=== PATIENT | male | born 1950 | race Caucasian/White ===

== ENCOUNTER 2016-10-25 09:31 | Inpatient (IN) | payer MEDICARE, MEDICAID ==
[2016-10-25] VITALS (7 sets, daily range): BP systolic 87–146; BP diastolic 56–81
[~2016-10-25] VITALS: Ht 172.7 cm; Wt 81.6 kg
[~2016-10-25 09:31] MED LIST: ALBUTEROL2.5 MG/3 M INH; CARVEDILOL3.125 MG ORAL; CLONIDINE HCL0.1 MG PO; COLACE100 MG ORAL; COMBIVENT RESPIM4 GM IH; CRANBERRY400 MG PO; CRANBERRY450 M4 PO; DEPAKOTE500 MG PO; DOCUSATE SODIU100 MG ORAL; HEPARIN SO5000 UNIT2 SUBQ; LISINOPRIL5 MG ORAL; MULTIVITAMINS1 EAC8 ORAL; NITROGLYCERIN0.4 MG SL; PEPCID20 MG ORAL; TRAMADOL HCL100 M2 ORAL; TYLENOL650 MG/20. ORAL
[2016-10-25] MEDS ORDERED: NS 0 ML ONE (10:09)
[2016-10-25] MEDS ORDERED: Vancomycin 1gm inj IVPB ONE (10:09)
[2016-10-25] MEDS ORDERED: NS 275 ML ONE (10:09)
[2016-10-25] MEDS ORDERED: Tubing IV Cassette IV ONE (10:09)
[2016-10-25] MEDS ORDERED: Zosyn 2.25gm inj ONE (10:09)
[2016-10-25] MEDS ORDERED: Aztreonam Inj 1 GM in NS 55 ML IV ONE (10:15)
[2016-10-25] MEDS ORDERED: NS 55 ML IV ONE (10:19)
[2016-10-25 10:24] LABS: APPEARANCE,URINE SLIGHTLY CLOUDY; KETONES,URINE 1+ (NEGATIVE); LEUKOCYTE ESTERASE ,URINE 3+ (NEGATIVE); NITRITE,URINE NEGATIVE (NEGATIVE); PH,URINE 5 (4.5-8.0); PROTEIN,URINE 2+ (NEGATIVE); UROBILINOGEN,URINE 1 MG/DL (0.0-1.0)
--- NOTE | 2016-10-25 10:24 | Emergency Room Report ---
History of Present Illness General Chief Complaint: Dyspnea/Respdistress Source: Medical Record, EMS Present Illness HPI 66 YOM BIBEMS from SNF for low O2 sat. Per EMS, patient had "rales" - was given 2x nitro spray. O2 sat on 100% CPAP only to mid-80s. History of CVA, dementia. No history of CHF, COPD/asthma on review of EMR. Patient is aphasic per review of EMR. Rectal temp fever in ED. Allergies: Coded Allergies: AMOXICILLIN (Unverified Allergy, Unknown, 01/13/15) AMPICILLIN (Unverified Allergy, Unknown, 01/13/15) PENICILLINS (Unverified Allergy, Unknown, 01/13/15) PIPERACILLIN (Unverified Allergy, Unknown, 01/13/15) TAZOBACTAM (Unverified Allergy, Unknown, 01/13/15) Uncoded Allergies: PENICILLIN (Allergy, Unknown, 10/25/16) Patient History Past Medical History: CVA/TIA Past Surgical History: other - trach Pertinent Family History: unable to obtain Social History: Denies: alcohol use, drug use, smoking Immunizations: UTD Reviewed Nursing Documentation: PMH: Agreed, PSxH: Agreed Nursing Documentation-PMH Past Medical History: No History, Except For Hx Cardiac Problems: Yes Hx Hypertension: Yes Hx Diabetes: Yes Hx Cancer: No Hx Gastrointestinal Problems: Yes - dysphagia Hx Cerebrovascular Accident: No - BPH, ENCEPHALOPATHY Hx Encephalitis: Yes Hx Seizures: Yes Review of Systems All Other Systems: limited - unable to obtain Physical Exam Vital Signs Date Time Temp Pulse Resp B/P Pulse Ox O2 Delivery O2 Flow Rate FiO2 10/25/16 09:32 96.1 108 32 89/62 96 15.0 Sp02 EP Interpretation: reviewed, abnormal General Appearance: GCS 15, non-toxic, mild distress Head: normocephalic, atraumatic Eyes: bilateral eye EOMI, bilateral eye PERRL ENT: normal ENT inspection, hearing grossly normal, normal voice Neck: normal inspection, full range of motion, supple, no bony tend Respiratory: normal inspection, respiratory distress, decreased breath sounds, accessory muscle use, rales Cardiovascular #1: normal inspection, normal peripheral pulses, regular rate, rhythm, no JVD Gastrointestinal: normal inspection, normal bowel sounds, non tender, soft, no guarding, no hernia Genitourinary: no CVA tenderness Musculoskeletal: normal inspection, back normal, normal range of motion, Carlos' s Sign negative Neurologic: normal inspection, alert, oriented x3, responsive, crystalizer operator III-XII nml as tested, motor strength/tone normal, speech normal Psychiatric: normal inspection, judgement/insight normal, mood/affect normal Skin: normal inspection, normal color, no rash Lymphatic: normal inspection Procedures Critical Care Time Critical Care Time CC time of 35 minutes for this 66YOM with acute SON DDx includes CHF, COPD exacerbation, ACS, PNA Presents acute SOB warm, c/o acute SOB Patient immediately 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 Febrile. Hypoxic, tachycardic Initial management indicated: CBC, CMP, troponin, BNP, CXR,empiric Abx, BIPAP Highly suspected: flash pulm edema + PNA Possible interventions - BIPAP, additional Abx. CC time included frequent re-exams, interpretation of labs, imaging, adjustment of Abx Critical care time of 35 minutes does not include reportable procedures. Medical Decision Making Diagnostic Impression: Primary Impression: Respiratory distress Additional Impressions: CHF (congestive heart failure) Qualified Codes: I50.9 - Heart failure, unspecified Fever Qualified Codes: R50.9 - Fever, unspecified ER Course Labs: No leuks. Stable H&H. Lactate WNL. Troponin 0. UA with multiple WBCs CXR no PNA, pulm congestion. A: - Improved on bipap - on serial exam, no audible rales/rhonchi after 2 hours on bipap - Empiric Abx given for HCAP Endorsed to Dr Martin for [facility] at 1159am EKG Diagnostic Results Rate: tachycardiac Rhythm: NSR ST Segments: no acute changes ASA given to the pt in ED: No Rhythm Strip Diag. Results EP Interpretation: yes Rate: 110 Rhythm: NSR, no PVC's, no ectopy Chest X-Ray Diagnostic Results EP Interpretation: Yes Findings: no effusion, no pneumothorax, other - Bilateral pulm congestion Last Vital Signs Date Time Temp Pulse Resp B/P Pulse Ox O2 Delivery O2 Flow Rate FiO2 10/25/16 09:32 96.1 108 32 89/62 96 15.0 Status: improved Disposition: ADMITTED INPATIENT Condition: Critical Referrals: CAMILA LANTIGUA (PCP) ANTONIETA CARPIO M.D. Oct 25, 2016 10:24
[2016-10-25 10:27] LABS: MEAN CORPUSCULAR HEMOGLOBIN 31.7 PG (27.0-31.0); MEAN CORPUSCULAR HGB CONC 32.9 G/DL (32.0-36.0); MEAN CORPUSCULAR VOLUME 96 FL (80-99); MEAN PLATELET VOLUME 4.9 FL (6.5-10.1); PLATELET COUNT 176 K/UL (150-450); RED BLOOD COUNT 4.37 M/UL (4.70-6.10); RED CELL DISTRIBUTION WIDTH 13.8 % (11.6-14.8); WHITE BLOOD COUNT 6.4 K/UL (4.8-10.8)
[2016-10-25 10:31] LABS: INR 1.5 (0.9-1.1); PROTHROMBIN TIME 15.5 SEC (9.30-11.50)
[2016-10-25 10:33] LABS: BACTERIA,URINE FEW /HPF; MUCUS,URINE FEW /LPF (NONE/OCC); SQUAMOUS EPITHELIAL CELL,UR OCCASIONAL /LPF (NONE/OCC); WBC,URINE 30-40 /HPF (0 - 0)
[2016-10-25 10:40] LABS: ALANINE AMINOTRANSFERASE 8 U/L (3-41); ANION GAP 15 (5-15); ASPARTATE AMINO TRANSFERASE 17 U/L (5-40); CALCIUM 8.5 mg/dL (8.6-10.2); CARBON DIOXIDE 23 mEQ/L (20-30); CHLORIDE 98 mEQ/L (98-107); CREATININE 0.9 mg/dL (0.7-1.2); GLOMERULAR FILTRATION RATE > 60 mL/min (>60); HEMOLYSIS 4; POTASSIUM 4.4 mEQ/L (3.4-4.9); SODIUM 136 mEQ/L (135-145)
[2016-10-25 10:50] LABS: CKMB < 1.5 ng/mL (< 6.7)
[2016-10-25 10:52] LABS: BAND NEUTROPHILS % (MANUAL) 2 % (0-8); BASOPHILS % (MANUAL) 0 % (0-2); EOSINOPHILS % (MANUAL) 1 % (0-3); LYMPHOCYTES % (MANUAL) 8 % (20-45); NEUTROPHILS % (MANUAL) 86 % (45-75); PLATELET ESTIMATE ADEQUATE; PLATELET MORPHOLOGY NORMAL; TOTAL CELLS COUNTED 100
[2016-10-25 10:54] LABS: TROPONIN I < 0.30 ng/mL (<=0.30)
[2016-10-25] MEDS ORDERED: Acetaminophen 650 MG SUPP RECTAL ONE ×2 (11:03→12:15)
--- NOTE | 2016-10-25 11:09 | Diagnostic Imaging Report ---
Indication: SOB Technique: One view of the chest Comparison: 04/30/2006 Findings: Again demonstrated is right lateral basal pleural thickening with calcification. Previously demonstrated to lines are no longer present. The lungs and pleural spaces are clear. The heart size is normal. Aorta is ectatic. There are degenerative changes and posttraumatic changes of the right shoulder are again demonstrated Impression: Findings as noted. No acute process
[2016-10-25] MEDS ORDERED: COUMADIN7.5 MG ORAL (13:43)
[2016-10-25] MEDS ORDERED: BENADRYL A12.5 MG/5 ORAL (13:43)
[2016-10-25] MEDS ORDERED: vit D3 PO (13:43)
[2016-10-25] MEDS ORDERED: Morphine Sulfate 2mg/ml Inj IVP PRN (16:00)
[2016-10-25] MEDS ORDERED: Nitroglycerin Subl 0.4mg tab (Bottle Of 25) SL PRN (16:00)
[2016-10-25] MEDS ORDERED: Miralax 17gm pkt ORAL PRN (16:00)
--- NOTE | 2016-10-25 16:35 | Consultation ---
Consult Note Consult Note ID CONSULT: Dict# [id number] Assessment/Plan ASSESSMENT: 66 y/o male with: // Probable UTI - UCx pending // r/o HCAP, aspiration // Sepsis // Fever, no leukocytosis // Acute respiratory failure / hypoxia / BiPAP-->FM ?etiology - CXR: no acute process // h/o CVA, aphasia // NH resident // PCN, levaquin allergies - unable to qualify // Full Code PLAN: - continue empiric IV vancomycin d# 1, add aztreonam d# 1 GNR coverage - check influenza - f/u cultures - monitor CBC, temperatures - monitor BMP - monitor CXR - aspiration precautions Thanks! Will follow YUDITH DESAI Oct 25, 2016 16:35
[2016-10-25 16:36] LABS: MAGNESIUM 1.3 mg/dL (1.7-2.5); PHOSPHORUS 2.3 mg/dL (2.5-4.8)
[2016-10-25 17:04] LABS: ABG ALLEN TEST POSITIVE; ABG BASE EXCESS -1.6
[2016-10-25] MEDS ORDERED: Vancomycin 1.5 GM in D5W 325 ML IVPB ONE (18:00)
[2016-10-25] MEDS: Depakote 500mg tab ORAL SCH (18:09)
[2016-10-25 18:37] LABS: APPEARANCE,URINE SLIGHTLY CLOUDY; KETONES,URINE NEGATIVE (NEGATIVE); LEUKOCYTE ESTERASE ,URINE 2+ (NEGATIVE); NITRITE,URINE NEGATIVE (NEGATIVE); PH,URINE 5 (4.5-8.0); PROTEIN,URINE 1+ (NEGATIVE); UROBILINOGEN,URINE NORMAL MG/DL (0.0-1.0)
[2016-10-25 18:49] LABS: RBC,URINE TNTC /HPF (0 - 0)
[2016-10-25 18:50] LABS: BACTERIA,URINE OCCASIONAL /HPF; SQUAMOUS EPITHELIAL CELL,UR OCCASIONAL /LPF (NONE/OCC)
[2016-10-25] MEDS: Aztreonam Inj 1 GM in D5W 55 ML IVPB SCH (20:10)
[2016-10-25] MEDS: Heparin 5000 units/ml inj SUBQ SCH (20:43)
[2016-10-25] MEDS: NovoLOG Insulin Flexpen SUBQ SCH (20:43)
--- NOTE | 2016-10-25 20:49 | Consultation ---
DATE OF CONSULTATION: 10/25/2016 INFECTIOUS DISEASE CONSULTATION REQUESTING PHYSICIAN: Lani Martin M.D. REASON FOR CONSULTATION: Sepsis. HISTORY OF PRESENT ILLNESS: This is a 66-year-old male with a history of stroke admitted from the [facility] on 10/25/2016 with hypoxia. Chest x-ray shows no acute process. He initially required BiPAP and is now on face mask. The patient is unable to provide any information. He meets sepsis criteria. Cultures are pending. He has been started on empiric IV vancomycin. ID now consulted to assist in management. PAST MEDICAL HISTORY: 1. Stroke. 2. BPH. 3. Dysphagia. 4. Chronic encephalopathy. PAST SURGICAL HISTORY: 1. Previous trach, now healed. 2. Abdominal scar, unknown surgery. MEDICATIONS: 1. Vancomycin. 2. Lisinopril. 3. Subcutaneous heparin. 4. Depakote. ALLERGIES: 1. Penicillin, unable to qualify. 2. Levaquin, unable to qualify. FAMILY HISTORY: Noncontributory. SOCIAL HISTORY: The patient is resident of a correction. No active tobacco, alcohol, or illicit drug abuse. REVIEW OF SYSTEMS: Unable to obtain. PHYSICAL EXAMINATION: VITAL SIGNS: Maximum temperature 101.9, blood pressure 141/79, heart rate 109, respiratory rate 25, saturating 97% on face mask. GENERAL: The patient is nonverbal. CARDIOVASCULAR: Tachycardic. No murmurs. PULMONARY: Clear to auscultation bilaterally. ABDOMEN: Bowel sounds present. Soft, nondistended, and nontender. EXTREMITIES: No edema. LABORATORY DATA: White blood cell count 6.4 with left shift, hemoglobin 13.8, platelets 176,000. Sodium 136, potassium 4.4, chloride 98, bicarbonate 23, BUN 16, and creatinine 0.9. Lactic acid 1. Liver function tests within normal limits. Troponin negative x1. MICROBIOLOGY: 1. On 10/25/2016, blood culture pending. 2. On 10/25/2016, urine culture pending. IMAGING: On 10/25/2016, chest x-ray no acute process. ASSESSMENT: 1. Probable urinary tract infection, urine culture is pending. 2. Rule out healthcare-associated or aspiration pneumonia. 3. Sepsis. 4. Fever. 5. No leukocytosis. 6. Acute respiratory failure/hypoxia/BiPAP now on face mask, questionable etiology. Chest x-ray shows no acute process. 7. History of stroke. 8. intermediate resident. 9. Penicillin and Levaquin allergies unable to qualify. 10. Full Code. PLAN: 1. Continue empiric IV vancomycin day #1 and add aztreonam day #1 gram-negative safia coverage. 2. Follow up cultures. 3. Monitor CBC and temperatures. 4. Monitor BMP. 5. Monitor chest x-ray. 6. Aspiration precautions. Thank you. We will follow. Mane Keller M.D. DR: Alie JOB#: [id number] CC: Lani Martin M.D.; Fax#: [phone] Muro M.D; Fax#: [phone]
--- NOTE | 2016-10-25 23:40 | History and Physical ---
History of Present Illness General Date patient seen: Oct 25, 2016 Reason for Hospitalization: Dyspnea/Respdistress Present Illness HPI 66 year old male with hx of CVA/dementia, aphasic, residential resident, brought in by paramedics because of fever and desaturation. Patient was hypoxemic and admitted to [facility] for further care. Pt looks awake but can't give any history. He looks slightly short of breath with audible wheezing. Allergies: Coded Allergies: AMOXICILLIN (Unverified Allergy, Unknown, 01/13/15) AMPICILLIN (Unverified Allergy, Unknown, 01/13/15) PENICILLINS (Unverified Allergy, Unknown, 01/13/15) PIPERACILLIN (Unverified Allergy, Unknown, 01/13/15) TAZOBACTAM (Unverified Allergy, Unknown, 01/13/15) LEVOFLOXACIN (Verified Adverse Reaction, Intermediate, 10/25/16) Red erythematous rash outbreak near IV site Medication History Scheduled Carvedilol* (Carvedilol*), 3.125 MG ORAL EVERY 12 HOURS, (Reported) Cranberry Fruit Concentrate (Cranberry), 450 MG PO DAILY, (Reported) Divalproex Sodium (Depakote), 500 MG PO THREE TIMES A DAY, (Reported) Docusate Sodium* (Docusate Sodium*), 200 MG ORAL BID, (Reported) Famotidine (Pepcid), 20 MG ORAL BEDTIME, (Reported) Heparin Sod (Porcine) (Heparin Sodium*), 5,000 UNITS SUBQ TWICE A DAY, (Reported ) Lisinopril (Lisinopril*), 5 MG ORAL DAILY, (Reported) Multivitamin With Minerals (Multivitamins With Minerals*), 1 TAB ORAL DAILY, ( Reported) Warfarin Sod (Coumadin*), 7 MG ORAL DAILY, (Reported) [vit D3], 5,000 UNITS PO DAILY, (Reported) Scheduled PRN Acetaminophen (Acetaminophen), 650 MG ORAL Q4HR PRN for Prn Headache/Temp > 101, (Reported) Albuterol Sulfate* (Albuterol Sulfate Hhn*), 3 ML INH Q4H PRN for Shortness of Breath, (Reported) Clonidine Hcl (Clonidine Hcl), 0.1 MG PO EVERY 8 HOURS PRN for For High Blood Pressure, (Reported) Diphenhydramine Hcl* (Benadryl Allergy*), 25 MG ORAL Q8 PRN for Itching, ( Reported) Tramadol Hcl (Tramadol Hcl), 50 MG ORAL TID PRN for For Pain, (Reported) Miscellaneous Medications Ipratropium/Albuterol Sulfate (Combivent Respimat Inhal [place]), 4 GM IH, ( Reported) Nitroglycerin (Nitroglycerin), 0.4 MG SL, (Reported) Patient History Healthcare decision maker Resuscitation status Advanced Directive on File Past Medical/Surgical History Past Medical/Surgical History: (1) Feeding by G-tube (2) Chronic complete quadriplegia Review of Systems All Other Systems: negative except mentioned in HPI Physical Exam Lines, tubes and drains: peripheral HEENT: normocephalic, atraumatic Neck: non-tender, normal alignment Respiratory/Chest: rhonchi - left, rhonchi - right, expiratory wheezing Cardiovascular/Chest: normal peripheral pulses, regular rhythm Abdomen: normal bowel sounds, non tender, hyperactive bowel sounds Genitourinary/Rectal: normal rectal exam Extremities: normal range of motion, non-tender Last 24 Hour Vital Signs Date Time Temp Pulse Resp B/P Pulse Ox O2 Delivery O2 Flow Rate FiO2 10/25/16 20:00 93 10/25/16 20:00 98.1 96 20 114/71 99 Simple Mask 5.0 10/25/16 16:00 97.7 104 17 106/65 97 Simple Mask 5.0 10/25/16 16:00 111 10/25/16 14:00 99.9 109 25 141/79 97 Simple Mask 10/25/16 14:00 115 10/25/16 13:33 101.9 109 28 146/81 98 Bi-pap 15.0 100 10/25/16 13:30 102 22 100 Facial 100 10/25/16 12:00 109 28 146/81 98 Bi-pap 100 10/25/16 11:00 108 26 100 Facial 15.0 100 10/25/16 10:30 104 28 143/76 98 Bi-pap 100 10/25/16 10:00 101.9 109 28 90/62 98 Bi-pap 100 10/25/16 09:40 113 33 Bi-pap 15.0 100 10/25/16 09:40 100 10/25/16 09:40 113 33 100 Facial 15.0 100 10/25/16 09:32 96.1 108 32 89/62 96 15.0 10/25/16 09:31 114 36 87/56 98 Bi-pap 100 10/25/16 09:31 114 36 Bi-pap 100 Laboratory Tests Test 10/25/16 10:15 10/25/16 16:50 10/25/16 16:57 White Blood Count 6.4 K/UL (4.8-10.8) Red Blood Count 4.37 M/UL (4.70-6.10) L Hemoglobin 13.8 G/DL (14.2-18.0) L Hematocrit 42.1 % (42.0-52.0) Mean Corpuscular Volume 96 FL (80-99) Mean Corpuscular Hemoglobin 31.7 PG (27.0-31.0) H Mean Corpuscular Hemoglobin Concent 32.9 G/DL (32.0-36.0) Red Cell Distribution Width 13.8 % (11.6-14.8) Platelet Count 176 K/UL (150-450) Mean Platelet Volume 4.9 FL (6.5-10.1) L Neutrophils (%) (Auto) % (45.0-75.0) Lymphocytes (%) (Auto) % (20.0-45.0) Monocytes (%) (Auto) % (1.0-10.0) Eosinophils (%) (Auto) % (0.0-3.0) Basophils (%) (Auto) % (0.0-2.0) Differential Total Cells Counted 100 Neutrophils % (Manual) 86 % (45-75) H Lymphocytes % (Manual) 8 % (20-45) L Monocytes % (Manual) 3 % (1-10) Eosinophils % (Manual) 1 % (0-3) Basophils % (Manual) 0 % (0-2) Band Neutrophils 2 % (0-8) Platelet Estimate Adequate Platelet Morphology Normal Red Blood Cell Morphology Normal Prothrombin Time 15.5 SEC (9.30-11.50) H Prothromb Time International Ratio 1.5 (0.9-1.1) H Activated Partial Thromboplast Time 29 SEC (23-33) Urine Color Yellow Yellow Urine Appearance Slightly cloudy Slightly cloudy Urine pH 5 (4.5-8.0) 5 (4.5-8.0) Urine Specific [place] 1.010 (1.005-1.035) 1.010 (1.005-1.035) Urine Protein 2+ (NEGATIVE) H 1+ (NEGATIVE) H Urine Glucose (UA) Negative (NEGATIVE) Negative (NEGATIVE) Urine Ketones 1+ (NEGATIVE) H Negative (NEGATIVE) Urine Occult Blood 4+ (NEGATIVE) H 5+ (NEGATIVE) H Urine Nitrite Negative (NEGATIVE) Negative (NEGATIVE) Urine Bilirubin Negative (NEGATIVE) Negative (NEGATIVE) Urine Urobilinogen 1 MG/DL (0.0-1.0) H Normal MG/DL (0.0-1.0) Urine Leukocyte Esterase 3+ (NEGATIVE) H 2+ (NEGATIVE) H Urine RBC 5-10 /HPF (0 - 0) H Tntc /HPF (0 - 0) H Urine WBC 30-40 /HPF (0 - 0) H 10-15 /HPF (0 - 0) H Urine Squamous Epithelial Cells Occasional /LPF Occasional /LPF Urine Bacteria Few /HPF (NONE) Occasional /HPF (NONE) Urine Mucus Few /LPF (NONE/OCC) H Sodium Level 136 mEQ/L (135-145) Potassium Level 4.4 mEQ/L (3.4-4.9) Chloride Level 98 mEQ/L (98-107) Carbon Dioxide Level 23 mEQ/L (20-30) Anion Gap 15 (5-15) Blood Urea Nitrogen 16 mg/dL (7-23) Creatinine 0.9 mg/dL (0.7-1.2) Estimat Glomerular Filtration Rate > 60 mL/min (>60) Glucose Level 146 mg/dL (74-106) H Plasma/Serum Osmolality Pending Lactic Acid Level 1.00 mmol/L (0.66-2.22) Uric Acid 7.0 mg/dL (3.0-7.5) Calcium Level 8.5 mg/dL (8.6-10.2) L Phosphorus Level 2.3 mg/dL (2.5-4.8) L Magnesium Level 1.3 mg/dL (1.7-2.5) L Total Bilirubin 0.5 mg/dL (0.0-1.2) Aspartate Amino Transf (AST/SGOT) 17 U/L (5-40) Alanine Aminotransferase (ALT/SGPT) 8 U/L (3-41) Alkaline Phosphatase 72 U/L (40-129) Total Creatine Kinase 99 U/L (38-174) Creatine Kinase MB < 1.5 ng/mL (< 6.7) Creatine Kinase MB Relative Index 1.5 Troponin I < 0.30 ng/mL (<=0.30) Pro-B-Type Natriuretic Peptide 75 pg/mL (0-125) Total Protein 7.0 g/dL (6.6-8.7) Albumin 3.5 g/dL (3.5-5.2) Globulin 3.5 g/dL Albumin/Globulin Ratio 1.0 (1.0-2.7) Free Thyroxine 0.97 ng/dL (0.86-1.85) Urine Eosinophils None seen Urine Osmolality Pending Urine Random Sodium 64 mmol/L Urine Random Chloride 91 mmol/L Urine Potassium Timed 50 mmol/L Arterial Blood pH 7.350 (7.350-7.450) Arterial Blood Partial Pressure CO2 45.0 mmHg (35.0-45.0) Arterial Blood Partial Pressure O2 400.6 mmHg (75.0-100.0) H Arterial Blood HCO3 24.3 mmol/L (22.0-26.0) Arterial Blood Oxygen Saturation 99.8 % (92.0-98.0) H Arterial Blood Base Excess -1.6 Turner Test Positive Microbiology Date/Time Source Procedure Growth Status 10/25/16 18:30 Nasopharynx Influenza Types A,B Antigen (SYED) - Final Complete Height (Feet): 5 Height (Inches): 8.00 Weight (Pounds): 180 Medications Current Medications Medications (Trade) Dose Ordered Sig/Baljeet Route PRN Reason Start Time Stop Time Status Last Admin Dose Admin Acetaminophen (Tylenol) 650 mg Q4H PRN ORAL fever 10/25/16 16:00 11/24/16 15:59 Albuterol/ Ipratropium (DuoNeb 0.5-3(2.5)mg/3ml) 3 ml EVERY 4 HOURS PRN HHN Shortness of Breath 10/25/16 16:00 10/30/16 15:59 Aztreonam/Dextrose (Azactam/D5W) 55 ml @ 110 mls/hr Q8HR IVPB 10/25/16 20:00 11/01/16 19:59 10/25/16 20:10 Dextrose STAT PRN IV Hypoglycemia 10/25/16 16:00 11/24/16 15:59 Divalproex Sodium (Depakote) 500 mg THREE TIMES A DAY ORAL 10/25/16 18:00 11/24/16 17:59 10/25/16 18:09 Heparin Sodium (Porcine) (Heparin 5000 units/ml) 5,000 units EVERY 12 HOURS SUBQ 10/25/16 21:00 11/24/16 20:59 10/25/16 20:43 Insulin Aspart (NovoLOG) BEFORE MEALS AND HS SUBQ 10/25/16 21:00 11/24/16 20:59 10/25/16 20:43 Lisinopril 5 mg 5 mg DAILY ORAL 10/26/16 09:00 11/25/16 08:59 Morphine Sulfate (Morphine Sulfate) 2 mg EVERY 4 HOURS PRN IVP Moderate Pain (Pain Scale 4-6) 10/25/16 16:00 11/01/16 15:59 Nitroglycerin (Ntg) 0.4 mg Q5M PRN SL Prn Chest Pain 10/25/16 16:00 11/24/16 15:59 Ondansetron HCl (Zofran) 4 mg Q6H PRN IVP Nausea & Vomiting 10/25/16 16:00 11/24/16 15:59 Polyethylene Glycol (Miralax) 17 gm DAILYPRN PRN ORAL Constipation 10/25/16 16:00 11/24/16 15:59 Sodium Chloride (Sodium Chloride 1000ml bag) 1,000 ml @ 100 mls/hr Q10H IVLG 10/26/16 00:00 11/25/16 00:00 Temazepam (Restoril) 15 mg HSPRN PRN ORAL Insomnia 10/25/16 16:00 11/01/16 15:59 Vancomycin HCl 1 ea 1 ea DAILY PRN MISC . 10/25/16 16:45 11/24/16 16:44 Vancomycin HCl/ Dextrose (Vancomycin/D5W) 275 ml @ 183.708 mls/hr Q12HR@0600,1800 IVPB 10/26/16 06:00 10/31/16 05:59 Assessment/Plan Problem List: (1) Respiratory distress ICD Codes: R06.00 - Dyspnea, unspecified SNOMED: 277215793 (2) CHF (congestive heart failure) ICD Codes: I50.9 - Heart failure, unspecified SNOMED: 11152128 Qualifiers: Qualified Codes: I50.9 - Heart failure, unspecified (3) Severe sepsis ICD Codes: A41.9 - Sepsis, unspecified organism; R65.20 - Severe sepsis without septicshock SNOMED: 05991560 (4) Constipation ICD Codes: K59.00 - Constipation SNOMED: 06900206 (5) Gastric distention ICD Codes: K31.89 - Gastric distention SNOMED: 564447390 (6) Chronic complete quadriplegia ICD Codes: G82.50 - Chronic complete quadriplegia SNOMED: 23219800 Respiratory: monitor respiratory rate, adjust FIO2, CXR Renal: F/U I&O, keep IV fluid, check electrolytes Gastrointestinal: continue feedings/current rate, hold feedings Endocrine: monitor blood sugar Hematologic: monitor H/H Neurologic: PRN Morphine Prophylaxis: Protonix, Heparin Notes Reviewed: renal, ID Discussed with: consultants LATRICE DEL RIO Oct 25, 2016 23:40
[2016-10-26] VITALS: BP 123/71
[2016-10-26 04:00] VITALS: BP 116/62
[2016-10-26 04:36] LABS: BASOPHILS % (AUTO) 0.5 % (0.0-2.0); EOSINOPHILS % (AUTO) 0.4 % (0.0-3.0); LYMPHOCYTES % (AUTO) 7.5 % (20.0-45.0); MEAN CORPUSCULAR VOLUME 97 FL (80-99); MEAN PLATELET VOLUME 5.4 FL (6.5-10.1); NEUTROPHILS % (AUTO) 84.6 % (45.0-75.0); PLATELET COUNT 118 K/UL (150-450); RED BLOOD COUNT 3.72 M/UL (4.70-6.10); RED CELL DISTRIBUTION WIDTH 13.6 % (11.6-14.8); WHITE BLOOD COUNT 3.9 K/UL (4.8-10.8)
[2016-10-26] MEDS: Aztreonam Inj 1 GM in D5W 55 ML IVPB SCH ×3 (05:09→22:27)
[2016-10-26 05:17] LABS: ALANINE AMINOTRANSFERASE 9 U/L (3-41); ALBUMIN/GLOBULIN RATIO 0.8 (1.0-2.7); ANION GAP 11 (5-15); ASPARTATE AMINO TRANSFERASE 18 U/L (5-40); CALCIUM 8.5 mg/dL (8.6-10.2); CARBON DIOXIDE 28 mEQ/L (20-30); CHLORIDE 99 mEQ/L (98-107); GLOMERULAR FILTRATION RATE > 60 mL/min (>60); HEMOLYSIS 3; POTASSIUM 4.4 mEQ/L (3.4-4.9); SODIUM 138 mEQ/L (135-145); TOTAL PROTEIN 6.3 g/dL (6.6-8.7)
[2016-10-26] MEDS: NovoLOG Insulin Flexpen SUBQ SCH ×4 (06:20→21:11)
[2016-10-26] MEDS: Vancomycin 1gm/D5W 275ml IVPB SCH ×4 (06:21→18:00)
[2016-10-26] MEDS: DuoNeb 0.5-3(2.5)mg/3ml neb HHN PRN ×2 (06:24→18:04)
[2016-10-26 08:00] VITALS: BP 102/56
[2016-10-26] MEDS: Depakote 500mg tab ORAL SCH ×3 (08:55→18:00)
[2016-10-26] MEDS: Heparin 5000 units/ml inj SUBQ SCH ×2 (08:56→21:10)
[2016-10-26] MEDS: Lisinopril 2.5mg tab ORAL SCH (08:56)
[2016-10-26 12:00] VITALS: BP 102/54
--- NOTE | 2016-10-26 14:34 | Infectious Diseases Prog Note ---
Assessment/Plan Assessment/Plan ASSESSMENT: 66 y/o male with: // Probable UTI - UCx 50-60K GPC // r/o HCAP, aspiration // Negative influenza // Sepsis // Fever - persistent, no leukocytosis // Acute respiratory failure / hypoxia / BiPAP-->FM ?etiology - CXR: no acute process // Elevated ESR // h/o CVA, aphasia // NH resident // PCN, levaquin allergies - unable to qualify // Full Code PLAN: - continue empiric IV vancomycin, aztreonam d# 2 pending cultures - f/u cultures - monitor CBC, temperatures - monitor BMP - monitor CXR - aspiration precautions Subjective Allergies: Coded Allergies: AMOXICILLIN (Unverified Allergy, Unknown, 01/13/15) AMPICILLIN (Unverified Allergy, Unknown, 01/13/15) PENICILLINS (Unverified Allergy, Unknown, 01/13/15) PIPERACILLIN (Unverified Allergy, Unknown, 01/13/15) TAZOBACTAM (Unverified Allergy, Unknown, 01/13/15) LEVOFLOXACIN (Verified Adverse Reaction, Intermediate, 10/25/16) Red erythematous rash outbreak near IV site Subjective pt unable to provide any information fevers persist Objective Vital Signs Last 24 Hour Vital Signs Date Time Temp Pulse Resp B/P Pulse Ox O2 Delivery O2 Flow Rate FiO2 10/26/16 12:00 102 10/26/16 12:00 100.2 101 18 102/54 95 Simple Mask 5.0 10/26/16 08:56 102/56 10/26/16 08:00 108 10/26/16 08:00 100.2 105 28 102/56 98 Simple Mask 5.0 10/26/16 06:34 85 24 98 Simple Mask 6.0 10/26/16 06:24 95 26 Simple Mask 6.0 100 10/26/16 06:24 95 26 97 Simple Mask 6.0 10/26/16 06:24 Simple Mask 6.0 10/26/16 06:24 97 Simple Mask 6.0 10/26/16 04:00 99.0 97 24 116/62 100 Simple Mask 5.0 10/26/16 03:34 94 10/26/16 00:00 97.7 94 24 123/71 100 Simple Mask 5.0 10/25/16 23:57 94 10/25/16 20:00 93 10/25/16 20:00 98.1 96 20 114/71 99 Simple Mask 5.0 10/25/16 19:47 91 24 Simple Mask 6.0 100 10/25/16 19:00 Simple Mask 6.0 10/25/16 19:00 99 Simple Mask 6.0 10/25/16 16:00 97.7 104 17 106/65 97 Simple Mask 5.0 10/25/16 16:00 111 Height (Feet): 5 Height (Inches): 8.00 Weight (Pounds): 180 General Appearance: no acute distress Respiratory/Chest: no respiratory distress Cardiovascular: normal rate, regular rhythm Abdomen: normal bowel sounds, soft, non tender, non distended Microbiology Date/Time Source Procedure Growth Status 10/25/16 18:30 Nasopharynx Influenza Types A,B Antigen (SYED) - Final Complete 10/25/16 10:15 Urine,Clean Catch Urine Culture - Preliminary Gram Positive Cocci Resulted Laboratory Tests Test 10/25/16 16:50 10/25/16 16:57 10/26/16 03:45 Urine Color Yellow Urine Appearance Slightly cloudy Urine pH 5 (4.5-8.0) Urine Specific [place] 1.010 (1.005-1.035) Urine Protein 1+ (NEGATIVE) H Urine Glucose (UA) Negative (NEGATIVE) Urine Ketones Negative (NEGATIVE) Urine Occult Blood 5+ (NEGATIVE) H Urine Nitrite Negative (NEGATIVE) Urine Bilirubin Negative (NEGATIVE) Urine Urobilinogen Normal MG/DL (0.0-1.0) Urine Leukocyte Esterase 2+ (NEGATIVE) H Urine RBC Tntc /HPF (0 - 0) H Urine WBC 10-15 /HPF (0 - 0) H Urine Squamous Epithelial Cells Occasional /LPF Urine Bacteria Occasional /HPF (NONE) Urine Eosinophils None seen Urine Osmolality Pending Urine Random Sodium 64 mmol/L Urine Random Chloride 91 mmol/L Urine Potassium Timed 50 mmol/L Arterial Blood pH 7.350 (7.350-7.450) Arterial Blood Partial Pressure CO2 45.0 mmHg (35.0-45.0) Arterial Blood Partial Pressure O2 400.6 mmHg (75.0-100.0) H Arterial Blood HCO3 24.3 mmol/L (22.0-26.0) Arterial Blood Oxygen Saturation 99.8 % (92.0-98.0) H Arterial Blood Base Excess -1.6 Turner Test Positive White Blood Count 3.9 K/UL (4.8-10.8) L Red Blood Count 3.72 M/UL (4.70-6.10) L Hemoglobin 12.3 G/DL (14.2-18.0) L Hematocrit 36.1 % (42.0-52.0) L Mean Corpuscular Volume 97 FL (80-99) Mean Corpuscular Hemoglobin 33.0 PG (27.0-31.0) H Mean Corpuscular Hemoglobin Concent 34.0 G/DL (32.0-36.0) Red Cell Distribution Width 13.6 % (11.6-14.8) Platelet Count 118 K/UL (150-450) L Mean Platelet Volume 5.4 FL (6.5-10.1) L Neutrophils (%) (Auto) 84.6 % (45.0-75.0) H Lymphocytes (%) (Auto) 7.5 % (20.0-45.0) L Monocytes (%) (Auto) 7.0 % (1.0-10.0) Eosinophils (%) (Auto) 0.4 % (0.0-3.0) Basophils (%) (Auto) 0.5 % (0.0-2.0) Erythrocyte Sedimentation Rate 36 MM/HR (0-20) H Sodium Level 138 mEQ/L (135-145) Potassium Level 4.4 mEQ/L (3.4-4.9) Chloride Level 99 mEQ/L (98-107) Carbon Dioxide Level 28 mEQ/L (20-30) Anion Gap 11 (5-15) Blood Urea Nitrogen 18 mg/dL (7-23) Creatinine 1.0 mg/dL (0.7-1.2) Estimat Glomerular Filtration Rate > 60 mL/min (>60) Glucose Level 102 mg/dL (74-106) Calcium Level 8.5 mg/dL (8.6-10.2) L Total Bilirubin 0.4 mg/dL (0.0-1.2) Aspartate Amino Transf (AST/SGOT) 18 U/L (5-40) Alanine Aminotransferase (ALT/SGPT) 9 U/L (3-41) Alkaline Phosphatase 69 U/L (40-129) Total Protein 6.3 g/dL (6.6-8.7) L Albumin 2.8 g/dL (3.5-5.2) L Globulin 3.5 g/dL Albumin/Globulin Ratio 0.8 (1.0-2.7) L Thyroid Stimulating Hormone (TSH) 1.450 uIU/mL (0.300-4.500) Current Medications Medications (Trade) Dose Ordered Sig/Baljeet Route PRN Reason Start Time Stop Time Status Last Admin Dose Admin Acetaminophen (Tylenol) 650 mg Q4H PRN ORAL fever 10/25/16 16:00 11/24/16 15:59 Albuterol/ Ipratropium (DuoNeb 0.5-3(2.5)mg/3ml) 3 ml EVERY 4 HOURS PRN HHN Shortness of Breath 10/25/16 16:00 10/30/16 15:59 10/26/16 06:24 Aztreonam/Dextrose (Azactam/D5W) 55 ml @ 110 mls/hr Q8HR IVPB 10/25/16 20:00 11/01/16 19:59 10/26/16 13:26 Dextrose STAT PRN IV Hypoglycemia 10/25/16 16:00 11/24/16 15:59 Divalproex Sodium (Depakote) 500 mg THREE TIMES A DAY ORAL 10/25/16 18:00 11/24/16 17:59 10/26/16 13:01 Heparin Sodium (Porcine) (Heparin 5000 units/ml) 5,000 units EVERY 12 HOURS SUBQ 10/25/16 21:00 11/24/16 20:59 10/25/16 20:43 Insulin Aspart (NovoLOG) BEFORE MEALS AND HS SUBQ 10/25/16 21:00 11/24/16 20:59 10/26/16 06:20 Lisinopril 5 mg 5 mg DAILY ORAL 10/26/16 09:00 11/25/16 08:59 Morphine Sulfate (Morphine Sulfate) 2 mg EVERY 4 HOURS PRN IVP Moderate Pain (Pain Scale 4-6) 10/25/16 16:00 11/01/16 15:59 Nitroglycerin (Ntg) 0.4 mg Q5M PRN SL Prn Chest Pain 10/25/16 16:00 11/24/16 15:59 Ondansetron HCl (Zofran) 4 mg Q6H PRN IVP Nausea & Vomiting 10/25/16 16:00 11/24/16 15:59 Polyethylene Glycol (Miralax) 17 gm DAILYPRN PRN ORAL Constipation 10/25/16 16:00 11/24/16 15:59 Sodium Chloride (Sodium Chloride 1000ml bag) 1,000 ml @ 100 mls/hr Q10H IVLG 10/26/16 00:00 11/25/16 00:00 10/26/16 10:12 Temazepam (Restoril) 15 mg HSPRN PRN ORAL Insomnia 10/25/16 16:00 11/01/16 15:59 Vancomycin HCl 1 ea 1 ea DAILY PRN MISC . 10/25/16 16:45 11/24/16 16:44 Vancomycin HCl/ Dextrose (Vancomycin/D5W) 275 ml @ 183.708 mls/hr Q12HR@0600,1800 IVPB 10/26/16 06:00 10/31/16 05:59 10/26/16 06:21 YUDITH DESAI Oct 26, 2016 14:34
--- NOTE | 2016-10-26 15:35 | Pulmonology Progress Note ---
Assessment/Plan Problems: (1) Respiratory distress (2) CHF (congestive heart failure) (3) Severe sepsis (4) Constipation (5) Gastric distention (6) Chronic complete quadriplegia Respiratory: monitor respiratory rate, adjust FIO2, CXR Renal: F/U I&O, keep IV fluid Infectious Disease: check cultures, continue antibiotics Gastrointestinal: continue feedings/current rate Endocrine: check TSH, check HgA1C Neurologic: PRN Ativan Affect: PRN ativan Prophylaxis: Heparin Notes Reviewed: ID Discussed with: nurses, consultants, telephonic case manager Subjective ROS Limited/Unobtainable: Yes Allergies: Coded Allergies: AMOXICILLIN (Unverified Allergy, Unknown, 01/13/15) AMPICILLIN (Unverified Allergy, Unknown, 01/13/15) PENICILLINS (Unverified Allergy, Unknown, 01/13/15) PIPERACILLIN (Unverified Allergy, Unknown, 01/13/15) TAZOBACTAM (Unverified Allergy, Unknown, 01/13/15) LEVOFLOXACIN (Verified Adverse Reaction, Intermediate, 10/25/16) Red erythematous rash outbreak near IV site Objective Last 24 Hour Vital Signs Date Time Temp Pulse Resp B/P Pulse Ox O2 Delivery O2 Flow Rate FiO2 10/26/16 12:00 102 10/26/16 12:00 100.2 101 18 102/54 95 Simple Mask 5.0 10/26/16 08:56 102/56 10/26/16 08:00 108 10/26/16 08:00 100.2 105 28 102/56 98 Simple Mask 5.0 10/26/16 06:34 85 24 98 Simple Mask 6.0 10/26/16 06:24 95 26 Simple Mask 6.0 100 10/26/16 06:24 95 26 97 Simple Mask 6.0 10/26/16 06:24 Simple Mask 6.0 10/26/16 06:24 97 Simple Mask 6.0 10/26/16 04:00 99.0 97 24 116/62 100 Simple Mask 5.0 10/26/16 03:34 94 10/26/16 00:00 97.7 94 24 123/71 100 Simple Mask 5.0 10/25/16 23:57 94 10/25/16 20:00 93 10/25/16 20:00 98.1 96 20 114/71 99 Simple Mask 5.0 10/25/16 19:47 91 24 Simple Mask 6.0 100 10/25/16 19:00 Simple Mask 6.0 10/25/16 19:00 99 Simple Mask 6.0 10/25/16 16:00 97.7 104 17 106/65 97 Simple Mask 5.0 10/25/16 16:00 111 Intake and Output 10/25/16 10/26/16 19:00 07:00 Intake Total 630 ml 906.208 ml Output Total 600 ml 800 ml Balance 30 ml 106.208 ml Intake Oral 0 ml 100 ml IV Total 630 ml 806.208 ml Output Urine Total 600 ml 800 ml # Bowel Movements 1 Objective Lines, tubes and drains: peripheral HEENT: normocephalic, atraumatic Neck: non-tender, normal alignment Respiratory/Chest: rhonchi - left, rhonchi - right, expiratory wheezing Cardiovascular/Chest: normal peripheral pulses, regular rhythm Abdomen: normal bowel sounds, non tender, hyperactive bowel sounds Genitourinary/Rectal: normal rectal exam Extremities: normal range of motion, non-tender Microbiology Date/Time Source Procedure Growth Status 10/25/16 18:30 Nasopharynx Influenza Types A,B Antigen (SYED) - Final Complete 10/25/16 10:15 Urine,Clean Catch Urine Culture - Preliminary Gram Positive Cocci Resulted Laboratory Tests 10/25/16 16:50: Urine Color Yellow, Urine Appearance Slightly cloudy, Urine pH 5, Urine Specific [place] 1.010, Urine Protein 1+H, Urine Glucose (UA) Negative, Urine Ketones Negative, Urine Occult Blood 5+H, Urine Nitrite Negative, Urine Bilirubin Negative, Urine Urobilinogen Normal, Urine Leukocyte Esterase 2+H, Urine RBC TntcH, Urine WBC 10-15H, Urine Squamous Epithelial Cells Occasional, Urine Bacteria Occasional, Urine Eosinophils None seen, Urine Osmolality [ Pending], Urine Random Sodium 64, Urine Random Chloride 91, Urine Potassium Timed 50 10/25/16 16:57: Arterial Blood pH 7.350, Arterial Blood Partial Pressure CO2 45.0, Arterial Blood Partial Pressure O2 400.6H, Arterial Blood HCO3 24.3, Arterial Blood Oxygen Saturation 99.8H, Arterial Blood Base Excess -1.6, Turner Test Positive 10/26/16 03:45: White Blood Count 3.9L, Red Blood Count 3.72L, Hemoglobin 12.3L, Hematocrit 36.1L, Mean Corpuscular Volume 97, Mean Corpuscular Hemoglobin 33.0H, Mean Corpuscular Hemoglobin Concent 34.0, Red Cell Distribution Width 13.6, Platelet Count 118L, Mean Platelet Volume 5.4L, Neutrophils (%) (Auto) 84.6H, Lymphocytes (%) (Auto) 7.5L, Monocytes (%) (Auto) 7.0, Eosinophils (%) (Auto) 0.4, Basophils (%) (Auto) 0.5, Erythrocyte Sedimentation Rate 36H, Sodium Level 138, Potassium Level 4.4, Chloride Level 99, Carbon Dioxide Level 28, Anion Gap 11, Blood Urea Nitrogen 18, Creatinine 1.0, Estimat Glomerular Filtration Rate > 60, Glucose Level 102, Calcium Level 8.5L, Total Bilirubin 0.4, Aspartate Amino Transf (AST/SGOT) 18, Alanine Aminotransferase (ALT/SGPT) 9, Alkaline Phosphatase 69, Total Protein 6.3L, Albumin 2.8L, Globulin 3.5, Albumin/ Globulin Ratio 0.8L, Thyroid Stimulating Hormone (TSH) 1.450 Current Medications Medications (Trade) Dose Ordered Sig/Baljeet Route PRN Reason Start Time Stop Time Status Last Admin Dose Admin Acetaminophen (Tylenol) 650 mg Q4H PRN ORAL fever 10/25/16 16:00 11/24/16 15:59 Albuterol/ Ipratropium (DuoNeb 0.5-3(2.5)mg/3ml) 3 ml EVERY 4 HOURS PRN HHN Shortness of Breath 10/25/16 16:00 10/30/16 15:59 10/26/16 06:24 Aztreonam/Dextrose (Azactam/D5W) 55 ml @ 110 mls/hr Q8HR IVPB 10/25/16 20:00 11/01/16 19:59 10/26/16 13:26 Dextrose STAT PRN IV Hypoglycemia 10/25/16 16:00 11/24/16 15:59 Divalproex Sodium (Depakote) 500 mg THREE TIMES A DAY ORAL 10/25/16 18:00 11/24/16 17:59 10/26/16 13:01 Heparin Sodium (Porcine) (Heparin 5000 units/ml) 5,000 units EVERY 12 HOURS SUBQ 10/25/16 21:00 11/24/16 20:59 2/15/17 20:43 Insulin Aspart (NovoLOG) BEFORE MEALS AND HS SUBQ 10/25/16 21:00 11/24/16 20:59 10/26/16 06:20 Lisinopril 5 mg 5 mg DAILY ORAL 10/26/16 09:00 11/25/16 08:59 Morphine Sulfate (Morphine Sulfate) 2 mg EVERY 4 HOURS PRN IVP Moderate Pain (Pain Scale 4-6) 10/25/16 16:00 11/01/16 15:59 Nitroglycerin (Ntg) 0.4 mg Q5M PRN SL Prn Chest Pain 10/25/16 16:00 11/24/16 15:59 Ondansetron HCl (Zofran) 4 mg Q6H PRN IVP Nausea & Vomiting 10/25/16 16:00 11/24/16 15:59 Polyethylene Glycol (Miralax) 17 gm DAILYPRN PRN ORAL Constipation 10/25/16 16:00 11/24/16 15:59 Sodium Chloride (Sodium Chloride 1000ml bag) 1,000 ml @ 100 mls/hr Q10H IVLG 10/26/16 00:00 11/25/16 00:00 10/26/16 10:12 Temazepam (Restoril) 15 mg HSPRN PRN ORAL Insomnia 10/25/16 16:00 11/01/16 15:59 Vancomycin HCl 1 ea 1 ea DAILY PRN MISC . 10/25/16 16:45 11/24/16 16:44 Vancomycin HCl/ Dextrose (Vancomycin/D5W) 275 ml @ 183.708 mls/hr Q12HR@0600,1800 IVPB 10/26/16 06:00 10/31/16 05:59 10/26/16 06:21 LATRICE DEL RIO Oct 26, 2016 15:35
[2016-10-26 16:00] VITALS: BP 135/78
[2016-10-26 20:00] VITALS: BP 148/81
[2016-10-27] VITALS: BP 153/87
[2016-10-27 04:20] VITALS: BP 100/63
[2016-10-27] MEDS: Aztreonam Inj 1 GM in D5W 55 ML IVPB SCH ×3 (05:00→21:46)
[2016-10-27] MEDS: DuoNeb 0.5-3(2.5)mg/3ml neb HHN PRN ×2 (05:51→13:48)
[2016-10-27] MEDS: NovoLOG Insulin Flexpen SUBQ SCH ×4 (05:53→21:00)
[2016-10-27 06:22] LABS: ALANINE AMINOTRANSFERASE 13 U/L (3-41); ALBUMIN/GLOBULIN RATIO 0.8 (1.0-2.7); ANION GAP 14 (5-15); ASPARTATE AMINO TRANSFERASE 33 U/L (5-40); CALCIUM 7.8 mg/dL (8.6-10.2); CARBON DIOXIDE 23 mEQ/L (20-30); CHLORIDE 100 mEQ/L (98-107); CREATININE 0.9 mg/dL (0.7-1.2); GLOMERULAR FILTRATION RATE > 60 mL/min (>60); HEMOLYSIS 39; POTASSIUM 4.3 mEQ/L (3.4-4.9); SODIUM 137 mEQ/L (135-145); TOTAL PROTEIN 5.8 g/dL (6.6-8.7)
[2016-10-27] MEDS: Vancomycin 1gm/D5W 275ml IVPB SCH ×2 (06:53)
[2016-10-27 08:09] VITALS: BP 125/76
[2016-10-27] MEDS: Depakote 500mg tab ORAL SCH ×3 (08:14→17:39)
[2016-10-27] MEDS: Lisinopril 2.5mg tab ORAL SCH (08:14)
[2016-10-27] MEDS: Heparin 5000 units/ml inj SUBQ SCH ×2 (08:14→21:50)
--- NOTE | 2016-10-27 08:35 | Diagnostic Imaging Report ---
Indication: Abnormal renal function tests Technique: Grayscale and duplex images of the kidneys, retroperitoneum, and bladder were obtained. Comparison:01/14/2015 Findings: Per technologist, exam is technically difficult Right kidney measures 12.6 cm in length. Left kidney measures 11.6 cm in length. Right kidney demonstrates normal echogenicity. Left kidney demonstrates slightly increased echogenicity. No hydronephrosis. No focal abnormality. Normal inferior vena cava. Bladder is empty, contains a Ceron catheter. Impression: Increased left renal echogenicity, consistent with chronic medical renal disease note that the apparent measurement is likely artifactually long, as prior CT scan of 01/13/2015 demonstrates left kidney to be markedly atrophic Normal right kidney, negative for hydronephrosis Empty bladder with a Ceron catheter.
[2016-10-27 10:03] LABS: MEAN CORPUSCULAR HEMOGLOBIN 30.5 PG (27.0-31.0); MEAN CORPUSCULAR HGB CONC 32.2 G/DL (32.0-36.0); MEAN CORPUSCULAR VOLUME 95 FL (80-99); MEAN PLATELET VOLUME 4.9 FL (6.5-10.1); PLATELET COUNT 110 K/UL (150-450); RED CELL DISTRIBUTION WIDTH 13.8 % (11.6-14.8); WHITE BLOOD COUNT 2.3 K/UL (4.8-10.8)
[2016-10-27 10:45] LABS: BAND NEUTROPHILS % (MANUAL) 5 % (0-8); BASOPHILS % (MANUAL) 0 % (0-2); EOSINOPHILS % (MANUAL) 0 % (0-3); HYPOCHROMASIA 1+; LYMPHOCYTES % (MANUAL) 23 % (20-45); NEUTROPHILS % (MANUAL) 55 % (45-75); PLATELET ESTIMATE DECREASED; PLATELET MORPHOLOGY NORMAL; TOTAL CELLS COUNTED 100
--- NOTE | 2016-10-27 11:24 | Diagnostic Imaging Report ---
Indication: DYSPNEA Technique: One view of the chest Comparison: 10/25/2016 Findings: Somewhat less optimal inspiration currently. This results in crowding of the bronchovascular markings at the lung bases. There is mild interstitial prominence which appears slightly more striking on the prior study. There is central bronchial wall thickening There is calcific pleural scarring at the right lateral lung base. Degenerative changes of both shoulders are again noted Impression: Equivocal new or bilateral basilar interstitial disease, possibly artifact of suboptimal inspiration. Interstitial infiltrates or edema not excludable, however Chronic changes as described
[2016-10-27 12:00] VITALS: BP 111/62
--- NOTE | 2016-10-27 12:06 | Pulmonology Progress Note ---
Assessment/Plan Problems: (1) Respiratory distress (2) CHF (congestive heart failure) (3) Severe sepsis (4) Constipation (5) Gastric distention (6) Chronic complete quadriplegia Assessment/Plan cxr slightly worse fever coming down no cultures yet still episodes of shortness of breath Subjective ROS Limited/Unobtainable: No Interval Events: somnolent Allergies: Coded Allergies: AMOXICILLIN (Unverified Allergy, Unknown, 01/13/15) AMPICILLIN (Unverified Allergy, Unknown, 01/13/15) PENICILLINS (Unverified Allergy, Unknown, 01/13/15) PIPERACILLIN (Unverified Allergy, Unknown, 01/13/15) TAZOBACTAM (Unverified Allergy, Unknown, 01/13/15) LEVOFLOXACIN (Verified Adverse Reaction, Intermediate, 10/25/16) Red erythematous rash outbreak near IV site Objective Last 24 Hour Vital Signs Date Time Temp Pulse Resp B/P Pulse Ox O2 Delivery O2 Flow Rate FiO2 10/27/16 08:45 102 22 Simple Mask 6.0 10/27/16 08:45 98 Simple Mask 6.0 10/27/16 08:45 Simple Mask 6.0 10/27/16 08:14 125/76 10/27/16 08:09 98.7 100 20 125/76 99 Simple Mask 5.0 10/27/16 08:00 104 10/27/16 06:01 110 22 100 Simple Mask 6.0 10/27/16 05:53 110 20 94 Simple Mask 6.0 10/27/16 04:20 98.7 77 22 100/63 99 Simple Mask 5.0 10/27/16 03:38 83 10/27/16 00:00 99.4 115 24 153/87 99 Simple Mask 5.0 10/26/16 23:41 98 10/26/16 22:27 100.1 10/26/16 20:00 100.8 123 20 148/81 97 Simple Mask 5.0 10/26/16 19:53 123 10/26/16 19:49 98 Simple Mask 6.0 10/26/16 19:49 121 20 Simple Mask 6.0 10/26/16 19:49 Simple Mask 6.0 10/26/16 18:16 115 22 100 Simple Mask 6.0 10/26/16 18:05 117 22 100 Simple Mask 6.0 10/26/16 16:00 118 10/26/16 16:00 98.4 111 20 135/78 96 Simple Mask 5.0 Intake and Output 10/26/16 10/27/16 19:00 07:00 Intake Total 2570.292 ml 1451 ml Output Total 450 ml 1700 ml Balance 2120.292 ml -249 ml Intake Oral 1240 ml 400 ml IV Total 1330.292 ml 1051 ml Output Urine Total 450 ml 1700 ml Objective Lines, tubes and drains: peripheral HEENT: normocephalic, atraumatic Neck: non-tender, normal alignment Respiratory/Chest: rhonchi - left, rhonchi - right, expiratory wheezing Cardiovascular/Chest: normal peripheral pulses, regular rhythm Abdomen: normal bowel sounds, non tender, hyperactive bowel sounds Genitourinary/Rectal: normal rectal exam Extremities: normal range of motion, non-tender Microbiology Date/Time Source Procedure Growth Status 10/25/16 10:15 Blood Blood Culture - Preliminary NO GROWTH AFTER 24 HOURS Resulted 10/25/16 10:00 Blood Blood Culture - Preliminary NO GROWTH AFTER 24 HOURS Resulted 10/25/16 18:30 Nasopharynx Influenza Types A,B Antigen (SYED) - Final Complete 10/25/16 12:10 Nasal Nares MRSA Culture - Final NO METHICILLIN RESISTANT STAPH AUREUS... Complete 10/25/16 16:50 Urine,Clean Catch Urine Culture - Preliminary NO GROWTH AFTER 24 HOURS Resulted 10/25/16 10:15 Urine,Clean Catch Urine Culture - Final Staphylococcus Aureus Complete 10/25/16 12:10 Rectum VRE Culture - Final NO VANCOMYCIN RESISTANT ENTEROCOCCUS ... Complete Laboratory Tests 10/27/16 04:50: Sodium Level 137, Potassium Level 4.3, Chloride Level 100, Carbon Dioxide Level 23, Anion Gap 14, Blood Urea Nitrogen 16, Creatinine 0.9, Estimat Glomerular Filtration Rate > 60, Glucose Level 102, Calcium Level 7.8L, Total Bilirubin 0.3 , Aspartate Amino Transf (AST/SGOT) 33, Alanine Aminotransferase (ALT/SGPT) 13, Alkaline Phosphatase 59, Pro-B-Type Natriuretic Peptide 204H, Total Protein 5.8L , Albumin 2.6L, Globulin 3.2, Albumin/Globulin Ratio 0.8L, Vancomycin Level Trough 17.8H 10/27/16 09:45: White Blood Count 2.3L, Red Blood Count 3.70L, Hemoglobin 11.3L, Hematocrit 35.0L, Mean Corpuscular Volume 95, Mean Corpuscular Hemoglobin 30.5, Mean Corpuscular Hemoglobin Concent 32.2, Red Cell Distribution Width 13.8, Platelet Count 110L, Mean Platelet Volume 4.9L, Neutrophils (%) (Auto) , Lymphocytes (%) (Auto) , Monocytes (%) (Auto) , Eosinophils (%) (Auto) , Basophils (%) (Auto) , Differential Total Cells Counted 100, Neutrophils % (Manual) 55, Lymphocytes % ( Manual) 23, Monocytes % (Manual) 17H, Eosinophils % (Manual) 0, Basophils % ( Manual) 0, Band Neutrophils 5, Platelet Estimate DecreasedL, Platelet Morphology Normal, Hypochromasia 1+ Current Medications Medications (Trade) Dose Ordered Sig/Baljeet Route PRN Reason Start Time Stop Time Status Last Admin Dose Admin Acetaminophen (Tylenol) 650 mg Q4H PRN ORAL fever 10/25/16 16:00 11/24/16 15:59 10/26/16 21:11 Albuterol/ Ipratropium (DuoNeb 0.5-3(2.5)mg/3ml) 3 ml EVERY 4 HOURS PRN HHN Shortness of Breath 10/25/16 16:00 10/30/16 15:59 10/27/16 05:51 Aztreonam/Dextrose (Azactam/D5W) 55 ml @ 110 mls/hr Q8HR IVPB 10/25/16 20:00 11/01/16 19:59 10/27/16 05:00 Dextrose STAT PRN IV Hypoglycemia 10/25/16 16:00 11/24/16 15:59 Divalproex Sodium (Depakote) 500 mg THREE TIMES A DAY ORAL 10/25/16 18:00 11/24/16 17:59 10/27/16 08:14 Heparin Sodium (Porcine) (Heparin 5000 units/ml) 5,000 units EVERY 12 HOURS SUBQ 10/25/16 21:00 11/24/16 20:59 10/26/16 21:10 Insulin Aspart (NovoLOG) BEFORE MEALS AND HS SUBQ 10/25/16 21:00 11/24/16 20:59 10/27/16 11:30 Lisinopril 5 mg 5 mg DAILY ORAL 10/26/16 09:00 11/25/16 08:59 10/27/16 08:14 Morphine Sulfate (Morphine Sulfate) 2 mg EVERY 4 HOURS PRN IVP Moderate Pain (Pain Scale 4-6) 10/25/16 16:00 11/01/16 15:59 Nitroglycerin (Ntg) 0.4 mg Q5M PRN SL Prn Chest Pain 10/25/16 16:00 11/24/16 15:59 Ondansetron HCl (Zofran) 4 mg Q6H PRN IVP Nausea & Vomiting 10/25/16 16:00 11/24/16 15:59 Polyethylene Glycol (Miralax) 17 gm DAILYPRN PRN ORAL Constipation 10/25/16 16:00 11/24/16 15:59 Sodium Chloride (Sodium Chloride 1000ml bag) 1,000 ml @ 100 mls/hr Q10H IVLG 10/26/16 00:00 11/25/16 00:00 10/27/16 06:00 Temazepam (Restoril) 15 mg HSPRN PRN ORAL Insomnia 10/25/16 16:00 11/01/16 15:59 Vancomycin HCl 1 ea 1 ea DAILY PRN MISC . 10/25/16 16:45 11/24/16 16:44 Vancomycin HCl/ Dextrose (Vancomycin/D5W) 275 ml @ 183.708 mls/hr Q12HR@0600,1800 IVPB 10/26/16 06:00 10/31/16 05:59 10/27/16 06:53 LATRICE DEL RIO Oct 27, 2016 12:06
--- NOTE | 2016-10-27 13:07 | Infectious Diseases Prog Note ---
Assessment/Plan Assessment/Plan ASSESSMENT: 66 y/o male with: // Probable UTI - UCx 50-60K MSSA - US: Increased left renal echogenicity, consistent with chronic medical renal disease. Normal right kidney, negative for hydronephrosis. Empty bladder with a Ceron catheter. // Acute respiratory failure / hypoxia r/o HCAP/aspiration / BiPAP-->FM - CXR 10/27: Equivocal new or bilateral basilar interstitial disease, possiblyartifact of suboptimal inspiration. Interstitial infiltrates or edema not excludable. Chronic changes - negative influenza // Sepsis // Leukopenia // Fever - improved // Elevated ESR // h/o CVA, aphasia // NH resident // PCN, levaquin allergies - unable to qualify // Full Code PLAN: - continue IV vancomycin, aztreonam d# 3 / - f/u cultures - monitor CBC, temperatures - monitor BMP - monitor CXR - aspiration precautions Subjective Allergies: Coded Allergies: AMOXICILLIN (Unverified Allergy, Unknown, 01/13/15) AMPICILLIN (Unverified Allergy, Unknown, 01/13/15) PENICILLINS (Unverified Allergy, Unknown, 01/13/15) PIPERACILLIN (Unverified Allergy, Unknown, 01/13/15) TAZOBACTAM (Unverified Allergy, Unknown, 01/13/15) LEVOFLOXACIN (Verified Adverse Reaction, Intermediate, 10/25/16) Red erythematous rash outbreak near IV site Subjective pt unable to provide any information fevers improved Objective Vital Signs Last 24 Hour Vital Signs Date Time Temp Pulse Resp B/P Pulse Ox O2 Delivery O2 Flow Rate FiO2 10/27/16 12:00 97.7 77 20 111/62 100 Simple Mask 5.0 10/27/16 08:45 102 22 Simple Mask 6.0 10/27/16 08:45 98 Simple Mask 6.0 10/27/16 08:45 Simple Mask 6.0 10/27/16 08:14 125/76 10/27/16 08:09 98.7 100 20 125/76 99 Simple Mask 5.0 10/27/16 08:00 104 10/27/16 06:01 110 22 100 Simple Mask 6.0 10/27/16 05:53 110 20 94 Simple Mask 6.0 10/27/16 04:20 98.7 77 22 100/63 99 Simple Mask 5.0 10/27/16 03:38 83 10/27/16 00:00 99.4 115 24 153/87 99 Simple Mask 5.0 10/26/16 23:41 98 10/26/16 22:27 100.1 10/26/16 20:00 100.8 123 20 148/81 97 Simple Mask 5.0 10/26/16 19:53 123 10/26/16 19:49 98 Simple Mask 6.0 10/26/16 19:49 121 20 Simple Mask 6.0 10/26/16 19:49 Simple Mask 6.0 10/26/16 18:16 115 22 100 Simple Mask 6.0 10/26/16 18:05 117 22 100 Simple Mask 6.0 10/26/16 16:00 118 10/26/16 16:00 98.4 111 20 135/78 96 Simple Mask 5.0 Height (Feet): 5 Height (Inches): 8.00 Weight (Pounds): 180 General Appearance: no acute distress Respiratory/Chest: no respiratory distress Cardiovascular: normal rate, regular rhythm Abdomen: normal bowel sounds, soft, non tender, non distended Microbiology Date/Time Source Procedure Growth Status 10/25/16 10:15 Blood Blood Culture - Preliminary NO GROWTH AFTER 24 HOURS Resulted 10/25/16 10:00 Blood Blood Culture - Preliminary NO GROWTH AFTER 24 HOURS Resulted 10/25/16 18:30 Nasopharynx Influenza Types A,B Antigen (SYED) - Final Complete 10/25/16 12:10 Nasal Nares MRSA Culture - Final NO METHICILLIN RESISTANT STAPH AUREUS... Complete 10/25/16 16:50 Urine,Clean Catch Urine Culture - Preliminary NO GROWTH AFTER 24 HOURS Resulted 10/25/16 10:15 Urine,Clean Catch Urine Culture - Final Staphylococcus Aureus Complete 10/25/16 12:10 Rectum VRE Culture - Final NO VANCOMYCIN RESISTANT ENTEROCOCCUS ... Complete Laboratory Tests Test 10/27/16 04:50 10/27/16 09:45 Sodium Level 137 mEQ/L (135-145) Potassium Level 4.3 mEQ/L (3.4-4.9) Chloride Level 100 mEQ/L (98-107) Carbon Dioxide Level 23 mEQ/L (20-30) Anion Gap 14 (5-15) Blood Urea Nitrogen 16 mg/dL (7-23) Creatinine 0.9 mg/dL (0.7-1.2) Estimat Glomerular Filtration Rate > 60 mL/min (>60) Glucose Level 102 mg/dL (74-106) Calcium Level 7.8 mg/dL (8.6-10.2) L Total Bilirubin 0.3 mg/dL (0.0-1.2) Aspartate Amino Transf (AST/SGOT) 33 U/L (5-40) Alanine Aminotransferase (ALT/SGPT) 13 U/L (3-41) Alkaline Phosphatase 59 U/L (40-129) Pro-B-Type Natriuretic Peptide 204 pg/mL (0-125) H Total Protein 5.8 g/dL (6.6-8.7) L Albumin 2.6 g/dL (3.5-5.2) L Globulin 3.2 g/dL Albumin/Globulin Ratio 0.8 (1.0-2.7) L Vancomycin Level Trough 17.8 ug/mL (5.0-12.0) H White Blood Count 2.3 K/UL (4.8-10.8) L Red Blood Count 3.70 M/UL (4.70-6.10) L Hemoglobin 11.3 G/DL (14.2-18.0) L Hematocrit 35.0 % (42.0-52.0) L Mean Corpuscular Volume 95 FL (80-99) Mean Corpuscular Hemoglobin 30.5 PG (27.0-31.0) Mean Corpuscular Hemoglobin Concent 32.2 G/DL (32.0-36.0) Red Cell Distribution Width 13.8 % (11.6-14.8) Platelet Count 110 K/UL (150-450) L Mean Platelet Volume 4.9 FL (6.5-10.1) L Neutrophils (%) (Auto) % (45.0-75.0) Lymphocytes (%) (Auto) % (20.0-45.0) Monocytes (%) (Auto) % (1.0-10.0) Eosinophils (%) (Auto) % (0.0-3.0) Basophils (%) (Auto) % (0.0-2.0) Differential Total Cells Counted 100 Neutrophils % (Manual) 55 % (45-75) Lymphocytes % (Manual) 23 % (20-45) Monocytes % (Manual) 17 % (1-10) H Eosinophils % (Manual) 0 % (0-3) Basophils % (Manual) 0 % (0-2) Band Neutrophils 5 % (0-8) Platelet Estimate Decreased L Platelet Morphology Normal Hypochromasia 1+ Current Medications Medications (Trade) Dose Ordered Sig/Baljeet Route PRN Reason Start Time Stop Time Status Last Admin Dose Admin Acetaminophen (Tylenol) 650 mg Q4H PRN ORAL fever 10/25/16 16:00 11/24/16 15:59 10/26/16 21:11 Albuterol/ Ipratropium (DuoNeb 0.5-3(2.5)mg/3ml) 3 ml EVERY 4 HOURS PRN HHN Shortness of Breath 10/25/16 16:00 10/30/16 15:59 10/27/16 05:51 Aztreonam/Dextrose (Azactam/D5W) 55 ml @ 110 mls/hr Q8HR IVPB 10/25/16 20:00 11/01/16 19:59 10/27/16 05:00 Dextrose STAT PRN IV Hypoglycemia 10/25/16 16:00 11/24/16 15:59 Divalproex Sodium (Depakote) 500 mg THREE TIMES A DAY ORAL 10/25/16 18:00 11/24/16 17:59 10/27/16 08:14 Heparin Sodium (Porcine) (Heparin 5000 units/ml) 5,000 units EVERY 12 HOURS SUBQ 10/25/16 21:00 11/24/16 20:59 10/26/16 21:10 Insulin Aspart (NovoLOG) BEFORE MEALS AND HS SUBQ 10/25/16 21:00 11/24/16 20:59 10/27/16 11:30 Lisinopril 5 mg 5 mg DAILY ORAL 10/26/16 09:00 11/25/16 08:59 10/27/16 08:14 Morphine Sulfate (Morphine Sulfate) 2 mg EVERY 4 HOURS PRN IVP Moderate Pain (Pain Scale 4-6) 10/25/16 16:00 11/01/16 15:59 Nitroglycerin (Ntg) 0.4 mg Q5M PRN SL Prn Chest Pain 10/25/16 16:00 11/24/16 15:59 Ondansetron HCl (Zofran) 4 mg Q6H PRN IVP Nausea & Vomiting 10/25/16 16:00 11/24/16 15:59 Polyethylene Glycol (Miralax) 17 gm DAILYPRN PRN ORAL Constipation 10/25/16 16:00 11/24/16 15:59 Sodium Chloride (Sodium Chloride 1000ml bag) 1,000 ml @ 100 mls/hr Q10H IVLG 10/26/16 00:00 11/25/16 00:00 10/27/16 06:00 Temazepam (Restoril) 15 mg HSPRN PRN ORAL Insomnia 10/25/16 16:00 11/01/16 15:59 Vancomycin HCl 1 ea 1 ea DAILY PRN MISC . 10/25/16 16:45 11/24/16 16:44 Vancomycin HCl/ Dextrose (Vancomycin/D5W) 275 ml @ 183.708 mls/hr Q12HR@0600,1800 IVPB 10/26/16 06:00 10/31/16 05:59 10/27/16 06:53 YUDITH DESAI Oct 27, 2016 13:07
--- NOTE | 2016-10-27 15:24 | Cardiology Report ---
APPROVED REPORT EKG Measurement Heart [id number] VT [id number] Sinus tachycardia Nonspecific ST abnormality Abnormal ECG
[2016-10-27 16:54] VITALS: BP 95/61
[2016-10-27] MEDS ORDERED: NS 275ml ONE (16:56)
[2016-10-27] MEDS ORDERED: Tubing IV Secondary IV ONE (16:56)
[2016-10-27] MEDS: Vancomycin 750mg/D5W 275ml IVPB SCH ×2 (17:39)
[2016-10-27 20:00] VITALS: BP 110/69
--- NOTE | 2016-10-27 20:59 | Progress Note ---
DATE: 10/27/2016 SUBJECTIVE: The patient is now afebrile, hemodynamically stable. The patient has persistent tachycardia at rest. PHYSICAL EXAMINATION: VITAL SIGNS: Blood pressure 112/62, his pulse is 105, respirations were 20, and temperature 97.7 degrees. HEENT: Eyes were normal. ENT, mucous membranes were moist and intact. NECK: Supple with no JVD without lymph nodes. LUNGS: Clear. HEART: Normal sounds with regular beats. No S3, S4, or pericardial rub. ABDOMEN: Soft and nontender with normal bowel sounds. Gastrostomy site is clean. EXTREMITIES: Warm without cyanosis, clubbing, or edema. LABORATORY AND DIAGNOSTIC DATA: Hemoglobin is 11.3, hematocrit 35.2 with MCV of 95, WBC of 2.3, and platelet is 110,000. His BUN and creatinine is 16 and 0.9 respectively. His sodium is 137, potassium 4.3, chloride 100, and CO2 is 23. His glucose is 102 and calcium is 7.8. His BNP is 204. His albumin is 2.6 and total protein is 5.8. Chest x-ray show bilateral basilar interstitial disease. IMPRESSION: High blood pressure remained short of breath with debridement. The patient any intervention. The case has been discussed with the scroll assembler. The patient will undergo CT scan of the chest. There is no other etiology contributed to his shortness of breath. Repeat laboratory tests will be done in the morning. Shay Connolly M.D. DR: SABINO JOB#: [id number] CC:
[2016-10-28] VITALS: BP 117/68
[2016-10-28 04:00] VITALS: BP 118/77
[2016-10-28] MEDS: Vancomycin 750mg/D5W 275ml IVPB SCH ×4 (05:20→17:55)
[2016-10-28 05:25] LABS: MEAN CORPUSCULAR HEMOGLOBIN 31.8 PG (27.0-31.0); MEAN CORPUSCULAR HGB CONC 33.4 G/DL (32.0-36.0); MEAN CORPUSCULAR VOLUME 95 FL (80-99); MEAN PLATELET VOLUME 5.9 FL (6.5-10.1); PLATELET COUNT 127 K/UL (150-450); RED BLOOD COUNT 3.67 M/UL (4.70-6.10); RED CELL DISTRIBUTION WIDTH 14.2 % (11.6-14.8); WHITE BLOOD COUNT 2.5 K/UL (4.8-10.8)
[2016-10-28 05:54] LABS: ANION GAP 10 (5-15); CALCIUM 8.1 mg/dL (8.6-10.2); CARBON DIOXIDE 28 mEQ/L (20-30); CHLORIDE 102 mEQ/L (98-107); CREATININE 0.7 mg/dL (0.7-1.2); GLOMERULAR FILTRATION RATE > 60 mL/min (>60); HEMOLYSIS 5; POTASSIUM 4.1 mEQ/L (3.4-4.9); SODIUM 140 mEQ/L (135-145)
[2016-10-28] MEDS: NovoLOG Insulin Flexpen SUBQ SCH ×4 (06:28→21:00)
[2016-10-28] MEDS: DuoNeb 0.5-3(2.5)mg/3ml neb HHN PRN (07:10)
[2016-10-28] MEDS: Aztreonam Inj 1 GM in D5W 55 ML IVPB SCH ×3 (07:30→21:40)
[2016-10-28 08:00] VITALS: BP 111/68
[2016-10-28] MEDS: Depakote 500mg tab ORAL SCH ×3 (08:49→17:55)
[2016-10-28] MEDS: Lisinopril 2.5mg tab ORAL SCH (08:49)
[2016-10-28] MEDS: Heparin 5000 units/ml inj SUBQ SCH ×2 (08:52→20:32)
--- NOTE | 2016-10-28 10:30 | Pulmonology Progress Note ---
Assessment/Plan Problems: (1) Respiratory distress (2) CHF (congestive heart failure) (3) Severe sepsis (4) Constipation (5) Gastric distention (6) Chronic complete quadriplegia Assessment/Plan cxr slightly worse fever coming down no cultures yet still episodes of shortness of breath Subjective Allergies: Coded Allergies: AMOXICILLIN (Unverified Allergy, Unknown, 01/13/15) AMPICILLIN (Unverified Allergy, Unknown, 01/13/15) PENICILLINS (Unverified Allergy, Unknown, 01/13/15) PIPERACILLIN (Unverified Allergy, Unknown, 01/13/15) TAZOBACTAM (Unverified Allergy, Unknown, 01/13/15) LEVOFLOXACIN (Verified Adverse Reaction, Intermediate, 10/25/16) Red erythematous rash outbreak near IV site Objective Last 24 Hour Vital Signs Date Time Temp Pulse Resp B/P Pulse Ox O2 Delivery O2 Flow Rate FiO2 10/28/16 08:49 111/68 10/28/16 08:00 107 10/28/16 08:00 97.9 101 18 111/68 95 Nasal Cannula 5.0 10/28/16 07:18 98 20 100 Nasal Cannula 3.0 10/28/16 07:05 102 22 95 Nasal Cannula 3.0 10/28/16 07:02 Nasal Cannula 3.0 10/28/16 07:02 102 20 Nasal Cannula 3.0 10/28/16 07:01 95 Nasal Cannula 3.0 10/28/16 04:00 98.6 103 24 118/77 99 Nasal Cannula 5.0 10/28/16 04:00 95 10/28/16 00:00 96 10/28/16 00:00 98.8 100 24 117/68 97 Simple Mask 10/27/16 20:00 97.9 87 24 110/69 99 Nasal Cannula 5.0 10/27/16 20:00 97 10/27/16 19:07 Simple Mask 6.0 10/27/16 19:07 100 Simple Mask 6.0 10/27/16 19:06 95 18 Simple Mask 6.0 10/27/16 16:54 98.2 95 28 95/61 100 Simple Mask 5.0 10/27/16 16:31 107 10/27/16 13:55 106 20 97 Simple Mask 6.0 10/27/16 13:45 105 20 94 Simple Mask 6.0 10/27/16 12:00 80 10/27/16 12:00 97.7 77 20 111/62 100 Simple Mask 5.0 Intake and Output 10/27/16 10/28/16 19:00 07:00 Intake Total 1520 ml 1333.708 ml Output Total 750 ml 1300 ml Balance 770 ml 33.708 ml Intake Oral 290 ml IV Total 1230 ml 1333.708 ml Output Urine Total 750 ml 1300 ml Objective Lines, tubes and drains: peripheral HEENT: normocephalic, atraumatic Neck: non-tender, normal alignment Respiratory/Chest: rhonchi - left, rhonchi - right, expiratory wheezing Cardiovascular/Chest: normal peripheral pulses, regular rhythm Abdomen: normal bowel sounds, non tender, hyperactive bowel sounds Genitourinary/Rectal: normal rectal exam Extremities: normal range of motion, non-tender Microbiology Date/Time Source Procedure Growth Status 10/25/16 18:30 Nasopharynx Influenza Types A,B Antigen (SYED) - Final Complete 10/25/16 12:10 Nasal Nares MRSA Culture - Final NO METHICILLIN RESISTANT STAPH AUREUS... Complete 10/25/16 16:50 Urine,Clean Catch Urine Culture - Preliminary NO GROWTH AFTER 24 HOURS Resulted 10/25/16 12:10 Rectum VRE Culture - Final NO VANCOMYCIN RESISTANT ENTEROCOCCUS ... Complete Laboratory Tests 10/28/16 04:10: White Blood Count 2.5L, Red Blood Count 3.67L, Hemoglobin 11.6L, Hematocrit 34.9L, Mean Corpuscular Volume 95, Mean Corpuscular Hemoglobin 31.8H, Mean Corpuscular Hemoglobin Concent 33.4, Red Cell Distribution Width 14.2, Platelet Count 127L, Mean Platelet Volume 5.9L, Neutrophils (%) (Auto) , Lymphocytes (%) (Auto) , Monocytes (%) (Auto) , Eosinophils (%) (Auto) , Basophils (%) (Auto) , Sodium Level 140, Potassium Level 4.1, Chloride Level 102, Carbon Dioxide Level 28, Anion Gap 10, Blood Urea Nitrogen 11, Creatinine 0.7, Estimat Glomerular Filtration Rate > 60, Glucose Level 87, Calcium Level 8.1L Current Medications Medications (Trade) Dose Ordered Sig/Baljeet Route PRN Reason Start Time Stop Time Status Last Admin Dose Admin Acetaminophen (Tylenol) 650 mg Q4H PRN ORAL fever 10/25/16 16:00 11/24/16 15:59 10/26/16 21:11 Albuterol/ Ipratropium (DuoNeb 0.5-3(2.5)mg/3ml) 3 ml EVERY 4 HOURS PRN HHN Shortness of Breath 10/25/16 16:00 10/30/16 15:59 10/28/16 07:10 Aztreonam/Dextrose (Azactam/D5W) 55 ml @ 110 mls/hr Q8HR IVPB 10/25/16 20:00 11/01/16 19:59 10/28/16 07:30 Dextrose (Dextrose 50%) STAT PRN IV Hypoglycemia 10/25/16 16:00 11/24/16 15:59 Divalproex Sodium (Depakote) 500 mg THREE TIMES A DAY ORAL 10/25/16 18:00 11/24/16 17:59 10/28/16 08:49 Heparin Sodium (Porcine) 5000 units 5,000 units EVERY 12 HOURS SUBQ 10/27/16 15:17 11/24/16 20:59 10/28/16 08:52 Insulin Aspart (NovoLOG) BEFORE MEALS AND HS SUBQ 10/25/16 21:00 11/24/16 20:59 10/27/16 17:03 Lisinopril 5 mg 5 mg DAILY ORAL 10/26/16 09:00 11/25/16 08:59 10/28/16 08:49 Morphine Sulfate (Morphine Sulfate) 2 mg EVERY 4 HOURS PRN IVP Moderate Pain (Pain Scale 4-6) 10/25/16 16:00 11/01/16 15:59 Nitroglycerin (Ntg) 0.4 mg Q5M PRN SL Prn Chest Pain 10/25/16 16:00 11/24/16 15:59 Ondansetron HCl (Zofran) 4 mg Q6H PRN IVP Nausea & Vomiting 10/25/16 16:00 11/24/16 15:59 Polyethylene Glycol (Miralax) 17 gm DAILYPRN PRN ORAL Constipation 10/25/16 16:00 11/24/16 15:59 Sodium Chloride (Sodium Chloride 1000ml bag) 1,000 ml @ 100 mls/hr Q10H IVLG 10/26/16 00:00 11/25/16 00:00 10/28/16 01:26 Temazepam (Restoril) 15 mg HSPRN PRN ORAL Insomnia 10/25/16 16:00 11/01/16 15:59 Vancomycin HCl 1 ea 1 ea DAILY PRN MISC . 10/25/16 16:45 11/24/16 16:44 Vancomycin HCl/ Dextrose (Vancomycin/D5W) 275 ml @ 183.708 mls/hr Q12H IVPB 10/27/16 18:00 11/01/16 17:59 10/28/16 05:20 LATRICE DEL RIO Oct 28, 2016 10:30
--- NOTE | 2016-10-28 11:20 | Diagnostic Imaging Report ---
Indication: Dyspnea Technique: Continuous helical transaxial imaging of the chest was obtained from the thoracic inlet to the upper abdomen. No intravenous contrast was administered. Coronal 2-D reformats were also obtained. Total Dose length Product (DLP): [address] Dose Index Volume (CTDIvol): 21 mGy Comparison: none Findings: Mild paraseptal bleb formation demonstrated within the lung apices. Some interstitial densities are noted at the lung bases with some cystic lucencies noted within the lung parenchyma likely scarring and mild bullous changes. No consolidation identified. Aorta is mildly calcified. There are also coronary calcifications noted. There is no pericardial or pleural effusion. Axilla. Clear. The visualized part of the upper abdomen is unremarkable. Impression: Chronic lung disease. Atherosclerotic vascular disease The CT scanner at [facility] is accredited by the [employer] and the scans are performed using protocols designed to limit radiation exposure to as low as reasonably achievable to attain images of sufficient resolution adequate for diagnostic evaluation.
[2016-10-28 12:00] VITALS: BP 93/61
[2016-10-28 16:43] VITALS: BP 105/55
[2016-10-28 20:00] VITALS: BP 96/59
[2016-10-29] VITALS: BP 139/82
--- NOTE | 2016-10-29 00:59 | Progress Note ---
DATE: 10/28/2016 SUBJECTIVE: The patient is awake, alert, with intermittently hypotensive. PHYSICAL EXAMINATION: Blood pressure is 93/61, his pulse is 85, respirations were 18, and temperature was 97.5 degrees. HEENT: Eyes were normal. ENT, mucous membranes are moist and intact. NECK: Supple with no JVD. LUNGS: Clear without rhonchi, rales, or wheezing. HEART: Normal sounds with regular beat. ABDOMEN: Soft and nontender with normal bowel sounds. EXTREMITIES: Warm without cyanosis, clubbing, or edema. LABORATORY DATA: His hemoglobin is 11.6, hematocrit 34.9 with MCV of 95, WBC of 2.5, and platelet is 127,000. BUN and creatinine are 11 and 0.7 respectively. Sodium is 140, potassium , chloride 102, and CO2 is 26. PLAN: The patient underwent CT scan of the chest to explain his shortness of breath, for which no clear-cut identified, however, CT scan disease and atherosclerotic vascular disease. Repeat laboratory tests will be done in the a.m. Shay Connolly M.D. DR: ELICIA JOB#: [id number] CC:
[2016-10-29 04:00] VITALS: BP 123/74
[2016-10-29] MEDS: Aztreonam Inj 1 GM in D5W 55 ML IVPB SCH ×3 (05:46→21:36)
[2016-10-29 05:57] LABS: MEAN CORPUSCULAR HEMOGLOBIN 31.5 PG (27.0-31.0); MEAN CORPUSCULAR VOLUME 95 FL (80-99); MEAN PLATELET VOLUME 5.6 FL (6.5-10.1); PLATELET COUNT 102 K/UL (150-450); RED BLOOD COUNT 3.28 M/UL (4.70-6.10)
[2016-10-29] MEDS: Vancomycin 750mg/D5W 275ml IVPB SCH ×2 (05:59)
[2016-10-29] MEDS: NovoLOG Insulin Flexpen SUBQ SCH ×4 (05:59→21:35)
[2016-10-29 06:09] LABS: ALANINE AMINOTRANSFERASE 19 U/L (3-41); ALBUMIN/GLOBULIN RATIO 0.6 (1.0-2.7); ANION GAP 10 (5-15); ASPARTATE AMINO TRANSFERASE 36 U/L (5-40); CALCIUM 7.8 mg/dL (8.6-10.2); CARBON DIOXIDE 26 mEQ/L (20-30); CHLORIDE 107 mEQ/L (98-107); CREATININE 0.6 mg/dL (0.7-1.2); GLOMERULAR FILTRATION RATE > 60 mL/min (>60); HEMOLYSIS 9; POTASSIUM 4.2 mEQ/L (3.4-4.9); SODIUM 143 mEQ/L (135-145); TOTAL PROTEIN 5.9 g/dL (6.6-8.7)
[2016-10-29 06:20] LABS: WHITE BLOOD COUNT 2.1 K/UL (4.8-10.8)
[2016-10-29 08:00] VITALS: BP 131/80
--- NOTE | 2016-10-29 08:16 | Pulmonology Progress Note ---
Assessment/Plan Assessment/Plan ASSESSMENT acute respiratory failure requiring BiPAP -resolved severe sepsis UTI COPD mild bullous disease-chronic hx of CVA chronic encephalopathy dysphagia, G tube HTN DM constipation functional quadriplegia leukopenia likely 2 to chronic disease process PLAN OF CARE IVF O2 HHN prn abx, ID follows blood cx prel negative, urine cx + Staph elevated ESR last CXR slightly worse, CT chest with evidence of chronic lung disease, mild bullous disease Solumedrol x 1 today renal US L kidney with increased echogenicity c/w chronic medical renal disease , R kidney with normal echogenicity, no hydro BS management with SS of insulin BP management with CECY pain management DVT prophylaxis bowel regimen strict aspiration precautions, GT feeding, monitor tolerance transfer to ID case discussed and evaluated by supervising physician Subjective Allergies: Coded Allergies: AMOXICILLIN (Unverified Allergy, Unknown, 01/13/15) AMPICILLIN (Unverified Allergy, Unknown, 01/13/15) PENICILLINS (Unverified Allergy, Unknown, 01/13/15) PIPERACILLIN (Unverified Allergy, Unknown, 01/13/15) TAZOBACTAM (Unverified Allergy, Unknown, 01/13/15) LEVOFLOXACIN (Verified Adverse Reaction, Intermediate, 10/25/16) Red erythematous rash outbreak near IV site Subjective no signs of respiratory distress on O2 via NC pulse ox stable afebrile, leukopenic, Objective Last 24 Hour Vital Signs Date Time Temp Pulse Resp B/P Pulse Ox O2 Delivery O2 Flow Rate FiO2 10/29/16 04:00 97.9 86 16 123/74 95 Nasal Cannula 2.0 10/29/16 04:00 89 10/29/16 00:00 98.1 94 16 139/82 95 Nasal Cannula 2.0 10/29/16 00:00 93 10/28/16 20:00 97.7 84 20 96/59 94 Nasal Cannula 2.0 10/28/16 20:00 81 10/28/16 18:54 99 Nasal Cannula 2.0 28 10/28/16 18:54 Nasal Cannula 2.0 28 10/28/16 18:52 80 20 Nasal Cannula 2.0 28 10/28/16 16:43 97.7 82 24 105/55 100 Nasal Cannula 3.0 10/28/16 16:00 89 10/28/16 12:00 85 10/28/16 12:00 97.5 80 18 93/61 96 Nasal Cannula 5.0 10/28/16 08:49 111/68 Intake and Output 10/28/16 10/29/16 19:00 07:00 Intake Total 1767.416 ml 1256.292 ml Output Total 600 ml 1600 ml Balance 1167.416 ml -343.708 ml Intake Oral 490 ml IV Total 1277.416 ml 1256.292 ml Output Urine Total 600 ml 1600 ml General Appearance: other - awake, responsive, bedridden male in NAD HEENT: normocephalic, atraumatic, anicteric Respiratory/Chest: no respiratory distress, no accessory muscle use, expiratory wheezing - few expirtaory wheezes on the right , left lung clear Cardiovascular: normal rate, regular rhythm, no JVD Abdomen: normal bowel sounds, soft, non tender, other - G tube Genitourinary: normal external genitalia Extremities: no edema Neurologic/Psychiatric: abnormal gait - bedridden , alert, responsive Musculoskeletal: atrophy - BLE Laboratory Tests 10/29/16 04:35: White Blood Count 2.1*L, Red Blood Count 3.28L, Hemoglobin 10.3L, Hematocrit 31.3L, Mean Corpuscular Volume 95, Mean Corpuscular Hemoglobin 31.5H, Mean Corpuscular Hemoglobin Concent 33.0, Red Cell Distribution Width 14.0, Platelet Count 102L, Mean Platelet Volume 5.6L, Neutrophils (%) (Auto) , Lymphocytes (%) (Auto) , Monocytes (%) (Auto) , Eosinophils (%) (Auto) , Basophils (%) (Auto) , Neutrophils % (Manual) [Pending], Lymphocytes % (Manual) [Pending], Platelet Estimate [Pending], Platelet Morphology [Pending], Sodium Level 143, Potassium Level 4.2, Chloride Level 107, Carbon Dioxide Level 26, Anion Gap 10, Blood Urea Nitrogen 9, Creatinine 0.6L, Estimat Glomerular Filtration Rate > 60, Glucose Level 81, Calcium Level 7.8L, Total Bilirubin 0.2, Aspartate Amino Transf (AST/SGOT) 36, Alanine Aminotransferase (ALT/SGPT) 19, Alkaline Phosphatase 51, Total Protein 5.9L, Albumin 2.4L, Globulin 3.5, Albumin/ Globulin Ratio 0.6L Current Medications Medications (Trade) Dose Ordered Sig/Baljeet Route PRN Reason Start Time Stop Time Status Last Admin Dose Admin Acetaminophen (Tylenol) 650 mg Q4H PRN ORAL fever 10/25/16 16:00 11/24/16 15:59 10/26/16 21:11 Albuterol/ Ipratropium (DuoNeb 0.5-3(2.5)mg/3ml) 3 ml EVERY 4 HOURS PRN HHN Shortness of Breath 10/25/16 16:00 10/30/16 15:59 10/28/16 07:10 Aztreonam/Dextrose (Azactam/D5W) 55 ml @ 110 mls/hr Q8HR IVPB 10/25/16 20:00 11/01/16 19:59 10/29/16 05:46 Dextrose (Dextrose 50%) STAT PRN IV Hypoglycemia 10/25/16 16:00 11/24/16 15:59 Divalproex Sodium (Depakote) 500 mg THREE TIMES A DAY ORAL 10/25/16 18:00 11/24/16 17:59 10/28/16 17:55 Heparin Sodium (Porcine) 5000 units 5,000 units EVERY 12 HOURS SUBQ 10/27/16 15:17 11/24/16 20:59 10/28/16 08:52 Insulin Aspart (NovoLOG) BEFORE MEALS AND HS SUBQ 10/25/16 21:00 11/24/16 20:59 10/28/16 16:21 Lisinopril 5 mg 5 mg DAILY ORAL 10/26/16 09:00 11/25/16 08:59 10/28/16 08:49 Morphine Sulfate (Morphine Sulfate) 2 mg EVERY 4 HOURS PRN IVP Moderate Pain (Pain Scale 4-6) 10/25/16 16:00 11/01/16 15:59 Nitroglycerin (Ntg) 0.4 mg Q5M PRN SL Prn Chest Pain 10/25/16 16:00 11/24/16 15:59 Ondansetron HCl (Zofran) 4 mg Q6H PRN IVP Nausea & Vomiting 10/25/16 16:00 11/24/16 15:59 Polyethylene Glycol (Miralax) 17 gm DAILYPRN PRN ORAL Constipation 10/25/16 16:00 11/24/16 15:59 Sodium Chloride (Sodium Chloride 1000ml bag) 1,000 ml @ 100 mls/hr Q10H IVLG 10/26/16 00:00 11/25/16 00:00 10/29/16 05:50 Temazepam (Restoril) 15 mg HSPRN PRN ORAL Insomnia 10/25/16 16:00 11/01/16 15:59 Vancomycin HCl 1 ea 1 ea DAILY PRN MISC . 10/25/16 16:45 11/24/16 16:44 Vancomycin HCl/ Dextrose (Vancomycin/D5W) 275 ml @ 183.708 mls/hr Q12H IVPB 10/27/16 18:00 11/01/16 17:59 10/29/16 05:59 Chandana (Sweetieovi)Judy NP Oct 29, 2016 08:16
[2016-10-29] MEDS ORDERED: DuoNeb 0.5-3(2.5)mg/3ml neb HHN PRN ×2 (08:45→16:45)
[2016-10-29] MEDS: Depakote 500mg tab ORAL SCH ×2 (08:50→14:15)
[2016-10-29] MEDS: Heparin 5000 units/ml inj SUBQ SCH ×2 (08:51→21:33)
[2016-10-29] MEDS: Lisinopril 2.5mg tab ORAL SCH (08:51)
[2016-10-29 09:58] LABS: BAND NEUTROPHILS % (MANUAL) 1 % (0-8); BASOPHILS % (MANUAL) 0 % (0-2); EOSINOPHILS % (MANUAL) 7 % (0-3); LYMPHOCYTES % (MANUAL) 39 % (20-45); NEUTROPHILS % (MANUAL) 39 % (45-75); PLATELET ESTIMATE DECREASED; PLATELET MORPHOLOGY NORMAL; TOTAL CELLS COUNTED 100
[2016-10-29 09:59] LABS: ANISOCYTOSIS 1+
--- NOTE | 2016-10-29 10:19 | Diagnostic Imaging Report ---
Indication: DYSPNEA Technique: One view of the chest Comparison: 10/27/2016 Findings: There is no significant interval change in the interval, allowing for differences in technique and positioning. Old right-sided rib fractures noted. Impression: Probable scattered changes of chronic lung disease. Please refer to the recent chest CT report.
[2016-10-29] MEDS ORDERED: Solu-MEDROL 40mg Inj IVP ONE (11:15)
[2016-10-29 12:00] VITALS: BP 127/75
--- NOTE | 2016-10-29 12:45 | Infectious Diseases Prog Note ---
Assessment/Plan Assessment/Plan ASSESSMENT: 66 y/o male with: // Probable UTI - UCx 50-60K MSSA - US: Increased left renal echogenicity, consistent with chronic medical renal disease. Normal right kidney, negative for hydronephrosis. Empty bladder with a Ceron catheter. // Acute respiratory failure / hypoxia r/o HCAP/aspiration / BiPAP-->FM-->NC - CT Chest 10/28: Mild paraseptal bleb formation demonstrated within the lung apices. Some interstitial densities are noted at the lung bases with some cystic lucencies noted within the lung parenchyma likely scarring and mild bullous changes. No consolidation identified - CXR 10/27: Equivocal new or bilateral basilar interstitial disease, possiblyartifact of suboptimal inspiration. Interstitial infiltrates or edema not excludable. Chronic changes - negative influenza // Sepsis SP // Leukopenia // Fever - resolved // Elevated ESR // h/o CVA, aphasia // NH resident // PCN, levaquin allergies - unable to qualify // Full Code PLAN: - continue IV vancomycin, aztreonam d# 5 / - f/u final cultures - monitor CBC, temperatures - monitor BMP - monitor CXR - aspiration precautions Subjective Allergies: Coded Allergies: AMOXICILLIN (Unverified Allergy, Unknown, 01/13/15) AMPICILLIN (Unverified Allergy, Unknown, 01/13/15) PENICILLINS (Unverified Allergy, Unknown, 01/13/15) PIPERACILLIN (Unverified Allergy, Unknown, 01/13/15) TAZOBACTAM (Unverified Allergy, Unknown, 01/13/15) LEVOFLOXACIN (Verified Adverse Reaction, Intermediate, 10/25/16) Red erythematous rash outbreak near IV site Subjective pt unable to provide any information fevers resolved, now on NC CT noted Objective Vital Signs Last 24 Hour Vital Signs Date Time Temp Pulse Resp B/P Pulse Ox O2 Delivery O2 Flow Rate FiO2 10/29/16 08:51 123/74 10/29/16 08:00 81 10/29/16 08:00 98.1 81 18 131/80 98 Nasal Cannula 2.0 10/29/16 04:00 97.9 86 16 123/74 95 Nasal Cannula 2.0 10/29/16 04:00 89 10/29/16 00:00 98.1 94 16 139/82 95 Nasal Cannula 2.0 10/29/16 00:00 93 10/28/16 20:00 97.7 84 20 96/59 94 Nasal Cannula 2.0 10/28/16 20:00 81 10/28/16 18:54 99 Nasal Cannula 2.0 28 10/28/16 18:54 Nasal Cannula 2.0 28 10/28/16 18:52 80 20 Nasal Cannula 2.0 28 10/28/16 16:43 97.7 82 24 105/55 100 Nasal Cannula 3.0 10/28/16 16:00 89 Height (Feet): 5 Height (Inches): 8.00 Weight (Pounds): 180 General Appearance: no acute distress Respiratory/Chest: no respiratory distress Cardiovascular: normal rate, regular rhythm Abdomen: normal bowel sounds, soft, non tender, non distended Laboratory Tests Test 10/29/16 04:35 White Blood Count 2.1 K/UL (4.8-10.8) *L Red Blood Count 3.28 M/UL (4.70-6.10) L Hemoglobin 10.3 G/DL (14.2-18.0) L Hematocrit 31.3 % (42.0-52.0) L Mean Corpuscular Volume 95 FL (80-99) Mean Corpuscular Hemoglobin 31.5 PG (27.0-31.0) H Mean Corpuscular Hemoglobin Concent 33.0 G/DL (32.0-36.0) Red Cell Distribution Width 14.0 % (11.6-14.8) Platelet Count 102 K/UL (150-450) L Mean Platelet Volume 5.6 FL (6.5-10.1) L Neutrophils (%) (Auto) % (45.0-75.0) Lymphocytes (%) (Auto) % (20.0-45.0) Monocytes (%) (Auto) % (1.0-10.0) Eosinophils (%) (Auto) % (0.0-3.0) Basophils (%) (Auto) % (0.0-2.0) Differential Total Cells Counted 100 Neutrophils % (Manual) 39 % (45-75) L Lymphocytes % (Manual) 39 % (20-45) Monocytes % (Manual) 14 % (1-10) H Eosinophils % (Manual) 7 % (0-3) H Basophils % (Manual) 0 % (0-2) Band Neutrophils 1 % (0-8) Platelet Estimate Decreased L Platelet Morphology Normal Anisocytosis 1+ Sodium Level 143 mEQ/L (135-145) Potassium Level 4.2 mEQ/L (3.4-4.9) Chloride Level 107 mEQ/L (98-107) Carbon Dioxide Level 26 mEQ/L (20-30) Anion Gap 10 (5-15) Blood Urea Nitrogen 9 mg/dL (7-23) Creatinine 0.6 mg/dL (0.7-1.2) L Estimat Glomerular Filtration Rate > 60 mL/min (>60) Glucose Level 81 mg/dL (74-106) Calcium Level 7.8 mg/dL (8.6-10.2) L Total Bilirubin 0.2 mg/dL (0.0-1.2) Aspartate Amino Transf (AST/SGOT) 36 U/L (5-40) Alanine Aminotransferase (ALT/SGPT) 19 U/L (3-41) Alkaline Phosphatase 51 U/L (40-129) Total Protein 5.9 g/dL (6.6-8.7) L Albumin 2.4 g/dL (3.5-5.2) L Globulin 3.5 g/dL Albumin/Globulin Ratio 0.6 (1.0-2.7) L Current Medications Medications (Trade) Dose Ordered Sig/Baljeet Route PRN Reason Start Time Stop Time Status Last Admin Dose Admin Acetaminophen (Tylenol) 650 mg Q4H PRN ORAL fever 10/25/16 16:00 11/24/16 15:59 10/26/16 21:11 Albuterol/ Ipratropium (DuoNeb 0.5-3(2.5)mg/3ml) 3 ml Q4H PRN HHN Shortness of Breath 10/29/16 08:45 11/03/16 08:44 Aztreonam/Dextrose (Azactam/D5W) 55 ml @ 110 mls/hr Q8HR IVPB 10/25/16 20:00 11/01/16 19:59 10/29/16 05:46 Dextrose (Dextrose 50%) STAT PRN IV Hypoglycemia 10/25/16 16:00 11/24/16 15:59 Divalproex Sodium (Depakote) 500 mg THREE TIMES A DAY ORAL 10/25/16 18:00 11/24/16 17:59 10/29/16 08:50 Heparin Sodium (Porcine) 5000 units 5,000 units EVERY 12 HOURS SUBQ 10/27/16 15:17 11/24/16 20:59 10/28/16 08:52 Insulin Aspart (NovoLOG) BEFORE MEALS AND HS SUBQ 10/25/16 21:00 11/24/16 20:59 10/28/16 16:21 Lisinopril (Zestril) 5 mg DAILY ORAL 10/26/16 09:00 11/25/16 08:59 10/29/16 08:51 Morphine Sulfate (Morphine Sulfate) 2 mg EVERY 4 HOURS PRN IVP Moderate Pain (Pain Scale 4-6) 10/25/16 16:00 11/01/16 15:59 Nitroglycerin (Ntg) 0.4 mg Q5M PRN SL Prn Chest Pain 10/25/16 16:00 11/24/16 15:59 Ondansetron HCl (Zofran) 4 mg Q6H PRN IVP Nausea & Vomiting 10/25/16 16:00 11/24/16 15:59 Polyethylene Glycol (Miralax) 17 gm DAILYPRN PRN ORAL Constipation 10/25/16 16:00 11/24/16 15:59 Sodium Chloride (Sodium Chloride 1000ml bag) 1,000 ml @ 75 mls/hr [id number] IVLG 10/29/16 09:00 11/28/16 08:59 10/29/16 08:50 Temazepam (Restoril) 15 mg HSPRN PRN ORAL Insomnia 10/25/16 16:00 11/01/16 15:59 Vancomycin HCl 750 mg/Dextrose 275 ml @ 183.708 mls/hr Q12H IVPB 10/27/16 18:00 11/01/16 17:59 10/29/16 05:59 Vancomycin HCl 1 ea 1 ea DAILY PRN MISC . 10/25/16 16:45 11/24/16 16:44 YUDITH DESAI Oct 29, 2016 12:45
[2016-10-29] MEDS ORDERED: Nitroglycerin Subl 0.4mg tab (Bottle Of 25) SL PRN (15:30)
[2016-10-29 16:00] VITALS: BP 137/84
[2016-10-29] MEDS ORDERED: Miralax 17gm pkt ORAL PRN (16:00)
[2016-10-29] MEDS ORDERED: Morphine Sulfate 2mg/ml Inj IVP PRN (17:00)
[2016-10-29] MEDS: Vancomycin 750 MG in D5W 275 ML IVPB SCH (17:20)
[2016-10-29] MEDS ORDERED: Tubing IV Secondary IV ONE (17:26)
[2016-10-29] MEDS ORDERED: Depakote 500mg tab ORAL SCH (18:00)
[2016-10-29] MEDS: Valproic Acid 250mg/5ml Liquid ORAL SCH (18:26)
[2016-10-29 19:00] VITALS: BP 145/96
--- NOTE | 2016-10-29 19:29 | Progress Note ---
DATE: 10/29/2016 SUBJECTIVE: The patient is awake alert, afebrile, and hemodynamically stable. He denied any shortness of breath. PHYSICAL EXAMINATION: VITAL SIGNS: Blood pressure 123/74, his pulse is 81, respirations were 18, and temperature 98.1 degrees. HEENT: Eyes were normal. ENT, mucous membranes were moist and intact. NECK: Supple with no JVD without lymph node enlargement. LUNGS: Clear. HEART: Normal sounds with regular beats. There is no S3, S4, or pericardial rub. ABDOMEN: Soft and nontender with normal bowel sounds. Gastrostomy site is clean. EXTREMITIES: Warm without cyanosis, clubbing, or edema. LABORATORY AND DIAGNOSTIC DATA: His hemoglobin is 10.3, hematocrit 31.3 with MCV of 95, WBC of 2.1 and platelet is 102,000. His BUN and creatinine is 9 and 0.6 respectively, sodium was 143, potassium 4.2, chloride 107 and CO2 was 26. Calcium is 7.8. SGOT, SGPT and alkaline phosphatase are normal. Albumin is 2.5. Total protein is 5.9. Chest x-ray done today reveals no significant interval change since the previous x-ray. CT scan of the chest that was done yesterday revealed only chronic lung disease. IMPRESSION AND PLAN: The patient is now stable for the first 24 hours and if the patient remains stable in the morning, he can be discharged back to the extended care facility. Repeat laboratory tests will be done in the morning. Shay Connolly M.D. DR: AASHISH JOB#: [id number] CC:
[2016-10-30] VITALS: BP 137/77
[2016-10-30 04:00] VITALS: BP 131/76
[2016-10-30] MEDS: Aztreonam Inj 1 GM in D5W 55 ML IVPB SCH ×2 (05:49→13:06)
[2016-10-30] MEDS: Vancomycin 750 MG in D5W 275 ML IVPB SCH ×2 (06:20→18:00)
[2016-10-30] MEDS: NovoLOG Insulin Flexpen SUBQ SCH ×3 (06:21→16:17)
[2016-10-30 07:42] VITALS: BP 144/92
[2016-10-30 07:48] LABS: MEAN CORPUSCULAR HEMOGLOBIN 31.3 PG (27.0-31.0); MEAN CORPUSCULAR HGB CONC 33.1 G/DL (32.0-36.0); MEAN CORPUSCULAR VOLUME 94 FL (80-99); MEAN PLATELET VOLUME 6.1 FL (6.5-10.1); PLATELET COUNT 116 K/UL (150-450); RED BLOOD COUNT 3.65 M/UL (4.70-6.10); RED CELL DISTRIBUTION WIDTH 13.6 % (11.6-14.8)
[2016-10-30 07:49] LABS: ALANINE AMINOTRANSFERASE 33 U/L (3-41); ALBUMIN/GLOBULIN RATIO 0.7 (1.0-2.7); ANION GAP 12 (5-15); ASPARTATE AMINO TRANSFERASE 54 U/L (5-40); CALCIUM 7.9 mg/dL (8.6-10.2); CARBON DIOXIDE 25 mEQ/L (20-30); CHLORIDE 104 mEQ/L (98-107); CREATININE 0.7 mg/dL (0.7-1.2); GLOMERULAR FILTRATION RATE > 60 mL/min (>60); HEMOLYSIS 29; POTASSIUM 4.3 mEQ/L (3.4-4.9); SODIUM 141 mEQ/L (135-145); TOTAL PROTEIN 6.2 g/dL (6.6-8.7)
[2016-10-30 08:28] LABS: BAND NEUTROPHILS % (MANUAL) 1 % (0-8); BASOPHILS % (MANUAL) 0 % (0-2); EOSINOPHILS % (MANUAL) 1 % (0-3); LYMPHOCYTES % (MANUAL) 21 % (20-45); NEUTROPHILS % (MANUAL) 72 % (45-75); PLATELET ESTIMATE DECREASED; PLATELET MORPHOLOGY NORMAL; TOTAL CELLS COUNTED 100
[2016-10-30] MEDS ORDERED: Lisinopril 2.5mg tab ORAL SCH (09:00)
[2016-10-30] MEDS: Heparin 5000 units/ml inj SUBQ SCH (09:00)
[2016-10-30] MEDS: Valproic Acid 250mg/5ml Liquid ORAL SCH ×3 (09:23→18:00)
[2016-10-30 11:54] VITALS: BP 150/80
--- NOTE | 2016-10-30 12:02 | Diagnostic Imaging Report ---
Indication: Dyspnea Comparison: 10/29/16 A single view chest radiograph was obtained. Findings: Bones are osteopenic. Heart size is borderline. Aorta is mildly ectatic. Lungs are clear. Impression: No acute disease
--- NOTE | 2016-10-30 15:25 | Infectious Diseases Prog Note ---
Assessment/Plan Assessment/Plan ASSESSMENT: 66 y/o male with: // Probable UTI - UCx 50-60K MSSA - US: Increased left renal echogenicity, consistent with chronic medical renal disease. Normal right kidney, negative for hydronephrosis. Empty bladder with a Ceron catheter. // Acute respiratory failure / hypoxia r/o HCAP/aspiration / BiPAP-->FM-->NC - CT Chest 10/28: Mild paraseptal bleb formation demonstrated within the lung apices. Some interstitial densities are noted at the lung bases with some cystic lucencies noted within the lung parenchyma likely scarring and mild bullous changes. No consolidation identified - CXR 10/27: Equivocal new or bilateral basilar interstitial disease, possiblyartifact of suboptimal inspiration. Interstitial infiltrates or edema not excludable. Chronic changes - negative influenza // Sepsis SP // Leukopenia // Fever - resolved // Elevated ESR // h/o CVA, aphasia // NH resident // PCN, levaquin allergies - unable to qualify // Full Code PLAN: - continue IV vancomycin, aztreonam d# - f/u final cultures - monitor CBC, temperatures - monitor BMP - monitor CXR - aspiration precautions Subjective Allergies: Coded Allergies: AMOXICILLIN (Unverified Allergy, Unknown, 01/13/15) AMPICILLIN (Unverified Allergy, Unknown, 01/13/15) PENICILLINS (Unverified Allergy, Unknown, 01/13/15) PIPERACILLIN (Unverified Allergy, Unknown, 01/13/15) TAZOBACTAM (Unverified Allergy, Unknown, 01/13/15) LEVOFLOXACIN (Verified Adverse Reaction, Intermediate, 10/25/16) Red erythematous rash outbreak near IV site Subjective pt unable to provide any information fevers resolved Objective Vital Signs Last 24 Hour Vital Signs Date Time Temp Pulse Resp B/P Pulse Ox O2 Delivery O2 Flow Rate FiO2 10/30/16 11:54 98.0 71 21 150/80 Nasal Cannula 2.0 10/30/16 09:23 144/92 10/30/16 07:42 98.2 77 21 144/92 99 Nasal Cannula 2.0 10/30/16 07:10 Nasal Cannula 3.0 32 10/30/16 07:10 96 Nasal Cannula 3.0 32 10/30/16 07:09 92 18 Nasal Cannula 3.0 32 10/30/16 04:00 96.8 78 18 131/76 94 Room Air 10/30/16 00:00 97.0 91 19 137/77 90 Room Air 10/29/16 22:07 89 22 90 Nasal Cannula 2.0 10/29/16 19:00 98.1 87 20 145/96 95 Nasal Cannula 2.0 10/29/16 18:52 97 Nasal Cannula 2.0 28 10/29/16 18:52 Nasal Cannula 2.0 28 10/29/16 18:50 78 18 Nasal Cannula 2.0 28 10/29/16 16:00 97.3 79 20 137/84 95 Nasal Cannula 2.0 Height (Feet): 5 Height (Inches): 8.00 Weight (Pounds): 180 General Appearance: no acute distress Respiratory/Chest: no respiratory distress Cardiovascular: normal rate, regular rhythm Abdomen: normal bowel sounds, soft, non tender, non distended Laboratory Tests Test 10/30/16 05:20 White Blood Count 2.0 K/UL (4.8-10.8) *L Red Blood Count 3.65 M/UL (4.70-6.10) L Hemoglobin 11.4 G/DL (14.2-18.0) L Hematocrit 34.5 % (42.0-52.0) L Mean Corpuscular Volume 94 FL (80-99) Mean Corpuscular Hemoglobin 31.3 PG (27.0-31.0) H Mean Corpuscular Hemoglobin Concent 33.1 G/DL (32.0-36.0) Red Cell Distribution Width 13.6 % (11.6-14.8) Platelet Count 116 K/UL (150-450) L Mean Platelet Volume 6.1 FL (6.5-10.1) L Neutrophils (%) (Auto) % (45.0-75.0) Lymphocytes (%) (Auto) % (20.0-45.0) Monocytes (%) (Auto) % (1.0-10.0) Eosinophils (%) (Auto) % (0.0-3.0) Basophils (%) (Auto) % (0.0-2.0) Differential Total Cells Counted 100 Neutrophils % (Manual) 72 % (45-75) Lymphocytes % (Manual) 21 % (20-45) Monocytes % (Manual) 5 % (1-10) Eosinophils % (Manual) 1 % (0-3) Basophils % (Manual) 0 % (0-2) Band Neutrophils 1 % (0-8) Platelet Estimate Decreased L Platelet Morphology Normal Red Blood Cell Morphology Normal Sodium Level 141 mEQ/L (135-145) Potassium Level 4.3 mEQ/L (3.4-4.9) Chloride Level 104 mEQ/L (98-107) Carbon Dioxide Level 25 mEQ/L (20-30) Anion Gap 12 (5-15) Blood Urea Nitrogen 11 mg/dL (7-23) Creatinine 0.7 mg/dL (0.7-1.2) Estimat Glomerular Filtration Rate > 60 mL/min (>60) Glucose Level 99 mg/dL (74-106) Calcium Level 7.9 mg/dL (8.6-10.2) L Total Bilirubin 0.2 mg/dL (0.0-1.2) Aspartate Amino Transf (AST/SGOT) 54 U/L (5-40) H Alanine Aminotransferase (ALT/SGPT) 33 U/L (3-41) Alkaline Phosphatase 60 U/L (40-129) Total Protein 6.2 g/dL (6.6-8.7) L Albumin 2.7 g/dL (3.5-5.2) L Globulin 3.5 g/dL Albumin/Globulin Ratio 0.7 (1.0-2.7) L Current Medications Medications (Trade) Dose Ordered Sig/Baljeet Route PRN Reason Start Time Stop Time Status Last Admin Dose Admin Acetaminophen (Tylenol) 650 mg Q4H PRN ORAL fever 10/29/16 16:00 11/28/16 15:59 Albuterol/ Ipratropium (DuoNeb 0.5-3(2.5)mg/3ml) 3 ml Q4H PRN HHN Shortness of Breath 10/29/16 16:45 11/03/16 16:44 10/29/16 22:07 Aztreonam 1 gm/ Dextrose 55 ml @ 110 mls/hr Q8HR IVPB 10/29/16 22:00 11/05/16 21:59 10/30/16 13:06 Dextrose (Dextrose 50%) STAT PRN IV Hypoglycemia 10/29/16 16:00 11/28/16 15:59 Heparin Sodium (Porcine) (Heparin 5000 units/ml) 5,000 units EVERY 12 HOURS SUBQ 10/29/16 21:00 11/28/16 20:59 Insulin Aspart (NovoLOG) BEFORE MEALS AND HS SUBQ 10/29/16 16:30 11/28/16 16:29 10/30/16 12:24 Lisinopril (Zestril) 5 mg DAILY ORAL 10/30/16 09:00 11/29/16 08:59 10/30/16 09:23 Morphine Sulfate (Morphine Sulfate) 2 mg Q4H PRN IVP Moderate Pain (Pain Scale 4-6) 10/29/16 17:00 11/05/16 16:59 Nitroglycerin (Ntg) 0.4 mg Q5M PRN SL Prn Chest Pain 10/29/16 15:30 11/28/16 15:29 Ondansetron HCl (Zofran) 4 mg Q6H PRN IVP Nausea & Vomiting 10/29/16 16:00 11/28/16 15:59 Polyethylene Glycol (Miralax) 17 gm DAILYPRN PRN ORAL Constipation 10/29/16 16:00 11/28/16 15:59 Sodium Chloride 1,000 ml @ 75 mls/hr [id number] IVLG 10/29/16 15:30 11/28/16 15:29 10/30/16 12:22 Temazepam (Restoril) 15 mg HSPRN PRN ORAL Insomnia 10/29/16 16:00 11/05/16 15:59 10/30/16 02:22 Valproic Acid (Depakene) 500 mg TID ORAL 10/29/16 18:15 11/28/16 18:14 10/30/16 13:05 Vancomycin HCl (Vanco rx to dose) 1 ea DAILY PRN MISC . 10/30/16 09:00 11/29/16 08:59 Vancomycin HCl/ Dextrose (Vancomycin/D5W) 275 ml @ 183.708 mls/hr Q12H IVPB 10/29/16 18:00 11/03/16 17:59 10/30/16 06:20 YUDITH DESAI Oct 30, 2016 15:25
[2016-10-30 16:00] VITALS: BP 145/89
--- NOTE | 2016-10-30 16:47 | Pulmonology Progress Note ---
Assessment/Plan Problems: (1) Respiratory distress (2) CHF (congestive heart failure) (3) Severe sepsis (4) Constipation (5) Gastric distention (6) Chronic complete quadriplegia Assessment/Plan doing better afebrile titrate fio2 to sat of 92% on liquied pureed diet ok to dc to fdc Subjective ROS Limited/Unobtainable: No Constitutional: Reports: no symptoms HEENT: Repors: no symptoms Allergies: Coded Allergies: AMOXICILLIN (Unverified Allergy, Unknown, 01/13/15) AMPICILLIN (Unverified Allergy, Unknown, 01/13/15) PENICILLINS (Unverified Allergy, Unknown, 01/13/15) PIPERACILLIN (Unverified Allergy, Unknown, 01/13/15) TAZOBACTAM (Unverified Allergy, Unknown, 01/13/15) LEVOFLOXACIN (Verified Adverse Reaction, Intermediate, 10/25/16) Red erythematous rash outbreak near IV site Objective Last 24 Hour Vital Signs Date Time Temp Pulse Resp B/P Pulse Ox O2 Delivery O2 Flow Rate FiO2 10/30/16 16:00 97.0 70 20 145/89 95 Nasal Cannula 2.0 10/30/16 11:54 98.0 71 21 150/80 Nasal Cannula 2.0 10/30/16 09:23 144/92 10/30/16 07:42 98.2 77 21 144/92 99 Nasal Cannula 2.0 10/30/16 07:10 Nasal Cannula 3.0 32 10/30/16 07:10 96 Nasal Cannula 3.0 32 10/30/16 07:09 92 18 Nasal Cannula 3.0 32 10/30/16 04:00 96.8 78 18 131/76 94 Room Air 10/30/16 00:00 97.0 91 19 137/77 90 Room Air 10/29/16 22:07 89 22 90 Nasal Cannula 2.0 10/29/16 19:00 98.1 87 20 145/96 95 Nasal Cannula 2.0 10/29/16 18:52 97 Nasal Cannula 2.0 28 10/29/16 18:52 Nasal Cannula 2.0 28 10/29/16 18:50 78 18 Nasal Cannula 2.0 28 Intake and Output 10/29/16 10/30/16 19:00 07:00 Intake Total 965.000 ml 1025 ml Output Total 1400 ml 1250 ml Balance -435.000 ml -225 ml Intake Oral 240 ml 240 ml IV Total 725.000 ml 785 ml Output Urine Total 1400 ml 1250 ml Objective Lines, tubes and drains: peripheral HEENT: normocephalic, atraumatic Neck: non-tender, normal alignment Respiratory/Chest: rhonchi - left, rhonchi - right, expiratory wheezing Cardiovascular/Chest: normal peripheral pulses, regular rhythm Abdomen: normal bowel sounds, non tender, hyperactive bowel sounds Genitourinary/Rectal: normal rectal exam Extremities: normal range of motion, non-tender General Appearance: WD/WN, no acute distress Respiratory/Chest: chest wall non-tender, lungs clear Cardiovascular: normal peripheral pulses, normal rate, no JVD Abdomen: soft, non tender Extremities: no cyanosis Skin: no rash Laboratory Tests 10/30/16 05:20: White Blood Count 2.0*L, Red Blood Count 3.65L, Hemoglobin 11.4L, Hematocrit 34.5L, Mean Corpuscular Volume 94, Mean Corpuscular Hemoglobin 31.3H, Mean Corpuscular Hemoglobin Concent 33.1, Red Cell Distribution Width 13.6, Platelet Count 116L, Mean Platelet Volume 6.1L, Neutrophils (%) (Auto) , Lymphocytes (%) (Auto) , Monocytes (%) (Auto) , Eosinophils (%) (Auto) , Basophils (%) (Auto) , Differential Total Cells Counted 100, Neutrophils % (Manual) 72, Lymphocytes % ( Manual) 21, Monocytes % (Manual) 5, Eosinophils % (Manual) 1, Basophils % ( Manual) 0, Band Neutrophils 1, Platelet Estimate DecreasedL, Platelet Morphology Normal, Red Blood Cell Morphology Normal, Sodium Level 141, Potassium Level 4.3, Chloride Level 104, Carbon Dioxide Level 25, Anion Gap 12, Blood Urea Nitrogen 11, Creatinine 0.7, Estimat Glomerular Filtration Rate > 60 , Glucose Level 99, Calcium Level 7.9L, Total Bilirubin 0.2, Aspartate Amino Transf (AST/SGOT) 54H, Alanine Aminotransferase (ALT/SGPT) 33, Alkaline Phosphatase 60, Total Protein 6.2L, Albumin 2.7L, Globulin 3.5, Albumin/ Globulin Ratio 0.7L Current Medications Medications (Trade) Dose Ordered Sig/Baljeet Route PRN Reason Start Time Stop Time Status Last Admin Dose Admin Acetaminophen (Tylenol) 650 mg Q4H PRN ORAL fever 10/29/16 16:00 11/28/16 15:59 Albuterol/ Ipratropium (DuoNeb 0.5-3(2.5)mg/3ml) 3 ml Q4H PRN HHN Shortness of Breath 10/29/16 16:45 11/03/16 16:44 10/29/16 22:07 Aztreonam 1 gm/ Dextrose 55 ml @ 110 mls/hr Q8HR IVPB 10/29/16 22:00 11/05/16 21:59 10/30/16 13:06 Dextrose (Dextrose 50%) STAT PRN IV Hypoglycemia 10/29/16 16:00 11/28/16 15:59 Heparin Sodium (Porcine) (Heparin 5000 units/ml) 5,000 units EVERY 12 HOURS SUBQ 10/29/16 21:00 11/28/16 20:59 Insulin Aspart (NovoLOG) BEFORE MEALS AND HS SUBQ 10/29/16 16:30 11/28/16 16:29 10/30/16 12:24 Lisinopril (Zestril) 5 mg DAILY ORAL 10/30/16 09:00 11/29/16 08:59 10/30/16 09:23 Morphine Sulfate (Morphine Sulfate) 2 mg Q4H PRN IVP Moderate Pain (Pain Scale 4-6) 10/29/16 17:00 11/05/16 16:59 Nitroglycerin (Ntg) 0.4 mg Q5M PRN SL Prn Chest Pain 10/29/16 15:30 11/28/16 15:29 Ondansetron HCl (Zofran) 4 mg Q6H PRN IVP Nausea & Vomiting 10/29/16 16:00 11/28/16 15:59 Polyethylene Glycol (Miralax) 17 gm DAILYPRN PRN ORAL Constipation 10/29/16 16:00 11/28/16 15:59 Sodium Chloride 1,000 ml @ 75 mls/hr [id number] IVLG 10/29/16 15:30 11/28/16 15:29 10/30/16 12:22 Temazepam (Restoril) 15 mg HSPRN PRN ORAL Insomnia 10/29/16 16:00 11/05/16 15:59 10/30/16 02:22 Valproic Acid (Depakene) 500 mg TID ORAL 10/29/16 18:15 11/28/16 18:14 10/30/16 13:05 Vancomycin HCl (Vanco rx to dose) 1 ea DAILY PRN MISC . 10/30/16 09:00 11/29/16 08:59 Vancomycin HCl/ Dextrose (Vancomycin/D5W) 275 ml @ 183.708 mls/hr Q12H IVPB 10/29/16 18:00 11/03/16 17:59 10/30/16 06:20 LATRICE DEL RIO Oct 30, 2016 16:47
--- NOTE | 2016-10-30 20:18 | Progress Note ---
DATE: 10/30/2016 SUBJECTIVE: The patient is awake, alert, afebrile, and hemodynamically stable without any shortness of breath. PHYSICAL EXAMINATION: VITAL SIGNS: Blood pressure 134/92, pulse 71, respirations 21, and temperature 98.2. HEENT: Eyes were normal. ENT, mucous membranes were moist and intact. NECK: Supple with no JVD without lymph nodes. LUNGS: Clear. HEART: Normal sounds with regular heartbeat. ABDOMEN: Soft and nontender with normal bowel sounds. EXTREMITIES: Warm without cyanosis, clubbing, or edema. LABORATORY DATA: Hemoglobin 11.4, hematocrit 34.7, MCV of 94, WBC of 2, platelet is 116,000. His BUN and creatinine is 11 and 0.7 respectively. His sodium is 141, potassium 4.3, chloride 104, CO2 25. Calcium is 7.9. SGOT, SGPT, alkaline phosphatase are normal. Albumin is 2.7. Total protein is 6.2. Chest x-ray showed no active disease. IMPRESSION: The patient is now stable and will be discharged. We will get clearance from send the patient back to the extended care facility and will go with same medications. Shay Connolly M.D. DR: Ashvin JOB#: [id number] CC:
[2016-10-31] MEDS ORDERED: AZTREONAM1 GM IJ (12:26)
[2016-10-31] MEDS ORDERED: VANCO 750750 MG/150 IV (12:26)
--- NOTE | 2016-10-31 12:28 | Discharge Summary ---
Discharge Summary Hospital Course Date of Admission Oct 25, 2016 at 11:29 Date of Discharge Oct 30, 2016 at 19:19 Admitting Diagnosis SOB HPI Brennon Lerma is a 66 year old male who was admitted on Oct 25, 2016 at 11: 29 for Shortness Of Breath Hospital Course dc summary dictated # [id number] Discharge Medications New Medications: Aztreonam (Aztreonam) 1 Gm Vial 1 GM IJ Q8HR, #3 VIAL Vancomycin/0.9 % Sod Chloride (Vanco 750 mg/150 ml-0.9% NaCl) 750 Mg/150 Ml Froz.piggy 750 MG IV DAILY, #1 BAG Continued Medications: Acetaminophen (Acetaminophen) 650 Mg/20.3 Ml Soln 650 MG ORAL Q4HR PRN for Prn Headache/Temp > 101, ML 0 Refills Albuterol Sulfate* (Albuterol Sulfate Hhn*) 2.5 Mg/3 Ml Vial.neb 3 ML INH Q4H PRN for Shortness of Breath, EA Carvedilol* (Carvedilol*) 3.125 Mg Tablet 3.125 MG ORAL EVERY 12 HOURS, TAB Clonidine Hcl (Clonidine Hcl) 0.1 Mg Tablet 0.1 MG PO EVERY 8 HOURS PRN for For High Blood Pressure, TAB Cranberry Fruit Concentrate (Cranberry) 450 Mg Capsule 450 MG PO DAILY, CAP Diphenhydramine Hcl* (Benadryl Allergy*) 12.5 Mg/5 Ml Liquid 25 MG ORAL Q8 PRN for Itching, ML 0 Refills Divalproex Sodium (Depakote) 500 Mg Tabec 500 MG PO THREE TIMES A DAY, TAB Docusate Sodium* (Docusate Sodium*) 100 Mg Capsule 200 MG ORAL BID, CAP Famotidine (Pepcid) 20 Mg Tablet 20 MG ORAL BEDTIME, #7 TAB 0 Refills Heparin Sod (Porcine) (Heparin Sodium*) 5 000/1 Ml Vial 5000 UNITS SUBQ TWICE A DAY, VIAL Ipratropium/Albuterol Sulfate (Combivent Respimat Inhal [place]) 4 Gm Aer.w.adap 4 GM IH Lisinopril (Lisinopril*) 5 Mg Tablet 5 MG ORAL DAILY, TAB Multivitamin With Minerals (Multivitamins With Minerals*) 1 Each Tablet 1 TAB ORAL DAILY, TAB Nitroglycerin (Nitroglycerin) 0.4 Mg Tab.subl 0.4 MG SL, TAB Warfarin Sod (Coumadin*) 7.5 Mg Tablet 7 MG ORAL DAILY, TAB [vit D3] () 5000 UNITS PO DAILY Discontinued Medications: Tramadol Hcl (Tramadol Hcl) 100 Mg Tab.er.24h 50 MG ORAL TID PRN for For Pain, TAB Discharge Condition Upon Discharge: stable Discharge Disposition Patient was discharged to SNF/Subacute Facility(03) Discharge Diagnoses: Chandana ([facility])Judy NP Oct 31, 2016 12:28
--- NOTE | 2016-11-01 05:08 | Discharge Summary 2 SIG ---
DATE OF ADMISSION: 10/25/2016 DATE OF DISCHARGE: 10/30/2016 The patient was admitted under Dr. Martin. REASON FOR ADMISSION: A 66-year-old male, brought in by the emergency medical services from the senior living facility for hypoxemia. Per paramedics, the patient en route was given x2 nitro spray. Saturation only in mid 80s. The patient with a history of CVA and dementia. No known history of CHF or COPD. On review from paramedics, the patient was aphasic. Workup in the emergency department revealed EKG with sinus tachycardia, no PVC, no ectopy, no ischemic changes. Chest x-ray revealed bilateral pulmonary congestion, no effusion, no pneumothorax. The patient was tachycardic and tachypneic, heart rate 32, tachycardia 108. Blood pressure low -89/62. Electrolytes were stable as were the renal parameters. No leukocytosis upon presentation. Fever 101.9 rectally in the emergency department. Lactic acid was within normal limits. Troponin was negative. Urinalysis showed pyuria. The patient was placed on BiPAP. ABG was taken on BiPAP and was stable. Reassessment 2 hours after BiPAP placement, revealed no audible rales or rhonchi. Empiric antibiotic were given for presumptive healthcare-associated pneumonia. The patient was transferred to [facility] for further management. ADMITTING DIAGNOSES: 1. Acute respiratory failure, requiring BiPAP. 2. Congestive heart failure. 3. Possible healthcare-associated pneumonia. 4.Sepsis. 5. Constipation. 6. Chronic complete quadriplegia. HOSPITAL COURSE: The patient was admitted to [facility]. Supplemental oxygen and pulmonary toilet were provided as needed with followup of the chest x-ray. The patient was on empiric antibiotic. ID followed. Urine culture initially with Staph aureus, 50,000 to 60,000 only colony count. Influenza screen test negative. Blood culture negative. ID followed the patient. Ultrasound of kidney revealed increased left renal echogenicity consistent with chronic medical renal disease and normal right kidney. No hydronephrosis. The patient was treated with antibiotics: vancomycin and aztreonam. Blood culture were negative. Elevated ESR. Last chest x-ray was slightly worse. A CT of the chest revealed evidence of chronic lung disease and mild bullous disease. Solu-Medrol x1 given for wheezing. Blood sugar was managed with sliding scale of insulin. Blood pressure was managed with CECY inhibitor and was stable. Pain management was provided. DVT prophylaxis was provided . Bowel regimen was instituted. The patient had a bowel movement. Speech therapy evaluation noted. Strict aspiration precaution and diet as per speech therapy. Recommendation to be continued at the senior living [facility]. One-to-one supervision with feeding. The patient had no history of CHF and no finding on history and physical as well as the laboratory data consistent with CHF. The pro BNP was 204 . Prior to discharge, the last chest x-ray revealed clear lungs and no acute disease. The patient was stable for discharge back to the [facility]. DISCHARGE DIAGNOSES: 1. Acute respiratory failure, requiring BiPAP, resolved. 2. Sepsis. 3. Urinary tract infection. 4. Chronic obstructive pulmonary disease. 5. Mild bullous disease, chronic. 6. History of cerebrovascular accident. 7. Chronic encephalopathy. 8. Dysphagia. 9. Hypertension. 10. Diabetes. 11. Constipation. 12. Functional quadriplegia. 13. Leukopenia, likely secondary to chronic disease process. DISCHARGE MEDICATIONS: See medication reconciliation list. DISCHARGE INSTRUCTIONS: The patient was discharged to [facility]. FOLLOWUP: Follow up with medical doctor at the facility. Lani Martin M.D. Judy CerdaUniversity Of Pittsburgh Medical CenterNeptali German DR: LIBBY JOB#: [id number] CC: CARI
--- NOTE | 2016-11-10 09:30 | Progress Note ---
DATE: 10/25/2016 SUBJECTIVE: The patient is . PHYSICAL EXAMINATION: VITAL SIGNS: Heart rate is 123, respiratory rate is 20, and his blood pressure is 148/81. HEENT: Eyes were normal. ENT, mucous membranes were moist and intact. NECK: Supple with no JVD without lymph nodes. Tracheostomy site is clean. LUNGS: Clear without rhonchi, rales, or wheezing. Secretions, . HEART: Normal sounds with regular beats. Tachycardia at rest. Sinus tachycardia on monitor. ABDOMEN: Soft and nontender with normal bowel sounds. Gastrostomy site is clean. EXTREMITIES: Warm without cyanosis, clubbing, or edema. LABORATORY DATA: Hemoglobin is 12.7 and hematocrit 36.1 with MCV of 97. WBC of 8.9 and platelets 118,000. His BUN and creatinine is 18 and 1.0 respectively. Sodium was 138, potassium 4.4, chloride 99, and CO2 is 28. His calcium is 8.5. His albumin is 2.8 and total protein is 6.3. Chest x-ray taken yesterday revealed the patient has no active disease. PLAN: Patient's laboratory tests will be done in the a.m. Blood culture x2 will be taken now. Repeat chest x-ray will be done in the a.m. Shay Connolly M.D. DR: MADELINE JOB#: [id number] CC:
== END 2016-10-30 19:19 | DRG 871 ==
LOC: EDBD 09:31 → EMR 10:15 → 2W 11:29 → EDBEDREQ 11:56 → 2W 10-26 06:10 → 4E 10-29 14:30
PROC: 5A0935Z Assistance with Respiratory Ventilation, Less than 24 Consecutive Hours (ICD-10-PCS; principal; 2016-10-25)
DX: A41.9 Sepsis, unspecified organism (principal); G93.40 Encephalopathy, unspecified; J96.01 Acute respiratory failure with hypoxia; R53.2 Functional quadriplegia; R13.10 Dysphagia, unspecified; N39.0 Urinary tract infection, site not specified; I69.320 Aphasia following cerebral infarction; I50.9 Heart failure, unspecified; R65.20 Severe sepsis without septic shock; K59.00 Constipation, unspecified; Z86.73 Personal history of transient ischemic attack (TIA), and cerebral infarction without residual deficits; Z88.1 Allergy status to other antibiotic agents; Z88.0 Allergy status to penicillin; Z88.8 Allergy status to other drugs, medicaments and biological substances; N40.0 Benign prostatic hyperplasia without lower urinary tract symptoms; L13.9 Bullous disorder, unspecified
CPT/HCPCS: 36415; 36600; 71010; 71250; 76775; 80048; 80053; 80202; 81001; 81003; 82436; 82550; 82553; 82803; 82962; 83605; 83735; 83880; 83930; 83935; 84100; 84133; 84300; 84439; 84443; 84484; 84550; 85007; 85025; 85610; 85651; 85730; 86710; 87040; 87081; 87086; 87181; 89050; 93005; 94640; 94660; 94664; 94760; J1815; J7620

== ENCOUNTER 2017-03-07 20:16 | Inpatient (IN) | payer MEDICARE, MEDICAID ==
[~2017-03-07] VITALS: Ht 188 cm; Wt 77.6 kg
[~2017-03-07 20:16] MED LIST changes: +AZTREONAM1 GM IJ; +BENADRYL A12.5 MG/5 ORAL; +COUMADIN7.5 MG ORAL; +VANCO 750750 MG/150 IV; +vit D3 PO
[2017-03-07 20:20] VITALS: BP 106/62
[2017-03-07] MEDS ORDERED: Albuterol ud Inhalation HHN ONE (20:30)
[2017-03-07] MEDS ORDERED: Azithromycin 500 MG in NS 275 ML IV ONE (20:30)
[2017-03-07] MEDS ORDERED: Ipratropium 0.02% Inh Soln 2.5ml UD HHN ONE (20:30)
[2017-03-07] MEDS ORDERED: cefTRIAXone 2 GM in NS 110 ML IV ONE (20:30)
--- NOTE | 2017-03-07 20:31 | Emergency Room Report ---
History of Present Illness General Chief Complaint: Dyspnea/Respdistress Source: EMS Present Illness HPI The patient is an altered mental status increased respiratory rate a cough since this morning. O2 sats are low at a [facility] facility. Paramedics got the patient to increase his oxygen saturations substantially by placing on telemetry if by mask. Or rhonchi and no wheezes. No other history available. Discharge 10/30 with similar presentation. 1. Acute respiratory failure, requiring BiPAP, resolved. 2. Sepsis. 3. Urinary tract infection. 4. Chronic obstructive pulmonary disease. 5. Mild bullous disease, chronic. 6. History of cerebrovascular accident. 7. Chronic encephalopathy. 8. Dysphagia. 9. Hypertension. 10. Diabetes. 11. Constipation. 12. Functional quadriplegia. 13. Leukopenia, likely secondary to chronic disease process. Allergies: Coded Allergies: AMOXICILLIN (Unverified Allergy, Unknown, 01/13/15) AMPICILLIN (Unverified Allergy, Unknown, 01/13/15) PENICILLINS (Unverified Allergy, Unknown, 01/13/15) PIPERACILLIN (Unverified Allergy, Unknown, 01/13/15) TAZOBACTAM (Unverified Allergy, Unknown, 01/13/15) LEVOFLOXACIN (Verified Adverse Reaction, Intermediate, 10/25/16) Red erythematous rash outbreak near IV site Patient History Limited by: medical condition Past Medical History: see triage record, old chart reviewed Past Surgical History: other - G tube Social History Narrative SNF Reviewed Nursing Documentation: PMH: Agreed, PSxH: Agreed Nursing Documentation-PMH Hx Cardiac Problems: Yes Hx Hypertension: Yes Hx Diabetes: Yes Hx Cancer: No Hx Gastrointestinal Problems: Yes - dysphagia Hx Cerebrovascular Accident: No - BPH, ENCEPHALOPATHY Hx Encephalitis: Yes Hx Seizures: Yes Review of Systems All Other Systems: limited Physical Exam Vital Signs Date Time Temp Pulse Resp B/P Pulse Ox O2 Delivery O2 Flow Rate FiO2 03/07/17 20:15 98.1 114 22 106/62 93 Non-Rebreather 15.0 Sp02 EP Interpretation: reviewed, normal General Appearance: mild distress, Chronically Ill Head: normocephalic Eyes: bilateral eye PERRL, bilateral eye normal inspection ENT: dry mucus membranes Neck: supple, no meningismus, other - stoma open and present Respiratory: crackles, rales, rhonchi, other - tachypnea Cardiovascular #1: no edema, tachycardia Cardiovascular #2: 2+ radial (R) Gastrointestinal: normal inspection, non tender, no mass, non-distended, abnormal bowel sounds - decreased, other - G tube Musculoskeletal: back normal, other - atrophy Neurologic: responsive - minimally , other - flaccid Psychiatric: other - vegetative state Skin: warm/dry Medical Decision Making Diagnostic Impression: Primary Impression: Pneumonia Qualified Codes: J18.9 - Pneumonia, unspecified organism Additional Impression: Chronic complete quadriplegia ER Course Patient presents with significant hypoxia and respiratory distress. Differential includes pneumonia, congestive heart failure, acute myocardial infarction amongst others. His lung exam suggested he has fairly significant secretions at the moment. He'll be aggressively be suctioned and given breathing treatments. Evaluation will be with blood cultures, lactate a chest x -ray other labs EKG. The patient will be given fluid resuscitation and also started on antibiotics covering potential pneumonia. Due to the respiratory distress the patient will be admitted to [facility]. After breathing treatment and suctioning the patient is improved oxygenation and also decreased respiratory distress. At the moment he doesn't appear to that he needs to be intubated. Labs significant for normal WBC and lactate. Some renal insufficiency. No distress but still with mild tachypnea. Admit [facility], Dr. Connolly. He is present in ED evaluating patient. Laboratory Tests Test 03/07/17 20:47 03/07/17 21:00 White Blood Count 8.8 K/UL (4.8-10.8) Red Blood Count 4.03 M/UL (4.70-6.10) L Hemoglobin 12.8 G/DL (14.2-18.0) L Hematocrit 39.7 % (42.0-52.0) L Mean Corpuscular Volume 99 FL (80-99) Mean Corpuscular Hemoglobin 31.9 PG (27.0-31.0) H Mean Corpuscular Hemoglobin Concent 32.3 G/DL (32.0-36.0) Red Cell Distribution Width 15.2 % (11.6-14.8) H Platelet Count 315 K/UL (150-450) Mean Platelet Volume 6.6 FL (6.5-10.1) Neutrophils (%) (Auto) 84.4 % (45.0-75.0) H Lymphocytes (%) (Auto) 9.6 % (20.0-45.0) L Monocytes (%) (Auto) 4.9 % (1.0-10.0) Eosinophils (%) (Auto) 0.7 % (0.0-3.0) Basophils (%) (Auto) 0.4 % (0.0-2.0) Prothrombin Time 10.2 SEC (9.30-11.50) Prothrombin Time INR 1.0 (0.9-1.1) PTT 24 SEC (23-33) Sodium Level 141 mEQ/L (135-145) Potassium Level 5.6 mEQ/L (3.4-4.9) H Chloride Level 99 mEQ/L (98-107) Carbon Dioxide Level 28 mEQ/L (20-30) Anion Gap 14 (5-15) Blood Urea Nitrogen 52 mg/dL (7-23) H Creatinine 1.2 mg/dL (0.7-1.2) Estimate Glomerular Filtration Rate > 60 mL/min (>60) Glucose Level 141 mg/dL (74-106) H Lactic Acid Level 1.70 mmol/L (0.66-2.22) Calcium Level 9.8 mg/dL (8.6-10.2) Total Bilirubin 0.4 mg/dL (0.0-1.2) Aspartate Amino Transferase (AST) 32 U/L (5-40) Alanine Aminotransferase (ALT) 29 U/L (3-41) Alkaline Phosphatase 125 U/L (40-129) Total Creatine Kinase 96 U/L (38-174) Troponin I < 0.30 ng/mL (<=0.30) Pro-B-Type Natriuretic Peptide 220 pg/mL (0-125) H Total Protein 9.4 g/dL (6.6-8.7) H Albumin 3.8 g/dL (3.5-5.2) Globulin 5.6 g/dL Albumin/Globulin Ratio 0.6 (1.0-2.7) L Urine Color Yellow Urine Appearance Clear Urine pH 8 (4.5-8.0) Urine Specific Nadeau 1.010 (1.005-1.035) Urine Protein Negative (NEGATIVE) Urine Glucose (UA) Negative (NEGATIVE) Urine Ketones 1+ (NEGATIVE) H Urine Occult Blood 1+ (NEGATIVE) H Urine Nitrite Negative (NEGATIVE) Urine Bilirubin Negative (NEGATIVE) Urine Urobilinogen 1 MG/DL (0.0-1.0) H Urine Leukocyte Esterase 1+ (NEGATIVE) H Urine RBC 2-4 /HPF (0 - 0) H Urine WBC 0-2 /HPF (0 - 0) Urine Squamous Epithelial Cells None /LPF (NONE/OCC) Urine Bacteria Few /HPF (NONE) Urine Legionella Antigen Pending EKG Diagnostic Results Rate: tachycardiac ST Segments: no acute changes Rhythm Strip Diag. Results EP Interpretation: yes Rhythm: no PVC's, no ectopy, other - Sinus tachycardia Chest X-Ray Diagnostic Results Chest X-Ray Ordered: Yes # of Views/Limited/Complete: 1 View EP Interpretation: Yes Interpretation: no effusion, no pneumothorax, other - L infiltrate Indication: Shortness of Breath Impression: Other Interpreting ER Provider: Didier Last Vital Signs Date Time Temp Pulse Resp B/P Pulse Ox O2 Delivery O2 Flow Rate FiO2 03/07/17 20:15 98.1 114 22 106/62 93 Non-Rebreather 15.0 Status: improved Disposition: ADMITTED INPATIENT Condition: Serious David Velásquez M.D. Mar 07, 2017 20:31
[2017-03-07 21:04] LABS: BASOPHILS % (AUTO) 0.4 % (0.0-2.0); EOSINOPHILS % (AUTO) 0.7 % (0.0-3.0); LYMPHOCYTES % (AUTO) 9.6 % (20.0-45.0); MEAN CORPUSCULAR HEMOGLOBIN 31.9 PG (27.0-31.0); MEAN CORPUSCULAR HGB CONC 32.3 G/DL (32.0-36.0); MEAN CORPUSCULAR VOLUME 99 FL (80-99); MEAN PLATELET VOLUME 6.6 FL (6.5-10.1); MONOCYTES % (AUTO) 4.9 % (1.0-10.0); NEUTROPHILS % (AUTO) 84.4 % (45.0-75.0); PLATELET COUNT 315 K/UL (150-450); RED BLOOD COUNT 4.03 M/UL (4.70-6.10); RED CELL DISTRIBUTION WIDTH 15.2 % (11.6-14.8); WHITE BLOOD COUNT 8.8 K/UL (4.8-10.8)
[2017-03-07 21:11] LABS: PROTHROMBIN TIME 10.2 SEC (9.30-11.50)
[2017-03-07 21:20] LABS: ALANINE AMINOTRANSFERASE 29 U/L (3-41); ALBUMIN/GLOBULIN RATIO 0.6 (1.0-2.7); ANION GAP 14 (5-15); ASPARTATE AMINO TRANSFERASE 32 U/L (5-40); CALCIUM 9.8 mg/dL (8.6-10.2); CARBON DIOXIDE 28 mEQ/L (20-30); CHLORIDE 99 mEQ/L (98-107); CREATININE 1.2 mg/dL (0.7-1.2); GLOMERULAR FILTRATION RATE > 60 mL/min (>60); HEMOLYSIS 2; POTASSIUM 5.6 mEQ/L (3.4-4.9); SODIUM 141 mEQ/L (135-145); TOTAL PROTEIN 9.4 g/dL (6.6-8.7); TROPONIN I < 0.30 ng/mL (<=0.30)
[2017-03-07] MEDS ORDERED: Azithromycin Inj IV ONE (21:30)
[2017-03-07 21:34] LABS: APPEARANCE,URINE CLEAR; KETONES,URINE 1+ (NEGATIVE); LEUKOCYTE ESTERASE ,URINE 1+ (NEGATIVE); NITRITE,URINE NEGATIVE (NEGATIVE); PH,URINE 8 (4.5-8.0); PROTEIN,URINE NEGATIVE (NEGATIVE); UROBILINOGEN,URINE 1 MG/DL (0.0-1.0)
[2017-03-07 22:05] LABS: BACTERIA,URINE FEW /HPF; WBC,URINE 0-2 /HPF (0 - 0)
[2017-03-07 22:20] VITALS: BP 133/78
[2017-03-07] MEDS ORDERED: Promethazine/Codeine 5ml UD ORAL PRN (22:30)
[2017-03-07] MEDS ORDERED: DuoNeb 0.5-3(2.5)mg/3ml neb HHN PRN (22:30)
[2017-03-07] MEDS ORDERED: Amikacin Rx to dose MISC PRN (22:30)
[2017-03-07] MEDS ORDERED: Mylanta II UD 30ml ORAL PRN (22:30)
[2017-03-07] MEDS ORDERED: Nitroglycerin Subl 0.4mg tab (Bottle Of 25) SL PRN (22:30)
[2017-03-07] MEDS ORDERED: Miralax 17gm pkt ORAL PRN (22:30)
[2017-03-07] MEDS ORDERED: Vancomycin 1.5 GM in D5W 325 ML IVPB SCH (23:00)
[2017-03-07 23:25] VITALS: BP 110/65
[2017-03-08] MEDS ORDERED: Amikacin 1,200 MG in NS 275 ML IV SCH (01:00)
[2017-03-08] MEDS: D5 1/2NS 1,000 ML IV SCH ×2 (01:38→08:31)
[2017-03-08] MEDS ORDERED: Amikacin 500mg/2mL Inj ONE (02:01)
[2017-03-08] MEDS ORDERED: [UNRECOGNIZED DRUG - OTHER] IVPB SCH (03:00)
[2017-03-08] MEDS ORDERED: VANCOMYCIN IVPB SCH (03:00)
--- NOTE | 2017-03-08 03:30 | History and Physical Report ---
DATE OF ADMISSION: 03/07/2017 REASON FOR ADMISSION: Several admissions to [facility] of this 66-year-old patient because of respiratory distress and pneumonia. HISTORY OF PRESENT ILLNESS: The patient is a resident of an extended care facility where he has been in stable condition over the last several months. He is known to have several chronic medical syndrome . He has been stable on his current medication. On the day of admission, he was found by the medical staff . He has tachycardia, tachypnea, hypoxia and transferred by paramedics to [facility] ER and was found to have a left lower lobe pneumonia and the patient was admitted. PAST MEDICAL HISTORY: The patient developed CVA several years ago, developed respiratory failure, had to be intubated and placed on mechanical ventilation. He was unable to be weaned, by that time underwent tracheostomy and gastrostomy and sent to subacute unit. The patient was successfully decannulated and G-tube was stopped and the patient remained with complete aphasia and right hemiplegia. The patient has high blood pressure for the last 10 years and congestive heart failure for the last several years. He has chronic obstructive pulmonary disease and used beta-agonist and steroids for its management. He has motility disorder and sleep disorder. ALLERGIES: The patient is allergic to penicillin, ampicillin, levofloxacin and tazobactam. MEDICATIONS: The patient is on carvedilol 3.125 mg b.i.d., divalproex sodium 500 mg t.i.d., docusate sodium 200 mg b.i.d., lisinopril 5 mg daily, heparin 5000 units subcutaneously q.12 h., aztreonam 1 g IV piggyback q.8 h., vancomycin 1 g IV piggyback q.8 h., clonidine 0.1 mg p.r.n. for blood pressure above 160, albuterol sulfate and ipratropium bromide inhalation therapy every four hours and polyethylene glycol, promethazine and codeine for his persistent cough. FAMILY HISTORY: Noncontributory. SOCIAL HISTORY: He is single. He was born in [place]. He has been on SSI for many years. Prior to the present total disability, he was unemployed. Habits, the patient does not smoke, drink, or use illicit drugs. REVIEW OF SYSTEMS: The patient not able to give any information regarding his state of health. PHYSICAL EXAMINATION: VITAL SIGNS: Blood pressure is 106/62, his pulse is 119, respirations 22, temperature 98.1 degrees. HEENT: Eyes were normal. Pupils were round, equal, and reacting to light. Sclerae was white. Conjunctiva was pink. Extraocular movements were normal. Temporal arteries were palpable bilaterally. There was bilateral temporal wasting. Visual hanson to confrontation. Neglect sign could not be assessed because of lack of the patient's cooperation. ENT, mucous membranes were not dehydrated. Auditory canals were clear and tympanic membranes could not be visualized. Nasal cavity was not congested. Nasal septum was intact. Soft palate was free of ulcerations. Pharynx was clear from exudate or tonsillar hypertrophy. Uvula lillian to phonation. Tongue was moist, midline, and normally papillated. NECK: Supple. There was no goiter. No mass. No lymphadenopathy. There was no jugular venous distention. No bruits. Carotid upstroke was 1+. LUNGS: There was bilateral rhonchi at both bases, more on the left than on the right. CARDIAC: PMI was fifth left intercostal space in midclavicular line. There was normal S1 and normal S2. There was no murmur. No arrhythmia. No S3. No S4. No pericardial rub. ABDOMEN: Soft and nontender without organomegaly. There were no masses palpable. Normal bowel sounds without bruits. There was no guarding. No rebound tenderness. No ascites. No hernia. No CVA tenderness. Liver span was 8 cm, mostly nontender. EXTREMITIES: No cyanosis, no clubbing, and no edema. Extremities were warm. NEUROLOGICAL: Reflexes in biceps, triceps and brachioradialis were present with on the left than on the right. Patellar retinaculum extension on the right and flexion on the left. Cranial nerves were symmetric and equal. Cerebellar function, there was no tremor. No nystagmus. No extrapyramidal rigidity. Sensory exam to pinprick, cotton touch, position are grossly normal. Motor strength was 5/5 against resistance in upper and lower extremities. right upper extremity and right lower extremity. LABORATORY AND DIAGNOSTIC DATA: Hemoglobin is 12.8, hematocrit 39.7, MCV of 99, WBC of 8.8 and platelets of 315,000. His BUN and creatinine is 62 and 1.2 respectively. Sodium is 141, potassium 5.6, chloride 99, and CO2 was 28. His calcium was 9.8. His albumin was 3.8. His total protein is 9.4. Pro-BNP was 220. Troponin was not detected. Glucose was 141 and lactic acid was 1.7. Culture was taken, but was unavailable. Chest x-ray was taken and results are pending. IMPRESSION: The patient has left lower lobe pneumonia. He is status post cerebrovascular accident, complete aphasia and right hemiplegia. He is status post respirator-dependent and gastrostomy tube feeding, that was successfully weaned. He has atrial fibrillation intermittently with rapid ventricular response. PLAN: The patient will continue on and heparin. He is currently on vancomycin and aztreonam. Repeat laboratory test will be done in the morning. Pulmonary surgery consultant was called to assess the patient. Shay Connolly M.D. DR: AASHISH JOB#: [id number] CC:
[2017-03-08 04:00] VITALS: BP 116/62
[2017-03-08] MEDS ORDERED: Vancomycin 1gm inj IVPB ONE (04:41)
[2017-03-08] MEDS ORDERED: Vancomycin 1.5 GM in D5W 275 ML IVPB SCH (05:00)
[2017-03-08 05:16] LABS: BASOPHILS % (AUTO) 0.4 % (0.0-2.0); EOSINOPHILS % (AUTO) 0.3 % (0.0-3.0); LYMPHOCYTES % (AUTO) 9.7 % (20.0-45.0); MEAN CORPUSCULAR HEMOGLOBIN 32.2 PG (27.0-31.0); MEAN CORPUSCULAR HGB CONC 32.1 G/DL (32.0-36.0); MEAN CORPUSCULAR VOLUME 100 FL (80-99); MEAN PLATELET VOLUME 6.5 FL (6.5-10.1); MONOCYTES % (AUTO) 6.5 % (1.0-10.0); NEUTROPHILS % (AUTO) 83.1 % (45.0-75.0); PLATELET COUNT 225 K/UL (150-450); RED BLOOD COUNT 3.35 M/UL (4.70-6.10); RED CELL DISTRIBUTION WIDTH 15.4 % (11.6-14.8); WHITE BLOOD COUNT 7.6 K/UL (4.8-10.8)
[2017-03-08 05:47] LABS: ANION GAP 9 (5-15); CALCIUM 8.8 mg/dL (8.6-10.2); CARBON DIOXIDE 27 mEQ/L (20-30); CHLORIDE 110 mEQ/L (98-107); GLOMERULAR FILTRATION RATE > 60 mL/min (>60); HEMOLYSIS 6; PHOSPHORUS 2.9 mg/dL (2.5-4.8); POTASSIUM 5.5 mEQ/L (3.4-4.9); SODIUM 146 mEQ/L (135-145)
[2017-03-08] MEDS ORDERED: Vancomycin 1 GM in D5W 275 ML IVPB SCH (06:00)
[2017-03-08] MEDS: Aztreonam Inj 1 GM in NS 55 ML IVPB SCH ×3 (06:00→21:57)
[2017-03-08 08:00] VITALS: BP 118/75
[2017-03-08] MEDS: Depakote 500mg tab ORAL SCH ×3 (08:45→18:32)
[2017-03-08] MEDS: Lisinopril 2.5mg tab ORAL SCH (08:45)
[2017-03-08] MEDS: Heparin 5000 units/ml inj SUBQ SCH ×2 (08:46→20:41)
[2017-03-08] MEDS: Docusate 100mg/10ml Liq GT SCH ×2 (08:48→18:32)
[2017-03-08] MEDS ORDERED: Docusate 100mg cap ORAL SCH (09:00)
--- NOTE | 2017-03-08 11:43 | Consultation ---
History of Present Illness General Date patient seen: Mar 08, 2017 Chief Complaint: Dyspnea/Respdistress Referring physician: dr Connolly Present Illness HPI 66 year old male with hx of CVA, old trach, PEG, longterm resident brought in by paramedics with CC of hypoxemia. Apparently he was desaturating in the ED. He was admitted to [facility] for acute respiratory failure. He is awake, aphasic and all information is obtained form the chart. Allergies: Coded Allergies: AMOXICILLIN (Unverified Allergy, Unknown, 01/13/15) AMPICILLIN (Unverified Allergy, Unknown, 01/13/15) PENICILLINS (Unverified Allergy, Unknown, 01/13/15) PIPERACILLIN (Unverified Allergy, Unknown, 01/13/15) TAZOBACTAM (Unverified Allergy, Unknown, 01/13/15) LEVOFLOXACIN (Verified Adverse Reaction, Intermediate, 10/25/16) Red erythematous rash outbreak near IV site Medication History Scheduled Aztreonam (Aztreonam), 1 GM IJ Q8HR Carvedilol* (Carvedilol*), 3.125 MG ORAL EVERY 12 HOURS, (Reported) Cranberry Fruit Concentrate (Cranberry), 450 MG PO DAILY, (Reported) Divalproex Sodium (Depakote), 500 MG PO THREE TIMES A DAY, (Reported) Docusate Sodium* (Docusate Sodium*), 200 MG ORAL BID, (Reported) Famotidine (Pepcid), 20 MG ORAL BEDTIME, (Reported) Heparin Sod (Porcine) (Heparin Sodium*), 5,000 UNITS SUBQ TWICE A DAY, (Reported ) Lisinopril (Lisinopril*), 5 MG ORAL DAILY, (Reported) Multivitamin With Minerals (Multivitamins With Minerals*), 1 TAB ORAL DAILY, ( Reported) Vancomycin/0.9 % Sod Chloride (Vanco 750 mg/150 ml-0.9% NaCl), 750 MG IV DAILY Warfarin Sod (Coumadin*), 7 MG ORAL DAILY, (Reported) [vit D3], 5,000 UNITS PO DAILY, (Reported) Scheduled PRN Acetaminophen (Acetaminophen), 650 MG ORAL Q4HR PRN for Prn Headache/Temp > 101, (Reported) Albuterol Sulfate* (Albuterol Sulfate Hhn*), 3 ML INH Q4H PRN for Shortness of Breath, (Reported) Clonidine Hcl (Clonidine Hcl), 0.1 MG PO EVERY 8 HOURS PRN for For High Blood Pressure, (Reported) Diphenhydramine Hcl* (Benadryl Allergy*), 25 MG ORAL Q8 PRN for Itching, ( Reported) Miscellaneous Medications Ipratropium/Albuterol Sulfate (Combivent Respimat Inhal [place]), 4 GM IH, ( Reported) Nitroglycerin (Nitroglycerin), 0.4 MG SL, (Reported) Patient History Healthcare decision maker Resuscitation status Full Code Advanced Directive on File Past Medical/Surgical History Past Medical/Surgical History: (1) Chronic complete quadriplegia (2) Pneumonia (3) Severe sepsis (4) Feeding by G-tube Review of Systems All Other Systems: negative except mentioned in HPI Physical Exam General Appearance: WD/WN Lines, tubes and drains: peripheral, central line HEENT: normocephalic, atraumatic Neck: non-tender, normal alignment Respiratory/Chest: chest wall non-tender, lungs clear Cardiovascular/Chest: normal peripheral pulses, normal rate Abdomen: normal bowel sounds, non tender Genitourinary/Rectal: normal genital exam, normal prostate exam Extremities: normal range of motion, normal inspection Skin Exam: normal pigmentation Neurologic: sifter operator II-XII grossly normal Last 24 Hour Vital Signs Date Time Temp Pulse Resp B/P Pulse Ox O2 Delivery O2 Flow Rate FiO2 03/08/17 08:45 116/62 03/08/17 08:45 106 116/62 03/08/17 08:00 97.9 106 20 118/75 96 Venturi Mask 35 03/08/17 07:38 104 03/08/17 06:51 104 20 Venturi Mask 14.0 55 03/08/17 06:51 99 Venturi Mask 14.0 55 03/08/17 06:51 Venturi Mask 14.0 55 03/08/17 04:00 98.6 113 24 116/62 97 Non-Rebreather 03/08/17 03:55 112 03/07/17 23:42 120 03/07/17 23:25 98.0 113 20 110/65 100 Non-Rebreather 15.0 100 03/07/17 23:25 98.0 113 20 110/65 100 Non-Rebreather 15.0 03/07/17 22:20 98.0 117 29 133/78 99 Non-Rebreather 15.0 03/07/17 22:00 97 Non-Rebreather 15.0 100 03/07/17 22:00 Non-Rebreather 15.0 100 03/07/17 20:47 117 27 95 Non-Rebreather 15.0 100 03/07/17 20:31 116 23 96 Non-Rebreather 15.0 100 03/07/17 20:30 116 23 Non-Rebreather 15.0 100 03/07/17 20:20 98.1 119 22 106/62 93 Non-Rebreather 15.0 03/07/17 20:20 114 22 Non-Rebreather 15.0 03/07/17 20:15 98.1 114 22 106/62 93 Non-Rebreather 15.0 Intake and Output 03/07/17 03/08/17 19:00 07:00 Intake Total 1155 ml Output Total 700 ml Balance 455 ml Intake IV Total 1155 ml Output Urine Total 700 ml # Voids 1 Laboratory Tests Test 03/07/17 20:47 03/07/17 21:00 03/08/17 03:20 White Blood Count 8.8 K/UL (4.8-10.8) 7.6 K/UL (4.8-10.8) Red Blood Count 4.03 M/UL (4.70-6.10) L 3.35 M/UL (4.70-6.10) L Hemoglobin 12.8 G/DL (14.2-18.0) L 10.8 G/DL (14.2-18.0) L Hematocrit 39.7 % (42.0-52.0) L 33.5 % (42.0-52.0) L Mean Corpuscular Volume 99 FL (80-99) 100 FL (80-99) H Mean Corpuscular Hemoglobin 31.9 PG (27.0-31.0) H 32.2 PG (27.0-31.0) H Mean Corpuscular Hemoglobin Concent 32.3 G/DL (32.0-36.0) 32.1 G/DL (32.0-36.0) Red Cell Distribution Width 15.2 % (11.6-14.8) H 15.4 % (11.6-14.8) H Platelet Count 315 K/UL (150-450) 225 K/UL (150-450) Mean Platelet Volume 6.6 FL (6.5-10.1) 6.5 FL (6.5-10.1) Neutrophils (%) (Auto) 84.4 % (45.0-75.0) H 83.1 % (45.0-75.0) H Lymphocytes (%) (Auto) 9.6 % (20.0-45.0) L 9.7 % (20.0-45.0) L Monocytes (%) (Auto) 4.9 % (1.0-10.0) 6.5 % (1.0-10.0) Eosinophils (%) (Auto) 0.7 % (0.0-3.0) 0.3 % (0.0-3.0) Basophils (%) (Auto) 0.4 % (0.0-2.0) 0.4 % (0.0-2.0) Prothrombin Time 10.2 SEC (9.30-11.50) Prothromb Time International Ratio 1.0 (0.9-1.1) Activated Partial Thromboplast Time 24 SEC (23-33) Sodium Level 141 mEQ/L (135-145) 146 mEQ/L (135-145) H Potassium Level 5.6 mEQ/L (3.4-4.9) H 5.5 mEQ/L (3.4-4.9) H Chloride Level 99 mEQ/L (98-107) 110 mEQ/L (98-107) H Carbon Dioxide Level 28 mEQ/L (20-30) 27 mEQ/L (20-30) Anion Gap 14 (5-15) 9 (5-15) Blood Urea Nitrogen 52 mg/dL (7-23) H 43 mg/dL (7-23) H Creatinine 1.2 mg/dL (0.7-1.2) 1.0 mg/dL (0.7-1.2) Estimat Glomerular Filtration Rate > 60 mL/min (>60) > 60 mL/min (>60) Glucose Level 141 mg/dL (74-106) H 144 mg/dL (74-106) H Lactic Acid Level 1.70 mmol/L (0.66-2.22) Calcium Level 9.8 mg/dL (8.6-10.2) 8.8 mg/dL (8.6-10.2) Total Bilirubin 0.4 mg/dL (0.0-1.2) Aspartate Amino Transf (AST/SGOT) 32 U/L (5-40) Alanine Aminotransferase (ALT/SGPT) 29 U/L (3-41) Alkaline Phosphatase 125 U/L (40-129) Total Creatine Kinase 96 U/L (38-174) Troponin I < 0.30 ng/mL (<=0.30) Pro-B-Type Natriuretic Peptide 220 pg/mL (0-125) H Total Protein 9.4 g/dL (6.6-8.7) H Albumin 3.8 g/dL (3.5-5.2) 3.0 g/dL (3.5-5.2) L Globulin 5.6 g/dL Albumin/Globulin Ratio 0.6 (1.0-2.7) L Urine Color Yellow Urine Appearance Clear Urine pH 8 (4.5-8.0) Urine Specific [place] 1.010 (1.005-1.035) Urine Protein Negative (NEGATIVE) Urine Glucose (UA) Negative (NEGATIVE) Urine Ketones 1+ (NEGATIVE) H Urine Occult Blood 1+ (NEGATIVE) H Urine Nitrite Negative (NEGATIVE) Urine Bilirubin Negative (NEGATIVE) Urine Urobilinogen 1 MG/DL (0.0-1.0) H Urine Leukocyte Esterase 1+ (NEGATIVE) H Urine RBC 2-4 /HPF (0 - 0) H Urine WBC 0-2 /HPF (0 - 0) Urine Squamous Epithelial Cells None /LPF (NONE/OCC) Urine Bacteria Few /HPF (NONE) Urine Legionella Antigen Pending Phosphorus Level 2.9 mg/dL (2.5-4.8) Height (Feet): 6 Height (Inches): 2.00 Weight (Pounds): 171 Medications Current Medications Medications (Trade) Dose Ordered Sig/Baljeet Route PRN Reason Start Time Stop Time Status Last Admin Dose Admin Acetaminophen (Tylenol) 650 mg Q4H PRN ORAL fever 03/07/17 22:30 04/06/17 22:29 Al Hydroxide/Mg Hydroxide (Mylanta II) 30 ml Q6H PRN ORAL dyspepsia 03/07/17 22:30 04/06/17 22:29 Albuterol/ Ipratropium (DuoNeb 0.5-3(2.5)mg/3ml) 3 ml EVERY 4 HOURS PRN HHN Shortness of Breath 03/07/17 22:30 03/12/17 22:29 Amikacin Protocol 1 ea 1 ea DAILY PRN MISC Per rx protocol 03/07/17 22:30 04/06/17 22:29 Amikacin Sulfate 1200 mg/Sodium Chloride 279.8 ml @ 279.8 mls/ hr Q24H IV 03/08/17 01:00 03/15/17 00:59 03/08/17 02:19 Aztreonam/Sodium Chloride (Azactam/Sodium Chloride) 55 ml @ 110 mls/hr EVERY 8 HOURS IVPB 03/08/17 06:00 03/15/17 05:59 Carvedilol (Coreg) 3.125 mg EVERY 12 HOURS ORAL 03/08/17 09:00 04/07/17 08:59 03/08/17 08:45 Clonidine HCl (Catapres) 0.1 mg EVERY 8 HOURS PRN ORAL For High Blood Pressure > 160 03/07/17 22:30 04/06/17 22:29 Dextrose/Sodium Chloride 1,000 ml @ 100 mls/hr Q10H IV 03/07/17 22:30 04/06/17 22:29 03/08/17 08:31 Divalproex Sodium (Depakote) 500 mg THREE TIMES A DAY ORAL 03/08/17 09:00 04/07/17 08:59 03/08/17 08:45 Docusate Sodium (Colace) 200 mg TWICE A DAY GT 03/08/17 09:00 04/07/17 08:59 03/08/17 08:48 Heparin Sodium (Porcine) (Heparin 5000 units/ml) 5,000 units EVERY 12 HOURS SUBQ 03/08/17 09:00 04/07/17 08:59 03/08/17 08:46 Lisinopril (Zestril) 5 mg DAILY ORAL 03/08/17 09:00 04/07/17 08:59 03/08/17 08:45 Nitroglycerin 0.4 mg 0.4 mg Q5M PRN SL Prn Chest Pain 03/07/17 22:30 04/06/17 22:29 Ondansetron HCl (Zofran) 4 mg Q6H PRN IVP Nausea & Vomiting 03/07/17 22:30 04/06/17 22:29 Polyethylene Glycol (Miralax) 17 gm DAILYPRN PRN ORAL Constipation 03/07/17 22:30 04/06/17 22:29 Promethazine HCl/ Codeine (Phenergan with Codeine) 5 ml Q4H PRN ORAL For Cough 03/07/17 22:30 04/06/17 22:29 Temazepam (Restoril) 15 mg HSPRN PRN ORAL Insomnia 03/07/17 22:30 03/14/17 22:29 Vancomycin HCl/ Dextrose (Vancomycin/D5W) 275 ml @ 183.3 mls/ hr Q12H IVPB 03/08/17 05:00 03/13/17 04:59 03/08/17 04:51 Assessment/Plan Problem List: (1) Acute encephalopathy ICD Codes: G93.40 - Encephalopathy, unspecified SNOMED: 8318917 (2) Aspiration pneumonia ICD Codes: J69.0 - Pneumonitis due to inhalation of food and vomit SNOMED: 888809364 (3) ATN (acute tubular necrosis) ICD Codes: N17.0 - Acute kidney failure with tubular necrosis SNOMED: 72088032 (4) Feeding by G-tube ICD Codes: Z93.1 - Gastrostomy status SNOMED: 918579947, 460974622 (5) Chronic complete quadriplegia ICD Codes: G82.50 - Chronic complete quadriplegia SNOMED: 46483124 (6) Severe sepsis ICD Codes: A41.9 - Sepsis, unspecified organism; R65.20 - Severe sepsis without septicshock SNOMED: 62784337 Assessment/Plan IV antibiotics IV fluids CT angio to rule out PE check electrolytes feeding by gtube respiratory treatment dvt prophylaxis. LATRICE DEL RIO Mar 08, 2017 11:42
[2017-03-08 12:05] VITALS: BP 121/68
--- NOTE | 2017-03-08 13:01 | General Progress Note ---
Progress Note Progress Note Pt needs ct angio to rule out PE, no family member is available to sign the consent form. LATRICE DEL RIO Mar 08, 2017 13:01
[2017-03-08 16:00] VITALS: BP 134/67
--- NOTE | 2017-03-08 16:45 | Diagnostic Imaging Report ---
Indication: COUGH Technique: One view of the chest Comparison: 10/30/2016 Findings: Less optimal inspiration currently. There is in particular crowding of bronchovascular markings at the left lung base Degenerative changes of both shoulders are again noted. There is mild generalized prominence of the interstitial markings. Calcific pleural plaques and thickening are seen at the right lateral lung base. There is slight blunting of left costophrenic sulcus as well. No new infiltrates. Heart size is normal. Impression: Mild interstitial disease, suspect of the basis of chronic changes. Hypoventilatory exam with left basilar atelectasis/crowding This agrees with the preliminary interpretation provided by the emergency room physician
[2017-03-08] MEDS: Vancomycin 1.5 GM in D5W 325 ML IVPB SCH (17:29)
[2017-03-08 20:00] VITALS: BP 142/90
--- NOTE | 2017-03-08 21:34 | Consultation ---
Consult Note Consult Note [id number] TREVOR CAMARILLO M.D. Mar 08, 2017 21:34
[2017-03-09] VITALS: BP 105/61
--- NOTE | 2017-03-09 00:16 | Consultation ---
DATE OF CONSULTATION: CONSULTING PHYSICIAN: Deandre Rivera M.D. REQUESTING PHYSICIAN: Lani Martin M.D. REASON FOR CONSULTATION: Pneumonia, sepsis, and antibiotic management. HISTORY OF PRESENT ILLNESS: The patient is a 66-year-old male with multiple medical problems, as listed below, who came to the hospital with sepsis and respiratory distress, was admitted with the impression of pneumonia. An Infectious Disease consultation has been requested for further evaluation of the patient and antibiotic management. PAST MEDICAL HISTORY: 1. History of recent urinary tract infection. 2. History of aspiration pneumonia. 3. History of CVA. MEDICATIONS: Amikacin, vancomycin, and aztreonam. ALLERGIES: Penicillin and Levaquin. FAMILY HISTORY: Not available. REVIEW OF SYSTEMS: Unobtainable. PHYSICAL EXAMINATION: VITAL SIGNS: Temperature 98 degrees, blood pressure 142/90, pulse 56, and respiratory rate 18. HEENT: Mild pale conjunctivae. No icterus. NECK: No lymphadenopathy. CHEST: Coarse breathing sounds. HEART: S1 and S2. ABDOMEN: Soft and obese. EXTREMITIES: No cyanosis. NEUROLOGIC: Nonverbal. LABORATORY AND DIAGNOSTIC DATA: White blood cells 7.2, hemoglobin 10, and platelets 225,000. BUN 32 and creatinine 1. UA unremarkable. Chest x-ray, mild interstitial disease. ASSESSMENT: The patient is a 66-year-old male with multiple medical problems, who has, 1. Sepsis. 2. Possible pneumonia. 3. History of cerebrovascular accident. 4. Seizure disorder. 5. Hypertension. 6. Chronic obstructive pulmonary disease. 7. History of peptic ulcer. 8. History of renal mass. 9. Diabetes. PLAN: 1. We will continue the patient on vancomycin, amikacin, and Azactam. 2. Monitor CBC. 3. Monitor BMP. 4. Monitor chest x-ray. 5. Monitor cultures. 6. Based on the patient's clinical course and laboratories, we will do further recommendations. Thank you, Dr. Martin, for allowing me to participate in the care of this patient. I will follow the patient with you during this hospitalization. Deandre Rivera M.D. DR: HERMILO JOB#: [id number] CC:
--- NOTE | 2017-03-09 03:31 | Progress Note ---
DATE: 03/08/2017 SUBJECTIVE: The patient is awake, alert, afebrile, and hemodynamically stable. He has persistent tachycardia at rest. PHYSICAL EXAMINATION: VITAL SIGNS: Blood pressure 142/90, with pulse of 102, respirations were 20, and temperature 98.1. HEENT: Eyes were normal. ENT, mucous membranes were moist and intact. NECK: Supple with no JVD without lymph nodes. LUNGS: Clear. HEART: Normal sounds with regular beats. He has tachycardia at rest. Sinus tachycardia on monitor. ABDOMEN: Soft and nontender with normal bowel sounds. EXTREMITIES: Warm without cyanosis, clubbing, or edema. LABORATORY DATA: Hemoglobin is 10.8, hematocrit 35.7, MCV 100, WBC of 7.6, and platelets are 225,000. BUN and creatinine 45 and 1 respectively. His sodium , potassium 5.5, chloride 110, CO2 is 27, and calcium is 9.8 8.8. Elevated lactic acid is 1.7. IMPRESSION: The patient is still in agitated state. . In addition, the patient is alert, afebrile, tachycardic without any difficulty. Repeat laboratory tests will be done in the morning. Shay Connolly M.D. DR: ESTELA JOB#: [id number] CC:
[2017-03-09 04:25] VITALS: BP 107/66
[2017-03-09] MEDS: Vancomycin 1.5 GM in D5W 325 ML IVPB SCH (04:47)
[2017-03-09 05:18] LABS: BASOPHILS % (AUTO) 0.6 % (0.0-2.0); EOSINOPHILS % (AUTO) 4.5 % (0.0-3.0); LYMPHOCYTES % (AUTO) 10.2 % (20.0-45.0); MEAN CORPUSCULAR HEMOGLOBIN 32.4 PG (27.0-31.0); MEAN CORPUSCULAR HGB CONC 33.2 G/DL (32.0-36.0); MEAN CORPUSCULAR VOLUME 98 FL (80-99); MEAN PLATELET VOLUME 6.8 FL (6.5-10.1); MONOCYTES % (AUTO) 6.2 % (1.0-10.0); NEUTROPHILS % (AUTO) 78.6 % (45.0-75.0); PLATELET COUNT 197 K/UL (150-450); RED BLOOD COUNT 2.98 M/UL (4.70-6.10); RED CELL DISTRIBUTION WIDTH 14.5 % (11.6-14.8); WHITE BLOOD COUNT 6.4 K/UL (4.8-10.8)
[2017-03-09 06:02] LABS: ALANINE AMINOTRANSFERASE 18 U/L (3-41); ALBUMIN/GLOBULIN RATIO 0.5 (1.0-2.7); ANION GAP 15 (5-15); ASPARTATE AMINO TRANSFERASE 26 U/L (5-40); CALCIUM 8.6 mg/dL (8.6-10.2); CARBON DIOXIDE 21 mEQ/L (20-30); CHLORIDE 94 mEQ/L (98-107); CREATININE 0.7 mg/dL (0.7-1.2); GLOMERULAR FILTRATION RATE > 60 mL/min (>60); HEMOLYSIS 16; MAGNESIUM 1.6 mg/dL (1.7-2.5); PHOSPHORUS 2.6 mg/dL (2.5-4.8); POTASSIUM 4.9 mEQ/L (3.4-4.9); SODIUM 130 mEQ/L (135-145); TOTAL PROTEIN 7.7 g/dL (6.6-8.7)
[2017-03-09] MEDS: Aztreonam Inj 1 GM in NS 55 ML IVPB SCH ×3 (06:06→22:01)
[2017-03-09 08:00] VITALS: BP 116/73
[2017-03-09] MEDS: Docusate 100mg/10ml Liq GT SCH ×2 (08:22→17:03)
[2017-03-09] MEDS: Depakote 500mg tab ORAL SCH ×2 (08:22→13:00)
[2017-03-09] MEDS: Lisinopril 2.5mg tab ORAL SCH (08:22)
[2017-03-09] MEDS: Heparin 5000 units/ml inj SUBQ SCH ×2 (08:24→21:11)
--- NOTE | 2017-03-09 10:27 | Diagnostic Imaging Report ---
ndication: Chest pain, shortness of breath Technique: IV administration nonionic contrast. Spiral acquisitions obtained from the lung bases to the lung apices. Multiplanar and 3-D reconstructions were generated. Total dose length product 1154 mGycm. CTDIvol(s) 12x4, 33 mGy. Dose reduction achieved using automated exposure control Comparison: 10/27/[address] Findings: No intraluminal filling defects or other findings to suggest acute pulmonary embolus are evident. No evidence of thoracic aortic aneurysm or dissection. There is normal variant branching anatomy with common trunk of right brachiocephalic and left common carotid artery. No evidence of pulmonary arterial dilatation. No significant right ventricular dilatation. Bullous changes are again seen in both lungs, predominantly in the lung apices and left lower lobe. There is dense consolidation and/or atelectasis of much of the right lower lobe. This is a new finding There is trace pleural fluid on the right. There is evidence of narrowing of the posterior segmental bronchi. There is also equivocal narrowing of the right mainstem bronchus. Scarring is seen at the left lung base. There is marked bronchial wall thickening of the right mainstem and proximal lobar bronchi. There is mediastinal lymphadenopathy. In particular, there is an enlarged lobulated right paratracheal node which measures 2.2 x 1.7 cm in diameter. Is an increase in size since the prior study. There is an unusually prominent right bronchial artery. The esophagus is unremarkable. There is no pericardial effusion the included portions of the thyroid are unremarkable. No axillary or chest wall mass or adenopathy. The included upper abdominal anatomy is unremarkable. Impression: No evidence of acute pulmonary embolus Consolidation and atelectasis of a significant portion of the right lower lobe. This probably reflects pneumonia. However, possibility of endobronchial occlusion and postobstructive atelectasis and pneumonia from bronchial obstructive lesion should be considered. 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 Right paratracheal lymphadenopathy, increasing from previous study. This findings was discussed by phone with Dr. Martin at the time of interpretation The CT scanner at [facility] is accredited by the [employer] and the scans are performed using protocols designed to limit radiation exposure to as low as reasonably achievable to attain images of sufficient resolution adequate for diagnostic evaluation.
[2017-03-09] MEDS: D5 1/2NS 1,000 ML IV SCH (11:00)
--- NOTE | 2017-03-09 11:53 | Infectious Diseases Prog Note ---
Assessment/Plan Assessment/Plan A: The patient is a 66-year-old male with Sepsis. Possible pneumonia. Consolidation and atelectasis of a significant portion of the right lower lobe. History of cerebrovascular accident. Seizure disorder. Hypertension. Chronic obstructive pulmonary disease. History of peptic ulcer. History of renal mass. Diabetes. History of CVA. PLAN: We will continue the patient on vancomycin, amikacin, and Azactam d# 2 Monitor CBC. Monitor BMP. Monitor chest x-ray. Monitor cultures Subjective Allergies: Coded Allergies: AMOXICILLIN (Unverified Allergy, Unknown, 01/13/15) AMPICILLIN (Unverified Allergy, Unknown, 01/13/15) PENICILLINS (Unverified Allergy, Unknown, 01/13/15) PIPERACILLIN (Unverified Allergy, Unknown, 01/13/15) TAZOBACTAM (Unverified Allergy, Unknown, 01/13/15) LEVOFLOXACIN (Verified Adverse Reaction, Intermediate, 10/25/16) Red erythematous rash outbreak near IV site Subjective non verbal Objective Vital Signs Last 24 Hour Vital Signs Date Time Temp Pulse Resp B/P Pulse Ox O2 Delivery O2 Flow Rate FiO2 03/09/17 08:22 116/73 03/09/17 08:22 110 116/73 03/09/17 08:04 108 03/09/17 08:00 99.4 110 19 116/73 99 Venturi Mask 55 03/09/17 07:03 94 Venturi Mask 14.0 55 03/09/17 07:03 Venturi Mask 14.0 55 03/09/17 07:02 101 22 Venturi Mask 14.0 55 03/09/17 04:25 97.9 107 20 107/66 94 Venturi Mask 55 03/09/17 03:38 107 03/09/17 00:00 98.1 92 20 105/61 95 Venturi Mask 55 03/08/17 23:31 88 03/08/17 21:57 100 142/90 03/08/17 20:28 96 Venturi Mask 14.0 55 03/08/17 20:28 Venturi Mask 14.0 55 03/08/17 20:26 102 20 Venturi Mask 14.0 55 03/08/17 20:00 98.1 100 19 142/90 92 Venturi Mask 55 03/08/17 19:37 86 03/08/17 16:00 98.2 95 19 134/67 97 Venturi Mask 55 03/08/17 15:28 83 03/08/17 12:05 97.5 111 18 121/68 96 Venturi Mask 55 Height (Feet): 6 Height (Inches): 2.00 Weight (Pounds): 171 HEENT: anicteric Respiratory/Chest: normal breath sounds Cardiovascular: regular rhythm Abdomen: no organomegaly Microbiology Date/Time Source Procedure Growth Status 03/07/17 20:47 Blood Blood Culture - Preliminary NO GROWTH AFTER 24 HOURS Resulted 03/07/17 20:47 Blood Blood Culture - Preliminary NO GROWTH AFTER 24 HOURS Resulted Laboratory Tests Test 03/08/17 13:05 03/09/17 03:45 Amikacin Level Trough 18.1 ug/mL (10.0-15.0) H White Blood Count 6.4 K/UL (4.8-10.8) Red Blood Count 2.98 M/UL (4.70-6.10) L Hemoglobin 9.7 G/DL (14.2-18.0) L Hematocrit 29.1 % (42.0-52.0) L Mean Corpuscular Volume 98 FL (80-99) Mean Corpuscular Hemoglobin 32.4 PG (27.0-31.0) H Mean Corpuscular Hemoglobin Concent 33.2 G/DL (32.0-36.0) Red Cell Distribution Width 14.5 % (11.6-14.8) Platelet Count 197 K/UL (150-450) Mean Platelet Volume 6.8 FL (6.5-10.1) Neutrophils (%) (Auto) 78.6 % (45.0-75.0) H Lymphocytes (%) (Auto) 10.2 % (20.0-45.0) L Monocytes (%) (Auto) 6.2 % (1.0-10.0) Eosinophils (%) (Auto) 4.5 % (0.0-3.0) H Basophils (%) (Auto) 0.6 % (0.0-2.0) Sodium Level 130 mEQ/L (135-145) L Potassium Level 4.9 mEQ/L (3.4-4.9) Chloride Level 94 mEQ/L (98-107) L Carbon Dioxide Level 21 mEQ/L (20-30) Anion Gap 15 (5-15) Blood Urea Nitrogen 22 mg/dL (7-23) Creatinine 0.7 mg/dL (0.7-1.2) Estimat Glomerular Filtration Rate > 60 mL/min (>60) Glucose Level 146 mg/dL (74-106) H Calcium Level 8.6 mg/dL (8.6-10.2) Phosphorus Level 2.6 mg/dL (2.5-4.8) Magnesium Level 1.6 mg/dL (1.7-2.5) L Total Bilirubin 0.5 mg/dL (0.0-1.2) Aspartate Amino Transf (AST/SGOT) 26 U/L (5-40) Alanine Aminotransferase (ALT/SGPT) 18 U/L (3-41) Alkaline Phosphatase 109 U/L (40-129) Total Protein 7.7 g/dL (6.6-8.7) Albumin 2.6 g/dL (3.5-5.2) L Globulin 5.1 g/dL Albumin/Globulin Ratio 0.5 (1.0-2.7) L Current Medications Medications (Trade) Dose Ordered Sig/Baljeet Route PRN Reason Start Time Stop Time Status Last Admin Dose Admin Acetaminophen (Tylenol) 650 mg Q4H PRN ORAL fever 03/07/17 22:30 04/06/17 22:29 Al Hydroxide/Mg Hydroxide (Mylanta II) 30 ml Q6H PRN ORAL dyspepsia 03/07/17 22:30 04/06/17 22:29 Albuterol/ Ipratropium (DuoNeb 0.5-3(2.5)mg/3ml) 3 ml EVERY 4 HOURS PRN HHN Shortness of Breath 03/07/17 22:30 03/12/17 22:29 Amikacin Protocol (Amikacin pharmacy to dose) 1 ea DAILY PRN MISC Per rx protocol 03/07/17 22:30 04/06/17 22:29 Amikacin Sulfate 1200 mg/Sodium Chloride 279.8 ml @ 279.8 mls/ hr Q48H IV 03/10/17 01:00 03/17/17 00:59 Aztreonam/Sodium Chloride (Azactam/Sodium Chloride) 55 ml @ 110 mls/hr EVERY 8 HOURS IVPB 03/08/17 06:00 03/15/17 05:59 03/09/17 06:06 Carvedilol (Coreg) 3.125 mg EVERY 12 HOURS ORAL 03/08/17 09:00 04/07/17 08:59 03/09/17 08:22 Clonidine HCl (Catapres) 0.1 mg EVERY 8 HOURS PRN ORAL For High Blood Pressure > 160 03/07/17 22:30 04/06/17 22:29 Dextrose/Sodium Chloride (D5 0.45% NS) 1,000 ml @ 50 mls/hr Q20H IV 03/09/17 11:00 04/08/17 10:59 03/09/17 11:00 Divalproex Sodium (Depakote) 500 mg THREE TIMES A DAY ORAL 03/08/17 09:00 04/07/17 08:59 03/09/17 08:22 Docusate Sodium 200 mg 200 mg TWICE A DAY GT 03/08/17 09:00 04/07/17 08:59 03/09/17 08:22 Heparin Sodium (Porcine) (Heparin 5000 units/ml) 5,000 units EVERY 12 HOURS SUBQ 03/08/17 09:00 04/07/17 08:59 03/09/17 08:24 Lisinopril (Zestril) 5 mg DAILY ORAL 03/08/17 09:00 04/07/17 08:59 03/09/17 08:22 Nitroglycerin 0.4 mg 0.4 mg Q5M PRN SL Prn Chest Pain 03/07/17 22:30 04/06/17 22:29 Ondansetron HCl (Zofran) 4 mg Q6H PRN IVP Nausea & Vomiting 03/07/17 22:30 04/06/17 22:29 Polyethylene Glycol (Miralax) 17 gm DAILYPRN PRN ORAL Constipation 03/07/17 22:30 04/06/17 22:29 Promethazine HCl/ Codeine (Phenergan with Codeine) 5 ml Q4H PRN ORAL For Cough 03/07/17 22:30 04/06/17 22:29 Temazepam (Restoril) 15 mg HSPRN PRN ORAL Insomnia 03/07/17 22:30 03/14/17 22:29 Vancomycin HCl 1 ea 1 ea DAILY PRN MISC PER RX PROTOCOL 03/08/17 15:45 04/07/17 15:44 Vancomycin HCl/ Dextrose (Vancomycin/D5W) 325 ml @ 162.5 mls/ hr Q12HR@0500,1700 IVPB 03/08/17 17:00 03/13/17 16:59 03/09/17 04:47 TREVOR CAMARILLO M.D. Mar 09, 2017 11:53
[2017-03-09 12:00] VITALS: BP 94/59
--- NOTE | 2017-03-09 12:42 | Pulmonology Progress Note ---
Assessment/Plan Assessment/Plan ASSESSMENT severe sepsis acute toxic metabolic encephalopathy ( 2 to sepsis/PNA) acute hypoxemic respiratory failure aspiration PNA Right paratracheal lymphadenopathy, hx of respiratory failure with trach hyperkalemia anemia dysphagia, G tube PAF hx of CVA with R hemiplegia TIFFANIE functional quadriplegia PLAN OF CARE VINCE IVF empiric abx fup cx O2 HHN and titrate to keep sat above 92% CTA No evidence of acute pulmonary embolus Consolidation and atelectasis in right lower lobe. Liekly PNA However, possibility of endobronchial occlusion and postobstructive atelectasis and pneumonia from bronchial obstructive lesion should be considered. Evidence of bullous COPD. Right paratracheal lymphadenopathy, fup with CXR get cancer tumor markers strict aspiration precautions, GT feeding, monitor tolerance monitor renal parameters, lytes, avoid nephrotoxic continue BB, remains in SR, rate controlled K stable after treatment of hyperkalemia Na stable after IV with dextrose, will change IVF to D51/2 NS at 50 monitor HH, anemia workup case discussed and evaluated by supervising physician Subjective Allergies: Coded Allergies: AMOXICILLIN (Unverified Allergy, Unknown, 01/13/15) AMPICILLIN (Unverified Allergy, Unknown, 01/13/15) PENICILLINS (Unverified Allergy, Unknown, 01/13/15) PIPERACILLIN (Unverified Allergy, Unknown, 01/13/15) TAZOBACTAM (Unverified Allergy, Unknown, 01/13/15) LEVOFLOXACIN (Verified Adverse Reaction, Intermediate, 10/25/16) Red erythematous rash outbreak near IV site Subjective afebrile, no leukocytosis remains on VM 55%, not able to be weaned down Na down to 130 Objective Last 24 Hour Vital Signs Date Time Temp Pulse Resp B/P Pulse Ox O2 Delivery O2 Flow Rate FiO2 03/09/17 12:00 97.6 91 19 94/59 99 Venturi Mask 55 03/09/17 08:22 116/73 03/09/17 08:22 110 116/73 03/09/17 08:04 108 03/09/17 08:00 99.4 110 19 116/73 99 Venturi Mask 55 03/09/17 07:03 94 Venturi Mask 14.0 55 03/09/17 07:03 Venturi Mask 14.0 55 03/09/17 07:02 101 22 Venturi Mask 14.0 55 03/09/17 04:25 97.9 107 20 107/66 94 Venturi Mask 55 03/09/17 03:38 107 03/09/17 00:00 98.1 92 20 105/61 95 Venturi Mask 55 03/08/17 23:31 88 03/08/17 21:57 100 142/90 03/08/17 20:28 96 Venturi Mask 14.0 55 03/08/17 20:28 Venturi Mask 14.0 55 03/08/17 20:26 102 20 Venturi Mask 14.0 55 03/08/17 20:00 98.1 100 19 142/90 92 Venturi Mask 55 03/08/17 19:37 86 03/08/17 16:00 98.2 95 19 134/67 97 Venturi Mask 55 03/08/17 15:28 83 Intake and Output 03/08/17 03/09/17 19:00 07:00 Intake Total 2252.5 ml 2570.0 ml Output Total 950 ml 1600 ml Balance 1302.5 ml 970.0 ml Intake IV Total 2207.5 ml 2030.0 ml Tube Feeding 45 ml 540 ml Output Urine Total 950 ml 1600 ml # Voids 2 General Appearance: no acute distress, other - awake, bedridden, aphasic, responsive HEENT: normocephalic, atraumatic, other - VM 55%, old tarch site clean Respiratory/Chest: no accessory muscle use, decreased breath sounds Cardiovascular: normal rate, regular rhythm Abdomen: normal bowel sounds, soft, non tender, non distended, other - G tube Extremities: no edema, other - R hemiplegia Neurologic/Psychiatric: abnormal gait - bedridden , alert, responsive, other - R hemiplegia Musculoskeletal: atrophy - BLE Microbiology Date/Time Source Procedure Growth Status 03/07/17 20:47 Blood Blood Culture - Preliminary NO GROWTH AFTER 24 HOURS Resulted 03/07/17 20:47 Blood Blood Culture - Preliminary NO GROWTH AFTER 24 HOURS Resulted Laboratory Tests 03/08/17 13:05: Amikacin Level Trough 18.1H 03/09/17 03:45: White Blood Count 6.4, Red Blood Count 2.98L, Hemoglobin 9.7L, Hematocrit 29.1L , Mean Corpuscular Volume 98, Mean Corpuscular Hemoglobin 32.4H, Mean Corpuscular Hemoglobin Concent 33.2, Red Cell Distribution Width 14.5, Platelet Count 197, Mean Platelet Volume 6.8, Neutrophils (%) (Auto) 78.6H, Lymphocytes ( %) (Auto) 10.2L, Monocytes (%) (Auto) 6.2, Eosinophils (%) (Auto) 4.5H, Basophils (%) (Auto) 0.6, Sodium Level 130L, Potassium Level 4.9, Chloride Level 94L, Carbon Dioxide Level 21, Anion Gap 15, Blood Urea Nitrogen 22, Creatinine 0.7, Estimat Glomerular Filtration Rate > 60, Glucose Level 146H, Calcium Level 8.6, Phosphorus Level 2.6, Magnesium Level 1.6L, Total Bilirubin 0.5, Aspartate Amino Transf (AST/SGOT) 26, Alanine Aminotransferase (ALT/SGPT) 18, Alkaline Phosphatase 109, Total Protein 7.7, Albumin 2.6L, Globulin 5.1, Albumin/Globulin Ratio 0.5L Current Medications Medications (Trade) Dose Ordered Sig/Baljeet Route PRN Reason Start Time Stop Time Status Last Admin Dose Admin Acetaminophen (Tylenol) 650 mg Q4H PRN ORAL fever 03/07/17 22:30 04/06/17 22:29 Al Hydroxide/Mg Hydroxide (Mylanta II) 30 ml Q6H PRN ORAL dyspepsia 03/07/17 22:30 04/06/17 22:29 Albuterol/ Ipratropium (DuoNeb 0.5-3(2.5)mg/3ml) 3 ml EVERY 4 HOURS PRN HHN Shortness of Breath 03/07/17 22:30 03/12/17 22:29 Amikacin Protocol (Amikacin pharmacy to dose) 1 ea DAILY PRN MISC Per rx protocol 03/07/17 22:30 04/06/17 22:29 Amikacin Sulfate 1200 mg/Sodium Chloride 279.8 ml @ 279.8 mls/ hr Q48H IV 03/10/17 01:00 03/17/17 00:59 Aztreonam/Sodium Chloride (Azactam/Sodium Chloride) 55 ml @ 110 mls/hr EVERY 8 HOURS IVPB 03/08/17 06:00 03/15/17 05:59 03/09/17 06:06 Carvedilol (Coreg) 3.125 mg EVERY 12 HOURS ORAL 03/08/17 09:00 04/07/17 08:59 03/09/17 08:22 Clonidine HCl (Catapres) 0.1 mg EVERY 8 HOURS PRN ORAL For High Blood Pressure > 160 03/07/17 22:30 04/06/17 22:29 Dextrose/Sodium Chloride (D5 0.45% NS) 1,000 ml @ 50 mls/hr Q20H IV 03/09/17 11:00 04/08/17 10:59 03/09/17 11:00 Divalproex Sodium (Depakote) 500 mg THREE TIMES A DAY ORAL 03/08/17 09:00 04/07/17 08:59 03/09/17 08:22 Docusate Sodium 200 mg 200 mg TWICE A DAY GT 03/08/17 09:00 04/07/17 08:59 03/09/17 08:22 Heparin Sodium (Porcine) (Heparin 5000 units/ml) 5,000 units EVERY 12 HOURS SUBQ 03/08/17 09:00 04/07/17 08:59 03/09/17 08:24 Lisinopril (Zestril) 5 mg DAILY ORAL 03/08/17 09:00 04/07/17 08:59 03/09/17 08:22 Nitroglycerin 0.4 mg 0.4 mg Q5M PRN SL Prn Chest Pain 03/07/17 22:30 04/06/17 22:29 Ondansetron HCl (Zofran) 4 mg Q6H PRN IVP Nausea & Vomiting 03/07/17 22:30 04/06/17 22:29 Polyethylene Glycol (Miralax) 17 gm DAILYPRN PRN ORAL Constipation 03/07/17 22:30 04/06/17 22:29 Promethazine HCl/ Codeine (Phenergan with Codeine) 5 ml Q4H PRN ORAL For Cough 03/07/17 22:30 04/06/17 22:29 Temazepam (Restoril) 15 mg HSPRN PRN ORAL Insomnia 03/07/17 22:30 03/14/17 22:29 Vancomycin HCl 1 ea 1 ea DAILY PRN MISC PER RX PROTOCOL 03/08/17 15:45 04/07/17 15:44 Vancomycin HCl/ Dextrose (Vancomycin/D5W) 325 ml @ 162.5 mls/ hr Q12HR@0500,1700 IVPB 03/08/17 17:00 03/13/17 16:59 03/09/17 04:47 Chandana [facility] German NP Mar 09, 2017 12:42
[2017-03-09] MEDS ORDERED: Mylanta II UD 30ml GT PRN (13:25)
[2017-03-09] MEDS ORDERED: Miralax 17gm pkt GT PRN (13:26)
[2017-03-09] MEDS ORDERED: Lisinopril 2.5mg tab GT SCH (13:26)
[2017-03-09] MEDS: Depakote 125mg Sprinkles GT SCH ×2 (14:51→22:01)
[2017-03-09 16:00] VITALS: BP 113/67
--- NOTE | 2017-03-09 18:50 | Cardiology Report ---
APPROVED REPORT EKG Measurement Heart [id number] Sinus tachycardia Otherwise normal ECG
[2017-03-09 20:00] VITALS: BP 117/64
--- NOTE | 2017-03-09 21:17 | Progress Note ---
DATE: 03/09/2017 SUBJECTIVE: The patient is awake alert, afebrile, and hemodynamically stable. PHYSICAL EXAMINATION: VITAL SIGNS: Blood pressure is 116/73, his pulse is 110, respirations 19, and temperature was 97.6 degrees. HEENT: Eyes were normal. ENT, mucous membranes were moist and intact. NECK: Supple with no JVD without lymph nodes. LUNGS: Clear. HEART: Normal sounds with irregular beats. There is tachycardia at rest. Sinus tachycardia on monitor. ABDOMEN: Soft and nontender with normal bowel sounds. Gastrostomy site is clean. EXTREMITIES: Warm without cyanosis, clubbing, or edema. LABORATORY DATA: Hemoglobin is 9.7, hematocrit 29.1 with MCV of 96, WBC of 6.4, and platelets is 197,000. His BUN and creatinine is 22 and 0.7 respectively. His sodium is 130, potassium 9.4, chloride 94, and CO2 is 21. His calcium is 8.9. His phosphorus is 2.6 and his magnesium is 1.6. CT scan of the chest, any contrast, was done today to rule out pulmonary embolism . He has no evidence of acute pulmonary embolus, consolidation, and atelectasis of right lower lobe. It may be pneumonia, but also endotracheal occlusion and atelectasis. There is bullous COPD. There is paratracheal lymphadenopathy that has increased in size. IMPRESSION: The patient has right lower lobe atelectasis and possible pneumonia. PLAN: Continue vancomycin, amikacin, and Azactam. Repeat laboratory tests will be done in the morning. Shay Connolly M.D. DR: ENRIQUE JOB#: [id number] CC:
[2017-03-10] VITALS: BP 110/59
[2017-03-10] MEDS ORDERED: Amikacin 1,200 MG in NS 275 ML IV SCH (01:00)
[2017-03-10 04:00] VITALS: BP 114/69
[2017-03-10 04:54] LABS: BASOPHILS % (AUTO) 0.7 % (0.0-2.0); EOSINOPHILS % (AUTO) 6.9 % (0.0-3.0); LYMPHOCYTES % (AUTO) 12.3 % (20.0-45.0); MEAN CORPUSCULAR HEMOGLOBIN 32.5 PG (27.0-31.0); MEAN CORPUSCULAR HGB CONC 33.4 G/DL (32.0-36.0); MEAN CORPUSCULAR VOLUME 97 FL (80-99); MEAN PLATELET VOLUME 6.4 FL (6.5-10.1); MONOCYTES % (AUTO) 7.6 % (1.0-10.0); NEUTROPHILS % (AUTO) 72.5 % (45.0-75.0); PLATELET COUNT 193 K/UL (150-450); RED BLOOD COUNT 2.95 M/UL (4.70-6.10); RED CELL DISTRIBUTION WIDTH 14.7 % (11.6-14.8); WHITE BLOOD COUNT 4.5 K/UL (4.8-10.8)
[2017-03-10 05:20] LABS: ANION GAP 9 (5-15); CALCIUM 8.7 mg/dL (8.6-10.2); CARBON DIOXIDE 26 mEQ/L (20-30); CHLORIDE 98 mEQ/L (98-107); CREATININE 0.7 mg/dL (0.7-1.2); GLOMERULAR FILTRATION RATE > 60 mL/min (>60); POTASSIUM 4.6 mEQ/L (3.4-4.9); SODIUM 133 mEQ/L (135-145)
[2017-03-10 05:33] LABS: FERRITIN 692 ng/mL (10-230)
[2017-03-10] MEDS: Depakote 125mg Sprinkles GT SCH ×3 (05:46→21:37)
[2017-03-10] MEDS: Aztreonam Inj 1 GM in NS 55 ML IVPB SCH ×3 (05:47→21:37)
[2017-03-10 06:01] LABS: HEMOLYSIS 5; IRON 51 ug/dL (59-158); TOTAL IRON BINDING CAPACITY 191 ug/dL (250-400)
[2017-03-10] MEDS: D5 1/2NS 1,000 ML IV SCH (06:56)
[2017-03-10 08:00] VITALS: BP 102/62
[2017-03-10 08:54] LABS: ABG ALLEN TEST POSITIVE; ABG BASE EXCESS -0.8
[2017-03-10] MEDS: Lisinopril 2.5mg tab GT SCH (09:30)
[2017-03-10] MEDS: Docusate 100mg/10ml Liq GT SCH ×2 (09:55→17:07)
[2017-03-10] MEDS: Heparin 5000 units/ml inj SUBQ SCH ×2 (09:57→20:45)
[2017-03-10 11:12] LABS: CA15-3 24.2 U/mL (0.0-25.0)
[2017-03-10 12:00] VITALS: BP 103/63
--- NOTE | 2017-03-10 12:02 | Diagnostic Imaging Report ---
Indication: Dyspnea Comparison: 03/07/17 A single view chest radiograph was obtained. Findings: Mild basilar atelectasis versus scarring again demonstrated. Heart size is stable. No infiltrate seen. Bones are osteopenic. Impression: No significant change
[2017-03-10 13:12] LABS: CA 27.29 19.8 U/mL (0.0-38.6)
--- NOTE | 2017-03-10 14:34 | Pulmonology Progress Note ---
Assessment/Plan Assessment/Plan ASSESSMENT severe sepsis acute toxic metabolic encephalopathy ( 2 to sepsis/PNA) acute hypoxemic respiratory failure aspiration PNA Right paratracheal lymphadenopathy, hx of respiratory failure with trach hyperkalemia anemia dysphagia, G tube PAF hx of CVA with R hemiplegia TIFFANIE functional quadriplegia PLAN OF CARE VINCE IVF empiric abx fup cx O2 HHN and titrate to keep sat above 92% ABG this am stable and able to downgrade to VM 45% CTA No evidence of acute pulmonary embolus Consolidation and atelectasis in right lower lobe. Liekly PNA However, possibility of endobronchial occlusion and postobstructive atelectasis and pneumonia from bronchial obstructive lesion should be considered. Evidence of bullous COPD. Right paratracheal lymphadenopathy, fup with CXR on Sunday cancer tumor markers all WNL except slightly elevated CEA strict aspiration precautions, GT feeding, monitor tolerance monitor renal parameters, lytes, avoid nephrotoxic continue BB, remains in SR, rate controlled K stable after treatment of hyperkalemia Na stable after IV with dextrose, will change IVF to D51/2 NS at 50 monitor HH, anemia workup with low iron and high ferritin case discussed and evaluated by supervising physician Subjective Allergies: Coded Allergies: AMOXICILLIN (Unverified Allergy, Unknown, 01/13/15) AMPICILLIN (Unverified Allergy, Unknown, 01/13/15) PENICILLINS (Unverified Allergy, Unknown, 01/13/15) PIPERACILLIN (Unverified Allergy, Unknown, 01/13/15) TAZOBACTAM (Unverified Allergy, Unknown, 01/13/15) LEVOFLOXACIN (Verified Adverse Reaction, Intermediate, 10/25/16) Red erythematous rash outbreak near IV site Subjective afebrile, no leukocytosis downgraded to VM 45%, Objective Last 24 Hour Vital Signs Date Time Temp Pulse Resp B/P Pulse Ox O2 Delivery O2 Flow Rate FiO2 03/10/17 12:00 97.9 88 16 103/63 93 Venturi Mask 45 03/10/17 11:41 83 03/10/17 10:16 84 18 97 Venturi Mask 10.0 45 03/10/17 10:08 86 18 96 Venturi Mask 10.0 45 03/10/17 09:55 82 102/62 03/10/17 09:30 102/62 03/10/17 08:55 98 Venturi Mask 10.0 45 03/10/17 08:00 97.7 82 18 102/62 97 Venturi Mask 55 03/10/17 07:53 96 03/10/17 07:02 81 22 Venturi Mask 14.0 55 03/10/17 07:02 Venturi Mask 14.0 55 03/10/17 07:02 95 Venturi Mask 14.0 55 03/10/17 04:00 95 03/10/17 04:00 98.6 97 20 114/69 99 Venturi Mask 55 03/10/17 00:00 98.4 88 24 110/59 98 Venturi Mask 55 03/10/17 00:00 85 03/09/17 21:10 88 117/64 03/09/17 20:00 88 03/09/17 20:00 98.7 100 24 117/64 100 Venturi Mask 55 03/09/17 19:00 70 22 Venturi Mask 14.0 55 03/09/17 19:00 Venturi Mask 14.0 55 03/09/17 19:00 96 Venturi Mask 14.0 55 03/09/17 16:00 97.7 92 20 113/67 99 Venturi Mask 55 03/09/17 15:07 91 Intake and Output 03/09/17 03/10/17 19:00 07:00 Intake Total 1605 ml 1629.8 ml Output Total 1600 ml Balance 5 ml 1629.8 ml Intake IV Total 1005 ml 989.8 ml Tube Feeding 540 ml 540 ml Other 60 ml 100 ml Output Urine Total 1600 ml # Bowel Movements 2 Objective General Appearance: no acute distress, other - awake, bedridden, aphasic, responsive HEENT: normocephalic, atraumatic, other - VM 55%, old tarch site clean Respiratory/Chest: no accessory muscle use, decreased breath sounds Cardiovascular: normal rate, regular rhythm Abdomen: normal bowel sounds, soft, non tender, non distended, G tube Extremities: no edema, other - R hemiplegia Neurologic/Psychiatric: abnormal gait - bedridden , alert, responsive, R hemiplegia Musculoskeletal: atrophy - BLE Microbiology Date/Time Source Procedure Growth Status 03/07/17 20:47 Blood Blood Culture - Preliminary NO GROWTH AFTER 48 HOURS Resulted 03/07/17 20:47 Blood Blood Culture - Preliminary NO GROWTH AFTER 48 HOURS Resulted 03/07/17 22:30 Nasal Nares MRSA Culture - Final Staphylococcus Aureus - Mrsa Complete 03/07/17 22:30 Rectum VRE Culture - Final Enterococcus Faecium - Vre Complete Laboratory Tests 03/09/17 14:35: Random Amikacin Level 1.0 03/09/17 17:45: Stool Occult Blood Negative 03/10/17 03:35: White Blood Count 4.5L, Red Blood Count 2.95L, Hemoglobin 9.6L, Hematocrit 28.6L , Mean Corpuscular Volume 97, Mean Corpuscular Hemoglobin 32.5H, Mean Corpuscular Hemoglobin Concent 33.4, Red Cell Distribution Width 14.7, Platelet Count 193, Mean Platelet Volume 6.4L, Neutrophils (%) (Auto) 72.5, Lymphocytes ( %) (Auto) 12.3L, Monocytes (%) (Auto) 7.6, Eosinophils (%) (Auto) 6.9H, Basophils (%) (Auto) 0.7, Sodium Level 133L, Potassium Level 4.6, Chloride Level 98, Carbon Dioxide Level 26, Anion Gap 9, Blood Urea Nitrogen 18, Creatinine 0.7, Estimat Glomerular Filtration Rate > 60, Glucose Level 104, Calcium Level 8.7, Magnesium Level 1.9, Iron Level 51L, Total Iron Binding Capacity 191L, Percent Iron Saturation 27, Unsaturated Iron Binding 140, Ferritin 692H, Carcinoembryonic Antigen 3.5H, Vitamin B12 Level 596, Folate [ Pending] 03/10/17 08:46: Arterial Blood pH 7.381, Arterial Blood Partial Pressure CO2 42.0, Arterial Blood Partial Pressure O2 119.2H, Arterial Blood HCO3 24.3, Arterial Blood Oxygen Saturation 98.1H, Arterial Blood Base Excess -0.8, Turner Test Positive 03/10/17 11:47: Urine Random Sodium 77 03/10/17 14:00: Random Vancomycin Level 11.6 Current Medications Medications (Trade) Dose Ordered Sig/Baljeet Route PRN Reason Start Time Stop Time Status Last Admin Dose Admin Acetaminophen (Tylenol) 650 mg Q4H PRN ORAL fever 03/07/17 22:30 04/06/17 22:29 Al Hydroxide/Mg Hydroxide (Mylanta II) 30 ml Q6H PRN GT dyspepsia 03/09/17 13:25 04/06/17 22:29 Albuterol/ Ipratropium (DuoNeb 0.5-3(2.5)mg/3ml) 3 ml EVERY 4 HOURS PRN HHN Shortness of Breath 03/07/17 22:30 03/12/17 22:29 03/10/17 10:08 Amikacin Protocol (Amikacin pharmacy to dose) 1 ea DAILY PRN MISC Per rx protocol 03/07/17 22:30 04/06/17 22:29 Amikacin Sulfate/ Sodium Chloride (Amikin/Sodium Chloride) 114.8 ml @ 229.6 mls/ hr Q48H IV 03/12/17 01:00 03/19/17 00:59 Aztreonam/Sodium Chloride (Azactam/Sodium Chloride) 55 ml @ 110 mls/hr EVERY 8 HOURS IVPB 03/08/17 06:00 03/15/17 05:59 03/10/17 13:27 Carvedilol (Coreg) 3.125 mg EVERY 12 HOURS GT 03/09/17 13:26 04/07/17 08:59 03/10/17 09:55 Clonidine HCl (Catapres) 0.1 mg Q8H PRN GT For High Blood Pressure > 160 03/09/17 13:30 04/06/17 22:29 Dextrose/Sodium Chloride (D5 0.45% NS) 1,000 ml @ 50 mls/hr Q20H IV 03/09/17 11:00 04/08/17 10:59 03/10/17 06:56 Divalproex Sodium 500 mg 500 mg Q8HR GT 03/09/17 14:00 04/08/17 13:59 03/10/17 13:27 Docusate Sodium (Colace) 200 mg TWICE A DAY GT 03/08/17 09:00 04/07/17 08:59 03/10/17 09:55 Heparin Sodium (Porcine) (Heparin 5000 units/ml) 5,000 units EVERY 12 HOURS SUBQ 03/08/17 09:00 04/07/17 08:59 03/10/17 09:57 Lisinopril (Zestril) 5 mg DAILY GT 03/10/17 09:30 04/09/17 09:29 Mupirocin 1 applic 1 applic BID TOPIC 03/10/17 18:00 03/15/17 17:59 Nitroglycerin 0.4 mg 0.4 mg Q5M PRN SL Prn Chest Pain 03/07/17 22:30 04/06/17 22:29 Ondansetron HCl (Zofran) 4 mg Q6H PRN IVP Nausea & Vomiting 03/07/17 22:30 04/06/17 22:29 Polyethylene Glycol (Miralax) 17 gm DAILYPRN PRN GT Constipation 03/09/17 13:26 04/06/17 22:29 Promethazine HCl/ Codeine (Phenergan with Codeine) 5 ml Q4H PRN GT For Cough 03/09/17 13:27 04/06/17 22:29 Temazepam (Restoril) 15 mg HSPRN PRN GT Insomnia 03/09/17 13:26 03/14/17 22:29 Vancomycin HCl 1 ea 1 ea DAILY PRN MISC PER RX PROTOCOL 03/08/17 15:45 04/07/17 15:44 Vancomycin HCl/ Dextrose (Vancomycin/D5W) 275 ml @ 183.708 mls/hr Q12HR@0500,1700 IVPB 03/10/17 17:00 03/15/17 16:59 Chandana (Naida)Judy NP Mar 10, 2017 14:34
--- NOTE | 2017-03-10 15:33 | Infectious Diseases Prog Note ---
Assessment/Plan Assessment/Plan A: The patient is a 66-year-old male with Sepsis. Possible pneumonia. Consolidation and atelectasis of a significant portion of the right lower lobe. History of cerebrovascular accident. Seizure disorder. Hypertension. Chronic obstructive pulmonary disease. History of peptic ulcer. History of renal mass. Diabetes. History of CVA. PLAN: We will continue the patient on vancomycin,and Azactam d# 3 / 7 , DC amikacin d# 3 Monitor CBC. Monitor BMP. Monitor chest x-ray. Monitor cultures Subjective Constitutional: Reports: anorexia, chills, drenching sweats, fatigue, fever, no symptoms, other Allergies: Coded Allergies: AMOXICILLIN (Unverified Allergy, Unknown, 01/13/15) AMPICILLIN (Unverified Allergy, Unknown, 01/13/15) PENICILLINS (Unverified Allergy, Unknown, 01/13/15) PIPERACILLIN (Unverified Allergy, Unknown, 01/13/15) TAZOBACTAM (Unverified Allergy, Unknown, 01/13/15) LEVOFLOXACIN (Verified Adverse Reaction, Intermediate, 10/25/16) Red erythematous rash outbreak near IV site Subjective non verbal Objective Vital Signs Last 24 Hour Vital Signs Date Time Temp Pulse Resp B/P Pulse Ox O2 Delivery O2 Flow Rate FiO2 03/10/17 12:00 97.9 88 16 103/63 93 Venturi Mask 45 03/10/17 11:41 83 03/10/17 10:16 84 18 97 Venturi Mask 10.0 45 03/10/17 10:08 86 18 96 Venturi Mask 10.0 45 03/10/17 09:55 82 102/62 03/10/17 09:30 102/62 03/10/17 08:55 98 Venturi Mask 10.0 45 03/10/17 08:00 97.7 82 18 102/62 97 Venturi Mask 55 03/10/17 07:53 96 03/10/17 07:02 81 22 Venturi Mask 14.0 55 03/10/17 07:02 Venturi Mask 14.0 55 03/10/17 07:02 95 Venturi Mask 14.0 55 03/10/17 04:00 95 03/10/17 04:00 98.6 97 20 114/69 99 Venturi Mask 55 03/10/17 00:00 98.4 88 24 110/59 98 Venturi Mask 55 03/10/17 00:00 85 03/09/17 21:10 88 117/64 03/09/17 20:00 88 03/09/17 20:00 98.7 100 24 117/64 100 Venturi Mask 55 03/09/17 19:00 70 22 Venturi Mask 14.0 55 03/09/17 19:00 Venturi Mask 14.0 55 03/09/17 19:00 96 Venturi Mask 14.0 55 03/09/17 16:00 97.7 92 20 113/67 99 Venturi Mask 55 Height (Feet): 6 Height (Inches): 2.00 Weight (Pounds): 171 HEENT: anicteric Respiratory/Chest: normal breath sounds Cardiovascular: regularly irregular Abdomen: no organomegaly Microbiology Date/Time Source Procedure Growth Status 03/07/17 20:47 Blood Blood Culture - Preliminary NO GROWTH AFTER 48 HOURS Resulted 03/07/17 20:47 Blood Blood Culture - Preliminary NO GROWTH AFTER 48 HOURS Resulted 03/07/17 22:30 Nasal Nares MRSA Culture - Final Staphylococcus Aureus - Mrsa Complete 03/07/17 22:30 Rectum VRE Culture - Final Enterococcus Faecium - Vre Complete Laboratory Tests Test 03/09/17 17:45 03/10/17 03:35 03/10/17 08:46 03/10/17 11:47 Stool Occult Blood Negative (NEGATIVE) White Blood Count 4.5 K/UL (4.8-10.8) L Red Blood Count 2.95 M/UL (4.70-6.10) L Hemoglobin 9.6 G/DL (14.2-18.0) L Hematocrit 28.6 % (42.0-52.0) L Mean Corpuscular Volume 97 FL (80-99) Mean Corpuscular Hemoglobin 32.5 PG (27.0-31.0) H Mean Corpuscular Hemoglobin Concent 33.4 G/DL (32.0-36.0) Red Cell Distribution Width 14.7 % (11.6-14.8) Platelet Count 193 K/UL (150-450) Mean Platelet Volume 6.4 FL (6.5-10.1) L Neutrophils (%) (Auto) 72.5 % (45.0-75.0) Lymphocytes (%) (Auto) 12.3 % (20.0-45.0) L Monocytes (%) (Auto) 7.6 % (1.0-10.0) Eosinophils (%) (Auto) 6.9 % (0.0-3.0) H Basophils (%) (Auto) 0.7 % (0.0-2.0) Sodium Level 133 mEQ/L (135-145) L Potassium Level 4.6 mEQ/L (3.4-4.9) Chloride Level 98 mEQ/L (98-107) Carbon Dioxide Level 26 mEQ/L (20-30) Anion Gap 9 (5-15) Blood Urea Nitrogen 18 mg/dL (7-23) Creatinine 0.7 mg/dL (0.7-1.2) Estimat Glomerular Filtration Rate > 60 mL/min (>60) Glucose Level 104 mg/dL (74-106) Calcium Level 8.7 mg/dL (8.6-10.2) Magnesium Level 1.9 mg/dL (1.7-2.5) Iron Level 51 ug/dL (59-158) L Total Iron Binding Capacity 191 ug/dL (250-400) L Percent Iron Saturation 27 % (15-50) Unsaturated Iron Binding 140 ug/dL (112-346) Ferritin 692 ng/mL (10-230) H Carcinoembryonic Antigen 3.5 ng/mL H Vitamin B12 Level 596 pg/mL (211-946) Folate Pending Arterial Blood pH 7.381 (7.350-7.450) Arterial Blood Partial Pressure CO2 42.0 mmHg (35.0-45.0) Arterial Blood Partial Pressure O2 119.2 mmHg (75.0-100.0) H Arterial Blood HCO3 24.3 mmol/L (22.0-26.0) Arterial Blood Oxygen Saturation 98.1 % (92.0-98.0) H Arterial Blood Base Excess -0.8 Turner Test Positive Urine Random Sodium 77 mmol/L Test 03/10/17 14:00 Random Vancomycin Level 11.6 ug/mL Current Medications Medications (Trade) Dose Ordered Sig/Baljeet Route PRN Reason Start Time Stop Time Status Last Admin Dose Admin Acetaminophen (Tylenol) 650 mg Q4H PRN ORAL fever 03/07/17 22:30 04/06/17 22:29 Al Hydroxide/Mg Hydroxide (Mylanta II) 30 ml Q6H PRN GT dyspepsia 03/09/17 13:25 04/06/17 22:29 Albuterol/ Ipratropium (DuoNeb 0.5-3(2.5)mg/3ml) 3 ml EVERY 4 HOURS PRN HHN Shortness of Breath 03/07/17 22:30 03/12/17 22:29 03/10/17 10:08 Amikacin Protocol (Amikacin pharmacy to dose) 1 ea DAILY PRN MISC Per rx protocol 03/07/17 22:30 04/06/17 22:29 Amikacin Sulfate/ Sodium Chloride (Amikin/Sodium Chloride) 114.8 ml @ 229.6 mls/ hr Q48H IV 03/12/17 01:00 03/19/17 00:59 Aztreonam/Sodium Chloride (Azactam/Sodium Chloride) 55 ml @ 110 mls/hr EVERY 8 HOURS IVPB 03/08/17 06:00 03/15/17 05:59 03/10/17 13:27 Carvedilol (Coreg) 3.125 mg EVERY 12 HOURS GT 03/09/17 13:26 04/07/17 08:59 03/10/17 09:55 Clonidine HCl (Catapres) 0.1 mg Q8H PRN GT For High Blood Pressure > 160 03/09/17 13:30 04/06/17 22:29 Dextrose/Sodium Chloride (D5 0.45% NS) 1,000 ml @ 50 mls/hr Q20H IV 03/09/17 11:00 04/08/17 10:59 03/10/17 06:56 Divalproex Sodium 500 mg 500 mg Q8HR GT 03/09/17 14:00 04/08/17 13:59 03/10/17 13:27 Docusate Sodium (Colace) 200 mg TWICE A DAY GT 03/08/17 09:00 04/07/17 08:59 03/10/17 09:55 Heparin Sodium (Porcine) (Heparin 5000 units/ml) 5,000 units EVERY 12 HOURS SUBQ 03/08/17 09:00 04/07/17 08:59 03/10/17 09:57 Lisinopril (Zestril) 5 mg DAILY GT 03/10/17 09:30 04/09/17 09:29 Mupirocin 1 applic 1 applic BID TOPIC 03/10/17 18:00 03/15/17 17:59 Nitroglycerin 0.4 mg 0.4 mg Q5M PRN SL Prn Chest Pain 03/07/17 22:30 04/06/17 22:29 Ondansetron HCl (Zofran) 4 mg Q6H PRN IVP Nausea & Vomiting 03/07/17 22:30 04/06/17 22:29 Polyethylene Glycol (Miralax) 17 gm DAILYPRN PRN GT Constipation 03/09/17 13:26 04/06/17 22:29 Promethazine HCl/ Codeine (Phenergan with Codeine) 5 ml Q4H PRN GT For Cough 03/09/17 13:27 04/06/17 22:29 Temazepam (Restoril) 15 mg HSPRN PRN GT Insomnia 03/09/17 13:26 03/14/17 22:29 Vancomycin HCl 1 ea 1 ea DAILY PRN MISC PER RX PROTOCOL 03/08/17 15:45 04/07/17 15:44 Vancomycin HCl/ Dextrose (Vancomycin/D5W) 275 ml @ 183.708 mls/hr Q12HR@0500,1700 IVPB 03/10/17 17:00 03/15/17 16:59 TREVOR CAMARILLO M.D. Mar 10, 2017 15:33
[2017-03-10 16:00] VITALS: BP 113/67
[2017-03-10] MEDS: Vancomycin 1250mg in D5W 275ml IVPB SCH (17:07)
[2017-03-10] MEDS ORDERED: NS 275ml ONE ×2 (17:23→22:53)
[2017-03-10] MEDS ORDERED: D5W 550ml IV ONE (17:23)
[2017-03-10] MEDS ORDERED: Tubing IV Secondary IV ONE ×2 (17:23→22:53)
--- NOTE | 2017-03-10 18:01 | Progress Note ---
DATE: 03/10/2017 SUBJECTIVE: The patient is awake, alert, afebrile, hemodynamically stable. PHYSICAL EXAMINATION: VITAL SIGNS: Blood pressure is 102/62, his pulse is 92, respirations 18, and temperature 97.7 degrees. HEENT: Eyes were normal. ENT, mucous membranes were moist and intact. NECK: Supple with no JVD without lymph nodes. LUNGS: Clear. HEART: Normal sounds with regular heartbeat. ABDOMEN: Soft and nontender with normal bowel sounds. EXTREMITIES: Warm without cyanosis, clubbing, or edema. LABORATORY DATA: His hemoglobin is 9.6, hematocrit 28.3 with MCV of 97, WBC of 4.5, and platelets 193,000. His sodium is 130, potassium 4.3, chloride 94, CO2 31. Repeat sodium is 133, potassium 4.6, chloride 98, and CO2 is 26. BUN and creatinine is 18 and 0.7 respectively. His magnesium is 1.9. Impression, the patient has hyponatremia that has increased from 130 to 133 after administration of normal saline. However, one day prior to the the patient's sodium was 146 with BUN and creatinine of 43 and 1. Did drop from 146 to 130. As explained by the patient's rather than by true sodium loss. Previously the patient's BUN and creatinine was 22 and 1.2 and on the day of sodium drop, the BUN and creatinine are low. IMPRESSION AND PLAN: Pseudohyponatremia. We will need to increase the patient's normal saline IV if there is any sodium loss. Urine sodium will be requested. Repeat laboratory tests will be done in the morning. Shay Connolly M.D. DR: LADARIUS JOB#: [id number] CC:
[2017-03-10 20:00] VITALS: BP 122/87
[2017-03-10] MEDS ORDERED: D5 1/2NS 1000ml IV ONE (22:53)
[2017-03-10] MEDS ORDERED: D5W 275ml ONE (22:53)
[2017-03-11 00:55] VITALS: BP 151/89
[2017-03-11] MEDS: D5 1/2NS 1,000 ML IV SCH ×2 (02:19→18:55)
[2017-03-11] MEDS ORDERED: Acetaminophen 650mg/20.3ml GT PRN (02:45)
[2017-03-11 04:00] VITALS: BP 119/89
[2017-03-11] MEDS: Aztreonam Inj 1 GM in NS 55 ML IVPB SCH ×3 (05:29→21:00)
[2017-03-11] MEDS: Vancomycin 1250mg in D5W 275ml IVPB SCH ×2 (05:29→17:30)
[2017-03-11] MEDS: Depakote 125mg Sprinkles GT SCH ×3 (05:30→21:01)
[2017-03-11 07:49] VITALS: BP 145/92
[2017-03-11] MEDS: Promethazine/Codeine 5ml UD GT PRN (08:21)
[2017-03-11 08:23] LABS: ANION GAP 11 (5-15); CARBON DIOXIDE 25 mEQ/L (20-30); CHLORIDE 96 mEQ/L (98-107); CREATININE 0.7 mg/dL (0.7-1.2); GLOMERULAR FILTRATION RATE > 60 mL/min (>60); HEMOLYSIS 1; POTASSIUM 4.9 mEQ/L (3.4-4.9); SODIUM 132 mEQ/L (135-145)
[2017-03-11 08:34] LABS: BASOPHILS % (AUTO) 0.7 % (0.0-2.0); EOSINOPHILS % (AUTO) 3.2 % (0.0-3.0); LYMPHOCYTES % (AUTO) 12.3 % (20.0-45.0); MEAN CORPUSCULAR HGB CONC 33.1 G/DL (32.0-36.0); MEAN CORPUSCULAR VOLUME 97 FL (80-99); MEAN PLATELET VOLUME 6.2 FL (6.5-10.1); MONOCYTES % (AUTO) 8.1 % (1.0-10.0); NEUTROPHILS % (AUTO) 75.8 % (45.0-75.0); PLATELET COUNT 200 K/UL (150-450); RED BLOOD COUNT 3.12 M/UL (4.70-6.10); RED CELL DISTRIBUTION WIDTH 14.1 % (11.6-14.8); WHITE BLOOD COUNT 5.2 K/UL (4.8-10.8)
[2017-03-11] MEDS: Heparin 5000 units/ml inj SUBQ SCH ×2 (08:50→21:08)
[2017-03-11] MEDS: Docusate 100mg/10ml Liq GT SCH ×2 (08:51→17:30)
[2017-03-11] MEDS: Lisinopril 2.5mg tab GT SCH (08:52)
--- NOTE | 2017-03-11 08:57 | Infectious Diseases Prog Note ---
Assessment/Plan Assessment/Plan A: Pneumonia COPD DM s/p CVA Anemia MRSA & VRE colonization P: Continue Vancomycin & Azactam Subjective ROS Limited/Unobtainable: Yes Allergies: Coded Allergies: AMOXICILLIN (Unverified Allergy, Unknown, 01/13/15) AMPICILLIN (Unverified Allergy, Unknown, 01/13/15) PENICILLINS (Unverified Allergy, Unknown, 01/13/15) PIPERACILLIN (Unverified Allergy, Unknown, 01/13/15) TAZOBACTAM (Unverified Allergy, Unknown, 01/13/15) LEVOFLOXACIN (Verified Adverse Reaction, Intermediate, 10/25/16) Red erythematous rash outbreak near IV site Objective Vital Signs Last 24 Hour Vital Signs Date Time Temp Pulse Resp B/P Pulse Ox O2 Delivery O2 Flow Rate FiO2 03/11/17 08:52 145/92 03/11/17 08:52 109 145/92 03/11/17 07:49 98.2 109 20 145/92 99 Venturi Mask 03/11/17 07:31 99 Venturi Mask 10.0 45 03/11/17 07:31 Venturi Mask 10.0 45 03/11/17 07:29 102 20 Venturi Mask 10.0 45 03/11/17 04:00 99.1 111 24 119/89 98 Venturi Mask 03/11/17 04:00 122 03/11/17 00:55 97.5 108 28 151/89 94 Venturi Mask 03/11/17 00:00 101 03/10/17 22:57 97 Venturi Mask 14.0 55 03/10/17 22:57 Venturi Mask 14.0 55 03/10/17 20:43 108 122/87 03/10/17 20:00 98.8 108 20 122/87 94 Venturi Mask 03/10/17 20:00 101 03/10/17 19:00 79 22 Venturi Mask 14.0 55 03/10/17 16:00 98.2 81 20 113/67 100 Venturi Mask 45 03/10/17 15:28 92 03/10/17 12:00 97.9 88 16 103/63 93 Venturi Mask 45 03/10/17 11:41 83 03/10/17 10:16 84 18 97 Venturi Mask 10.0 45 03/10/17 10:08 86 18 96 Venturi Mask 10.0 45 03/10/17 09:55 82 102/62 03/10/17 09:30 102/62 03/10/17 08:55 98 Venturi Mask 10.0 45 Height (Feet): 6 Height (Inches): 2.00 Weight (Pounds): 171 HEENT: other - O2 by mask Respiratory/Chest: lungs clear Cardiovascular: tachycardia Abdomen: soft, non tender, other - GT feeding Neurologic/Psychiatric: alert, responsive Laboratory Tests Test 03/10/17 11:47 03/10/17 14:00 03/11/17 05:40 Urine Random Sodium 77 mmol/L Random Vancomycin Level 11.6 ug/mL White Blood Count 5.2 K/UL (4.8-10.8) Red Blood Count 3.12 M/UL (4.70-6.10) L Hemoglobin 10.0 G/DL (14.2-18.0) L Hematocrit 30.1 % (42.0-52.0) L Mean Corpuscular Volume 97 FL (80-99) Mean Corpuscular Hemoglobin 32.0 PG (27.0-31.0) H Mean Corpuscular Hemoglobin Concent 33.1 G/DL (32.0-36.0) Red Cell Distribution Width 14.1 % (11.6-14.8) Platelet Count 200 K/UL (150-450) Mean Platelet Volume 6.2 FL (6.5-10.1) L Neutrophils (%) (Auto) 75.8 % (45.0-75.0) H Lymphocytes (%) (Auto) 12.3 % (20.0-45.0) L Monocytes (%) (Auto) 8.1 % (1.0-10.0) Eosinophils (%) (Auto) 3.2 % (0.0-3.0) H Basophils (%) (Auto) 0.7 % (0.0-2.0) Sodium Level 132 mEQ/L (135-145) L Potassium Level 4.9 mEQ/L (3.4-4.9) Chloride Level 96 mEQ/L (98-107) L Carbon Dioxide Level 25 mEQ/L (20-30) Anion Gap 11 (5-15) Blood Urea Nitrogen 17 mg/dL (7-23) Creatinine 0.7 mg/dL (0.7-1.2) Estimat Glomerular Filtration Rate > 60 mL/min (>60) Glucose Level 137 mg/dL (74-106) H Calcium Level 9.0 mg/dL (8.6-10.2) Current Medications Medications (Trade) Dose Ordered Sig/Baljeet Route PRN Reason Start Time Stop Time Status Last Admin Dose Admin Acetaminophen (Tylenol) 650 mg Q4H PRN GT Mild Pain/Temp > 100.5 03/11/17 02:45 04/10/17 02:44 Al Hydroxide/Mg Hydroxide (Mylanta II) 30 ml Q6H PRN GT dyspepsia 03/09/17 13:25 04/06/17 22:29 Albuterol/ Ipratropium (DuoNeb 0.5-3(2.5)mg/3ml) 3 ml EVERY 4 HOURS PRN HHN Shortness of Breath 03/07/17 22:30 03/12/17 22:29 03/10/17 10:08 Aztreonam/Sodium Chloride (Azactam/Sodium Chloride) 55 ml @ 110 mls/hr EVERY 8 HOURS IVPB 03/08/17 06:00 03/15/17 05:59 03/11/17 05:29 Carvedilol (Coreg) 3.125 mg EVERY 12 HOURS GT 03/09/17 13:26 04/07/17 08:59 03/11/17 08:52 Clonidine HCl (Catapres) 0.1 mg Q8H PRN GT For High Blood Pressure > 160 03/09/17 13:30 04/06/17 22:29 Dextrose/Sodium Chloride (D5 0.45% NS) 1,000 ml @ 50 mls/hr Q20H IV 03/09/17 11:00 04/08/17 10:59 03/11/17 02:19 Divalproex Sodium (Depakote Sprinkles) 500 mg Q8HR GT 03/09/17 14:00 04/08/17 13:59 03/11/17 05:30 Docusate Sodium (Colace) 200 mg TWICE A DAY GT 03/08/17 09:00 04/07/17 08:59 03/11/17 08:51 Heparin Sodium (Porcine) (Heparin 5000 units/ml) 5,000 units EVERY 12 HOURS SUBQ 03/08/17 09:00 04/07/17 08:59 03/11/17 08:50 Lisinopril (Zestril) 5 mg DAILY GT 03/10/17 09:30 04/09/17 09:29 03/11/17 08:52 Mupirocin 1 applic 1 applic BID TOPIC 03/10/17 18:00 03/15/17 17:59 03/11/17 08:53 Nitroglycerin 0.4 mg 0.4 mg Q5M PRN SL Prn Chest Pain 03/07/17 22:30 04/06/17 22:29 Ondansetron HCl (Zofran) 4 mg Q6H PRN IVP Nausea & Vomiting 03/07/17 22:30 04/06/17 22:29 Polyethylene Glycol (Miralax) 17 gm DAILYPRN PRN GT Constipation 03/09/17 13:26 04/06/17 22:29 Promethazine HCl/ Codeine (Phenergan with Codeine) 5 ml Q4H PRN GT For Cough 03/09/17 13:27 04/06/17 22:29 03/11/17 08:21 Temazepam (Restoril) 15 mg HSPRN PRN GT Insomnia 03/09/17 13:26 03/14/17 22:29 Vancomycin HCl 1 ea 1 ea DAILY PRN MISC PER RX PROTOCOL 03/08/17 15:45 04/07/17 15:44 Vancomycin HCl/ Dextrose (Vancomycin/D5W) 275 ml @ 183.708 mls/hr Q12HR@0500,1700 IVPB 03/10/17 17:00 03/15/17 16:59 03/11/17 05:29 ELVA HERNANDEZ Mar 11, 2017 08:57
--- NOTE | 2017-03-11 10:41 | Diagnostic Imaging Report ---
Indication: Dyspnea Comparison: 03/10/17 A single view chest radiograph was obtained. Findings: There is evidence of pleural thickening on the right. Heart is normal. There is some atelectasis versus scarring at the left lung base. Impression: No change from the prior day
--- NOTE | 2017-03-11 11:25 | Pulmonology Progress Note ---
Assessment/Plan Assessment/Plan ASSESSMENT severe sepsis acute toxic metabolic encephalopathy ( 2 to sepsis/PNA) acute hypoxemic respiratory failure aspiration PNA Right paratracheal lymphadenopathy, hx of respiratory failure with trach hyperkalemia anemia dysphagia, G tube PAF hx of CVA with R hemiplegia TIFFANIE functional quadriplegia PLAN OF CARE VINCE IVF empiric abx , fup cx, blood cx preliminary negative O2 HHN and titrate to keep sat above 92% CTA No evidence of acute pulmonary embolus Consolidation and atelectasis in right lower lobe. Liekly PNA However, possibility of endobronchial occlusion and postobstructive atelectasis and pneumonia from bronchial obstructive lesion should be considered. Evidence of bullous COPD. Right paratracheal lymphadenopathy, fup with CXR in am cancer tumor markers negative, except mild elevation in CEA strict aspiration precautions, GT feeding, monitor tolerance monitor renal parameters, lytes, avoid nephrotoxic continue BB, remains in SR, rate controlled K stable after treatment of hyperkalemia Na stable monitor HH, anemia workup with low iron and high ferritin case discussed and evaluated by supervising physician Subjective Allergies: Coded Allergies: AMOXICILLIN (Unverified Allergy, Unknown, 01/13/15) AMPICILLIN (Unverified Allergy, Unknown, 01/13/15) PENICILLINS (Unverified Allergy, Unknown, 01/13/15) PIPERACILLIN (Unverified Allergy, Unknown, 01/13/15) TAZOBACTAM (Unverified Allergy, Unknown, 01/13/15) LEVOFLOXACIN (Verified Adverse Reaction, Intermediate, 10/25/16) Red erythematous rash outbreak near IV site Subjective afebrile, no leukocytosis on VM 45%, pulse oximetry stable Objective Last 24 Hour Vital Signs Date Time Temp Pulse Resp B/P Pulse Ox O2 Delivery O2 Flow Rate FiO2 03/11/17 08:52 145/92 03/11/17 08:52 109 145/92 03/11/17 07:49 98.2 109 20 145/92 99 Venturi Mask 03/11/17 07:37 106 03/11/17 07:31 99 Venturi Mask 10.0 45 03/11/17 07:31 Venturi Mask 10.0 45 03/11/17 07:29 102 20 Venturi Mask 10.0 45 03/11/17 04:00 99.1 111 24 119/89 98 Venturi Mask 03/11/17 04:00 122 03/11/17 00:55 97.5 108 28 151/89 94 Venturi Mask 03/11/17 00:00 101 03/10/17 22:57 97 Venturi Mask 14.0 55 03/10/17 22:57 Venturi Mask 14.0 55 03/10/17 20:43 108 122/87 03/10/17 20:00 98.8 108 20 122/87 94 Venturi Mask 03/10/17 20:00 101 03/10/17 19:00 79 22 Venturi Mask 14.0 55 03/10/17 16:00 98.2 81 20 113/67 100 Venturi Mask 45 03/10/17 15:28 92 03/10/17 12:00 97.9 88 16 103/63 93 Venturi Mask 45 03/10/17 11:41 83 Intake and Output 03/10/17 03/11/17 19:00 07:00 Intake Total 1593.330 ml 1686.668 ml Output Total 1200 ml 1000 ml Balance 393.330 ml 686.668 ml Intake IV Total 933.330 ml 1071.668 ml Tube Feeding 540 ml 495 ml Other 120 ml 120 ml Output Urine Total 1200 ml 1000 ml # Bowel Movements 2 Objective General Appearance: no acute distress, other - awake, bedridden, aphasic, responsive HEENT: normocephalic, atraumatic, other - VM 55%, old tarch site clean Respiratory/Chest: no accessory muscle use, decreased breath sounds Cardiovascular: normal rate, regular rhythm Abdomen: normal bowel sounds, soft, non tender, non distended, G tube Extremities: no edema, other - R hemiplegia Neurologic/Psychiatric: abnormal gait - bedridden , alert, responsive, R hemiplegia Musculoskeletal: atrophy - BLE Laboratory Tests 03/10/17 11:47: Urine Random Sodium 77 03/10/17 14:00: Random Vancomycin Level 11.6 03/11/17 05:40: White Blood Count 5.2, Red Blood Count 3.12L, Hemoglobin 10.0L, Hematocrit 30.1L , Mean Corpuscular Volume 97, Mean Corpuscular Hemoglobin 32.0H, Mean Corpuscular Hemoglobin Concent 33.1, Red Cell Distribution Width 14.1, Platelet Count 200, Mean Platelet Volume 6.2L, Neutrophils (%) (Auto) 75.8H, Lymphocytes (%) (Auto) 12.3L, Monocytes (%) (Auto) 8.1, Eosinophils (%) (Auto) 3.2H, Basophils (%) (Auto) 0.7, Sodium Level 132L, Potassium Level 4.9, Chloride Level 96L, Carbon Dioxide Level 25, Anion Gap 11, Blood Urea Nitrogen 17, Creatinine 0.7, Estimat Glomerular Filtration Rate > 60, Glucose Level 137H, Calcium Level 9.0 Current Medications Medications (Trade) Dose Ordered Sig/Baljeet Route PRN Reason Start Time Stop Time Status Last Admin Dose Admin Acetaminophen (Tylenol) 650 mg Q4H PRN GT Mild Pain/Temp > 100.5 03/11/17 02:45 04/10/17 02:44 Al Hydroxide/Mg Hydroxide (Mylanta II) 30 ml Q6H PRN GT dyspepsia 03/09/17 13:25 04/06/17 22:29 Albuterol/ Ipratropium (DuoNeb 0.5-3(2.5)mg/3ml) 3 ml EVERY 4 HOURS PRN HHN Shortness of Breath 03/07/17 22:30 03/12/17 22:29 03/10/17 10:08 Aztreonam/Sodium Chloride (Azactam/Sodium Chloride) 55 ml @ 110 mls/hr EVERY 8 HOURS IVPB 03/08/17 06:00 03/15/17 05:59 03/11/17 05:29 Carvedilol (Coreg) 3.125 mg EVERY 12 HOURS GT 03/09/17 13:26 04/07/17 08:59 03/11/17 08:52 Clonidine HCl (Catapres) 0.1 mg Q8H PRN GT For High Blood Pressure > 160 03/09/17 13:30 04/06/17 22:29 Dextrose/Sodium Chloride (D5 0.45% NS) 1,000 ml @ 50 mls/hr Q20H IV 03/09/17 11:00 04/08/17 10:59 03/11/17 02:19 Divalproex Sodium (Depakote Sprinkles) 500 mg Q8HR GT 03/09/17 14:00 04/08/17 13:59 03/11/17 05:30 Docusate Sodium (Colace) 200 mg TWICE A DAY GT 03/08/17 09:00 04/07/17 08:59 03/11/17 08:51 Heparin Sodium (Porcine) (Heparin 5000 units/ml) 5,000 units EVERY 12 HOURS SUBQ 03/08/17 09:00 04/07/17 08:59 03/11/17 08:50 Lisinopril (Zestril) 5 mg DAILY GT 03/10/17 09:30 04/09/17 09:29 03/11/17 08:52 Mupirocin 1 applic 1 applic BID TOPIC 03/10/17 18:00 03/15/17 17:59 03/11/17 08:53 Nitroglycerin 0.4 mg 0.4 mg Q5M PRN SL Prn Chest Pain 03/07/17 22:30 04/06/17 22:29 Ondansetron HCl (Zofran) 4 mg Q6H PRN IVP Nausea & Vomiting 03/07/17 22:30 04/06/17 22:29 Polyethylene Glycol (Miralax) 17 gm DAILYPRN PRN GT Constipation 03/09/17 13:26 04/06/17 22:29 Promethazine HCl/ Codeine (Phenergan with Codeine) 5 ml Q4H PRN GT For Cough 03/09/17 13:27 04/06/17 22:29 03/11/17 08:21 Temazepam (Restoril) 15 mg HSPRN PRN GT Insomnia 03/09/17 13:26 03/14/17 22:29 Vancomycin HCl 1 ea 1 ea DAILY PRN MISC PER RX PROTOCOL 03/08/17 15:45 04/07/17 15:44 Vancomycin HCl/ Dextrose (Vancomycin/D5W) 275 ml @ 183.708 mls/hr Q12HR@0500,1700 IVPB 03/10/17 17:00 03/15/17 16:59 03/11/17 05:29 Judy Ellington NP (Vanchtein) Mar 11, 2017 11:25
[2017-03-11] MEDS ORDERED: DuoNeb 0.5-3(2.5)mg/3ml neb HHN PRN (11:30)
[2017-03-11 12:04] VITALS: BP 99/66
[2017-03-11 16:00] VITALS: BP 116/70
[2017-03-11] MEDS ORDERED: Tubing IV Secondary IV ONE (17:45)
[2017-03-11] MEDS ORDERED: D5 1/2NS 1000ml IV ONE (17:45)
[2017-03-11] MEDS ORDERED: NS 275ml ONE (17:45)
[2017-03-11 20:30] VITALS: BP 129/96
--- NOTE | 2017-03-11 22:17 | Consultation ---
DATE OF CONSULTATION: 03/11/2017 HISTORY OF PRESENT ILLNESS: The patient is awake, alert, afebrile, and respond by head nod. He attempt to communicate verbally, but his communication is not understood. PHYSICAL EXAMINATION: VITAL SIGNS: Blood pressure is 116/70, his pulse is 84, respirations of 20, and temperature was 97.9. HEENT: Eyes were normal. ENT, mucous membranes were moist and intact. NECK: Supple with no JVD without lymph nodes. LUNGS: Clear. Bilateral rhonchi at bases only, more on the right than the left. HEART: Normal sounds with regular beats. There is no S3, S4, or pericardial rub. ABDOMEN: Soft and nontender with normal bowel sounds. EXTREMITIES: Warm without cyanosis, clubbing, or edema. LABORATORY DATA: Hemoglobin is 10.2, hematocrit was 30.1 with MCV of 97, WBC of 5.2 and platelets is 200,000. His BUN and creatinine is 17 and 0.7 respectively. Sodium is 132, potassium 4.9, chloride 96, and CO2 is 25. Chest x-ray done today revealed right lower lobe thickening. Normal size heart and atelectasis in the left lung. IMPRESSION: This is a CT scan of the chest to rule out pulmonary emboli which actually did during this procedure enlarged lymphadenopathy was identified on the right side and the patient was admitted, has been managed with tumor marker approximately negative. 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 PLAN: Continue to follow the patient's CBC, BMP, and chest x-ray. However, the issue is not resolved. Bronchoscopy should be considered. Overall the patient looks substantially better than his condition. That is the way, he look on admission. Repeat laboratory tests will be done in the 9 a.m. Shay Connolly M.D. DR: ZITA JOB#: [id number] CC:
[2017-03-12] VITALS (7 sets, daily range): BP systolic 91–122; BP diastolic 56–74
[2017-03-12] MEDS ORDERED: Amikacin 1,200 MG in NS 110 ML IV SCH (01:00)
[2017-03-12] MEDS: Vancomycin 1250mg in D5W 275ml IVPB SCH ×2 (04:12→17:05)
[2017-03-12] MEDS: Promethazine/Codeine 5ml UD GT PRN (04:14)
[2017-03-12 05:21] LABS: MEAN CORPUSCULAR HEMOGLOBIN 32.3 PG (27.0-31.0); MEAN CORPUSCULAR HGB CONC 33.6 G/DL (32.0-36.0); MEAN CORPUSCULAR VOLUME 96 FL (80-99); MEAN PLATELET VOLUME 6.4 FL (6.5-10.1); PLATELET COUNT 215 K/UL (150-450); RED BLOOD COUNT 2.95 M/UL (4.70-6.10); RED CELL DISTRIBUTION WIDTH 13.8 % (11.6-14.8); WHITE BLOOD COUNT 3.3 K/UL (4.8-10.8)
[2017-03-12 05:59] LABS: ANION GAP 14 (5-15); CALCIUM 9.1 mg/dL (8.6-10.2); CARBON DIOXIDE 25 mEQ/L (20-30); CHLORIDE 97 mEQ/L (98-107); CREATININE 0.6 mg/dL (0.7-1.2); GLOMERULAR FILTRATION RATE > 60 mL/min (>60); HEMOLYSIS 3; SODIUM 136 mEQ/L (135-145)
[2017-03-12] MEDS ORDERED: Depakote 125mg Sprinkles ONE (06:25)
[2017-03-12] MEDS: Aztreonam Inj 1 GM in NS 55 ML IVPB SCH ×3 (06:28→21:07)
[2017-03-12] MEDS: Depakote 125mg Sprinkles GT SCH (06:28)
[2017-03-12] MEDS: Docusate 100mg/10ml Liq GT SCH ×2 (08:45→17:09)
[2017-03-12] MEDS: Heparin 5000 units/ml inj SUBQ SCH ×2 (08:46→20:49)
[2017-03-12] MEDS: Lisinopril 2.5mg tab GT SCH (08:50)
[2017-03-12 09:15] LABS: BAND NEUTROPHILS % (MANUAL) 0 % (0-8); BASOPHILS % (MANUAL) 0 % (0-2); EOSINOPHILS % (MANUAL) 7 % (0-3); LYMPHOCYTES % (MANUAL) 27 % (20-45); NEUTROPHILS % (MANUAL) 57 % (45-75); PLATELET ESTIMATE ADEQUATE; PLATELET MORPHOLOGY NORMAL; TOTAL CELLS COUNTED 100
[2017-03-12 09:16] LABS: HYPOCHROMASIA 1+
--- NOTE | 2017-03-12 10:27 | Diagnostic Imaging Report ---
Indications: April breath Technique: Portable AP chest Findings: Comparison: 03/11/2017 Right midlung and left lung base subsegmental atelectasis versus scarring, right lateral pleural thickening and calcification, mild pleural thickening versus fluid left costophrenic angle, elevation of left hemidiaphragm persists, unchanged. Cardiac mediastinal silhouette stable. No new abnormality identified. IMPRESSION: No change from one day prior
--- NOTE | 2017-03-12 11:11 | Pulmonology Progress Note ---
Assessment/Plan Problems: (1) Acute encephalopathy (2) Aspiration pneumonia (3) ATN (acute tubular necrosis) (4) Feeding by G-tube (5) Chronic complete quadriplegia (6) Severe sepsis Respiratory: monitor respiratory rate, adjust FIO2 Renal: F/U I&O, keep IV fluid Infectious Disease: check cultures Gastrointestinal: continue feedings/current rate Endocrine: monitor blood sugar, check TSH Hematologic: monitor H/H Neurologic: PRN Ativan, PRN Morphine Affect: PRN ativan Prophylaxis: Protonix Notes Reviewed: supervisor sewer system, ID Discussed with: nurses, case reviewer, other - transfer to med/surg Subjective ROS Limited/Unobtainable: No Interval Events: awake, comfortable Allergies: Coded Allergies: AMOXICILLIN (Unverified Allergy, Unknown, 01/13/15) AMPICILLIN (Unverified Allergy, Unknown, 01/13/15) PENICILLINS (Unverified Allergy, Unknown, 01/13/15) PIPERACILLIN (Unverified Allergy, Unknown, 01/13/15) TAZOBACTAM (Unverified Allergy, Unknown, 01/13/15) LEVOFLOXACIN (Verified Adverse Reaction, Intermediate, 10/25/16) Red erythematous rash outbreak near IV site Objective Last 24 Hour Vital Signs Date Time Temp Pulse Resp B/P Pulse Ox O2 Delivery O2 Flow Rate FiO2 03/12/17 08:50 119/71 03/12/17 08:50 93 119/71 03/12/17 08:41 95 Nasal Cannula 3.0 32 03/12/17 08:02 97.5 93 18 119/71 92 Venturi Mask 45 03/12/17 07:35 78 03/12/17 06:41 89 122/65 03/12/17 06:35 Venturi Mask 10.0 45 03/12/17 06:35 96 Venturi Mask 10.0 45 03/12/17 06:35 85 18 Venturi Mask 10.0 45 03/12/17 04:23 97.0 88 20 91/56 92 Venturi Mask 45 86 03/12/17 03:42 100 03/12/17 00:13 97.3 106 20 114/68 99 Venturi Mask 45 03/12/17 00:00 100 03/11/17 23:55 100 03/11/17 21:02 109 129/96 03/11/17 20:30 96.3 109 20 129/96 99 Venturi Mask 45 03/11/17 19:48 100 03/11/17 19:34 93 Venturi Mask 10.0 45 03/11/17 19:34 Venturi Mask 10.0 45 03/11/17 19:34 102 18 Venturi Mask 10.0 45 03/11/17 16:00 85 03/11/17 16:00 97.9 84 20 116/70 99 Venturi Mask 45 03/11/17 12:04 98.1 84 20 99/66 100 Venturi Mask 45 03/11/17 11:31 83 Intake and Output 03/11/17 03/12/17 19:00 07:00 Intake Total 1690.000 ml 1416 ml Output Total 1350 ml 1325 ml Balance 340.000 ml 91 ml Intake Free Water 220 ml IV Total 930.000 ml 876 ml Tube Feeding 540 ml 540 ml Output Urine Total 1350 ml 1325 ml General Appearance: WD/WN HEENT: normocephalic, atraumatic Respiratory/Chest: chest wall non-tender, crackles/rales Cardiovascular: normal peripheral pulses, normal rate Abdomen: normal bowel sounds, soft, non tender Extremities: no cyanosis, no clubbing Skin: no rash, no ulcers Neurologic/Psychiatric: no motor/sensory deficits Lymphatic: no neck adenopathy, no groin adenopathy Musculoskeletal: normal muscle bulk Laboratory Tests 03/12/17 04:10: White Blood Count 3.3L, Red Blood Count 2.95L, Hemoglobin 9.5L, Hematocrit 28.4L , Mean Corpuscular Volume 96, Mean Corpuscular Hemoglobin 32.3H, Mean Corpuscular Hemoglobin Concent 33.6, Red Cell Distribution Width 13.8, Platelet Count 215, Mean Platelet Volume 6.4L, Neutrophils (%) (Auto) , Lymphocytes (%) ( Auto) , Monocytes (%) (Auto) , Eosinophils (%) (Auto) , Basophils (%) (Auto) , Differential Total Cells Counted 100, Neutrophils % (Manual) 57, Lymphocytes % ( Manual) 27, Monocytes % (Manual) 9, Eosinophils % (Manual) 7H, Basophils % ( Manual) 0, Band Neutrophils 0, Platelet Estimate Adequate, Platelet Morphology Normal, Hypochromasia 1+, Sodium Level 136, Potassium Level 5.0H, Chloride Level 97L, Carbon Dioxide Level 25, Anion Gap 14, Blood Urea Nitrogen 16, Creatinine 0.6L, Estimat Glomerular Filtration Rate > 60, Glucose Level 123H, Calcium Level 9.1 Current Medications Medications (Trade) Dose Ordered Sig/Baljeet Route PRN Reason Start Time Stop Time Status Last Admin Dose Admin Acetaminophen (Tylenol) 650 mg Q4H PRN GT Mild Pain/Temp > 100.5 03/11/17 02:45 04/10/17 02:44 Al Hydroxide/Mg Hydroxide (Mylanta II) 30 ml Q6H PRN GT dyspepsia 03/09/17 13:25 04/06/17 22:29 Albuterol/ Ipratropium (DuoNeb 0.5-3(2.5)mg/3ml) 3 ml EVERY 4 HOURS PRN HHN Shortness of Breath 03/11/17 11:30 03/16/17 23:59 Aztreonam/Sodium Chloride (Azactam/Sodium Chloride) 55 ml @ 110 mls/hr EVERY 8 HOURS IVPB 03/08/17 06:00 03/15/17 05:59 03/12/17 06:28 Carvedilol (Coreg) 3.125 mg EVERY 12 HOURS GT 03/09/17 13:26 04/07/17 08:59 03/12/17 08:50 Clonidine HCl (Catapres) 0.1 mg Q8H PRN GT For High Blood Pressure > 160 03/09/17 13:30 04/06/17 22:29 Dextrose/Sodium Chloride (D5 0.45% NS) 1,000 ml @ 50 mls/hr Q20H IV 03/09/17 11:00 04/08/17 10:59 03/11/17 18:55 Docusate Sodium (Colace) 200 mg TWICE A DAY GT 03/08/17 09:00 04/07/17 08:59 03/12/17 08:45 Heparin Sodium (Porcine) (Heparin 5000 units/ml) 5,000 units EVERY 12 HOURS SUBQ 03/08/17 09:00 04/07/17 08:59 03/12/17 08:46 Lisinopril (Zestril) 5 mg DAILY GT 03/10/17 09:30 04/09/17 09:29 03/12/17 08:50 Mupirocin 1 applic 1 applic BID TOPIC 03/10/17 18:00 03/15/17 17:59 03/12/17 08:50 Nitroglycerin 0.4 mg 0.4 mg Q5M PRN SL Prn Chest Pain 03/07/17 22:30 04/06/17 22:29 Ondansetron HCl (Zofran) 4 mg Q6H PRN IVP Nausea & Vomiting 03/07/17 22:30 04/06/17 22:29 Polyethylene Glycol (Miralax) 17 gm DAILYPRN PRN GT Constipation 03/09/17 13:26 04/06/17 22:29 Promethazine HCl/ Codeine (Phenergan with Codeine) 5 ml Q4H PRN GT For Cough 03/09/17 13:27 04/06/17 22:29 03/12/17 04:14 Temazepam (Restoril) 15 mg HSPRN PRN GT Insomnia 03/09/17 13:26 03/14/17 22:29 03/12/17 02:40 Valproic Acid (Depakene) 500 mg Q8HR GT 03/12/17 14:00 04/11/17 13:59 Vancomycin HCl 1 ea 1 ea DAILY PRN MISC PER RX PROTOCOL 03/08/17 15:45 04/07/17 15:44 Vancomycin HCl/ Dextrose (Vancomycin/D5W) 275 ml @ 183.708 mls/hr Q12HR@0500,1700 IVPB 03/10/17 17:00 03/15/17 16:59 03/12/17 04:12 LATRICE DEL ROI Mar 12, 2017 11:11
[2017-03-12] MEDS ORDERED: Sodium Polystyrene Sulfonate 15gm Powder GT ONE (12:00)
--- NOTE | 2017-03-12 13:41 | Diagnostic Imaging Report ---
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 Large collateral vein noted anterior to the superficial femoral artery. The remainder of the deep venous system is within normal limits. There is no evidence of thrombus in the popliteal or calf veins. The greater saphenous vein is also within normal limits. Doppler indicates normal spontaneous flow within these segments. LEFT LEG: Venous imaging reveals a patent deep venous system. There is no evidence of thrombus within the femoral, popliteal or tibial segments. The greater saphenous vein is also within normal limits. Doppler indicates normal spontaneous flow within these segments. There is no evidence of acute deep vein thrombosis.
[2017-03-12] MEDS ORDERED: Valproic Acid 250mg/5ml Liquid GT SCH (14:00)
[2017-03-12] MEDS ORDERED: D5 1/2NS 1000ml IV ONE (15:40)
[2017-03-12] MEDS ORDERED: Tubing IV Secondary IV ONE (15:40)
[2017-03-12] MEDS: D5 1/2NS 1,000 ML IV SCH ×2 (16:44→19:10)
[2017-03-12] MEDS ORDERED: Acetaminophen 650mg/20.3ml GT PRN (18:45)
[2017-03-12] MEDS ORDERED: Nitroglycerin Subl 0.4mg tab (Bottle Of 25) SL PRN (18:45)
[2017-03-12] MEDS ORDERED: Miralax 17gm pkt GT PRN (19:00)
[2017-03-12] MEDS ORDERED: Promethazine/Codeine 5ml UD GT PRN (19:00)
[2017-03-12] MEDS ORDERED: DuoNeb 0.5-3(2.5)mg/3ml neb HHN PRN (19:00)
[2017-03-12] MEDS ORDERED: Mylanta II UD 30ml GT PRN (19:30)
[2017-03-12] MEDS: Valproic Acid 250mg/5ml Liquid GT SCH (20:48)
--- NOTE | 2017-03-12 20:57 | Infectious Diseases Prog Note ---
Assessment/Plan Assessment/Plan A: The patient is a 66-year-old male with Sepsis Possible pneumonia Consolidation and atelectasis of a significant portion of the right lower lobe. History of cerebrovascular accident. Seizure disorder. Hypertension. Chronic obstructive pulmonary disease. History of peptic ulcer. History of renal mass. Diabetes. History of CVA. PLAN: We will continue the patient on vancomycin,and Azactam d# 5 / 7 , 7/ SP amikacin d# 3 Monitor CBC. Monitor BMP. Monitor chest x-ray Monitor cultures Subjective Constitutional: Denies: anorexia, chills, drenching sweats, fatigue, fever, no symptoms, other Allergies: Coded Allergies: AMOXICILLIN (Unverified Allergy, Unknown, 01/13/15) AMPICILLIN (Unverified Allergy, Unknown, 01/13/15) PENICILLINS (Unverified Allergy, Unknown, 01/13/15) PIPERACILLIN (Unverified Allergy, Unknown, 01/13/15) TAZOBACTAM (Unverified Allergy, Unknown, 01/13/15) LEVOFLOXACIN (Verified Adverse Reaction, Intermediate, 10/25/16) Red erythematous rash outbreak near IV site Subjective non verbal Objective Vital Signs Last 24 Hour Vital Signs Date Time Temp Pulse Resp B/P Pulse Ox O2 Delivery O2 Flow Rate FiO2 03/12/17 20:47 98 122/69 03/12/17 20:00 96.6 98 20 122/69 99 Nasal Cannula 2.0 03/12/17 16:16 88 03/12/17 16:00 97.9 87 20 118/74 98 Nasal Cannula 2.0 03/12/17 12:00 98.4 89 20 97/62 98 Nasal Cannula 3.0 03/12/17 11:24 81 03/12/17 08:50 119/71 03/12/17 08:50 93 119/71 03/12/17 08:41 95 Nasal Cannula 3.0 32 03/12/17 08:02 97.5 93 18 119/71 92 Venturi Mask 45 03/12/17 07:35 78 03/12/17 06:41 89 122/65 03/12/17 06:35 Venturi Mask 10.0 45 03/12/17 06:35 96 Venturi Mask 10.0 45 03/12/17 06:35 85 18 Venturi Mask 10.0 45 03/12/17 04:23 97.0 88 20 91/56 92 Venturi Mask 45 86 03/12/17 03:42 100 03/12/17 00:13 97.3 106 20 114/68 99 Venturi Mask 45 03/12/17 00:00 100 03/11/17 23:55 100 03/11/17 21:02 109 129/96 Height (Feet): 6 Height (Inches): 2.00 Weight (Pounds): 171 HEENT: anicteric Respiratory/Chest: normal breath sounds Cardiovascular: regular rhythm Abdomen: soft, non tender Extremities: no cyanosis Laboratory Tests Test 03/12/17 04:10 White Blood Count 3.3 K/UL (4.8-10.8) L Red Blood Count 2.95 M/UL (4.70-6.10) L Hemoglobin 9.5 G/DL (14.2-18.0) L Hematocrit 28.4 % (42.0-52.0) L Mean Corpuscular Volume 96 FL (80-99) Mean Corpuscular Hemoglobin 32.3 PG (27.0-31.0) H Mean Corpuscular Hemoglobin Concent 33.6 G/DL (32.0-36.0) Red Cell Distribution Width 13.8 % (11.6-14.8) Platelet Count 215 K/UL (150-450) Mean Platelet Volume 6.4 FL (6.5-10.1) L Neutrophils (%) (Auto) % (45.0-75.0) Lymphocytes (%) (Auto) % (20.0-45.0) Monocytes (%) (Auto) % (1.0-10.0) Eosinophils (%) (Auto) % (0.0-3.0) Basophils (%) (Auto) % (0.0-2.0) Differential Total Cells Counted 100 Neutrophils % (Manual) 57 % (45-75) Lymphocytes % (Manual) 27 % (20-45) Monocytes % (Manual) 9 % (1-10) Eosinophils % (Manual) 7 % (0-3) H Basophils % (Manual) 0 % (0-2) Band Neutrophils 0 % (0-8) Platelet Estimate Adequate Platelet Morphology Normal Hypochromasia 1+ Sodium Level 136 mEQ/L (135-145) Potassium Level 5.0 mEQ/L (3.4-4.9) H Chloride Level 97 mEQ/L (98-107) L Carbon Dioxide Level 25 mEQ/L (20-30) Anion Gap 14 (5-15) Blood Urea Nitrogen 16 mg/dL (7-23) Creatinine 0.6 mg/dL (0.7-1.2) L Estimat Glomerular Filtration Rate > 60 mL/min (>60) Glucose Level 123 mg/dL (74-106) H Calcium Level 9.1 mg/dL (8.6-10.2) Current Medications Medications (Trade) Dose Ordered Sig/Baljeet Route PRN Reason Start Time Stop Time Status Last Admin Dose Admin Acetaminophen (Tylenol) 650 mg Q4H PRN GT Mild Pain/Temp > 100.5 03/12/17 18:45 04/11/17 18:44 Al Hydroxide/Mg Hydroxide (Mylanta II) 30 ml Q6H PRN GT dyspepsia 03/12/17 19:30 04/11/17 19:29 Albuterol/ Ipratropium (DuoNeb 0.5-3(2.5)mg/3ml) 3 ml Q4H PRN HHN Shortness of Breath 03/12/17 19:00 03/17/17 18:59 Aztreonam 1 gm/ Sodium Chloride 55 ml @ 110 mls/hr EVERY 8 HOURS IVPB 03/12/17 22:00 03/19/17 21:59 Carvedilol (Coreg) 3.125 mg EVERY 12 HOURS GT 03/12/17 21:00 04/11/17 20:59 03/12/17 20:47 Clonidine HCl (Catapres) 0.1 mg Q8H PRN GT SBP > 160 mmHg 03/12/17 19:00 04/11/17 18:59 Dextrose/Sodium Chloride 1,000 ml @ 50 mls/hr Q20H IV 03/12/17 18:45 04/11/17 18:44 03/12/17 19:10 Docusate Sodium (Colace) 200 mg TWICE A DAY GT 03/13/17 09:00 04/12/17 08:59 Heparin Sodium (Porcine) (Heparin 5000 units/ml) 5,000 units EVERY 12 HOURS SUBQ 03/12/17 21:00 04/11/17 20:59 03/12/17 20:49 Lisinopril (Zestril) 5 mg DAILY GT 03/13/17 09:00 04/12/17 08:59 Mupirocin (Bactroban Oint) 1 applic BID TOPIC 03/13/17 09:00 03/18/17 08:59 Nitroglycerin (Ntg) 0.4 mg Q5M PRN SL Prn Chest Pain 03/12/17 18:45 04/11/17 18:44 Ondansetron HCl (Zofran) 4 mg Q6H PRN IVP Nausea & Vomiting 03/12/17 19:00 04/11/17 18:59 Polyethylene Glycol (Miralax) 17 gm DAILYPRN PRN GT Constipation 03/12/17 19:00 04/11/17 18:59 Promethazine HCl/ Codeine (Phenergan with Codeine) 5 ml Q4H PRN GT For Cough 03/12/17 19:00 04/11/17 18:59 Temazepam (Restoril) 15 mg HSPRN PRN GT Insomnia 03/13/17 21:00 03/20/17 20:59 Valproic Acid (Depakene) 500 mg Q8HR GT 03/12/17 22:00 04/11/17 21:59 03/12/17 20:48 Vancomycin HCl (Vanco rx to dose) 1 ea DAILY PRN MISC PER RX PROTOCOL 03/12/17 19:00 04/11/17 18:59 Vancomycin HCl/ Dextrose (Vancomycin/D5W) 275 ml @ 183.708 mls/hr Q12HR@0500,1700 IVPB 03/13/17 05:00 03/18/17 04:59 TREVOR CAMARILLO M.D. Mar 12, 2017 20:57
[2017-03-13] VITALS (8 sets, daily range): BP systolic 85–129; BP diastolic 54–75
--- NOTE | 2017-03-13 00:30 | Progress Note ---
DATE: 03/12/2017 SUBJECTIVE: The patient is awake alert, afebrile, moderately lethargic but attempted to express himself verbally. PHYSICAL EXAMINATION: VITAL SIGNS: Blood pressure 127/69, pulse is 98, respirations were 20, and temperature was 96.6. HEENT: Eyes were normal. ENT, mucous membranes were moist and intact. NECK: Supple with no JVD without lymph nodes. LUNGS: Clear. HEART: Normal sounds with regular beats. ABDOMEN: Soft and nontender with normal bowel sounds. EXTREMITIES: Warm without cyanosis, clubbing, or edema. LABORATORY DATA: Hemoglobin is 9.5, hematocrit 28.4 with MCV of 96, WBC of 3.3, and platelets are 215,000. His BUN and creatinine is 16 and 0.6 respectively. Sodium is 136, potassium 5.0, chloride 97, and CO2 is 25. Chest x-ray done today showed no change from previous days, left base subsegmental atelectasis, right lateral pleural thickening and calcifications, left hemidiaphragm is persistently elevated, no new abnormalities. IMPRESSION: The patient is in relatively stable condition without leukocytosis and relatively stable hemoglobin and hematocrit and stable x-ray. PLAN: The patient will be discharged today and it is the 13 of March. Now, the patient will be discharged on the 14 March with the current medication. Repeat laboratory tests will be done in the morning. In the any event, the patient will be seen in the extended care facility 24 hours after discharge. Shay Connolly M.D. DR: Ashvin JOB#: [id number] CC:
[2017-03-13] MEDS: Vancomycin 1.25 GM in D5W 275 ML IVPB SCH ×2 (04:31→16:27)
[2017-03-13] MEDS: Valproic Acid 250mg/5ml Liquid GT SCH ×3 (06:21→21:39)
[2017-03-13] MEDS: Aztreonam Inj 1 GM in NS 55 ML IVPB SCH ×3 (06:21→21:39)
[2017-03-13 06:30] LABS: BASOPHILS % (AUTO) 1.3 % (0.0-2.0); EOSINOPHILS % (AUTO) 6.1 % (0.0-3.0); LYMPHOCYTES % (AUTO) 19.4 % (20.0-45.0); MEAN CORPUSCULAR HGB CONC 33.9 G/DL (32.0-36.0); MEAN CORPUSCULAR VOLUME 97 FL (80-99); MEAN PLATELET VOLUME 5.8 FL (6.5-10.1); MONOCYTES % (AUTO) 12.5 % (1.0-10.0); NEUTROPHILS % (AUTO) 60.7 % (45.0-75.0); PLATELET COUNT 246 K/UL (150-450); RED BLOOD COUNT 2.92 M/UL (4.70-6.10); RED CELL DISTRIBUTION WIDTH 14.2 % (11.6-14.8); WHITE BLOOD COUNT 4.2 K/UL (4.8-10.8)
[2017-03-13 06:55] LABS: ALANINE AMINOTRANSFERASE 25 U/L (3-41); ALBUMIN/GLOBULIN RATIO 0.5 (1.0-2.7); ANION GAP 8 (5-15); ASPARTATE AMINO TRANSFERASE 31 U/L (5-40); CALCIUM 9.2 mg/dL (8.6-10.2); CARBON DIOXIDE 30 mEQ/L (20-30); CHLORIDE 97 mEQ/L (98-107); CREATININE 0.7 mg/dL (0.7-1.2); GLOMERULAR FILTRATION RATE > 60 mL/min (>60); HEMOLYSIS 2; MAGNESIUM 1.5 mg/dL (1.7-2.5); PHOSPHORUS 3.2 mg/dL (2.5-4.8); POTASSIUM 4.2 mEQ/L (3.4-4.9); SODIUM 135 mEQ/L (135-145); TOTAL PROTEIN 7.5 g/dL (6.6-8.7)
[2017-03-13] MEDS: Docusate 100mg/10ml Liq GT SCH ×2 (08:14→17:06)
[2017-03-13] MEDS: Heparin 5000 units/ml inj SUBQ SCH ×2 (08:16→21:41)
[2017-03-13] MEDS: Lisinopril 2.5mg tab GT SCH (08:25)
--- NOTE | 2017-03-13 11:43 | Infectious Diseases Prog Note ---
Assessment/Plan Assessment/Plan A: The patient is a 66-year-old male with Sepsis improving Possible pneumonia Consolidation and atelectasis of a significant portion of the right lower lobe. History of cerebrovascular accident. Seizure disorder. Hypertension. Chronic obstructive pulmonary disease. History of peptic ulcer. History of renal mass. Diabetes. History of CVA. PLAN: We will continue the patient on vancomycin,and Azactam d# 6 / 7 , 7/ SP amikacin d# 3 Monitor CBC. Monitor BMP. Monitor chest x-ray Monitor cultures Subjective Constitutional: Denies: anorexia, chills, drenching sweats, fatigue, fever, no symptoms, other Allergies: Coded Allergies: AMOXICILLIN (Unverified Allergy, Unknown, 01/13/15) AMPICILLIN (Unverified Allergy, Unknown, 01/13/15) PENICILLINS (Unverified Allergy, Unknown, 01/13/15) PIPERACILLIN (Unverified Allergy, Unknown, 01/13/15) TAZOBACTAM (Unverified Allergy, Unknown, 01/13/15) LEVOFLOXACIN (Verified Adverse Reaction, Intermediate, 10/25/16) Red erythematous rash outbreak near IV site Subjective non verbal Objective Vital Signs Last 24 Hour Vital Signs Date Time Temp Pulse Resp B/P Pulse Ox O2 Delivery O2 Flow Rate FiO2 03/13/17 08:25 114/71 03/13/17 08:25 110 114/71 03/13/17 07:59 Nasal Cannula 2.0 03/13/17 07:58 93 Nasal Cannula 2.0 03/13/17 07:57 110 18 Nasal Cannula 2.0 03/13/17 07:39 97.7 118 20 114/71 93 Room Air 03/13/17 04:00 97.3 88 22 125/73 94 Room Air 03/13/17 00:00 97.1 83 18 116/75 93 Room Air 03/12/17 20:47 98 122/69 03/12/17 20:00 96.6 98 20 122/69 99 Nasal Cannula 2.0 03/12/17 19:11 92 18 Venturi Mask 10.0 45 03/12/17 19:11 Venturi Mask 10.0 45 03/12/17 19:11 94 Venturi Mask 10.0 45 03/12/17 16:16 88 03/12/17 16:00 97.9 87 20 118/74 98 Nasal Cannula 2.0 03/12/17 12:00 98.4 89 20 97/62 98 Nasal Cannula 3.0 Height (Feet): 6 Height (Inches): 2.00 Weight (Pounds): 171 HEENT: anicteric Respiratory/Chest: no respiratory distress Cardiovascular: regularly irregular Abdomen: non distended Laboratory Tests Test 03/13/17 04:50 White Blood Count 4.2 K/UL (4.8-10.8) L Red Blood Count 2.92 M/UL (4.70-6.10) L Hemoglobin 9.6 G/DL (14.2-18.0) L Hematocrit 28.4 % (42.0-52.0) L Mean Corpuscular Volume 97 FL (80-99) Mean Corpuscular Hemoglobin 33.0 PG (27.0-31.0) H Mean Corpuscular Hemoglobin Concent 33.9 G/DL (32.0-36.0) Red Cell Distribution Width 14.2 % (11.6-14.8) Platelet Count 246 K/UL (150-450) Mean Platelet Volume 5.8 FL (6.5-10.1) L Neutrophils (%) (Auto) 60.7 % (45.0-75.0) Lymphocytes (%) (Auto) 19.4 % (20.0-45.0) L Monocytes (%) (Auto) 12.5 % (1.0-10.0) H Eosinophils (%) (Auto) 6.1 % (0.0-3.0) H Basophils (%) (Auto) 1.3 % (0.0-2.0) Erythrocyte Sedimentation Rate 116 MM/HR (0-20) H Sodium Level 135 mEQ/L (135-145) Potassium Level 4.2 mEQ/L (3.4-4.9) Chloride Level 97 mEQ/L (98-107) L Carbon Dioxide Level 30 mEQ/L (20-30) Anion Gap 8 (5-15) Blood Urea Nitrogen 16 mg/dL (7-23) Creatinine 0.7 mg/dL (0.7-1.2) Estimat Glomerular Filtration Rate > 60 mL/min (>60) Glucose Level 138 mg/dL (74-106) H Calcium Level 9.2 mg/dL (8.6-10.2) Phosphorus Level 3.2 mg/dL (2.5-4.8) Magnesium Level 1.5 mg/dL (1.7-2.5) L Total Bilirubin < 0.2 mg/dL (0.0-1.2) Aspartate Amino Transf (AST/SGOT) 31 U/L (5-40) Alanine Aminotransferase (ALT/SGPT) 25 U/L (3-41) Alkaline Phosphatase 125 U/L (40-129) Total Protein 7.5 g/dL (6.6-8.7) Albumin 2.8 g/dL (3.5-5.2) L Globulin 4.7 g/dL Albumin/Globulin Ratio 0.5 (1.0-2.7) L Current Medications Medications (Trade) Dose Ordered Sig/Baljeet Route PRN Reason Start Time Stop Time Status Last Admin Dose Admin Acetaminophen (Tylenol) 650 mg Q4H PRN GT Mild Pain/Temp > 100.5 03/12/17 18:45 04/11/17 18:44 Al Hydroxide/Mg Hydroxide (Mylanta II) 30 ml Q6H PRN GT dyspepsia 03/12/17 19:30 04/11/17 19:29 Albuterol/ Ipratropium (DuoNeb 0.5-3(2.5)mg/3ml) 3 ml Q4H PRN HHN Shortness of Breath 03/12/17 19:00 03/17/17 18:59 Aztreonam 1 gm/ Sodium Chloride 55 ml @ 110 mls/hr EVERY 8 HOURS IVPB 03/12/17 22:00 03/19/17 21:59 03/13/17 06:21 Carvedilol (Coreg) 3.125 mg EVERY 12 HOURS GT 03/12/17 21:00 04/11/17 20:59 03/12/17 20:47 Clonidine HCl (Catapres) 0.1 mg Q8H PRN GT SBP > 160 mmHg 03/12/17 19:00 04/11/17 18:59 Dextrose/Sodium Chloride 1,000 ml @ 50 mls/hr Q20H IV 03/12/17 18:45 04/11/17 18:44 03/12/17 19:10 Docusate Sodium (Colace) 200 mg TWICE A DAY GT 03/13/17 09:00 04/12/17 08:59 03/13/17 08:14 Heparin Sodium (Porcine) (Heparin 5000 units/ml) 5,000 units EVERY 12 HOURS SUBQ 03/12/17 21:00 04/11/17 20:59 03/13/17 08:16 Lisinopril (Zestril) 5 mg DAILY GT 03/13/17 09:00 04/12/17 08:59 Magnesium Sulfate (Magnesium Sulfate 1gm/100ml) 100 ml @ 100 mls/hr Q1H IVPB 03/13/17 10:00 03/13/17 11:59 03/13/17 11:19 Mupirocin (Bactroban Oint) 1 applic BID TOPIC 03/13/17 09:00 03/18/17 08:59 03/13/17 08:15 Nitroglycerin (Ntg) 0.4 mg Q5M PRN SL Prn Chest Pain 03/12/17 18:45 04/11/17 18:44 Ondansetron HCl (Zofran) 4 mg Q6H PRN IVP Nausea & Vomiting 03/12/17 19:00 04/11/17 18:59 Polyethylene Glycol (Miralax) 17 gm DAILYPRN PRN GT Constipation 03/12/17 19:00 04/11/17 18:59 Promethazine HCl/ Codeine (Phenergan with Codeine) 5 ml Q4H PRN GT For Cough 03/12/17 19:00 04/11/17 18:59 Temazepam (Restoril) 15 mg HSPRN PRN GT Insomnia 03/13/17 21:00 03/20/17 20:59 Valproic Acid (Depakene) 500 mg Q8HR GT 03/12/17 22:00 04/11/17 21:59 03/13/17 06:21 Vancomycin HCl 1 ea 1 ea DAILY PRN MISC PER RX PROTOCOL 03/12/17 19:00 04/11/17 18:59 Vancomycin HCl/ Dextrose (Vancomycin/D5W) 275 ml @ 183.708 mls/hr Q12HR@0500,1700 IVPB 03/13/17 05:00 03/18/17 04:59 03/13/17 04:31 TREVOR CAMARILLO M.D. Mar 13, 2017 11:43
[2017-03-13] MEDS: D5 1/2NS 1,000 ML IV SCH (11:50)
--- NOTE | 2017-03-13 22:42 | Pulmonology Progress Note ---
Assessment/Plan Problems: (1) Acute encephalopathy (2) Aspiration pneumonia (3) ATN (acute tubular necrosis) (4) Feeding by G-tube (5) Chronic complete quadriplegia (6) Severe sepsis Subjective Allergies: Coded Allergies: AMOXICILLIN (Unverified Allergy, Unknown, 01/13/15) AMPICILLIN (Unverified Allergy, Unknown, 01/13/15) PENICILLINS (Unverified Allergy, Unknown, 01/13/15) PIPERACILLIN (Unverified Allergy, Unknown, 01/13/15) TAZOBACTAM (Unverified Allergy, Unknown, 01/13/15) LEVOFLOXACIN (Verified Adverse Reaction, Intermediate, 10/25/16) Red erythematous rash outbreak near IV site Objective Last 24 Hour Vital Signs Date Time Temp Pulse Resp B/P Pulse Ox O2 Delivery O2 Flow Rate FiO2 03/13/17 21:39 96 129/66 03/13/17 20:05 97.2 96 20 129/66 95 Nasal Cannula 2.0 03/13/17 19:54 97.2 96 20 129/66 95 Room Air 03/13/17 19:48 Nasal Cannula 2.0 28 03/13/17 19:48 98 Nasal Cannula 2.0 28 03/13/17 19:48 91 18 Nasal Cannula 2.0 28 03/13/17 16:00 97.9 102 20 126/74 96 Nasal Cannula 2.0 03/13/17 11:49 106 20 108/63 95 Nasal Cannula 2.0 03/13/17 08:25 114/71 03/13/17 08:25 110 114/71 03/13/17 07:59 Nasal Cannula 2.0 03/13/17 07:58 93 Nasal Cannula 2.0 03/13/17 07:57 110 18 Nasal Cannula 2.0 03/13/17 07:39 97.7 118 20 114/71 93 Room Air 03/13/17 04:00 97.3 88 22 125/73 94 Room Air 03/13/17 00:00 97.1 83 18 116/75 93 Room Air Intake and Output 03/12/17 03/13/17 19:00 07:00 Intake Total 1463.708 ml 770 ml Output Total 900 ml 1250 ml Balance 563.708 ml -480 ml Intake Free Water 180 ml 180 ml IV Total 788.708 ml 50 ml Tube Feeding 495 ml 540 ml Output Urine Total 900 ml 1250 ml # Voids 1 Laboratory Tests 03/13/17 04:50: White Blood Count 4.2L, Red Blood Count 2.92L, Hemoglobin 9.6L, Hematocrit 28.4L , Mean Corpuscular Volume 97, Mean Corpuscular Hemoglobin 33.0H, Mean Corpuscular Hemoglobin Concent 33.9, Red Cell Distribution Width 14.2, Platelet Count 246, Mean Platelet Volume 5.8L, Neutrophils (%) (Auto) 60.7, Lymphocytes ( %) (Auto) 19.4L, Monocytes (%) (Auto) 12.5H, Eosinophils (%) (Auto) 6.1H, Basophils (%) (Auto) 1.3, Erythrocyte Sedimentation Rate 116H, Sodium Level 135 , Potassium Level 4.2, Chloride Level 97L, Carbon Dioxide Level 30, Anion Gap 8 , Blood Urea Nitrogen 16, Creatinine 0.7, Estimat Glomerular Filtration Rate > 60, Glucose Level 138H, Calcium Level 9.2, Phosphorus Level 3.2, Magnesium Level 1.5L, Total Bilirubin < 0.2, Aspartate Amino Transf (AST/SGOT) 31, Alanine Aminotransferase (ALT/SGPT) 25, Alkaline Phosphatase 125, Total Protein 7.5, Albumin 2.8L, Globulin 4.7, Albumin/Globulin Ratio 0.5L Current Medications Medications (Trade) Dose Ordered Sig/Baljeet Route PRN Reason Start Time Stop Time Status Last Admin Dose Admin Acetaminophen (Tylenol) 650 mg Q4H PRN GT Mild Pain/Temp > 100.5 03/12/17 18:45 04/11/17 18:44 Al Hydroxide/Mg Hydroxide (Mylanta II) 30 ml Q6H PRN GT dyspepsia 03/12/17 19:30 04/11/17 19:29 Albuterol/ Ipratropium (DuoNeb 0.5-3(2.5)mg/3ml) 3 ml Q4H PRN HHN Shortness of Breath 03/12/17 19:00 03/17/17 18:59 Aztreonam 1 gm/ Sodium Chloride 55 ml @ 110 mls/hr EVERY 8 HOURS IVPB 03/12/17 22:00 03/19/17 21:59 03/13/17 21:39 Carvedilol (Coreg) 3.125 mg EVERY 12 HOURS GT 03/12/17 21:00 04/11/17 20:59 03/13/17 21:39 Clonidine HCl (Catapres) 0.1 mg Q8H PRN GT SBP > 160 mmHg 03/12/17 19:00 04/11/17 18:59 Dextrose/Sodium Chloride 1,000 ml @ 50 mls/hr Q20H IV 03/12/17 18:45 04/11/17 18:44 03/13/17 11:50 Docusate Sodium (Colace) 200 mg TWICE A DAY GT 03/13/17 09:00 04/12/17 08:59 03/13/17 17:06 Heparin Sodium (Porcine) (Heparin 5000 units/ml) 5,000 units EVERY 12 HOURS SUBQ 03/12/17 21:00 04/11/17 20:59 03/13/17 21:41 Lisinopril (Zestril) 5 mg DAILY GT 03/13/17 09:00 04/12/17 08:59 Mupirocin (Bactroban Oint) 1 applic BID TOPIC 03/13/17 09:00 03/18/17 08:59 03/13/17 17:06 Nitroglycerin (Ntg) 0.4 mg Q5M PRN SL Prn Chest Pain 03/12/17 18:45 04/11/17 18:44 Ondansetron HCl (Zofran) 4 mg Q6H PRN IVP Nausea & Vomiting 03/12/17 19:00 04/11/17 18:59 Polyethylene Glycol (Miralax) 17 gm DAILYPRN PRN GT Constipation 03/12/17 19:00 04/11/17 18:59 Promethazine HCl/ Codeine (Phenergan with Codeine) 5 ml Q4H PRN GT For Cough 03/12/17 19:00 04/11/17 18:59 Temazepam (Restoril) 15 mg HSPRN PRN GT Insomnia 03/13/17 21:00 03/20/17 20:59 Valproic Acid (Depakene) 500 mg Q8HR GT 03/12/17 22:00 04/11/17 21:59 03/13/17 21:39 Vancomycin HCl (Vanco rx to dose) 1 ea DAILY PRN MISC PER RX PROTOCOL 03/12/17 19:00 04/11/17 18:59 Vancomycin HCl/ Dextrose (Vancomycin/D5W) 275 ml @ 183.708 mls/hr Q12HR@0500,1700 IVPB 03/13/17 05:00 03/18/17 04:59 03/13/17 16:27 LATRICE DEL RIO Mar 13, 2017 22:42
--- NOTE | 2017-03-13 22:45 | Progress Note ---
DATE: 03/13/2017 SUBJECTIVE: The patient is awake, alert, afebrile, but remained tachycardic. PHYSICAL EXAMINATION: VITAL SIGNS: Blood pressure is 136/74, his pulse is 102, respirations of 20, and temperature 97.9 degrees. HEENT: Eyes were normal. ENT, mucous membranes were moist and intact. NECK: Supple with no JVD without lymph nodes. LUNGS: Clear. HEART: Normal sounds with regular beats. There is tachycardia at rest. ABDOMEN: Soft, nontender with normal bowel sounds. EXTREMITIES: Warm without cyanosis, clubbing, or edema. LABORATORY DATA: Hemoglobin is 9.6, hematocrit 24.4 with MCV of 97, WBC of 4.3, and platelet is 246,000. His BUN and creatinine is 16 and 0.7 respectively. His sodium is 135, potassium 4.2, chloride 97, and CO2 is 30. His calcium was 9.2, his phosphorus is 3.2, and his magnesium is 1.5. His albumin is 2.8 and total protein is 7.5. Latest chest x-ray from yesterday revealed no change in subsegmental atelectasis and bilateral pleural effusion. IMPRESSION: The patient is clinically stable, afebrile without leukocytosis, hemodynamically stable, except tachycardia. PLAN: He will be discharged and he will be back to the extended care facility where he will be seen in 24 hours after discharge. Shay Connolly M.D. DR: Ankita JOB#: [id number] CC:
[2017-03-14 03:42] VITALS: BP 111/68
[2017-03-14] MEDS: Vancomycin 1.25 GM in D5W 275 ML IVPB SCH (04:59)
[2017-03-14] MEDS: Aztreonam Inj 1 GM in NS 55 ML IVPB SCH ×2 (06:00→14:00)
[2017-03-14] MEDS: Valproic Acid 250mg/5ml Liquid GT SCH ×2 (06:12→14:00)
[2017-03-14 07:33] LABS: BASOPHILS % (AUTO) 0.7 % (0.0-2.0); EOSINOPHILS % (AUTO) 6.5 % (0.0-3.0); LYMPHOCYTES % (AUTO) 25.9 % (20.0-45.0); MEAN CORPUSCULAR HEMOGLOBIN 32.2 PG (27.0-31.0); MEAN CORPUSCULAR HGB CONC 32.9 G/DL (32.0-36.0); MEAN CORPUSCULAR VOLUME 98 FL (80-99); MEAN PLATELET VOLUME 5.6 FL (6.5-10.1); NEUTROPHILS % (AUTO) 52.9 % (45.0-75.0); PLATELET COUNT 277 K/UL (150-450); RED BLOOD COUNT 2.95 M/UL (4.70-6.10); RED CELL DISTRIBUTION WIDTH 15.1 % (11.6-14.8); WHITE BLOOD COUNT 3.7 K/UL (4.8-10.8)
[2017-03-14 08:00] VITALS: BP 134/88
[2017-03-14 08:04] LABS: ANION GAP 9 (5-15); CALCIUM 9.2 mg/dL (8.6-10.2); CARBON DIOXIDE 30 mEQ/L (20-30); CHLORIDE 97 mEQ/L (98-107); CREATININE 0.6 mg/dL (0.7-1.2); GLOMERULAR FILTRATION RATE > 60 mL/min (>60); HEMOLYSIS 3; POTASSIUM 4.5 mEQ/L (3.4-4.9); SODIUM 136 mEQ/L (135-145)
[2017-03-14] MEDS: Docusate 100mg/10ml Liq GT SCH (08:56)
[2017-03-14] MEDS: Lisinopril 2.5mg tab GT SCH (08:57)
[2017-03-14] MEDS: Heparin 5000 units/ml inj SUBQ SCH (09:16)
--- NOTE | 2017-03-14 10:42 | Wound Care Consultation ---
Wound Assessment Wound Assessment #1: Wound Number: #1 Wound Present on Admission: Yes New Wound: No Status Change of Wound: No Wound Location Body Site Modif: left Wound Location Body Site: sacral - aspect of Wound Type: scar Jenna Test: Does not Jenna Wound Thickness: Full Thickness Wound Length: 3.0 Wound Width: 2.5 Percent of Wound Cougar/Red: 100 Wound Drainage Amount: None Wound Drainage Odor: None/Absent Tissue Surrounding Wound: Intact Wound General Appearance: Clean/Dry Wound Assessment #2: Wound Number: #2 Wound Present on Admission: Yes New Wound: No Status Change of Wound: No Wound Location Body Site: perineal area Wound Type: chemical burn Jenna Test: Does not Jenna Percent of Wound Cougar/Red: 100 Wound Drainage Amount: None Wound Drainage Odor: None/Absent Tissue Surrounding Wound: Erythemic Wound General Appearance: Reddened, Open to air Wound Assessment #3: Wound Number: #3 Wound Present on Admission: No New Wound: No Status Change of Wound: No Wound Location Body Site Modif: right Wound Location Body Site: ear - top of ear Wound Type: scab - dry Jenna Test: Does not Jenna Wound Thickness: Partial Thickness Wound Length: 0.3 Wound Width: 0.3 Percent of Wound Black/Brown: 100 - dry scab Wound Drainage Amount: None Wound Drainage Odor: None/Absent Tissue Surrounding Wound: Intact Wound General Appearance: Open to air, Clean/Dry Wound Comment #1 perineal area chemical burn. #2 left aspect of sacral full thickness scar tissue. #3 right top of ear dry scab. Recommendation. -Local wound care as ordered. -Low air loss spr mattress. - keep clean and dry. -turn and reposition. -optimize nutrition. -heel protectors. -Assess and notify MD for any further change in skin noted. GUTIERREZ KRAMER Mar 14, 2017 10:42
[2017-03-14] MEDS: D5 1/2NS 1,000 ML IV SCH (10:45)
[2017-03-14 11:52] VITALS: BP 110/69
[2017-03-14] MEDS ORDERED: Tubing IV Secondary IV ONE (14:09)
[2017-03-14] MEDS ORDERED: D5 1/2NS 1000ml IV ONE ×2 (14:09)
[2017-03-14] MEDS ORDERED: NS 275ml ONE (14:09)
--- NOTE | 2017-03-14 15:17 | Diagnostic Imaging Report ---
Indication: Dyspnea Comparison: 03/12/17 A single view chest radiograph was obtained. Findings: Scattered interstitial densities are noted in the basilar and perihilar aspect of both lungs unchanged from the last examination. Focus of pleural thickening and calcification noted at the right lung base The bones are osteopenic. The heart is normal in size and unchanged. Impression: Scarring involving the basal aspects of the lungs. No acute findings appreciated.
--- NOTE | 2017-03-14 16:56 | Pulmonology Progress Note ---
Assessment/Plan Problems: (1) Acute encephalopathy (2) Aspiration pneumonia (3) ATN (acute tubular necrosis) (4) Feeding by G-tube (5) Chronic complete quadriplegia (6) Severe sepsis Assessment/Plan improving respiratory treatment titrate fio2 chest pt dc planning Subjective ROS Limited/Unobtainable: No Allergies: Coded Allergies: AMOXICILLIN (Unverified Allergy, Unknown, 01/13/15) AMPICILLIN (Unverified Allergy, Unknown, 01/13/15) PENICILLINS (Unverified Allergy, Unknown, 01/13/15) PIPERACILLIN (Unverified Allergy, Unknown, 01/13/15) TAZOBACTAM (Unverified Allergy, Unknown, 01/13/15) LEVOFLOXACIN (Verified Adverse Reaction, Intermediate, 10/25/16) Red erythematous rash outbreak near IV site Objective Last 24 Hour Vital Signs Date Time Temp Pulse Resp B/P Pulse Ox O2 Delivery O2 Flow Rate FiO2 03/14/17 11:52 97.7 91 18 110/69 100 Nasal Cannula 2.0 03/14/17 08:57 134/88 03/14/17 08:56 103 134/88 03/14/17 08:00 97.8 103 20 134/88 92 Room Air 03/14/17 07:57 107 18 Nasal Cannula 2.0 03/14/17 07:56 97 Nasal Cannula 2.0 28 03/14/17 07:55 Nasal Cannula 2.0 28 03/14/17 03:42 97.2 87 20 111/68 98 Room Air 03/13/17 23:42 97.4 90 20 85/54 90 Room Air 03/13/17 21:39 96 129/66 03/13/17 20:05 97.2 96 20 129/66 95 Nasal Cannula 2.0 03/13/17 19:54 97.2 96 20 129/66 95 Room Air 03/13/17 19:48 Nasal Cannula 2.0 28 03/13/17 19:48 98 Nasal Cannula 2.0 28 03/13/17 19:48 91 18 Nasal Cannula 2.0 28 Intake and Output 03/13/17 03/14/17 19:00 07:00 Intake Total 1720.000 ml 915 ml Output Total 1450 ml Balance 270.000 ml 915 ml Intake Free Water 200 ml 120 ml IV Total 980.000 ml 255 ml Tube Feeding 540 ml 540 ml Output Urine Total 1450 ml # Voids 4 General Appearance: WD/WN HEENT: normocephalic, atraumatic Respiratory/Chest: chest wall non-tender, lungs clear Cardiovascular: normal peripheral pulses, normal rate Abdomen: normal bowel sounds, soft, non tender Genitourinary: normal external genitalia Extremities: no cyanosis Skin: no rash Neurologic/Psychiatric: avid editor II-XII grossly normal, no motor/sensory deficits Lymphatic: no neck adenopathy Laboratory Tests 03/14/17 05:55: White Blood Count 3.7L, Red Blood Count 2.95L, Hemoglobin 9.5L, Hematocrit 28.9L , Mean Corpuscular Volume 98, Mean Corpuscular Hemoglobin 32.2H, Mean Corpuscular Hemoglobin Concent 32.9, Red Cell Distribution Width 15.1H, Platelet Count 277, Mean Platelet Volume 5.6L, Neutrophils (%) (Auto) 52.9, Lymphocytes (%) (Auto) 25.9, Monocytes (%) (Auto) 14.0H, Eosinophils (%) (Auto) 6.5H, Basophils (%) (Auto) 0.7, Sodium Level 136, Potassium Level 4.5, Chloride Level 97L, Carbon Dioxide Level 30, Anion Gap 9, Blood Urea Nitrogen 15, Creatinine 0.6L, Estimat Glomerular Filtration Rate > 60, Glucose Level 126H, Calcium Level 9.2 LATRICE [place] Mar 14, 2017 16:56
--- NOTE | 2017-03-14 20:41 | Infectious Diseases Prog Note ---
Assessment/Plan Assessment/Plan A: The patient is a 66-year-old male with Sepsis improving Possible pneumonia Consolidation and atelectasis of a significant portion of the right lower lobe. History of cerebrovascular accident. Seizure disorder. Hypertension. Chronic obstructive pulmonary disease. History of peptic ulcer. History of renal mass. Diabetes. History of CVA. PLAN: We will continue the patient on vancomycin,and Azactam d# 7 / , ok to Dc pt off of AB Rx, ( MARYANNE RN ) 03/10 SP amikacin d# 3 Monitor CBC. Monitor BMP. Monitor chest x-ray Monitor cultures Subjective Allergies: Coded Allergies: AMOXICILLIN (Unverified Allergy, Unknown, 01/13/15) AMPICILLIN (Unverified Allergy, Unknown, 01/13/15) PENICILLINS (Unverified Allergy, Unknown, 01/13/15) PIPERACILLIN (Unverified Allergy, Unknown, 01/13/15) TAZOBACTAM (Unverified Allergy, Unknown, 01/13/15) LEVOFLOXACIN (Verified Adverse Reaction, Intermediate, 10/25/16) Red erythematous rash outbreak near IV site Subjective non verbal Objective Vital Signs Last 24 Hour Vital Signs Date Time Temp Pulse Resp B/P Pulse Ox O2 Delivery O2 Flow Rate FiO2 03/14/17 11:52 97.7 91 18 110/69 100 Nasal Cannula 2.0 03/14/17 08:57 134/88 03/14/17 08:56 103 134/88 03/14/17 08:00 97.8 103 20 134/88 92 Room Air 03/14/17 07:57 107 18 Nasal Cannula 2.0 28 03/14/17 07:56 97 Nasal Cannula 2.0 28 03/14/17 07:55 Nasal Cannula 2.0 28 03/14/17 03:42 97.2 87 20 111/68 98 Room Air 03/13/17 23:42 97.4 90 20 85/54 90 Room Air 03/13/17 21:39 96 129/66 Height (Feet): 6 Height (Inches): 2.00 Weight (Pounds): 171 HEENT: mucous membranes moist Respiratory/Chest: no accessory muscle use Abdomen: soft, non tender, non distended Laboratory Tests Test 03/14/17 05:55 White Blood Count 3.7 K/UL (4.8-10.8) L Red Blood Count 2.95 M/UL (4.70-6.10) L Hemoglobin 9.5 G/DL (14.2-18.0) L Hematocrit 28.9 % (42.0-52.0) L Mean Corpuscular Volume 98 FL (80-99) Mean Corpuscular Hemoglobin 32.2 PG (27.0-31.0) H Mean Corpuscular Hemoglobin Concent 32.9 G/DL (32.0-36.0) Red Cell Distribution Width 15.1 % (11.6-14.8) H Platelet Count 277 K/UL (150-450) Mean Platelet Volume 5.6 FL (6.5-10.1) L Neutrophils (%) (Auto) 52.9 % (45.0-75.0) Lymphocytes (%) (Auto) 25.9 % (20.0-45.0) Monocytes (%) (Auto) 14.0 % (1.0-10.0) H Eosinophils (%) (Auto) 6.5 % (0.0-3.0) H Basophils (%) (Auto) 0.7 % (0.0-2.0) Sodium Level 136 mEQ/L (135-145) Potassium Level 4.5 mEQ/L (3.4-4.9) Chloride Level 97 mEQ/L (98-107) L Carbon Dioxide Level 30 mEQ/L (20-30) Anion Gap 9 (5-15) Blood Urea Nitrogen 15 mg/dL (7-23) Creatinine 0.6 mg/dL (0.7-1.2) L Estimat Glomerular Filtration Rate > 60 mL/min (>60) Glucose Level 126 mg/dL (74-106) H Calcium Level 9.2 mg/dL (8.6-10.2) TREVOR CAMARILLO M.D. Mar 14, 2017 20:41
--- NOTE | 2017-03-15 15:04 | Discharge Summary ---
Discharge Summary Hospital Course Date of Admission Mar 07, 2017 at 20:59 Date of Discharge Mar 14, 2017 at 14:10 Admitting Diagnosis pneumonia HPI Brennon Lerma is a 66 year old male who was admitted on Mar 07, 2017 at 20: 59 for Pneumonia Hospital Course [id number] Discharge Discharge Disposition Patient was discharged to SNF/Subacute Facility(03) Discharge Diagnoses: Rufina Kruse NP Mar 15, 2017 15:04
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
== END 2017-03-14 14:10 | DRG 871 ==
LOC: EDBD 20:16 → EMR 20:56 → 2W 20:59 → EDBEDREQ 21:28 → 2W 03-10 02:54 → 4W 03-12 18:27
DX: A41.9 Sepsis, unspecified organism (principal); J96.01 Acute respiratory failure with hypoxia; N17.0 Acute kidney failure with tubular necrosis; J69.0 Pneumonitis due to inhalation of food and vomit; Z93.0 Tracheostomy status; G92 Toxic encephalopathy; R13.10 Dysphagia, unspecified; I69.951 Hemiplegia and hemiparesis following unspecified cerebrovascular disease affecting right dominant side; J44.0 Chronic obstructive pulmonary disease with (acute) lower respiratory infection; E87.1 Hypo-osmolality and hyponatremia; I82.511 Chronic embolism and thrombosis of right femoral vein; I69.920 Aphasia following unspecified cerebrovascular disease; R65.20 Severe sepsis without septic shock; E87.5 Hyperkalemia; D64.9 Anemia, unspecified; Z93.1 Gastrostomy status; I48.0 Paroxysmal atrial fibrillation; I11.0 Hypertensive heart disease with heart failure; I50.9 Heart failure, unspecified; R59.1 Generalized enlarged lymph nodes; G40.909 Epilepsy, unspecified, not intractable, without status epilepticus; E11.9 Type 2 diabetes mellitus without complications
CPT/HCPCS: 36415; 36600; 71010; 71275; 80048; 80053; 80069; 80150; 80202; 81003; 82164; 82270; 82378; 82550; 82607; 82728; 82746; 82803; 83540; 83550; 83605; 83735; 83880; 84100; 84300; 84484; 85007; 85025; 85610; 85651; 85730; 86300; 86301; 87040; 87081; 93005; 93970; 94640; 94664; 94760; J7620

== ENCOUNTER 2017-04-02 09:08 | Emergency (ER) | payer MEDICARE, MEDICAID ==
[~2017-04-02] VITALS: Ht 182.9 cm; Wt 81.6 kg
[2017-04-02 09:10] VITALS: BP 117/75
[2017-04-02 11:56] VITALS: BP 134/73
--- NOTE | 2017-04-02 13:00 | Emergency Room Report ---
History of Present Illness General Chief Complaint: Malfunctioning Gastric Tube Source: Medical Record, EMS Present Illness HPI 66-year-old male presents ED for G-tube placement. Patient will is G[facility]tube in [facility] today. Nursing staff placed a Ceron catheter into G-tube site. Upon arrival patient showing no signs of distress. No nausea or vomiting. No fevers or chills. No other aggravating or relieving factors. Denies any other significant symptoms Allergies: Coded Allergies: AMOXICILLIN (Unverified Allergy, Unknown, 01/13/15) AMPICILLIN (Unverified Allergy, Unknown, 01/13/15) PENICILLINS (Unverified Allergy, Unknown, 01/13/15) PIPERACILLIN (Unverified Allergy, Unknown, 01/13/15) TAZOBACTAM (Unverified Allergy, Unknown, 01/13/15) LEVOFLOXACIN (Verified Adverse Reaction, Intermediate, 10/25/16) Red erythematous rash outbreak near IV site Patient History Past Medical History: HTN, CVA/TIA Past Surgical History: other - gtube Pertinent Family History: none Social History: Denies: alcohol use, drug use, smoking Immunizations: UTD Reviewed Nursing Documentation: PMH: Agreed, PSxH: Agreed Nursing Documentation-PMH Past Medical History: No History, Except For Hx Cardiac Problems: Yes Hx Hypertension: Yes Hx COPD: Yes Hx Diabetes: Yes Hx Cancer: No Hx Gastrointestinal Problems: Yes Hx Neurological Problems: Yes Hx Cerebrovascular Accident: Yes Hx Encephalitis: Yes Hx Seizures: Yes Hx Aphasia: Yes Review of Systems All Other Systems: negative except mentioned in HPI Physical Exam Vital Signs Date Time Temp Pulse Resp B/P Pulse Ox O2 Delivery O2 Flow Rate FiO2 04/02/17 08:56 97.9 75 20 128/85 98 Room Air Sp02 EP Interpretation: reviewed, normal General Appearance: no apparent distress, alert, GCS 15, non-toxic Head: normocephalic Eyes: bilateral eye PERRL, bilateral eye normal inspection ENT: normal ENT inspection Neck: normal inspection Respiratory: normal inspection Cardiovascular #1: normal inspection Gastrointestinal: normal bowel sounds, non tender, soft, non-distended, no guarding, no rebound, other - Gtube site C/D/I Rectal: deferred Genitourinary: no CVA tenderness Musculoskeletal: normal inspection Neurologic: alert, oriented x3, responsive, motor strength/tone normal, sensory intact, speech normal Psychiatric: normal inspection Skin: normal inspection Lymphatic: normal inspection Procedures Additional Procedure Procedure Narrative G-tube placement Patient placed on stretcher. Old G-tube is removed by deflating the balloon using syringe. G-tube site is inspected with no contraindications to G-tube placement. G-tube slowly inserted until resistance is met; 14 F G-tube balloon is slowly filled with 5 mL of normal saline and slowly retracted back until resistance is met. G-tube placement is confirmed with KUB study using Gastrografin Medical Decision Making Diagnostic Impression: Primary Impression: Malfunction of gastrostomy tube ER Course Hospital Course 66-year-old male presents to ED for G-tube placement. [facility]ed [facility] at [facility] Clinical course Patient placed on stretcher. After initial history and physical I replaced 14 F G-tube and inflate the balloon. G-tube placement confirmed with KUB study. Patient remained stable without any signs of distress. care home called and patient subsequently discharged back to facility. Diagnosis - malfunction of G tube stable and discharged back to facility. Followup with PMD. Return to ED if symptoms recur or worsen Other X-Ray Diagnostic Results Other X-Ray Diagnostic Results : X-Ray ordered: KUB # of Views/Limited Vs Complete: 1 View Indication: Other - Gtube placement EP Interpretation: Yes Interpretation: nonspecific bowel gas, no sbo, other - Gtube in place Impression: Other - Gtube in place Interpreting ER Provider: Electronically signed by Eduardo Saunders MD Last Vital Signs Date Time Temp Pulse Resp B/P Pulse Ox O2 Delivery O2 Flow Rate FiO2 04/02/17 11:56 78 18 134/73 97 Room Air 04/02/17 09:10 98.0 Status: improved Disposition: XFER SNF Condition: Stable Referrals: NOT CHOSEN IPA/,REFERRING (PCP) Patient Instructions: Gastrostomy Tube Home Guide, Adult EDUARDO SAUNDERS M.D. Apr 02, 2017 13:00
--- NOTE | 2017-04-02 15:25 | Diagnostic Imaging Report ---
Indication: Status post gastrostomy tube replacement Technique: Supine view of the abdomen after injection of water-soluble contrast into gastrostomy Comparison: 05/03/2006 Findings: Contrast opacifies the stomach. No contrast extravasation is demonstrated. The bowel gas pattern is unremarkable. Previously demonstrated right ureteral stent is no longer present. Impression: Satisfactory position of gastrostomy tube Findings previously discussed by phone with Dr. Saunders
== END 2017-04-02 12:00 ==
LOC: EDBD 09:08 → EMR 09:32
DX: K94.29 Other complications of gastrostomy (principal); I10 Essential (primary) hypertension; J44.9 Chronic obstructive pulmonary disease, unspecified; E11.9 Type 2 diabetes mellitus without complications; Z86.73 Personal history of transient ischemic attack (TIA), and cerebral infarction without residual deficits; Z88.1 Allergy status to other antibiotic agents; Z88.0 Allergy status to penicillin; Z88.8 Allergy status to other drugs, medicaments and biological substances
CPT/HCPCS: 43760; 74000; 99283; Q9963

== ENCOUNTER 2017-04-15 12:11 | Inpatient (IN) | payer MEDICARE, MEDICAID ==
[~2017-04-15] VITALS: Ht 182.9 cm; Wt 77.6 kg
[2017-04-15] VITALS (13 sets, daily range): BP systolic 88–126; BP diastolic 52–66
[~2017-04-15 12:11] MED LIST changes: +BENADRYL A12.5 MG/5 GT; -BENADRYL A12.5 MG/5 ORAL; +COUMADIN7.5 MG GT; -COUMADIN7.5 MG ORAL; +CRANBERRY450 M4 GT; -CRANBERRY450 M4 PO; +DEPAKOTE500 MG GT; -DEPAKOTE500 MG PO; +DOCUSATE SODIU100 MG GT; -DOCUSATE SODIU100 MG ORAL; +LISINOPRIL5 MG GT; -LISINOPRIL5 MG ORAL; +MULTIVITAMINS1 EAC8 GT; -MULTIVITAMINS1 EAC8 ORAL; +PEPCID20 MG GT
--- NOTE | 2017-04-15 12:20 | Emergency Room Report ---
History of Present Illness General Chief Complaint: Fever Source: Patient, EMS Present Illness HPI Patient is a 66-year-old male presented after increased fever. Patient was brought in by EMS. Patient noted have fever as facility. Patient been noted to be G-tube dependence as well as had prior tracheostomy. Patient was noted to be allergic to penicillin as well as levofloxacin. Patient had fever up to 101. Patient was noted to be hypotensive initially on presentation. History is limited by patient's mental status. Allergies: Coded Allergies: AMOXICILLIN (Unverified Allergy, Unknown, 01/13/15) AMPICILLIN (Unverified Allergy, Unknown, 01/13/15) PENICILLINS (Unverified Allergy, Unknown, 01/13/15) PIPERACILLIN (Unverified Allergy, Unknown, 01/13/15) TAZOBACTAM (Unverified Allergy, Unknown, 01/13/15) LEVOFLOXACIN (Verified Adverse Reaction, Intermediate, 10/25/16) Red erythematous rash outbreak near IV site Patient History Past Medical History: see triage record Reviewed Nursing Documentation: PMH: Agreed, PSxH: Agreed Nursing Documentation-PMH Hx Cardiac Problems: Yes Hx Hypertension: Yes Hx COPD: Yes Hx Diabetes: Yes Hx Cancer: No Hx Gastrointestinal Problems: Yes Hx Neurological Problems: Yes Hx Cerebrovascular Accident: Yes Hx Encephalitis: Yes Hx Seizures: Yes Hx Aphasia: Yes Review of Systems All Other Systems: limited - by mental status Physical Exam Vital Signs Date Time Temp Pulse Resp B/P Pulse Ox O2 Delivery O2 Flow Rate FiO2 04/15/17 12:11 100.2 99 24 120/52 91 Nasal Cannula 4.0 General Appearance: moderate distress, Chronically Ill Head: normocephalic ENT: dry mucus membranes Neck: limited range of motion, other - healed tracheostomy scar Respiratory: chest non-tender, lungs clear, normal breath sounds Cardiovascular #1: regular rate, rhythm, no edema, no gallop Gastrointestinal: non tender, soft, other - gtube present Musculoskeletal: back normal, decreased range of motion Neurologic: motor weakness, other - nonverbal Psychiatric: normal inspection Skin: normal inspection, no rash Procedures Critical Care Time Critical Care Time Patient had a critical medical condition which untreated could potentially result in life or limb threatening injury. Total critical care time excluding procedures approximately 45 minutes. Medical Decision Making Diagnostic Impression: Primary Impression: Fever Additional Impressions: Severe sepsis Renal insufficiency Feeding by G-tube ER Course Patient presented for fever. Differential diagnosis included wasn't limited to pneumonia, urinary tract infection, drug fever, allergic reaction, sepsis, cholecystitis, among others.Because of complexity of patient's case laboratory testing and imaging studies were ordered.I laboratory studies showed evidence of elevated white blood count. The patient did have some elevation of his alkaline phosphatase as well as a lactic acid of 2.0 the patient started on IV fluids. He did have improvement in his blood pressure.Dr. Martin was contacted for inpatient management due to complexity of medical condition. Labs Test 04/15/17 12:20 White Blood Count 12.8 K/UL (4.8-10.8) Red Blood Count 4.27 M/UL (4.70-6.10) Hemoglobin 13.3 G/DL (14.2-18.0) Hematocrit 43.6 % (42.0-52.0) Mean Corpuscular Volume 102 FL (80-99) Mean Corpuscular Hemoglobin 31.2 PG (27.0-31.0) Mean Corpuscular Hemoglobin Concent 30.5 G/DL (32.0-36.0) Red Cell Distribution Width 16.2 % (11.6-14.8) Platelet Count 255 K/UL (150-450) Mean Platelet Volume 7.0 FL (6.5-10.1) Neutrophils (%) (Auto) 82.1 % (45.0-75.0) Lymphocytes (%) (Auto) 8.2 % (20.0-45.0) Monocytes (%) (Auto) 8.7 % (1.0-10.0) Eosinophils (%) (Auto) 0.1 % (0.0-3.0) Basophils (%) (Auto) 0.8 % (0.0-2.0) Urine Color Yellow Urine Appearance Clear Urine pH 7 (4.5-8.0) Urine Specific [place] 1.005 (1.005-1.035) Urine Protein 2+ (NEGATIVE) Urine Glucose (UA) Negative (NEGATIVE) Urine Ketones Negative (NEGATIVE) Urine Occult Blood 1+ (NEGATIVE) Urine Nitrite Negative (NEGATIVE) Urine Bilirubin Negative (NEGATIVE) Urine Urobilinogen 1 MG/DL (0.0-1.0) Urine Leukocyte Esterase 1+ (NEGATIVE) Urine RBC 0-2 /HPF (0 - 0) Urine WBC 0-2 /HPF (0 - 0) Urine Squamous Epithelial Cells Occasional /LPF Urine Bacteria Occasional /HPF (NONE) Urine Mucus Few /LPF (NONE/OCC) Sodium Level 149 mEQ/L (135-145) Potassium Level 5.8 mEQ/L (3.4-4.9) Chloride Level 108 mEQ/L (98-107) Carbon Dioxide Level 28 mEQ/L (20-30) Anion Gap 13 (5-15) Blood Urea Nitrogen 62 mg/dL (7-23) Creatinine 1.7 mg/dL (0.7-1.2) Estimat Glomerular Filtration Rate 40.8 mL/min (>60) Glucose Level 195 mg/dL (74-106) Lactic Acid Level 2.00 mmol/L (0.66-2.22) Calcium Level 10.2 mg/dL (8.6-10.2) Total Bilirubin 0.5 mg/dL (0.0-1.2) Aspartate Amino Transf (AST/SGOT) 40 U/L (5-40) Alanine Aminotransferase (ALT/SGPT) 43 U/L (3-41) Alkaline Phosphatase 152 U/L (40-129) Total Creatine Kinase 65 U/L (38-174) Troponin I < 0.30 ng/mL (<=0.30) Total Protein 9.4 g/dL (6.6-8.7) Albumin 3.3 g/dL (3.5-5.2) Globulin 6.1 g/dL Albumin/Globulin Ratio 0.5 (1.0-2.7) EKG Diagnostic Results Rate: tachycardiac - 107 Rhythm: NSR ST Segments: no acute changes ASA given to the pt in ED: No Rhythm Strip Diag. Results EP Interpretation: yes Rhythm: NSR - 101, no PVC's, no ectopy Chest X-Ray Diagnostic Results Chest X-Ray Diagnostic Results : Chest X-Ray Ordered: Yes # of Views/Limited/Complete: 1 View Indication: Shortness of Breath EP Interpretation: Yes Interpretation: no consolidation, no effusion, no pneumothorax, no acute cardiopulmonary disease Impression: No acute disease Interpreting ER Provider: Electronically signed by Dr. Jensen Baldwin M.D. Last Vital Signs Date Time Temp Pulse Resp B/P Pulse Ox O2 Delivery O2 Flow Rate FiO2 04/15/17 12:11 100.2 99 24 120/52 91 Nasal Cannula 4.0 Status: improved Disposition: ADMITTED INPATIENT Condition: Jensen Huber Apr 15, 2017 12:20
[2017-04-15] MEDS ORDERED: Vancomycin 1.5gm/D5W 250ml 250 ML IVPB ONE (12:30)
[2017-04-15] MEDS ORDERED: metroNIDAZOLE 500mg 100 ML IV SCH (12:30)
[2017-04-15 12:36] LABS: BASOPHILS % (AUTO) 0.8 % (0.0-2.0); EOSINOPHILS % (AUTO) 0.1 % (0.0-3.0); LYMPHOCYTES % (AUTO) 8.2 % (20.0-45.0); MEAN CORPUSCULAR HEMOGLOBIN 31.2 PG (27.0-31.0); MEAN CORPUSCULAR HGB CONC 30.5 G/DL (32.0-36.0); MEAN CORPUSCULAR VOLUME 102 FL (80-99); MONOCYTES % (AUTO) 8.7 % (1.0-10.0); NEUTROPHILS % (AUTO) 82.1 % (45.0-75.0); PLATELET COUNT 255 K/UL (150-450); RED BLOOD COUNT 4.27 M/UL (4.70-6.10); RED CELL DISTRIBUTION WIDTH 16.2 % (11.6-14.8); WHITE BLOOD COUNT 12.8 K/UL (4.8-10.8)
[2017-04-15 12:41] LABS: APPEARANCE,URINE CLEAR; KETONES,URINE NEGATIVE (NEGATIVE); LEUKOCYTE ESTERASE ,URINE 1+ (NEGATIVE); NITRITE,URINE NEGATIVE (NEGATIVE); PH,URINE 7 (4.5-8.0); PROTEIN,URINE 2+ (NEGATIVE); UROBILINOGEN,URINE 1 MG/DL (0.0-1.0)
[2017-04-15 12:48] LABS: BACTERIA,URINE OCCASIONAL /HPF; MUCUS,URINE FEW /LPF (NONE/OCC); RBC,URINE 0-2 /HPF (0 - 0); SQUAMOUS EPITHELIAL CELL,UR OCCASIONAL /LPF (NONE/OCC); WBC,URINE 0-2 /HPF (0 - 0)
[2017-04-15 12:59] LABS: ALANINE AMINOTRANSFERASE 43 U/L (3-41); ALBUMIN/GLOBULIN RATIO 0.5 (1.0-2.7); ANION GAP 13 (5-15); ASPARTATE AMINO TRANSFERASE 40 U/L (5-40); CALCIUM 10.2 mg/dL (8.6-10.2); CARBON DIOXIDE 28 mEQ/L (20-30); CHLORIDE 108 mEQ/L (98-107); CREATININE 1.7 mg/dL (0.7-1.2); GLOMERULAR FILTRATION RATE 40.8 mL/min (>60); HEMOLYSIS 12; POTASSIUM 5.8 mEQ/L (3.4-4.9); SODIUM 149 mEQ/L (135-145); TOTAL PROTEIN 9.4 g/dL (6.6-8.7)
[2017-04-15 13:08] LABS: TROPONIN I < 0.30 ng/mL (<=0.30)
[2017-04-15 13:09] LABS: REFLEX LACTIC ACID YES OR NO YES
[2017-04-15] MEDS ORDERED: Sodium Polystyrene Sulfonate 15gm Powder PEG ONE (13:15)
[2017-04-15 13:26] LABS: CKMB < 1.5 ng/mL (< 6.7)
[2017-04-15] MEDS ORDERED: LORazepam Inj 2mg/ml 1ml IV PRN (14:45)
[2017-04-15] MEDS ORDERED: Miralax 17gm pkt ORAL PRN (14:45)
[2017-04-15] MEDS ORDERED: DuoNeb 0.5-3(2.5)mg/3ml neb HHN PRN (14:45)
[2017-04-15] MEDS ORDERED: Morphine Sulfate 4mg/ml Inj IVP PRN (14:45)
[2017-04-15] MEDS ORDERED: MILK OF MA400 MG/51 ORAL (15:30)
[2017-04-15] MEDS ORDERED: GLUCAGON W/DILUE1 MG IJ (15:30)
[2017-04-15] MEDS ORDERED: TEMAZEPAM30 MG ORAL (15:30)
[2017-04-15] MEDS ORDERED: Amikacin Rx to dose MISC PRN (16:15)
[2017-04-15] MEDS: Heparin 5000 units/ml inj SUBQ SCH (20:38)
[2017-04-15] MEDS ORDERED: Amikacin 1,000 MG in NS 110 ML IV SCH (21:00)
[2017-04-15] MEDS ORDERED: Vancomycin 1 GM in D5W 275 ML IV SCH (23:45)
[2017-04-16] VITALS (16 sets, daily range): BP systolic 92–136; BP diastolic 50–71
[2017-04-16] MEDS ORDERED: Vancomycin 1250mg/D5W 250ml IVPB SCH (02:00)
--- NOTE | 2017-04-16 02:00 | Consultation ---
DATE OF CONSULTATION: 04/15/2017 INFECTIOUS DISEASE CONSULTATION CONSULTING PHYSICIAN: Samuel Kahn M.D. Covering for Dr. Rivera. REQUESTING PHYSICIAN: Lani Martin M.D. REASON FOR CONSULTATION: Fever, leukocytosis, sepsis, lactic acidosis, request for antibiotic management support. HISTORY OF PRESENT ILLNESS: This is a 66-year-old male with multiple medical problems as listed below, who presented from his long-term care facility with fevers of 101 Fahrenheit eventually responded to oral Tylenol. The patient was initially hypotensive on presentation, responded to IV fluid bolus and was given an empiric antibiotic or started with vancomycin and gentamicin and intravenous metronidazole. The patient's history is limited by his mental status. During evaluation in the emergency room, he was noted to initially be febrile. He had a white blood cell count of 12.8 with a left shift without bandemia, hemoglobin of 13.3, and a platelet count of 255,000. His chemistry panel was notable for hypernatremia with a sodium of 149, hyperkalemia with a potassium of 5.8, a bicarbonate of 28, but an elevated serum lactate at 2.4. Additionally, he had a calcium elevated at 10.2, which corrects for possible above 10.5 when calculating for his hypoalbuminemia with a serum albumin of 3.3. He has acute kidney injury with a serum creatinine of 1.7 and his liver function tests are notable for normal bilirubin and essentially normal ALT and AST, but a mildly elevated alkaline phosphatase. He had an urinalysis performed, which showed a dilute urine with an active sediment that contained proteins, blood, 1+ leukocyte esterase, negative nitrites, occasional bacteria, and 0 to 2 white blood cells. A Ceron was placed to receive this specimen. Urine and blood cultures were sent as well as screening MRSA colonization studies. He had a chest x-ray that was negative for acute cardiopulmonary disease, particularly notable for absence of infiltrate, effusion, or pneumothorax. It is important to note that the patient was most recently admitted to [facility] at the end of February 2017 for which he had a similar presentation and was found to have a right lower lobe pneumonia complicated by sepsis, treated with vancomycin and aztreonam for 7 days. He also initially received 3 days of amikacin initially. The patient is noted to have a history of allergies to penicillin including to Zosyn and an allergy to levofloxacin, which is described as a red erythematous rash near the IV site without a systemic reaction. PAST MEDICAL HISTORY: 1. History of urinary tract infection. 2. History of aspiration pneumonia, history of right lower lobe pneumonia in February 2017. 3. 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 4. G-tube. 5. History of trach subsequently decannulated currently with a healing trach site. 6. He has severe bullous COPD. 7. Motility disorder. 8. Sleep disorder. 9. History of peptic ulcer disease. 10. History of atrial fibrillation for which he has been on Coumadin. 11. History of right paratracheal lymphadenopathy. 12. History of right-sided hydronephrosis requiring ureteral stent, which has subsequently been removed. 13. History of descending colon colitis in 2014. 14. 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 15. History of a left renal cortical exophytic mass. 16. Renal artery stenosis with a subsequent atrophic left kidney. 17. He also has a history of congestive heart failure. MEDICATIONS: His outpatient medications include Coreg, Combivent, Depakote, lisinopril, multivitamin, vitamin D3, Pepcid, and he has been on Coumadin in the past, unclear if he is still on it. Current inpatient medications, antibiotics, currently are vancomycin and amikacin. ALLERGIES: As described above penicillin and levofloxacin. FAMILY HISTORY: Not available and noncontributory. REVIEW OF SYSTEMS: The patient was not able to give any information regarding his state of health. PHYSICAL EXAMINATION: VITAL SIGNS: Currently, a temperature of 97.8 degrees Fahrenheit, pulse tachycardiac at 103, blood pressure 108/62, respiratory rate 22, is currently saturating 93% on 4 liters nasal cannula. GENERAL: Open eyes to voice. Sonorous breath sounds. HEENT: Eyes were normal. His sclerae anicteric. Conjunctivae was pink. Extraocular movements were normal. Temporal arteries were palpated bilaterally and unremarkable and he does have bilateral temporal wasting. Oral cavity, he has significant mucous in the posterior oropharynx, but no pharyngeal erythema or exudate appreciable. NECK: Supple. There is no goiter, no mass, no lymphadenopathy, no jugular venous distention, and no bruits. Carotid upstroke was 1+. LUNGS: He has bilateral rhonchi at both bases and he has decreased breath sounds at the right lung base. CARDIAC: PMI was fifth left intercostal space in the midclavicular line. There was normal S1 and S2. There was no murmur. No S3, no S4, and no pericardial rub. Abdomen: Soft and nontender without organomegaly. There were no palpable masses and normal bowel sounds without bruits. There was no guarding, no rebound tenderness, no ascites, and no hernia. He has a G-tube in place that is healthy appearing w/o erythema to skin adjacent and is nontender to gentle palpation. EXTREMITIES: No cyanosis, no clubbing, and has trace bilateral lower extremity edema. Extremities were warm with good peripheral pulses with no mottling. He has peripheral IVs in place, which are healthy appearing. : He has a Ceron in place. He has significant erythema in the intertriginous area consistent with Sabrina intertrigo and he has some erythema to his scrotum that is non swollen and nontender. NEUROLOGIC: He moves all 4 extremities. LABORATORY AND DIAGNOSTIC DATA: Pertinent labs and radiographic findings of the chest x-ray described as above in the HPI. ASSESSMENT: The patient is a 66-year-old white male, previously trach and respiratory dependent, status post cerebrovascular accident in the past, prior history of urinary tract infection, prior history of aspiration pneumonia, and a recent right lower lobe pneumonia in February 2017 with a significant antibiotic allergy history, now presents with fever, leukocytosis, and elevated serum lactate and sepsis. His blood pressure has responded to intravenous fluid resuscitation, but he continues to have increased O2 requirement superimposed on a baseline severe bullous emphysema. His chest x-ray does not at this time suggest pneumonia or pneumothorax, although he has a known history of apical blebs and he has an underlying history of renal anatomic abnormality with a renal mass and a history of some mediastinal impaired tracheal lymphadenopathy. His urinalysis does not clearly demonstrate urinary tract infection, but we are waiting urine culture results, concern for bacteremia, blood cultures are pending. I think at this time his most likely diagnosis still remains an acute pulmonary infection, although his initial chest x-ray does not show an obvious filtrate. He is known to have significant abnormal pulmonary architecture. He has an increased O2 requirement, increased work of breathing, prior acute pulmonary infection, and I think he was dehydrated, which will make it as a false negative, so he will repeat his chest x-ray tomorrow to identify that further. We can consider an intraabdominal pathology, but at this time with his acute kidney injury would not push for a CT with contrast. If he continued to be febrile overnight with persistent leukocytosis, then I would recommend abdominal CT imaging. PLAN: 1) continue the patient on empiric intravenous vancomycin and amikacin pending culture results 2) monitor CBC 3) monitor chemistry panel 4) daily chest x-ra 5) monitor his urine, blood, and sputum cultures 6) low threshold for CT abdomen and pelvis given his history of intraabdominal pathology without an obvious source at this moment. 7) skin care Thank you for this consult. Samuel Kahn MD DR: TYLER JOB#: [id number] CC: CARI
[2017-04-16 05:16] LABS: BASOPHILS % (AUTO) 0.5 % (0.0-2.0); EOSINOPHILS % (AUTO) 0.5 % (0.0-3.0); LYMPHOCYTES % (AUTO) 11.4 % (20.0-45.0); MEAN CORPUSCULAR VOLUME 103 FL (80-99); MEAN PLATELET VOLUME 6.9 FL (6.5-10.1); MONOCYTES % (AUTO) 8.8 % (1.0-10.0); NEUTROPHILS % (AUTO) 78.8 % (45.0-75.0); PLATELET COUNT 142 K/UL (150-450); RED BLOOD COUNT 3.24 M/UL (4.70-6.10); RED CELL DISTRIBUTION WIDTH 15.9 % (11.6-14.8); WHITE BLOOD COUNT 8.2 K/UL (4.8-10.8)
[2017-04-16 05:34] LABS: ALANINE AMINOTRANSFERASE 33 U/L (3-41); ALBUMIN/GLOBULIN RATIO 0.5 (1.0-2.7); ANION GAP 9 (5-15); ASPARTATE AMINO TRANSFERASE 38 U/L (5-40); BILIRUBIN,DIRECT 0.1 mg/dL (0.1-0.3); CALCIUM 8.3 mg/dL (8.6-10.2); CARBON DIOXIDE 29 mEQ/L (20-30); CHLORIDE 114 mEQ/L (98-107); GLOMERULAR FILTRATION RATE > 60 mL/min (>60); HEMOLYSIS 42; POTASSIUM 3.9 mEQ/L (3.4-4.9); SODIUM 152 mEQ/L (135-145); TOTAL PROTEIN 7.3 g/dL (6.6-8.7)
[2017-04-16 05:59] LABS: REFLEX LACTIC ACID YES OR NO YES
[2017-04-16 07:36] LABS: ABG PCO2 48.8 mmHg (35.0-45.0)
[2017-04-16 07:37] LABS: ABG ALLEN TEST POSITIVE; ABG BASE EXCESS 2.9
[2017-04-16] MEDS ORDERED: Tubing IV Secondary IV ONE (08:21)
[2017-04-16] MEDS ORDERED: Pantoprazole Inj IVP SCH (09:00)
[2017-04-16] MEDS: Heparin 5000 units/ml inj SUBQ SCH ×2 (09:44→20:43)
--- NOTE | 2017-04-16 11:11 | History and Physical ---
History of Present Illness General Date patient seen: Apr 16, 2017 Reason for Hospitalization: Fever Present Illness HPI 66-year-old male with hx of previous trach, CVA, Seizures, Gtube, half-way resident presented after increased fever. Patient had fever up to 101. Patient was noted to be hypotensive initially on presentation, received IV fluids in ER and improved somewhat. Pt can't give any history but seems comfortable and awake. Allergies: Coded Allergies: AMOXICILLIN (Unverified Allergy, Unknown, 01/13/15) AMPICILLIN (Unverified Allergy, Unknown, 01/13/15) PENICILLINS (Unverified Allergy, Unknown, 01/13/15) PIPERACILLIN (Unverified Allergy, Unknown, 01/13/15) TAZOBACTAM (Unverified Allergy, Unknown, 01/13/15) LEVOFLOXACIN (Verified Adverse Reaction, Intermediate, 10/25/16) Red erythematous rash outbreak near IV site Medication History Scheduled Carvedilol* (Carvedilol*), 3.125 MG ORAL EVERY 12 HOURS, (Reported) Cranberry Fruit Concentrate (Cranberry), 450 MG GT DAILY, (Reported) Divalproex Sodium (Depakote), 500 MG GT THREE TIMES A DAY, (Reported) Docusate Sodium* (Docusate Sodium*), 200 MG GT DAILY, (Reported) Famotidine (Pepcid), 20 MG GT BEDTIME, (Reported) Heparin Sod (Porcine) (Heparin Sodium*), 5,000 UNITS SUBQ TWICE A DAY, (Reported ) Lisinopril (Lisinopril*), 5 MG GT DAILY, (Reported) Multivitamin With Minerals (Multivitamins With Minerals*), 1 TAB GT DAILY, ( Reported) Warfarin Sod (Coumadin*), 6 MG GT DAILY, (Reported) Scheduled PRN Acetaminophen (Acetaminophen), 650 MG ORAL Q4HR PRN for Prn Headache/Temp > 101, (Reported) Albuterol Sulfate* (Albuterol Sulfate Hhn*), 3 ML INH Q4H PRN for Shortness of Breath, (Reported) Clonidine Hcl (Clonidine Hcl), 0.1 MG PO EVERY 8 HOURS PRN for For High Blood Pressure, (Reported) Diphenhydramine Hcl* (Benadryl Allergy*), 25 MG GT Q8 PRN for Itching, (Reported ) Glucagon (Glucagen), 1 MG IJ for Hypoglycemia, (Reported) Magnesium Hydroxide* (Milk Of Magnesia*), 30 ML ORAL HS PRN for Constipation, ( Reported) Temazepam* (Temazepam*), 15 MG ORAL BEDTIME PRN for Insomnia, (Reported) Miscellaneous Medications Ipratropium/Albuterol Sulfate (Combivent Respimat Inhal [place]), 4 GM IH, ( Reported) Discontinued Medications Nitroglycerin (Nitroglycerin), 0.4 MG SL, (Reported) Discontinued Reason: MD discontinued med Vancomycin/0.9 % Sod Chloride (Vanco 750 mg/150 ml-0.9% NaCl), 750 MG IV DAILY Discontinued Reason: Therapy completed [vit D3], 5,000 UNITS PO DAILY, (Reported) Discontinued Reason: Therapy completed Patient History Healthcare decision maker Resuscitation status Full Code Advanced Directive on File No Past Medical/Surgical History Past Medical/Surgical History: (1) History of CVA (cerebrovascular accident) (2) Seizures (3) Chronic complete quadriplegia (4) Feeding by G-tube Review of Systems All Other Systems: negative except mentioned in HPI Physical Exam General Appearance: WD/WN Lines, tubes and drains: peripheral HEENT: normocephalic, atraumatic Neck: non-tender, normal alignment Respiratory/Chest: chest wall non-tender, lungs clear Breasts: no masses Cardiovascular/Chest: normal peripheral pulses, normal rate Abdomen: normal bowel sounds, non tender Genitourinary/Rectal: normal genital exam Extremities: normal range of motion Skin Exam: normal pigmentation Neurologic: shellfish sorter II-XII grossly normal Last 24 Hour Vital Signs Date Time Temp Pulse Resp B/P Pulse Ox O2 Delivery O2 Flow Rate FiO2 04/16/17 10:00 91 22 103/59 99 Venturi Mask 45 04/16/17 09:00 90 25 111/58 98 Venturi Mask 45 04/16/17 08:00 98 04/16/17 08:00 98.3 99 27 112/63 98 Venturi Mask 45 04/16/17 07:02 Venturi Mask 10.0 45 04/16/17 07:02 95 25 Venturi Mask 10.0 45 04/16/17 07:02 95 Venturi Mask 10.0 45 04/16/17 07:00 94 25 111/58 97 Venturi Mask 45 04/16/17 06:00 99 30 115/65 96 Venturi Mask 45 04/16/17 05:00 96 26 106/62 97 Venturi Mask 45 04/16/17 04:00 96 04/16/17 04:00 98.9 92 27 92/56 97 Venturi Mask 45 04/16/17 03:00 97 25 93/56 97 Venturi Mask 45 04/16/17 02:00 94 26 97/54 97 Venturi Mask 45 04/16/17 01:00 99 29 94/50 95 Venturi Mask 45 04/16/17 00:00 103 04/16/17 00:00 98.2 103 31 96/55 91 Venturi Mask 45 04/15/17 23:00 103 27 126/66 95 Nasal Cannula 4.0 04/15/17 22:00 96 28 104/58 95 Nasal Cannula 4.0 04/15/17 21:00 93 31 97/54 94 Nasal Cannula 4.0 04/15/17 20:00 94 04/15/17 20:00 98.9 94 30 92/52 93 Nasal Cannula 4.0 04/15/17 19:41 Nasal Cannula 4.0 36 04/15/17 19:41 94 Nasal Cannula 4.0 36 04/15/17 19:40 95 24 Nasal Cannula 4.0 36 04/15/17 19:00 95 22 93/54 94 Nasal Cannula 4.0 04/15/17 18:00 98 22 100/55 94 Nasal Cannula 4.0 04/15/17 17:00 100 22 108/62 95 Nasal Cannula 4.0 04/15/17 16:00 97.8 103 25 88/53 97 Nasal Cannula 4.0 04/15/17 15:00 102 04/15/17 15:00 97.7 103 25 98/59 96 Nasal Cannula 4.0 04/15/17 14:29 99.4 97 28 104/64 98 Nasal Cannula 4.0 04/15/17 14:23 99.4 97 28 104/64 98 Nasal Cannula 4.0 04/15/17 13:30 99.4 100 25 100/52 98 Nasal Cannula 4.0 04/15/17 12:29 100.5 115 38 91/52 100 Nasal Cannula 4.0 04/15/17 12:19 98.6 105 18 91/52 97 Nasal Cannula 2.0 Intake and Output 04/15/17 04/16/17 19:00 07:00 Intake Total 2450 ml 1564 ml Output Total 100 ml 810 ml Balance 2350 ml 754 ml Intake Free Water 0 ml IV Total 2450 ml 1564 ml Output Urine Total 100 ml 810 ml # Voids 400 Laboratory Tests Test 04/15/17 12:20 04/15/17 13:45 04/15/17 20:40 04/16/17 04:00 White Blood Count 12.8 K/UL (4.8-10.8) H Red Blood Count 4.27 M/UL (4.70-6.10) L Hemoglobin 13.3 G/DL (14.2-18.0) L Hematocrit 43.6 % (42.0-52.0) Mean Corpuscular Volume 102 FL (80-99) H Mean Corpuscular Hemoglobin 31.2 PG (27.0-31.0) H Mean Corpuscular Hemoglobin Concent 30.5 G/DL (32.0-36.0) L Red Cell Distribution Width 16.2 % (11.6-14.8) H Platelet Count 255 K/UL (150-450) Mean Platelet Volume 7.0 FL (6.5-10.1) Neutrophils (%) (Auto) 82.1 % (45.0-75.0) H Lymphocytes (%) (Auto) 8.2 % (20.0-45.0) L Monocytes (%) (Auto) 8.7 % (1.0-10.0) Eosinophils (%) (Auto) 0.1 % (0.0-3.0) Basophils (%) (Auto) 0.8 % (0.0-2.0) Urine Color Yellow Urine Appearance Clear Urine pH 7 (4.5-8.0) Urine Specific [place] 1.005 (1.005-1.035) Urine Protein 2+ (NEGATIVE) H Urine Glucose (UA) Negative (NEGATIVE) Urine Ketones Negative (NEGATIVE) Urine Occult Blood 1+ (NEGATIVE) H Urine Nitrite Negative (NEGATIVE) Urine Bilirubin Negative (NEGATIVE) Urine Urobilinogen 1 MG/DL (0.0-1.0) H Urine Leukocyte Esterase 1+ (NEGATIVE) H Urine RBC 0-2 /HPF (0 - 0) H Urine WBC 0-2 /HPF (0 - 0) Urine Squamous Epithelial Cells Occasional /LPF Urine Bacteria Occasional /HPF (NONE) Urine Mucus Few /LPF (NONE/OCC) H Sodium Level 149 mEQ/L (135-145) H Potassium Level 5.8 mEQ/L (3.4-4.9) H Chloride Level 108 mEQ/L (98-107) H Carbon Dioxide Level 28 mEQ/L (20-30) Anion Gap 13 (5-15) Blood Urea Nitrogen 62 mg/dL (7-23) H Creatinine 1.7 mg/dL (0.7-1.2) H Estimat Glomerular Filtration Rate 40.8 mL/min (>60) Glucose Level 195 mg/dL (74-106) H Lactic Acid Level 2.00 mmol/L (0.66-2.22) 2.40 mmol/L (0.66-2.22) H 1.10 mmol/L (0.66-2.22) Calcium Level 10.2 mg/dL (8.6-10.2) Total Bilirubin 0.5 mg/dL (0.0-1.2) Aspartate Amino Transf (AST/SGOT) 40 U/L (5-40) Alanine Aminotransferase (ALT/SGPT) 43 U/L (3-41) H Alkaline Phosphatase 152 U/L (40-129) H Total Creatine Kinase 65 U/L (38-174) Creatine Kinase MB < 1.5 ng/mL (< 6.7) Creatine Kinase MB Relative Index 2.3 Troponin I < 0.30 ng/mL (<=0.30) Total Protein 9.4 g/dL (6.6-8.7) H Albumin 3.3 g/dL (3.5-5.2) L Globulin 6.1 g/dL Albumin/Globulin Ratio 0.5 (1.0-2.7) L Arterial Blood pH 7.380 (7.350-7.450) Arterial Blood Partial Pressure CO2 48.8 mmHg (35.0-45.0) H Arterial Blood Partial Pressure O2 80.7 mmHg (75.0-100.0) Arterial Blood HCO3 28.5 mmol/L (22.0-26.0) H Arterial Blood Oxygen Saturation 95.4 % (92.0-98.0) Arterial Blood Base Excess 2.9 Turner Test Positive Test 04/16/17 05:00 04/16/17 08:45 White Blood Count 8.2 K/UL (4.8-10.8) Red Blood Count 3.24 M/UL (4.70-6.10) L Hemoglobin 10.7 G/DL (14.2-18.0) L Hematocrit 33.4 % (42.0-52.0) L Mean Corpuscular Volume 103 FL (80-99) H Mean Corpuscular Hemoglobin 33.0 PG (27.0-31.0) H Mean Corpuscular Hemoglobin Concent 32.0 G/DL (32.0-36.0) Red Cell Distribution Width 15.9 % (11.6-14.8) H Platelet Count 142 K/UL (150-450) L Mean Platelet Volume 6.9 FL (6.5-10.1) Neutrophils (%) (Auto) 78.8 % (45.0-75.0) H Lymphocytes (%) (Auto) 11.4 % (20.0-45.0) L Monocytes (%) (Auto) 8.8 % (1.0-10.0) Eosinophils (%) (Auto) 0.5 % (0.0-3.0) Basophils (%) (Auto) 0.5 % (0.0-2.0) Sodium Level 152 mEQ/L (135-145) H Potassium Level 3.9 mEQ/L (3.4-4.9) Chloride Level 114 mEQ/L (98-107) H Carbon Dioxide Level 29 mEQ/L (20-30) Anion Gap 9 (5-15) Blood Urea Nitrogen 42 mg/dL (7-23) H Creatinine 1.0 mg/dL (0.7-1.2) Estimat Glomerular Filtration Rate > 60 mL/min (>60) Glucose Level 158 mg/dL (74-106) H Lactic Acid Level 2.10 mmol/L (0.66-2.22) 1.30 mmol/L (0.66-2.22) Calcium Level 8.3 mg/dL (8.6-10.2) L Total Bilirubin 0.4 mg/dL (0.0-1.2) Direct Bilirubin 0.1 mg/dL (0.1-0.3) Aspartate Amino Transf (AST/SGOT) 38 U/L (5-40) Alanine Aminotransferase (ALT/SGPT) 33 U/L (3-41) Alkaline Phosphatase 101 U/L (40-129) Total Protein 7.3 g/dL (6.6-8.7) Albumin 2.6 g/dL (3.5-5.2) L Globulin 4.7 g/dL Albumin/Globulin Ratio 0.5 (1.0-2.7) L Random Amikacin Level 18.7 ug/mL Height (Feet): 6 Height (Inches): 2.00 Weight (Pounds): 176 Medications Current Medications Medications (Trade) Dose Ordered Sig/Baljeet Route PRN Reason Start Time Stop Time Status Last Admin Dose Admin Acetaminophen (Tylenol) 650 mg Q4H PRN ORAL fever 04/15/17 14:45 05/15/17 14:44 Albuterol/ Ipratropium 3 ml 3 ml Q4H PRN HHN Shortness of Breath 04/15/17 14:45 04/20/17 14:44 Amikacin Protocol 1 ea 1 ea DAILY PRN MISC PRN RX PROTOCOL 04/15/17 16:15 05/15/17 16:14 Amikacin Sulfate/ Sodium Chloride (Amikin/Sodium Chloride) 114 ml @ 114 mls/hr Q24H IV 04/15/17 21:00 04/22/17 20:59 04/15/17 20:37 Heparin Sodium (Porcine) (Heparin 5000 units/ml) 5,000 units EVERY 12 HOURS SUBQ 04/15/17 21:00 05/15/17 20:59 04/16/17 09:44 Lorazepam (Ativan 2mg/ml 1ml) 2 mg Q2H PRN IV For Anxiety 04/15/17 14:45 04/22/17 14:44 Morphine Sulfate (Morphine Sulfate) 4 mg Q4H PRN IVP Severe Pain (Pain Scale 7-10) 04/15/17 14:45 04/22/17 14:44 Norepinephrine Bitartrate/ Dextrose (Levophed/D5W) 254 ml @ 0 mls/hr Q24H IV 04/15/17 15:45 05/15/17 15:44 Ondansetron HCl (Zofran) 4 mg Q6H PRN IVP Nausea & Vomiting 04/15/17 14:45 05/15/17 14:44 Pantoprazole 40 mg 40 mg DAILY IVP 04/16/17 09:00 05/16/17 08:59 04/16/17 09:41 Polyethylene Glycol (Miralax) 17 gm DAILYPRN PRN ORAL Constipation 04/15/17 14:45 05/15/17 14:44 Sodium Chloride (Sodium Chloride 1000ml bag) 1,000 ml @ 100 mls/hr Q10H IVLG 04/15/17 15:45 05/15/17 15:44 04/16/17 10:48 Vancomycin HCl/ Dextrose (Vancomycin 1250mg/D5W 250ml) 250 ml @ 166.667 mls/hr Q24H IVPB 04/16/17 02:00 04/21/17 01:59 04/16/17 02:25 Assessment/Plan Problem List: (1) Septic shock ICD Codes: A41.9 - Sepsis, unspecified organism; R65.21 - Severe sepsis with septic shock SNOMED: 65484297 (2) Chronic complete quadriplegia ICD Codes: G82.50 - Chronic complete quadriplegia SNOMED: 16042808 (3) History of CVA (cerebrovascular accident) ICD Codes: Z86.73 - Personal history of transient ischemic attack (TIA), and cerebral infarction without residual deficits SNOMED: 508394007 (4) Seizures ICD Codes: R56.9 - Unspecified convulsions SNOMED: 94276005 (5) Feeding by G-tube ICD Codes: Z93.1 - Gastrostomy status SNOMED: 550009105, 912033866 Respiratory: monitor respiratory rate, adjust FIO2 Cardiac: continue to monitor HR/BP Renal: F/U I&O, keep IV fluid, check electrolytes Gastrointestinal: continue feedings/current rate Endocrine: monitor blood sugar, continue sliding scale insulin Hematologic: transfuse if hgb<8.5 Neurologic: PRN Ativan, PRN Morphine Affect: PRN ativan Prophylaxis: Protonix Notes Reviewed: green ware caster Discussed with: nurses, consultants, disease case manager rn LATRICE DEL RIO Apr 16, 2017 11:11
--- NOTE | 2017-04-16 12:02 | Diagnostic Imaging Report ---
Indication: Dyspnea Comparison: 03/14/17 A single view chest radiograph was obtained. Findings: Bones are osteopenic. Heart is enlarged. Lungs appear essentially clear though there is some prominence of the interstitium. There is a pleural thickening at the right lung base with some calcification. Impression: Chronic findings.
[2017-04-16] MEDS ORDERED: Amikacin Rx to dose MISC PRN (12:30)
[2017-04-16] MEDS ORDERED: Morphine Sulfate 4mg/ml Inj IVP PRN (13:00)
[2017-04-16] MEDS ORDERED: Miralax 17gm pkt ORAL PRN (13:00)
[2017-04-16] MEDS ORDERED: DuoNeb 0.5-3(2.5)mg/3ml neb HHN PRN (13:00)
[2017-04-16] MEDS ORDERED: LORazepam Inj 2mg/ml 1ml IV PRN (13:00)
[2017-04-16] MEDS: Vancomycin 750mg/D5W 275ml IVPB SCH ×2 (14:00)
--- NOTE | 2017-04-16 15:27 | Infectious Diseases Prog Note ---
Assessment/Plan Assessment/Plan ASSESSMENT: The patient is a 66-year-old white male, previously trach and respiratory dependent, status post cerebrovascular accident in the past, prior history of urinary tract infection, prior history of aspiration pneumonia, and a recent right lower lobe pneumonia in February 2017 with a significant antibiotic allergy history, now presents with fever, leukocytosis, and elevated serum lactate and sepsis. His blood pressure has responded to intravenous fluid resuscitation, but he continues to have increased O2 requirement superimposed on a baseline severe bullous emphysema. His chest x-ray does not at this time suggest pneumonia or pneumothorax, although he has a known history of apical blebs and he has an underlying history of renal anatomic abnormality with a renal mass and a history of some mediastinal impaired tracheal lymphadenopathy. His urinalysis does not clearly demonstrate urinary tract infection, and it doesn't look like a Ucx is pending. Blood cx so far negative for bacteremia. I think at this time his most likely diagnosis still remains an acute pulmonary infection, although his initial chest x-ray does not show an obvious filtrate. He is known to have significant abnormal pulmonary architecture. He has an increased O2 requirement, increased work of breathing, prior acute pulmonary infection, and I think he was dehydrated, which will make it as a false negative. overall improved today, afebrile, WBC normalized, off pressors, but has significant intraabd hx, so will r/o intrabdominal source of sepsis now. Sepsis improving Possible pneumonia UTI not likely r/o intraabdominal source of sepsis Leukocytosis, resolved Fevers, resolved TIFFANIE, resolved History of cerebrovascular accident, c/b complete aphasia and right hemiplegia, s/p G tube. prior trach. Seizure disorder. Hypertension. Chronic obstructive pulmonary disease with severe bullous changes History of peptic ulcer. History of renal mass. Diabetes. History of CVA. History of urinary tract infection. History of aspiration pneumonia, history of right lower lobe pneumonia in February 2017. History of peptic ulcer disease. History of right paratracheal lymphadenopathy. History of right-sided hydronephrosis requiring ureteral stent, which has subsequently been removed. History of descending colon colitis in 2014. 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 Renal artery stenosis with a subsequent atrophic left kidney. PLAN: 1) continue the patient on empiric intravenous vancomycin and amikacin pending culture results 2) monitor CBC 3) monitor chemistry panel. SCr down to 1.0 4) repeat CXR pending 5) monitor his blood and sputum cultures 6) CT abdomen and pelvis given his history of intraabdominal pathology without an obvious source at this moment. 7) urine cx now 8) carranza care 9) skin care Subjective Constitutional: Reports: no symptoms Allergies: Coded Allergies: AMOXICILLIN (Unverified Allergy, Unknown, 01/13/15) AMPICILLIN (Unverified Allergy, Unknown, 01/13/15) PENICILLINS (Unverified Allergy, Unknown, 01/13/15) PIPERACILLIN (Unverified Allergy, Unknown, 01/13/15) TAZOBACTAM (Unverified Allergy, Unknown, 01/13/15) LEVOFLOXACIN (Verified Adverse Reaction, Intermediate, 10/25/16) Red erythematous rash outbreak near IV site Objective Vital Signs Last 24 Hour Vital Signs Date Time Temp Pulse Resp B/P Pulse Ox O2 Delivery O2 Flow Rate FiO2 04/16/17 12:14 98.1 94 22 127/67 95 Venturi Mask 04/16/17 12:00 95 04/16/17 11:00 95 22 109/61 99 Venturi Mask 45 04/16/17 10:00 91 22 103/59 99 Venturi Mask 45 04/16/17 09:00 90 25 111/58 98 Venturi Mask 45 04/16/17 08:00 98 04/16/17 08:00 98.3 99 27 112/63 98 Venturi Mask 45 04/16/17 07:02 Venturi Mask 10.0 45 04/16/17 07:02 95 25 Venturi Mask 10.0 45 04/16/17 07:02 95 Venturi Mask 10.0 45 04/16/17 07:00 94 25 111/58 97 Venturi Mask 45 04/16/17 06:00 99 30 115/65 96 Venturi Mask 45 04/16/17 05:00 96 26 106/62 97 Venturi Mask 45 04/16/17 04:00 96 04/16/17 04:00 98.9 92 27 92/56 97 Venturi Mask 45 04/16/17 03:00 97 25 93/56 97 Venturi Mask 45 04/16/17 02:00 94 26 97/54 97 Venturi Mask 45 04/16/17 01:00 99 29 94/50 95 Venturi Mask 45 04/16/17 00:00 103 04/16/17 00:00 98.2 103 31 96/55 91 Venturi Mask 45 04/15/17 23:00 103 27 126/66 95 Nasal Cannula 4.0 04/15/17 22:00 96 28 104/58 95 Nasal Cannula 4.0 04/15/17 21:00 93 31 97/54 94 Nasal Cannula 4.0 04/15/17 20:00 94 04/15/17 20:00 98.9 94 30 92/52 93 Nasal Cannula 4.0 04/15/17 19:41 Nasal Cannula 4.0 36 04/15/17 19:41 94 Nasal Cannula 4.0 36 04/15/17 19:40 95 24 Nasal Cannula 4.0 36 04/15/17 19:00 95 22 93/54 94 Nasal Cannula 4.0 04/15/17 18:00 98 22 100/55 94 Nasal Cannula 4.0 04/15/17 17:00 100 22 108/62 95 Nasal Cannula 4.0 04/15/17 16:00 97.8 103 25 88/53 97 Nasal Cannula 4.0 Height (Feet): 6 Height (Inches): 2.00 Weight (Pounds): 176 Objective GENERAL: Open eyes to voice. more alert today. Sonorous breath sounds. HEENT: Eyes were normal. His sclerae anicteric. Conjunctivae was pink. Extraocular movements were normal. Temporal arteries were palpated bilaterally and unremarkable and he does have bilateral temporal wasting. Oral cavity, he has significant mucous in the posterior oropharynx, but no pharyngeal erythema or exudate appreciable. NECK: Supple. There is no goiter, no mass, no lymphadenopathy, no jugular venous distention, and no bruits. Carotid upstroke was 1+. LUNGS: He has bilateral rhonchi at both bases and he has decreased breath sounds at the right lung base. CARDIAC: PMI was fifth left intercostal space in the midclavicular line. There was normal S1 and S2. There was no murmur. No S3, no S4, and no pericardial rub. Abdomen: Soft and nontender without organomegaly. There were no palpable masses and normal bowel sounds without bruits. There was no guarding, no rebound tenderness, no ascites, and no hernia. He has a G-tube in place that is healthy appearing w/o erythema to skin adjacent and is nontender to gentle palpation. EXTREMITIES: No cyanosis, no clubbing, and has trace bilateral lower extremity edema. Extremities were warm with good peripheral pulses with no mottling. He has peripheral IVs in place, which are healthy appearing. : He has a Carranza in place. He has significant erythema in the intertriginous area consistent with Sabrina intertrigo and he has some erythema to his scrotum that is non swollen and nontender. NEUROLOGIC: He moves all 4 extremities. Laboratory Tests Test 04/15/17 20:40 04/16/17 04:00 04/16/17 05:00 04/16/17 08:45 Lactic Acid Level 1.10 mmol/L (0.66-2.22) 2.10 mmol/L (0.66-2.22) 1.30 mmol/L (0.66-2.22) Arterial Blood pH 7.380 (7.350-7.450) Arterial Blood Partial Pressure CO2 48.8 mmHg (35.0-45.0) H Arterial Blood Partial Pressure O2 80.7 mmHg (75.0-100.0) Arterial Blood HCO3 28.5 mmol/L (22.0-26.0) H Arterial Blood Oxygen Saturation 95.4 % (92.0-98.0) Arterial Blood Base Excess 2.9 Turner Test Positive White Blood Count 8.2 K/UL (4.8-10.8) Red Blood Count 3.24 M/UL (4.70-6.10) L Hemoglobin 10.7 G/DL (14.2-18.0) L Hematocrit 33.4 % (42.0-52.0) L Mean Corpuscular Volume 103 FL (80-99) H Mean Corpuscular Hemoglobin 33.0 PG (27.0-31.0) H Mean Corpuscular Hemoglobin Concent 32.0 G/DL (32.0-36.0) Red Cell Distribution Width 15.9 % (11.6-14.8) H Platelet Count 142 K/UL (150-450) L Mean Platelet Volume 6.9 FL (6.5-10.1) Neutrophils (%) (Auto) 78.8 % (45.0-75.0) H Lymphocytes (%) (Auto) 11.4 % (20.0-45.0) L Monocytes (%) (Auto) 8.8 % (1.0-10.0) Eosinophils (%) (Auto) 0.5 % (0.0-3.0) Basophils (%) (Auto) 0.5 % (0.0-2.0) Sodium Level 152 mEQ/L (135-145) H Potassium Level 3.9 mEQ/L (3.4-4.9) Chloride Level 114 mEQ/L (98-107) H Carbon Dioxide Level 29 mEQ/L (20-30) Anion Gap 9 (5-15) Blood Urea Nitrogen 42 mg/dL (7-23) H Creatinine 1.0 mg/dL (0.7-1.2) Estimat Glomerular Filtration Rate > 60 mL/min (>60) Glucose Level 158 mg/dL (74-106) H Calcium Level 8.3 mg/dL (8.6-10.2) L Total Bilirubin 0.4 mg/dL (0.0-1.2) Direct Bilirubin 0.1 mg/dL (0.1-0.3) Aspartate Amino Transf (AST/SGOT) 38 U/L (5-40) Alanine Aminotransferase (ALT/SGPT) 33 U/L (3-41) Alkaline Phosphatase 101 U/L (40-129) Total Protein 7.3 g/dL (6.6-8.7) Albumin 2.6 g/dL (3.5-5.2) L Globulin 4.7 g/dL Albumin/Globulin Ratio 0.5 (1.0-2.7) L Random Amikacin Level 18.7 ug/mL Current Medications Medications (Trade) Dose Ordered Sig/Baljeet Route PRN Reason Start Time Stop Time Status Last Admin Dose Admin Acetaminophen (Tylenol) 650 mg Q4H PRN ORAL T>100.5 04/16/17 12:30 05/16/17 12:29 Albuterol/ Ipratropium (DuoNeb 0.5-3(2.5)mg/3ml) 3 ml Q4H PRN HHN Shortness of Breath 04/16/17 13:00 04/21/17 12:59 Amikacin Protocol (Amikacin pharmacy to dose) 1 ea DAILY PRN MISC PRN RX PROTOCOL 04/16/17 12:30 05/16/17 12:29 Amikacin Sulfate/ Sodium Chloride (Amikin/Sodium Chloride) 114 ml @ 114 mls/hr Q36H IV 04/17/17 09:00 04/24/17 08:59 Dextrose 1,000 ml @ 50 mls/hr Q20H IV 04/16/17 12:00 05/16/17 11:59 04/16/17 12:30 Heparin Sodium (Porcine) (Heparin 5000 units/ml) 5,000 units EVERY 12 HOURS SUBQ 04/16/17 21:00 05/16/17 20:59 Lorazepam (Ativan 2mg/ml 1ml) 2 mg Q2H PRN IV For Anxiety 04/16/17 13:00 04/23/17 12:59 Morphine Sulfate (Morphine Sulfate) 4 mg Q4H PRN IVP Severe Pain (Pain Scale 7-10) 04/16/17 13:00 04/23/17 12:59 Ondansetron HCl (Zofran) 4 mg Q6H PRN IVP Nausea & Vomiting 04/16/17 13:00 05/16/17 12:59 Pantoprazole (Protonix) 40 mg DAILY IVP 04/17/17 09:00 05/17/17 08:59 Polyethylene Glycol (Miralax) 17 gm DAILYPRN PRN ORAL Constipation 04/16/17 13:00 05/16/17 12:59 Vancomycin HCl 1 ea 1 ea DAILY PRN MISC . 04/16/17 13:00 05/16/17 12:59 Vancomycin HCl/ Dextrose (Vancomycin/D5W) 275 ml @ 183.708 mls/hr Q12HR@0200,1400 IVPB 04/16/17 14:00 04/21/17 13:59 04/16/17 14:00 Samuel Kahn M.D. Apr 16, 2017 15:27
--- NOTE | 2017-04-16 19:20 | Cardiology Report ---
APPROVED REPORT EXAM: Two-dimensional and M-mode echocardiogram with Doppler and color Doppler. INDICATION Left Ventricular Function Other Information Technically limited study due to poor acoustic windows Technically difficult and limited study due to poor acoustic windows. M-mode measurements not obtained due to cardiac position and poor acoustic windows. Normal left ventricular chamber size, systolic function and wall motion to extent visualized. Left ventricular ejection fraction estimated to be 60 %. Mild left ventricular hypertrophy. Small pericardial effusion. All other cardiac chamber sizes are within normal limits. Mild focal aortic valve sclerosis with adequate cusp excursion. Mildly thickened mitral valve leaflets with normal excursion. Mild mitral annulus and aortic root calcification. Pulmonic valve not visualized. Tricuspid valve not structure. Subcostal views not obtained due to GI tube. A color flow and spectral Doppler study was performed and revealed: No aortic regurgitation. No mitral regurgitation. Mitral diastolic velocities suggest reduced left ventricular relaxation (Grade I).
[2017-04-16 21:24] LABS: THYROID STIMULATING HORMONE 5.82 uIU/mL (0.300-4.500)
[2017-04-17] VITALS: BP 124/64
[2017-04-17] MEDS: Vancomycin 750mg/D5W 275ml IVPB SCH ×2 (01:42)
[2017-04-17] MEDS ORDERED: Vancomycin 1250mg/D5W 250ml 250 ML IVPB SCH (02:00)
--- NOTE | 2017-04-17 02:15 | Consultation ---
DATE OF CONSULTATION: 04/16/2017 HEMATOLOGY/ONCOLOGY CONSULTATION CONSULTING PHYSICIAN: Obed Peterson M.D. REQUESTING PHYSICIAN: Shay Connolly M.D. REASON FOR CONSULTATION: Evaluation of anemia and thrombocytopenia. IDENTIFICATION DATA: Dear Dr. Connolly, The patient is a pleasant 66-year-old male with past medical history which is significant for history of prior trach, CVA, seizure disorder, atrial fibrillation, G-tube, custodial resident at this time presents with elevated fever of 101, initially given IV fluids, noted to have pneumonia, has been seen by Infectious Disease, Dr. Kahn. Blood cultures were negative. Hematology service was consulted given the patient's anemia. PAST MEDICAL HISTORY: 1. CVA complicated by aphasia and right hemiplegia. 2. Seizure disorder. 3. Hypertension. 4. . 5. Urinary tract infection. 6. Aspiration pneumonia. PAST SURGICAL HISTORY: Status post G-tube, prior trach. MEDICATIONS: Coreg, Combivent, Depakote, multivitamin, vitamin D3, Pepcid, and Coumadin in the past. ALLERGIES: Penicillin and levofloxacin. FAMILY HISTORY: Noncontributory. REVIEW OF SYSTEMS: Difficult to obtain due to the patient's mental status. PHYSICAL EXAMINATION: GENERAL: He is in no acute distress. VITAL SIGNS: Temperature 96 degrees Fahrenheit, pulse of 82, respiratory rate 12, and blood pressure 108/62. PULMONARY: Decreased breath sounds. Some crackles noted. CARDIOVASCULAR: Regular rate. No S3 or S4. ABDOMEN: Soft, nontender, and nondistended. Possible G-tube. EXTREMITIES: No cyanosis, clubbing, or edema reported. LABORATORY DATA: WBC 8.2, hemoglobin 10.7, hematocrit 33, and platelet count 142,000. ASSESSMENT AND PLAN: 1. Anemia secondary to chronic disease likely. 2. Thrombocytopenia secondary to underlying sepsis. 3. Cerebrovascular accident history. Continue to closely monitor. Seen by Neurology. 4. Dysphagia status post gastrostomy tube. 5. Chronic functional quadriplegia. 6. Pneumonia with elevated white count, is on antibiotics. 7. low threshold for imaging of CAT scan. 8. Ceron catheter in place. 9. Respiratory failure status post tracheostomy. 10. Obed Peterson M.D. DR: PATRICIO JOB#: [id number] CC:
[2017-04-17 04:00] VITALS: BP 131/62
[2017-04-17 07:49] VITALS: BP 122/66
[2017-04-17] MEDS ORDERED: Pantoprazole Inj IVP SCH (09:00)
[2017-04-17] MEDS ORDERED: Amikacin 1,000 MG in NS 110 ML IV SCH (09:00)
--- NOTE | 2017-04-17 09:04 | Diagnostic Imaging Report ---
Indication: Dyspnea Comparison: Date A single view chest radiograph was obtained. Findings: Heart size is stable. There is right pleural calcification and thickening. Old rib fractures noted. No definite change appreciated. Impression: No significant change compared to the previous exam
[2017-04-17] MEDS: Heparin 5000 units/ml inj SUBQ SCH ×2 (09:16→21:00)
[2017-04-17 09:46] LABS: BASOPHILS % (AUTO) 0.7 % (0.0-2.0); EOSINOPHILS % (AUTO) 2.6 % (0.0-3.0); LYMPHOCYTES % (AUTO) 18.1 % (20.0-45.0); MEAN CORPUSCULAR HEMOGLOBIN 31.8 PG (27.0-31.0); MEAN CORPUSCULAR HGB CONC 31.3 G/DL (32.0-36.0); MEAN CORPUSCULAR VOLUME 102 FL (80-99); MEAN PLATELET VOLUME 6.5 FL (6.5-10.1); MONOCYTES % (AUTO) 6.1 % (1.0-10.0); NEUTROPHILS % (AUTO) 72.5 % (45.0-75.0); PLATELET COUNT 122 K/UL (150-450); RED BLOOD COUNT 3.08 M/UL (4.70-6.10); RED CELL DISTRIBUTION WIDTH 15.5 % (11.6-14.8)
[2017-04-17 10:15] LABS: ALANINE AMINOTRANSFERASE 49 U/L (3-41); ALBUMIN/GLOBULIN RATIO 0.5 (1.0-2.7); ANION GAP 8 (5-15); ASPARTATE AMINO TRANSFERASE 61 U/L (5-40); CALCIUM 8.6 mg/dL (8.6-10.2); CARBON DIOXIDE 28 mEQ/L (20-30); CHLORIDE 113 mEQ/L (98-107); CREATININE 0.8 mg/dL (0.7-1.2); CRP QUANT 19.7 mg/dL (< 0.5); GLOMERULAR FILTRATION RATE > 60 mL/min (>60); HEMOLYSIS 13; MAGNESIUM 1.8 mg/dL (1.7-2.5); PHOSPHORUS 2.4 mg/dL (2.5-4.8); POTASSIUM 3.8 mEQ/L (3.4-4.9); SODIUM 149 mEQ/L (135-145); TOTAL PROTEIN 6.8 g/dL (6.6-8.7)
[2017-04-17 10:16] LABS: HEMOLYSIS 136; IRON 57 ug/dL (59-158); TOTAL IRON BINDING CAPACITY 189 ug/dL (250-400)
[2017-04-17 10:20] LABS: FERRITIN 999 ng/mL (10-230)
[2017-04-17 11:24] LABS: ERYTHROCYTE SEDIMENTATION RATE 117 MM/HR (0-20)
[2017-04-17 11:58] VITALS: BP 129/72
--- NOTE | 2017-04-17 11:58 | Pulmonology Progress Note ---
Assessment/Plan Problems: (1) Septic shock (2) Chronic complete quadriplegia (3) History of CVA (cerebrovascular accident) (4) Seizures (5) Feeding by G-tube Assessment/Plan improving Iv antibiotics check cultures tolerating feeding anemia w/u med/surg Subjective ROS Limited/Unobtainable: No Constitutional: Reports: no symptoms HEENT: Repors: no symptoms Allergies: Coded Allergies: AMOXICILLIN (Unverified Allergy, Unknown, 01/13/15) AMPICILLIN (Unverified Allergy, Unknown, 01/13/15) PENICILLINS (Unverified Allergy, Unknown, 01/13/15) PIPERACILLIN (Unverified Allergy, Unknown, 01/13/15) TAZOBACTAM (Unverified Allergy, Unknown, 01/13/15) LEVOFLOXACIN (Verified Adverse Reaction, Intermediate, 10/25/16) Red erythematous rash outbreak near IV site Objective Last 24 Hour Vital Signs Date Time Temp Pulse Resp B/P Pulse Ox O2 Delivery O2 Flow Rate FiO2 04/17/17 07:49 97.9 92 22 122/66 95 Nasal Cannula 4.0 04/17/17 04:00 98.0 84 24 131/62 100 Nasal Cannula 4.0 04/17/17 04:00 99 04/17/17 00:00 90 04/17/17 00:00 97.9 87 22 124/64 96 Nasal Cannula 4.0 04/16/17 20:59 97.9 84 20 117/65 98 Venturi Mask 04/16/17 20:00 88 04/16/17 19:30 94 Nasal Cannula 4.0 36 04/16/17 19:30 Nasal Cannula 4.0 36 04/16/17 19:30 86 20 Nasal Cannula 4.0 36 04/16/17 16:24 98.2 100 22 136/71 94 Venturi Mask 04/16/17 16:00 98.2 100 22 136/71 95 Venturi Mask 04/16/17 16:00 94 04/16/17 12:14 98.1 94 22 127/67 95 Venturi Mask 04/16/17 12:00 95 Intake and Output 04/16/17 04/17/17 19:00 07:00 Intake Total 695 ml 1025.0 ml Output Total 715 ml 750 ml Balance -20 ml 275.0 ml Intake Free Water 100 ml IV Total 575 ml 825.0 ml Tube Feeding 120 ml 100 ml Output Urine Total 715 ml 750 ml General Appearance: WD/WN HEENT: normocephalic, atraumatic Respiratory/Chest: chest wall non-tender, lungs clear Cardiovascular: normal peripheral pulses, normal rate, no JVD Abdomen: normal bowel sounds, soft, non tender Skin: no rash Microbiology Date/Time Source Procedure Growth Status 04/15/17 12:25 Blood Blood Culture - Preliminary NO GROWTH AFTER 24 HOURS Resulted 04/15/17 12:20 Blood Blood Culture - Preliminary NO GROWTH AFTER 24 HOURS Resulted 04/15/17 18:00 Sputum Gram Stain - Final Resulted 04/15/17 18:00 Sputum Culture - Preliminary Staphylococcus Aureus Resulted 04/16/17 17:40 Indwelling Cath Urine Culture - Preliminary NO GROWTH Resulted Laboratory Tests 04/17/17 08:55: White Blood Count 4.0#L, Red Blood Count 3.08L, Hemoglobin 9.8L, Hematocrit 31.3L, Mean Corpuscular Volume 102H, Mean Corpuscular Hemoglobin 31.8H, Mean Corpuscular Hemoglobin Concent 31.3L, Red Cell Distribution Width 15.5H, Platelet Count 122L, Mean Platelet Volume 6.5, Neutrophils (%) (Auto) 72.5, Lymphocytes (%) (Auto) 18.1L, Monocytes (%) (Auto) 6.1, Eosinophils (%) (Auto) 2.6, Basophils (%) (Auto) 0.7, Erythrocyte Sedimentation Rate 117H, Reticulocyte Count 1.1, Sodium Level 149H, Potassium Level 3.8, Chloride Level 113H, Carbon Dioxide Level 28, Anion Gap 8, Blood Urea Nitrogen 25H, Creatinine 0.8, Estimat Glomerular Filtration Rate > 60, Glucose Level 147H, Calcium Level 8.6, Phosphorus Level 2.4L, Magnesium Level 1.8, Iron Level 57L, Total Iron Binding Capacity 189L, Percent Iron Saturation 30, Unsaturated Iron Binding 132 , Ferritin 999H, Total Bilirubin 0.3, Aspartate Amino Transf (AST/SGOT) 61H, Alanine Aminotransferase (ALT/SGPT) 49H, Alkaline Phosphatase 107, C-Reactive Protein, Quantitative 19.7H, Total Protein 6.8, Albumin 2.3L, Globulin 4.5, Albumin/Globulin Ratio 0.5L, Thyroid Stimulating Hormone (TSH) 7.810H Current Medications Medications (Trade) Dose Ordered Sig/Baljeet Route PRN Reason Start Time Stop Time Status Last Admin Dose Admin Acetaminophen (Tylenol) 650 mg Q4H PRN ORAL T>100.5 04/16/17 12:30 05/16/17 12:29 Albuterol/ Ipratropium (DuoNeb 0.5-3(2.5)mg/3ml) 3 ml Q4H PRN HHN Shortness of Breath 04/16/17 13:00 04/21/17 12:59 Amikacin Protocol (Amikacin pharmacy to dose) 1 ea DAILY PRN MISC PRN RX PROTOCOL 04/16/17 12:30 05/16/17 12:29 Amikacin Sulfate/ Sodium Chloride (Amikin/Sodium Chloride) 114 ml @ 114 mls/hr Q36H IV 04/17/17 09:00 04/24/17 08:59 04/17/17 09:17 Dextrose 1,000 ml @ 50 mls/hr Q20H IV 04/16/17 12:00 05/16/17 11:59 04/17/17 09:17 Dextrose (Dextrose 50%) STAT PRN IV Hypoglycemia 04/17/17 08:00 05/17/17 07:59 Heparin Sodium (Porcine) (Heparin 5000 units/ml) 5,000 units EVERY 12 HOURS SUBQ 04/16/17 21:00 05/16/17 20:59 04/17/17 09:16 Insulin Aspart (NovoLOG) Q6HR SUBQ 04/17/17 12:00 05/17/17 11:59 Lorazepam (Ativan 2mg/ml 1ml) 2 mg Q2H PRN IV For Anxiety 04/16/17 13:00 04/23/17 12:59 Morphine Sulfate (Morphine Sulfate) 4 mg Q4H PRN IVP Severe Pain (Pain Scale 7-10) 04/16/17 13:00 04/23/17 12:59 Ondansetron HCl (Zofran) 4 mg Q6H PRN IVP Nausea & Vomiting 04/16/17 13:00 05/16/17 12:59 Pantoprazole (Protonix) 40 mg DAILY IVP 04/17/17 09:00 05/17/17 08:59 04/17/17 09:17 Polyethylene Glycol (Miralax) 17 gm DAILYPRN PRN ORAL Constipation 04/16/17 13:00 05/16/17 12:59 Vancomycin HCl 1 ea 1 ea DAILY PRN MISC . 04/16/17 13:00 05/16/17 12:59 Vancomycin HCl/ Dextrose (Vancomycin/D5W) 275 ml @ 183.708 mls/hr Q12HR@0200,1400 IVPB 04/16/17 14:00 04/21/17 13:59 04/17/17 01:42 LATRICE DEL RIO Apr 17, 2017 11:58
[2017-04-17] MEDS ORDERED: NovoLOG Insulin Flexpen SUBQ SCH (12:00)
--- NOTE | 2017-04-17 14:06 | Infectious Diseases Prog Note ---
Assessment/Plan Assessment/Plan ASSESSMENT: The patient is a 66-year-old white male, previously trach and respiratory dependent, status post cerebrovascular accident in the past, prior history of urinary tract infection, prior history of aspiration pneumonia, and a recent right lower lobe pneumonia in February 2017 with a significant antibiotic allergy history, now presents with fever, leukocytosis, and elevated serum lactate and sepsis. His blood pressure has responded to intravenous fluid resuscitation, but he continues to have increased O2 requirement superimposed on a baseline severe bullous emphysema. His chest x-ray does not at this time suggest pneumonia or pneumothorax, although he has a known history of apical blebs and he has an underlying history of renal anatomic abnormality with a renal mass and a history of some mediastinal impaired tracheal lymphadenopathy. His urinalysis does not clearly demonstrate urinary tract infection, and it doesn't look like a Ucx is pending. Blood cx so far negative for bacteremia. I think at this time his most likely diagnosis still remains an acute pulmonary infection, although his initial chest x-ray does not show an obvious filtrate. He is known to have significant abnormal pulmonary architecture. He has an increased O2 requirement, increased work of breathing, prior acute pulmonary infection, and I think he was dehydrated, which will make it as a false negative. overall improved today, afebrile, WBC normalized, off pressors, but has significant intraabd hx, has markedly elevated ESR 117 CRP 9, so it is critical r/o intrabdominal source of sepsis now as it has bearing on abx course and whether any drainage is indicated. . Sepsis improving, concern for intraadominal source 03/15 blood cx x2 ngtd sputum cx: MRSA 03/16 ucx; ngtd. obtained after already on broad spectum antiobiotics possible pneumonia with sputum MRSA+, but CXR w/o obvious infiltrate ruled out UTI r/o intraabdominal source of sepsis Leukocytosis, resolved Fevers, resolved TIFFANIE, resolved History of cerebrovascular accident, c/b complete aphasia and right hemiplegia, s/p G tube. prior trach. Seizure disorder. Hypertension. Chronic obstructive pulmonary disease with severe bullous changes History of peptic ulcer. History of renal mass. Diabetes. History of CVA. History of urinary tract infection. History of aspiration pneumonia, history of right lower lobe pneumonia in February 2017. History of peptic ulcer disease. History of right paratracheal lymphadenopathy. History of right-sided hydronephrosis requiring ureteral stent, which has subsequently been removed. History of descending colon colitis in 2015. 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 Renal artery stenosis with a subsequent atrophic left kidney. PLAN: 1) continue on empiric intravenous vancomycin and amikacin pending culture results 2) monitor CBC 3) monitor chemistry panel. SCr down to 0.8 5) monitor his blood and sputum cultures 6) CT abdomen and pelvis with PO/IV contrast given his history of intraabdominal pathology without an obvious source at this moment. 7) f/u urine cx 8) carranza care 9) skin care Subjective Constitutional: Reports: no symptoms Allergies: Coded Allergies: AMOXICILLIN (Unverified Allergy, Unknown, 01/13/15) AMPICILLIN (Unverified Allergy, Unknown, 01/13/15) PENICILLINS (Unverified Allergy, Unknown, 01/13/15) PIPERACILLIN (Unverified Allergy, Unknown, 01/13/15) TAZOBACTAM (Unverified Allergy, Unknown, 01/13/15) LEVOFLOXACIN (Verified Adverse Reaction, Intermediate, 10/25/16) Red erythematous rash outbreak near IV site Objective Vital Signs Last 24 Hour Vital Signs Date Time Temp Pulse Resp B/P Pulse Ox O2 Delivery O2 Flow Rate FiO2 04/17/17 11:58 98.1 82 20 129/72 95 Nasal Cannula 4.0 04/17/17 07:49 97.9 92 22 122/66 95 Nasal Cannula 4.0 04/17/17 04:00 98.0 84 24 131/62 100 Nasal Cannula 4.0 04/17/17 04:00 99 04/17/17 00:00 90 04/17/17 00:00 97.9 87 22 124/64 96 Nasal Cannula 4.0 04/16/17 20:59 97.9 84 20 117/65 98 Venturi Mask 04/16/17 20:00 88 04/16/17 19:30 94 Nasal Cannula 4.0 36 04/16/17 19:30 Nasal Cannula 4.0 36 04/16/17 19:30 86 20 Nasal Cannula 4.0 36 04/16/17 16:24 98.2 100 22 136/71 94 Venturi Mask 04/16/17 16:00 98.2 100 22 136/71 95 Venturi Mask 04/16/17 16:00 94 Height (Feet): 6 Height (Inches): 11.00 Weight (Pounds): 175 Objective GENERAL: Open eyes to voice. more alert today. Sonorous breath sounds. HEENT: Eyes were normal. His sclerae anicteric. Conjunctivae was pink. Extraocular movements were normal. Temporal arteries were palpated bilaterally and unremarkable and he does have bilateral temporal wasting. Oral cavity, he has significant mucous in the posterior oropharynx, but no pharyngeal erythema or exudate appreciable. NECK: Supple. There is no goiter, no mass, no lymphadenopathy, no jugular venous distention, and no bruits. Carotid upstroke was 1+. LUNGS: He has bilateral rhonchi at both bases and he has decreased breath sounds at the right lung base. CARDIAC: PMI was fifth left intercostal space in the midclavicular line. There was normal S1 and S2. There was no murmur. No S3, no S4, and no pericardial rub. Abdomen: Soft and nontender without organomegaly. There were no palpable masses and normal bowel sounds without bruits. There was no guarding, no rebound tenderness, no ascites, and no hernia. He has a G-tube in place that is healthy appearing w/o erythema to skin adjacent and is nontender to gentle palpation. EXTREMITIES: No cyanosis, no clubbing, and has trace bilateral lower extremity edema. Extremities were warm with good peripheral pulses with no mottling. He has peripheral IVs in place, which are healthy appearing. : He has a Carranza in place. He has significant erythema in the intertriginous area consistent with Sabrina intertrigo and he has some erythema to his scrotum that is non swollen and nontender. NEUROLOGIC: He moves all 4 extremities. Microbiology Date/Time Source Procedure Growth Status 04/15/17 12:25 Blood Blood Culture - Preliminary NO GROWTH AFTER 24 HOURS Resulted 04/15/17 12:20 Blood Blood Culture - Preliminary NO GROWTH AFTER 24 HOURS Resulted 04/15/17 18:00 Sputum Gram Stain - Final Resulted 04/15/17 18:00 Sputum Culture - Preliminary Staphylococcus Aureus Resulted 04/16/17 17:40 Indwelling Cath Urine Culture - Preliminary NO GROWTH Resulted Laboratory Tests Test 04/17/17 08:55 White Blood Count 4.0 K/UL (4.8-10.8) #L Red Blood Count 3.08 M/UL (4.70-6.10) L Hemoglobin 9.8 G/DL (14.2-18.0) L Hematocrit 31.3 % (42.0-52.0) L Mean Corpuscular Volume 102 FL (80-99) H Mean Corpuscular Hemoglobin 31.8 PG (27.0-31.0) H Mean Corpuscular Hemoglobin Concent 31.3 G/DL (32.0-36.0) L Red Cell Distribution Width 15.5 % (11.6-14.8) H Platelet Count 122 K/UL (150-450) L Mean Platelet Volume 6.5 FL (6.5-10.1) Neutrophils (%) (Auto) 72.5 % (45.0-75.0) Lymphocytes (%) (Auto) 18.1 % (20.0-45.0) L Monocytes (%) (Auto) 6.1 % (1.0-10.0) Eosinophils (%) (Auto) 2.6 % (0.0-3.0) Basophils (%) (Auto) 0.7 % (0.0-2.0) Erythrocyte Sedimentation Rate 117 MM/HR (0-20) H Reticulocyte Count 1.1 % (0.0-2.0) Sodium Level 149 mEQ/L (135-145) H Potassium Level 3.8 mEQ/L (3.4-4.9) Chloride Level 113 mEQ/L (98-107) H Carbon Dioxide Level 28 mEQ/L (20-30) Anion Gap 8 (5-15) Blood Urea Nitrogen 25 mg/dL (7-23) H Creatinine 0.8 mg/dL (0.7-1.2) Estimat Glomerular Filtration Rate > 60 mL/min (>60) Glucose Level 147 mg/dL (74-106) H Calcium Level 8.6 mg/dL (8.6-10.2) Phosphorus Level 2.4 mg/dL (2.5-4.8) L Magnesium Level 1.8 mg/dL (1.7-2.5) Iron Level 57 ug/dL (59-158) L Total Iron Binding Capacity 189 ug/dL (250-400) L Percent Iron Saturation 30 % (15-50) Unsaturated Iron Binding 132 ug/dL (112-346) Ferritin 999 ng/mL (10-230) H Total Bilirubin 0.3 mg/dL (0.0-1.2) Aspartate Amino Transf (AST/SGOT) 61 U/L (5-40) H Alanine Aminotransferase (ALT/SGPT) 49 U/L (3-41) H Alkaline Phosphatase 107 U/L (40-129) C-Reactive Protein, Quantitative 19.7 mg/dL (< 0.5) H Total Protein 6.8 g/dL (6.6-8.7) Albumin 2.3 g/dL (3.5-5.2) L Globulin 4.5 g/dL Albumin/Globulin Ratio 0.5 (1.0-2.7) L Thyroid Stimulating Hormone (TSH) 7.810 uIU/mL (0.300-4.500) Current Medications Medications (Trade) Dose Ordered Sig/Baljeet Route PRN Reason Start Time Stop Time Status Last Admin Dose Admin Acetaminophen (Tylenol) 650 mg Q4H PRN ORAL T>100.5 04/16/17 12:30 05/16/17 12:29 Albuterol/ Ipratropium (DuoNeb 0.5-3(2.5)mg/3ml) 3 ml Q4H PRN HHN Shortness of Breath 04/16/17 13:00 04/21/17 12:59 Amikacin Protocol (Amikacin pharmacy to dose) 1 ea DAILY PRN MISC PRN RX PROTOCOL 04/16/17 12:30 05/16/17 12:29 Amikacin Sulfate/ Sodium Chloride (Amikin/Sodium Chloride) 114 ml @ 114 mls/hr Q36H IV 04/17/17 09:00 04/24/17 08:59 04/17/17 09:17 Dextrose 1,000 ml @ 50 mls/hr Q20H IV 04/16/17 12:00 05/16/17 11:59 04/17/17 09:17 Dextrose (Dextrose 50%) STAT PRN IV Hypoglycemia 04/17/17 08:00 05/17/17 07:59 Heparin Sodium (Porcine) (Heparin 5000 units/ml) 5,000 units EVERY 12 HOURS SUBQ 04/16/17 21:00 05/16/17 20:59 04/17/17 09:16 Insulin Aspart (NovoLOG) Q6HR SUBQ 04/17/17 12:00 05/17/17 11:59 04/17/17 13:06 Lorazepam (Ativan 2mg/ml 1ml) 2 mg Q2H PRN IV For Anxiety 04/16/17 13:00 04/23/17 12:59 Morphine Sulfate (Morphine Sulfate) 4 mg Q4H PRN IVP Severe Pain (Pain Scale 7-10) 04/16/17 13:00 04/23/17 12:59 Ondansetron HCl (Zofran) 4 mg Q6H PRN IVP Nausea & Vomiting 04/16/17 13:00 05/16/17 12:59 Pantoprazole (Protonix) 40 mg DAILY IVP 04/17/17 09:00 05/17/17 08:59 04/17/17 09:17 Polyethylene Glycol (Miralax) 17 gm DAILYPRN PRN ORAL Constipation 04/16/17 13:00 05/16/17 12:59 Vancomycin HCl 1 ea 1 ea DAILY PRN MISC . 04/16/17 13:00 05/16/17 12:59 Vancomycin HCl/ Dextrose (Vancomycin/D5W) 275 ml @ 183.708 mls/hr Q12HR@0200,1400 IVPB 04/16/17 14:00 04/21/17 13:59 04/17/17 01:42 Samuel Kahn M.D. Apr 17, 2017 14:05
[2017-04-17] MEDS ORDERED: Miralax 17gm pkt ORAL PRN (16:00)
[2017-04-17] MEDS ORDERED: DuoNeb 0.5-3(2.5)mg/3ml neb HHN PRN (16:00)
[2017-04-17] MEDS ORDERED: Morphine Sulfate 4mg/ml Inj IVP PRN (16:00)
[2017-04-17] MEDS ORDERED: LORazepam Inj 2mg/ml 1ml IV PRN (16:00)
--- NOTE | 2017-04-17 16:12 | Diagnostic Imaging Report ---
Clinical Indication: ABD PAIN Technique: Patient given oral contrast. IV administration nonionic contrast. Venous phase spiral acquisition obtained through the abdomen and pelvis. Multiplanar reconstructions were generated. Total dose length product 1056 mGycm. CTDIvol(s) 18 mGy. Dose reduction achieved using automated exposure control Comparison: 01/13/2013 noncontrast study Findings: Again demonstrated is massive rectal distention by fecal material. Maximum diameter of the rectum is 9.5 cm transverse. Despite this, contrast is seen all the way through the small bowel and colon and opacifies the rectal fecal material. There are scattered colonic diverticula. No evidence of diverticulitis. The appendix is not definitely identified, the no findings to suggest acute appendicitis are evident. No small bowel distention or small bowel wall thickening. No free or loculated intraperitoneal air or fluid is evident. The distal esophagus demonstrates contrast, possibly indicative of gastroesophageal reflux. There is a gastrostomy in good position. There is equivocal mild duodenal wall thickening as well as proximal jejunal wall thickening, more likely an artifact of under distention than real. Previously demonstrated ascending colitis changes are not evident currently. Previously demonstrated ascites is not evident currently The liver is diffusely mildly hypoattenuating, consistent with fatty change. The gallbladder, bile ducts, pancreas, spleen, adrenals are unremarkable. Again demonstrated is severe atrophy of the left kidney. 10 mm mass in the left renal interpolar region is unchanged. The right kidney is somewhat lobulated in contour, otherwise unremarkable. No hydronephrosis, hydroureter, or ureteral calculi. The bladder is displaced anteriorly by the distended rectum, contains a Ceron catheter. A small amount of air is also seen in the bladder. A portion of the bladder is herniated into the right inguinal canal. This is also evident previously. This presumably represents a direct inguinal hernia. No pelvic mass or adenopathy is demonstrated. Left external iliac vein is hypoplastic versus absent, left common iliac vein small in caliber. Anterior pelvic wall venous varicosities are noted. There is extensive dense consolidation in the visualized portions of the right lower lobe. There is also a small amount of pleural fluid on the right. There is a small amount of consolidation in the left lower lobe. There is again demonstrated left lower lobe emphysematous change. A small bulla is also seen within the right middle lobe. Impression: Dense consolidation in the right lower lobe, consistent with pneumonia. Less extensive consolidation in the left lower lobe. There is an associated small right pleural effusion Massive rectal distention by fecal material, also previously demonstrated. Equivocal mild duodenal wall thickening and proximal jejunal wall thickening, is likely artifact of under distention. If real, duodenitis/enteritis is a possibility Diverticulosis. No evidence of diverticulitis Mild fatty liver 10 mm left renal mass, unchanged from prior study 01/13/2015, most likely benign but indolent renal neoplasm not completely excludable. Further followup is recommended Atrophic left kidney, chronic Direct right inguinal hernia containing a portion of the bladder, also previously demonstrated Other findings as noted, including Ceron catheter, air within the bladder related to such, the plastic versus absent left iliac venous segments with associated anterior abdominal wall varicosities, gastrostomy, evidence of gastroesophageal reflux The CT scanner at [facility] is accredited by the [employer] and the scans are performed using protocols designed to limit radiation exposure to as low as reasonably achievable to attain images of sufficient resolution adequate for diagnostic evaluation.
[2017-04-17 16:49] VITALS: BP 149/66
[2017-04-17] MEDS: NovoLOG Insulin Flexpen SUBQ SCH (18:00)
--- NOTE | 2017-04-17 19:00 | Cardiology Report ---
APPROVED REPORT EKG Measurement Heart [id number] Sinus tachycardia Otherwise normal ECG
[2017-04-17 20:00] VITALS: BP 146/78
[2017-04-18] VITALS: BP 143/85
[2017-04-18] MEDS: NovoLOG Insulin Flexpen SUBQ SCH ×4 (01:30→18:11)
[2017-04-18 02:14] LABS: MEAN CORPUSCULAR HEMOGLOBIN 31.7 PG (27.0-31.0); MEAN CORPUSCULAR VOLUME 99 FL (80-99); MEAN PLATELET VOLUME 6.7 FL (6.5-10.1); PLATELET COUNT 140 K/UL (150-450); RED BLOOD COUNT 3.07 M/UL (4.70-6.10); RED CELL DISTRIBUTION WIDTH 15.2 % (11.6-14.8); WHITE BLOOD COUNT 3.1 K/UL (4.8-10.8)
[2017-04-18 02:18] LABS: INR 2.2 (0.9-1.1); PROTHROMBIN TIME 23.6 SEC (9.30-11.50)
[2017-04-18 02:24] LABS: ALANINE AMINOTRANSFERASE 44 U/L (3-41); ALBUMIN/GLOBULIN RATIO 0.4 (1.0-2.7); ANION GAP 10 (5-15); ASPARTATE AMINO TRANSFERASE 58 U/L (5-40); CALCIUM 8.9 mg/dL (8.6-10.2); CARBON DIOXIDE 25 mEQ/L (20-30); CHLORIDE 111 mEQ/L (98-107); CREATININE 0.7 mg/dL (0.7-1.2); GLOMERULAR FILTRATION RATE > 60 mL/min (>60); HEMOLYSIS 5; MAGNESIUM 1.5 mg/dL (1.7-2.5); PHOSPHORUS 2.7 mg/dL (2.5-4.8); POTASSIUM 3.8 mEQ/L (3.4-4.9); SODIUM 146 mEQ/L (135-145); TOTAL PROTEIN 7.4 g/dL (6.6-8.7)
[2017-04-18] MEDS: Vancomycin 750 MG in D5W 275 ML IVPB SCH ×2 (03:48→16:35)
[2017-04-18 04:00] VITALS: BP 143/85
--- NOTE | 2017-04-18 05:09 | Infectious Diseases Prog Note ---
Assessment/Plan Assessment/Plan ASSESSMENT: The patient is a 66-year-old white male, previously trach and respiratory dependent, status post cerebrovascular accident in the past, prior history of urinary tract infection w/ indwelling urinary catheter, prior history of aspiration pneumonia, and a recent right lower lobe pneumonia in February 2017 with a significant antibiotic allergy history, now presents with fever, leukocytosis, and elevated serum lactate and sepsis. His blood pressure has responded to intravenous fluid resuscitation, but he continues to have increased O2 requirement superimposed on a baseline severe bullous emphysema. His chest x-ray was not obvious for a pneumonia, but although CT a/ p ruled out intraabdominal abscess, appendicitis, or recurrence of prior colitis , does have a RLL pneumonia with sputum cx growing MRSA. RLL MRSA pneumonia, superimposed on severe bullous COPD Sepsis improving, ruled out for intraadominal source 03/15 blood cx x2 ngtd sputum cx: MRSA 03/16 ucx; ngtd. obtained after already on broad spectum antiobiotics ruled out UTI Leukocytosis, resolved Fevers, resolved TIFFANIE, resolved History of cerebrovascular accident, c/b complete aphasia and right hemiplegia, s/p G tube. prior trach. Seizure disorder. Hypertension. Chronic obstructive pulmonary disease with severe bullous changes History of peptic ulcer. History of renal mass. Diabetes. History of CVA. History of urinary tract infection. History of aspiration pneumonia, history of right lower lobe pneumonia in February 2017. History of peptic ulcer disease. History of right paratracheal lymphadenopathy. History of right-sided hydronephrosis requiring ureteral stent, which has subsequently been removed. History of descending colon colitis in 2014. 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 Renal artery stenosis with a subsequent atrophic left kidney. PLAN: 1) continue intravenous vancomycin D#/10 2) D/c amikacin 3) monitor CBC 4) monitor chemistry panel. TIFFANIE resolved 6) monitor his blood cx so far NGTD at >48 hrs 7) f/u urine cx 8) carranza care 9) skin care Subjective ROS Limited/Unobtainable: Yes Allergies: Coded Allergies: AMOXICILLIN (Unverified Allergy, Unknown, 01/13/15) AMPICILLIN (Unverified Allergy, Unknown, 01/13/15) PENICILLINS (Unverified Allergy, Unknown, 01/13/15) PIPERACILLIN (Unverified Allergy, Unknown, 01/13/15) TAZOBACTAM (Unverified Allergy, Unknown, 01/13/15) LEVOFLOXACIN (Verified Adverse Reaction, Intermediate, 10/25/16) Red erythematous rash outbreak near IV site Objective Vital Signs Last 24 Hour Vital Signs Date Time Temp Pulse Resp B/P Pulse Ox O2 Delivery O2 Flow Rate FiO2 04/18/17 00:30 92 Nasal Cannula 2.0 04/18/17 00:00 97.0 93 19 143/85 91 Room Air 04/17/17 20:00 96.4 85 20 146/78 90 Room Air 04/17/17 19:05 82 20 Nasal Cannula 4.0 36 04/17/17 19:00 95 Nasal Cannula 4.0 36 04/17/17 19:00 Nasal Cannula 4.0 36 04/17/17 16:49 97.9 84 149/66 92 Room Air 04/17/17 11:58 98.1 82 20 129/72 95 Nasal Cannula 4.0 04/17/17 07:49 97.9 92 22 122/66 95 Nasal Cannula 4.0 Height (Feet): 6 Height (Inches): 11.00 Weight (Pounds): 175 Objective GENERAL: Open eyes to voice. more alert today. Sonorous breath sounds. HEENT: Eyes were normal. His sclerae anicteric. Conjunctivae was pink. Extraocular movements were normal. Temporal arteries were palpated bilaterally and unremarkable and he does have bilateral temporal wasting. Oral cavity, he has significant mucous in the posterior oropharynx, but no pharyngeal erythema or exudate appreciable. NECK: Supple. There is no goiter, no mass, no lymphadenopathy, no jugular venous distention, and no bruits. Carotid upstroke was 1+. LUNGS: He has bilateral rhonchi at both bases and he has decreased breath sounds at the right lung base. CARDIAC: PMI was fifth left intercostal space in the midclavicular line. There was normal S1 and S2. There was no murmur. No S3, no S4, and no pericardial rub. Abdomen: Soft and nontender without organomegaly. There were no palpable masses and normal bowel sounds without bruits. There was no guarding, no rebound tenderness, no ascites, and no hernia. He has a G-tube in place that is healthy appearing w/o erythema to skin adjacent and is nontender to gentle palpation. EXTREMITIES: No cyanosis, no clubbing, and has trace bilateral lower extremity edema. Extremities were warm with good peripheral pulses with no mottling. He has peripheral IVs in place, which are healthy appearing. : He has a Carranza in place. He has significant erythema in the intertriginous area consistent with Sabrina intertrigo and he has some erythema to his scrotum that is non swollen and nontender. NEUROLOGIC: He moves all 4 extremities. Microbiology Date/Time Source Procedure Growth Status 04/15/17 12:25 Blood Blood Culture - Preliminary NO GROWTH AFTER 24 HOURS Resulted 04/15/17 12:20 Blood Blood Culture - Preliminary NO GROWTH AFTER 24 HOURS Resulted 04/15/17 18:00 Sputum Gram Stain - Final Resulted 04/15/17 18:00 Sputum Culture - Preliminary Staphylococcus Aureus Resulted 04/16/17 17:40 Indwelling Cath Urine Culture - Preliminary NO GROWTH Resulted Laboratory Tests Test 04/17/17 08:55 04/18/17 01:35 White Blood Count 4.0 K/UL (4.8-10.8) #L 3.1 K/UL (4.8-10.8) L Red Blood Count 3.08 M/UL (4.70-6.10) L 3.07 M/UL (4.70-6.10) L Hemoglobin 9.8 G/DL (14.2-18.0) L 9.8 G/DL (14.2-18.0) L Hematocrit 31.3 % (42.0-52.0) L 30.5 % (42.0-52.0) L Mean Corpuscular Volume 102 FL (80-99) H 99 FL (80-99) Mean Corpuscular Hemoglobin 31.8 PG (27.0-31.0) H 31.7 PG (27.0-31.0) H Mean Corpuscular Hemoglobin Concent 31.3 G/DL (32.0-36.0) L 32.0 G/DL (32.0-36.0) Red Cell Distribution Width 15.5 % (11.6-14.8) H 15.2 % (11.6-14.8) H Platelet Count 122 K/UL (150-450) L 140 K/UL (150-450) L Mean Platelet Volume 6.5 FL (6.5-10.1) 6.7 FL (6.5-10.1) Neutrophils (%) (Auto) 72.5 % (45.0-75.0) % (45.0-75.0) Lymphocytes (%) (Auto) 18.1 % (20.0-45.0) L % (20.0-45.0) Monocytes (%) (Auto) 6.1 % (1.0-10.0) % (1.0-10.0) Eosinophils (%) (Auto) 2.6 % (0.0-3.0) % (0.0-3.0) Basophils (%) (Auto) 0.7 % (0.0-2.0) % (0.0-2.0) Erythrocyte Sedimentation Rate 117 MM/HR (0-20) H Reticulocyte Count 1.1 % (0.0-2.0) Sodium Level 149 mEQ/L (135-145) H 146 mEQ/L (135-145) H Potassium Level 3.8 mEQ/L (3.4-4.9) 3.8 mEQ/L (3.4-4.9) Chloride Level 113 mEQ/L (98-107) H 111 mEQ/L (98-107) H Carbon Dioxide Level 28 mEQ/L (20-30) 25 mEQ/L (20-30) Anion Gap 8 (5-15) 10 (5-15) Blood Urea Nitrogen 25 mg/dL (7-23) H 22 mg/dL (7-23) Creatinine 0.8 mg/dL (0.7-1.2) 0.7 mg/dL (0.7-1.2) Estimat Glomerular Filtration Rate > 60 mL/min (>60) > 60 mL/min (>60) Glucose Level 147 mg/dL (74-106) H 130 mg/dL (74-106) H Calcium Level 8.6 mg/dL (8.6-10.2) 8.9 mg/dL (8.6-10.2) Phosphorus Level 2.4 mg/dL (2.5-4.8) L 2.7 mg/dL (2.5-4.8) Magnesium Level 1.8 mg/dL (1.7-2.5) 1.5 mg/dL (1.7-2.5) L Iron Level 57 ug/dL (59-158) L Total Iron Binding Capacity 189 ug/dL (250-400) L Percent Iron Saturation 30 % (15-50) Unsaturated Iron Binding 132 ug/dL (112-346) Ferritin 999 ng/mL (10-230) H Total Bilirubin 0.3 mg/dL (0.0-1.2) 0.3 mg/dL (0.0-1.2) Aspartate Amino Transf (AST/SGOT) 61 U/L (5-40) H 58 U/L (5-40) H Alanine Aminotransferase (ALT/SGPT) 49 U/L (3-41) H 44 U/L (3-41) H Alkaline Phosphatase 107 U/L (40-129) 133 U/L (40-129) H C-Reactive Protein, Quantitative 19.7 mg/dL (< 0.5) H Total Protein 6.8 g/dL (6.6-8.7) 7.4 g/dL (6.6-8.7) Albumin 2.3 g/dL (3.5-5.2) L 2.3 g/dL (3.5-5.2) L Globulin 4.5 g/dL 5.1 g/dL Albumin/Globulin Ratio 0.5 (1.0-2.7) L 0.4 (1.0-2.7) L Thyroid Stimulating Hormone (TSH) 7.810 uIU/mL (0.300-4.500) Neutrophils % (Manual) Pending Lymphocytes % (Manual) Pending Platelet Estimate Pending Platelet Morphology Pending Prothrombin Time 23.6 SEC (9.30-11.50) H Prothromb Time International Ratio 2.2 (0.9-1.1) H Activated Partial Thromboplast Time 41 SEC (23-33) H Vancomycin Level Trough 13.3 ug/mL (5.0-12.0) H Hepatitis A IgM Antibody Pending Hepatitis B Surface Antigen Pending Hepatitis B Core IgM Antibody Pending Hepatitis C Antibody Pending HIV (1&2) Antibody Rapid Negative (NEGATIVE) Patient : ESVIN FERNANDEZ Referring Physician: Samuel Kahn M.D. ID Number: [id number] Service Date: 04/17/17 : 1950 Report Date: 04/17/17 Gender: M Accession No.: [id number] Location: 4W Procedure: CT Abdomen Pelvis w/Contrast Clinical Indication: ABD PAIN Technique: Patient given oral contrast. IV administration nonionic contrast. Venous phase spiral acquisition obtained through the abdomen and pelvis. Multiplanar reconstructions were generated. Total dose length product 1056 mGycm. CTDIvol(s ) 18 mGy. Dose reduction achieved using automated exposure control Comparison: 01/13/2013 noncontrast study Findings: Again demonstrated is massive rectal distention by fecal material. Maximum diameter of the rectum is 9.5 cm transverse. Despite this, contrast is seen all the way through the small bowel and colon and opacifies the rectal fecal material. There are scattered colonic diverticula. No evidence of diverticulitis. The appendix is not definitely identified, the no findings to suggest acute appendicitis are evident. No small bowel distention or small bowel wall thickening. No free or loculated intraperitoneal air or fluid is evident. The distal esophagus demonstrates contrast, possibly indicative of gastroesophageal reflux. There is a gastrostomy in good position. There is equivocal mild duodenal wall thickening as well as proximal jejunal wall thickening, more likely an artifact of under distention than real. Previously demonstrated ascending colitis changes are not evident currently. Previously demonstrated ascites is not evident currently The liver is diffusely mildly hypoattenuating, consistent with fatty change. The gallbladder, bile ducts, pancreas, spleen, adrenals are unremarkable. Again demonstrated is severe atrophy of the left kidney. 10 mm mass in the left renal interpolar region is unchanged. The right kidney is somewhat lobulated in contour, otherwise unremarkable. No hydronephrosis, hydroureter, or ureteral calculi. The bladder is displaced anteriorly by the distended rectum, contains a Carranza catheter. A small amount of air is also seen in the bladder. A portion of the bladder is herniated into the right inguinal canal. This is also evident previously. This presumably represents a direct inguinal hernia. No pelvic mass or adenopathy is demonstrated. Left external iliac vein is hypoplastic versus absent, left common iliac vein small in caliber. Anterior pelvic wall venous varicosities are noted. There is extensive dense consolidation in the visualized portions of the right lower lobe. There is also a small amount of pleural fluid on the right. There is a small amount of consolidation in the left lower lobe. There is again demonstrated left lower lobe emphysematous change. A small bulla is also seen within the right middle lobe. Impression: Dense consolidation in the right lower lobe, consistent with pneumonia. Less extensive consolidation in the left lower lobe. There is an associated small right pleural effusion Massive rectal distention by fecal material, also previously demonstrated. Equivocal mild duodenal wall thickening and proximal jejunal wall thickening, is likely artifact of under distention. If real, duodenitis/enteritis is a possibility Diverticulosis. No evidence of diverticulitis Mild fatty liver 10 mm left renal mass, unchanged from prior study 01/13/2015, most likely benign but indolent renal neoplasm not completely excludable. Further followup is recommended Atrophic left kidney, chronic Direct right inguinal hernia containing a portion of the bladder, also previously demonstrated Other findings as noted, including Carranza catheter, air within the bladder related to such, the plastic versus absent left iliac venous segments with associated anterior abdominal wall varicosities, gastrostomy, evidence of gastroesophageal reflux Current Medications Medications (Trade) Dose Ordered Sig/Baljeet Route PRN Reason Start Time Stop Time Status Last Admin Dose Admin Acetaminophen (Tylenol) 650 mg Q4H PRN ORAL T>100.5 04/17/17 16:00 05/17/17 15:59 Albuterol/ Ipratropium (DuoNeb 0.5-3(2.5)mg/3ml) 3 ml Q4H PRN HHN Shortness of Breath 04/17/17 16:00 04/22/17 15:59 Amikacin Protocol (Amikacin pharmacy to dose) 1 ea DAILY PRN MISC PRN RX PROTOCOL 04/18/17 09:00 05/18/17 08:59 Amikacin Sulfate 1000 mg/Sodium Chloride 114 ml @ 114 mls/hr Q36H IV 04/18/17 21:00 04/25/17 20:59 Dextrose 1,000 ml @ 50 mls/hr Q20H IV 04/17/17 16:15 05/17/17 16:14 04/17/17 18:06 Dextrose (Dextrose 50%) STAT PRN IV Hypoglycemia 04/17/17 16:00 05/17/17 15:59 Heparin Sodium (Porcine) (Heparin 5000 units/ml) 5,000 units EVERY 12 HOURS SUBQ 04/17/17 21:00 05/17/17 20:59 Insulin Aspart (NovoLOG) Q6HR SUBQ 04/17/17 18:00 05/17/17 17:59 04/18/17 01:30 Lorazepam (Ativan 2mg/ml 1ml) 2 mg Q2H PRN IV For Anxiety 04/17/17 16:00 04/24/17 15:59 Morphine Sulfate (Morphine Sulfate) 4 mg Q4H PRN IVP Severe Pain (Pain Scale 7-10) 04/17/17 16:00 04/24/17 15:59 Ondansetron HCl (Zofran) 4 mg Q6H PRN IVP Nausea & Vomiting 04/17/17 16:00 05/17/17 15:59 Pantoprazole (Protonix) 40 mg DAILY IVP 04/18/17 09:00 05/18/17 08:59 Polyethylene Glycol (Miralax) 17 gm DAILYPRN PRN ORAL Constipation 04/17/17 16:00 05/17/17 15:59 Vancomycin HCl (Vanco rx to dose) 1 ea DAILY PRN MISC PRN RX PROTOCOL 04/17/17 16:00 05/17/17 15:59 Vancomycin HCl/ Dextrose (Vancomycin/D5W) 275 ml @ 183.708 mls/hr Q12HR@0200,1400 IVPB 04/18/17 02:00 04/23/17 01:59 04/18/17 03:48 Samuel Kahn M.D. Apr 18, 2017 05:09
[2017-04-18 07:50] LABS: ANISOCYTOSIS 1+; BAND NEUTROPHILS % (MANUAL) 0 % (0-8); BASOPHILS % (MANUAL) 2 % (0-2); EOSINOPHILS % (MANUAL) 2 % (0-3); HYPOCHROMASIA 2+; LYMPHOCYTES % (MANUAL) 27 % (20-45); NEUTROPHILS % (MANUAL) 65 % (45-75); PLATELET ESTIMATE DECREASED; PLATELET MORPHOLOGY NORMAL; TOTAL CELLS COUNTED 100
[2017-04-18 08:19] VITALS: BP 141/84
[2017-04-18] MEDS: Heparin 5000 units/ml inj SUBQ SCH ×2 (09:00→21:00)
[2017-04-18] MEDS ORDERED: Amikacin Rx to dose MISC PRN (09:00)
[2017-04-18] MEDS: Pantoprazole Inj IVP SCH (09:43)
[2017-04-18 12:27] VITALS: BP 123/82
[2017-04-18 16:00] VITALS: BP 129/85
--- NOTE | 2017-04-18 16:52 | Pulmonology Progress Note ---
Assessment/Plan Problems: (1) Septic shock (2) Chronic complete quadriplegia (3) History of CVA (cerebrovascular accident) (4) Seizures (5) Feeding by G-tube Assessment/Plan CT abdomen noticed, rectal distension b/o stool improving Iv antibiotics check cultures tolerating feeding anemia w/u med/surg Subjective ROS Limited/Unobtainable: No Constitutional: Reports: no symptoms HEENT: Repors: no symptoms Allergies: Coded Allergies: AMOXICILLIN (Unverified Allergy, Unknown, 01/13/15) AMPICILLIN (Unverified Allergy, Unknown, 01/13/15) PENICILLINS (Unverified Allergy, Unknown, 01/13/15) PIPERACILLIN (Unverified Allergy, Unknown, 01/13/15) TAZOBACTAM (Unverified Allergy, Unknown, 01/13/15) LEVOFLOXACIN (Verified Adverse Reaction, Intermediate, 10/25/16) Red erythematous rash outbreak near IV site Objective Last 24 Hour Vital Signs Date Time Temp Pulse Resp B/P Pulse Ox O2 Delivery O2 Flow Rate FiO2 04/18/17 16:00 97.7 91 18 129/85 91 Nasal Cannula 2.0 04/18/17 12:27 97.9 97 19 123/82 92 Nasal Cannula 04/18/17 08:19 97.0 97 19 141/84 92 Room Air 04/18/17 07:50 Nasal Cannula 4.0 36 04/18/17 07:50 95 Nasal Cannula 4.0 36 04/18/17 07:50 88 20 Nasal Cannula 4.0 36 04/18/17 04:00 97.6 84 21 143/85 93 Nasal Cannula 04/18/17 00:30 92 Nasal Cannula 2.0 04/18/17 00:00 97.0 93 19 143/85 91 Room Air 04/17/17 20:00 96.4 85 20 146/78 90 Room Air 04/17/17 19:05 82 20 Nasal Cannula 4.0 36 04/17/17 19:00 95 Nasal Cannula 4.0 36 04/17/17 19:00 Nasal Cannula 4.0 36 Intake and Output 04/17/17 04/18/17 19:00 07:00 Intake Total 110 ml 1175.000 ml Balance 110 ml 1175.000 ml Intake Free Water 100 ml IV Total 50 ml 625.000 ml Tube Feeding 60 ml 450 ml # Voids 1 General Appearance: WD/WN HEENT: normocephalic Respiratory/Chest: chest wall non-tender, lungs clear Cardiovascular: normal peripheral pulses, normal rate Abdomen: normal bowel sounds, soft, non tender Genitourinary: normal external genitalia Extremities: no cyanosis Microbiology Date/Time Source Procedure Growth Status 04/15/17 18:00 Sputum Gram Stain - Final Resulted 04/15/17 18:00 Sputum Culture - Preliminary Staphylococcus Aureus Resulted 04/16/17 17:40 Indwelling Cath Urine Culture - Preliminary NO GROWTH AFTER 24 HOURS Resulted Laboratory Tests 04/18/17 01:35: White Blood Count 3.1L, Red Blood Count 3.07L, Hemoglobin 9.8L, Hematocrit 30.5L , Mean Corpuscular Volume 99, Mean Corpuscular Hemoglobin 31.7H, Mean Corpuscular Hemoglobin Concent 32.0, Red Cell Distribution Width 15.2H, Platelet Count 140L, Mean Platelet Volume 6.7, Neutrophils (%) (Auto) , Lymphocytes (%) (Auto) , Monocytes (%) (Auto) , Eosinophils (%) (Auto) , Basophils (%) (Auto) , Differential Total Cells Counted 100, Neutrophils % ( Manual) 65, Lymphocytes % (Manual) 27, Monocytes % (Manual) 4, Eosinophils % ( Manual) 2, Basophils % (Manual) 2, Band Neutrophils 0, Platelet Estimate DecreasedL, Platelet Morphology Normal, Hypochromasia 2+, Anisocytosis 1+, Prothrombin Time 23.6H, Prothromb Time International Ratio 2.2H, Activated Partial Thromboplast Time 41H, Sodium Level 146H, Potassium Level 3.8, Chloride Level 111H, Carbon Dioxide Level 25, Anion Gap 10, Blood Urea Nitrogen 22, Creatinine 0.7, Estimat Glomerular Filtration Rate > 60, Glucose Level 130H, Calcium Level 8.9, Phosphorus Level 2.7, Magnesium Level 1.5L, Total Bilirubin 0.3, Aspartate Amino Transf (AST/SGOT) 58H, Alanine Aminotransferase (ALT/SGPT) 44H, Alkaline Phosphatase 133H, Total Protein 7.4, Albumin 2.3L, Globulin 5.1, Albumin/Globulin Ratio 0.4L, Vancomycin Level Trough 13.3H, Hepatitis A IgM Antibody [Pending], Hepatitis B Surface Antigen [Pending], Hepatitis B Core IgM Antibody [Pending], Hepatitis C Antibody [Pending], HIV (1&2) Antibody Rapid Negative Current Medications Medications (Trade) Dose Ordered Sig/Baljeet Route PRN Reason Start Time Stop Time Status Last Admin Dose Admin Acetaminophen (Tylenol) 650 mg Q4H PRN ORAL T>100.5 04/17/17 16:00 05/17/17 15:59 Albuterol/ Ipratropium (DuoNeb 0.5-3(2.5)mg/3ml) 3 ml Q4H PRN HHN Shortness of Breath 04/17/17 16:00 04/22/17 15:59 Dextrose 1,000 ml @ 50 mls/hr Q20H IV 04/17/17 16:15 05/17/17 16:14 04/17/17 18:06 Dextrose (Dextrose 50%) STAT PRN IV Hypoglycemia 04/17/17 16:00 05/17/17 15:59 Heparin Sodium (Porcine) (Heparin 5000 units/ml) 5,000 units EVERY 12 HOURS SUBQ 04/17/17 21:00 05/17/17 20:59 Insulin Aspart (NovoLOG) Q6HR SUBQ 04/17/17 18:00 05/17/17 17:59 04/18/17 12:24 Lorazepam (Ativan 2mg/ml 1ml) 2 mg Q2H PRN IV For Anxiety 04/17/17 16:00 04/24/17 15:59 Morphine Sulfate (Morphine Sulfate) 4 mg Q4H PRN IVP Severe Pain (Pain Scale 7-10) 04/17/17 16:00 04/24/17 15:59 Ondansetron HCl (Zofran) 4 mg Q6H PRN IVP Nausea & Vomiting 04/17/17 16:00 05/17/17 15:59 Pantoprazole (Protonix) 40 mg DAILY IVP 04/18/17 09:00 05/18/17 08:59 04/18/17 09:43 Polyethylene Glycol (Miralax) 17 gm DAILYPRN PRN ORAL Constipation 04/17/17 16:00 05/17/17 15:59 Vancomycin HCl (Vanco rx to dose) 1 ea DAILY PRN MISC PRN RX PROTOCOL 04/17/17 16:00 05/17/17 15:59 Vancomycin HCl/ Dextrose (Vancomycin/D5W) 275 ml @ 183.708 mls/hr Q12HR@0200,1400 IVPB 04/18/17 02:00 04/23/17 01:59 04/18/17 16:35 LATRICE DEL RIO Apr 18, 2017 16:52
[2017-04-18] MEDS ORDERED: Fleet's Enema 133ml RECTAL ONE (19:00)
--- NOTE | 2017-04-18 19:42 | General Progress Note ---
Assessment/Plan Assessment/Plan 1. Anemia secondary to chronic disease. --> work up has been reviewed --> no evidence of iron deficiency, the patient's ferritin is elevated --> hgb goal is above 7.5, transfuse prn 2. Thrombocytopenia secondary to underlying sepsis. 3. Cerebrovascular accident history. Continue to closely monitor. Seen by Neurology. 4. Dysphagia status post gastrostomy tube. 5. Chronic functional quadriplegia. 6. Pneumonia with elevated white count, is on antibiotics. 7. Ceron catheter in place. 8. Respiratory failure status post tracheostomy. Subjective Date patient seen: Apr 17, 2017 Constitutional: Reports: no symptoms HEENT: Reports: no symptoms Cardiovascular: Reports: no symptoms Respiratory: Reports: no symptoms Gastrointestinal/Abdominal: Reports: no symptoms Genitourinary: Reports: no symptoms Neurologic/Psychiatric: Reports: no symptoms Endocrine: Reports: no symptoms Hematologic/Lymphatic: Reports: anemia Allergies: Coded Allergies: AMOXICILLIN (Unverified Allergy, Unknown, 01/13/15) AMPICILLIN (Unverified Allergy, Unknown, 01/13/15) PENICILLINS (Unverified Allergy, Unknown, 01/13/15) PIPERACILLIN (Unverified Allergy, Unknown, 01/13/15) TAZOBACTAM (Unverified Allergy, Unknown, 01/13/15) LEVOFLOXACIN (Verified Adverse Reaction, Intermediate, 10/25/16) Red erythematous rash outbreak near IV site Subjective difficulty speaking, otherwise NAD Objective Last 24 Hour Vital Signs Date Time Temp Pulse Resp B/P Pulse Ox O2 Delivery O2 Flow Rate FiO2 04/18/17 16:00 97.7 91 18 129/85 91 Nasal Cannula 2.0 04/18/17 12:27 97.9 97 19 123/82 92 Nasal Cannula 04/18/17 08:19 97.0 97 19 141/84 92 Room Air 04/18/17 07:50 Nasal Cannula 4.0 36 04/18/17 07:50 95 Nasal Cannula 4.0 36 04/18/17 07:50 88 20 Nasal Cannula 4.0 36 04/18/17 04:00 97.6 84 21 143/85 93 Nasal Cannula 04/18/17 00:30 92 Nasal Cannula 2.0 04/18/17 00:00 97.0 93 19 143/85 91 Room Air 04/17/17 20:00 96.4 85 20 146/78 90 Room Air Intake and Output 04/17/17 04/18/17 19:00 07:00 Intake Total 110 ml 1175.000 ml Balance 110 ml 1175.000 ml Intake Free Water 100 ml IV Total 50 ml 625.000 ml Tube Feeding 60 ml 450 ml # Voids 1 Laboratory Tests 04/18/17 01:35: White Blood Count 3.1L, Red Blood Count 3.07L, Hemoglobin 9.8L, Hematocrit 30.5L , Mean Corpuscular Volume 99, Mean Corpuscular Hemoglobin 31.7H, Mean Corpuscular Hemoglobin Concent 32.0, Red Cell Distribution Width 15.2H, Platelet Count 140L, Mean Platelet Volume 6.7, Neutrophils (%) (Auto) , Lymphocytes (%) (Auto) , Monocytes (%) (Auto) , Eosinophils (%) (Auto) , Basophils (%) (Auto) , Differential Total Cells Counted 100, Neutrophils % ( Manual) 65, Lymphocytes % (Manual) 27, Monocytes % (Manual) 4, Eosinophils % ( Manual) 2, Basophils % (Manual) 2, Band Neutrophils 0, Platelet Estimate DecreasedL, Platelet Morphology Normal, Hypochromasia 2+, Anisocytosis 1+, Prothrombin Time 23.6H, Prothromb Time International Ratio 2.2H, Activated Partial Thromboplast Time 41H, Sodium Level 146H, Potassium Level 3.8, Chloride Level 111H, Carbon Dioxide Level 25, Anion Gap 10, Blood Urea Nitrogen 22, Creatinine 0.7, Estimat Glomerular Filtration Rate > 60, Glucose Level 130H, Calcium Level 8.9, Phosphorus Level 2.7, Magnesium Level 1.5L, Total Bilirubin 0.3, Aspartate Amino Transf (AST/SGOT) 58H, Alanine Aminotransferase (ALT/SGPT) 44H, Alkaline Phosphatase 133H, Total Protein 7.4, Albumin 2.3L, Globulin 5.1, Albumin/Globulin Ratio 0.4L, Vancomycin Level Trough 13.3H, Hepatitis A IgM Antibody [Pending], Hepatitis B Surface Antigen [Pending], Hepatitis B Core IgM Antibody [Pending], Hepatitis C Antibody [Pending], HIV (1&2) Antibody Rapid Negative Height (Feet): 6 Height (Inches): 11.00 Weight (Pounds): 172 General Appearance: no apparent distress EENT: PERRL/EOMI Neck: normal alignment Cardiovascular: normal peripheral pulses Extremities: normal range of motion Edema: no edema noted Pedal (L), no edema noted Pedal (R) Neurologic: diagnostic tech II-XII grossly normal Skin: warm/dry Obed Peterson Apr 18, 2017 19:42
[2017-04-18 20:00] VITALS: BP_SYST 117; BP_SYST 90; BP_DIAS 62; BP_DIAS 77
[2017-04-18] MEDS ORDERED: Amikacin 1,000 MG in NS 110 ML IV SCH (21:00)
[2017-04-18] MEDS ORDERED: 1/2 NS 1000ml IV ONE (21:48)
--- NOTE | 2017-04-18 21:51 | General Progress Note ---
Assessment/Plan Assessment/Plan 1. Anemia secondary to chronic disease. --> work up has been reviewed --> no evidence of iron deficiency, the patient's ferritin is elevated --> hgb goal is above 7.5, transfuse prn 2. Thrombocytopenia secondary to underlying sepsis. 3. Cerebrovascular accident history. Continue to closely monitor. Seen by Neurology. 4. Dysphagia status post gastrostomy tube. 5. Chronic functional quadriplegia. 6. Pneumonia with elevated white count, is on antibiotics. 7. Ceron catheter in place. 8. Respiratory failure status post tracheostomy. Subjective Constitutional: Reports: no symptoms HEENT: Reports: no symptoms Cardiovascular: Reports: no symptoms Respiratory: Reports: no symptoms Gastrointestinal/Abdominal: Reports: no symptoms Genitourinary: Reports: no symptoms Neurologic/Psychiatric: Reports: no symptoms Endocrine: Reports: no symptoms Hematologic/Lymphatic: Reports: anemia Allergies: Coded Allergies: AMOXICILLIN (Unverified Allergy, Unknown, 01/13/15) AMPICILLIN (Unverified Allergy, Unknown, 01/13/15) PENICILLINS (Unverified Allergy, Unknown, 01/13/15) PIPERACILLIN (Unverified Allergy, Unknown, 01/13/15) TAZOBACTAM (Unverified Allergy, Unknown, 01/13/15) LEVOFLOXACIN (Verified Adverse Reaction, Intermediate, 10/25/16) Red erythematous rash outbreak near IV site Subjective in bed, comfortable Objective Last 24 Hour Vital Signs Date Time Temp Pulse Resp B/P Pulse Ox O2 Delivery O2 Flow Rate FiO2 04/18/17 20:00 97.1 77 20 117/77 98 Room Air 04/18/17 19:57 85 20 Nasal Cannula 4.0 36 04/18/17 19:57 Nasal Cannula 4.0 36 04/18/17 19:57 95 Nasal Cannula 4.0 36 04/18/17 16:00 97.7 91 18 129/85 91 Nasal Cannula 2.0 04/18/17 12:27 97.9 97 19 123/82 92 Nasal Cannula 04/18/17 08:19 97.0 97 19 141/84 92 Room Air 04/18/17 07:50 Nasal Cannula 4.0 36 04/18/17 07:50 95 Nasal Cannula 4.0 36 04/18/17 07:50 88 20 Nasal Cannula 4.0 36 04/18/17 04:00 97.6 84 21 143/85 93 Nasal Cannula 04/18/17 00:30 92 Nasal Cannula 2.0 04/18/17 00:00 97.0 93 19 143/85 91 Room Air Intake and Output 04/17/17 04/18/17 19:00 07:00 Intake Total 110 ml 1175.000 ml Balance 110 ml 1175.000 ml Intake Free Water 100 ml IV Total 50 ml 625.000 ml Tube Feeding 60 ml 450 ml # Voids 1 Laboratory Tests 04/18/17 01:35: White Blood Count 3.1L, Red Blood Count 3.07L, Hemoglobin 9.8L, Hematocrit 30.5L , Mean Corpuscular Volume 99, Mean Corpuscular Hemoglobin 31.7H, Mean Corpuscular Hemoglobin Concent 32.0, Red Cell Distribution Width 15.2H, Platelet Count 140L, Mean Platelet Volume 6.7, Neutrophils (%) (Auto) , Lymphocytes (%) (Auto) , Monocytes (%) (Auto) , Eosinophils (%) (Auto) , Basophils (%) (Auto) , Differential Total Cells Counted 100, Neutrophils % ( Manual) 65, Lymphocytes % (Manual) 27, Monocytes % (Manual) 4, Eosinophils % ( Manual) 2, Basophils % (Manual) 2, Band Neutrophils 0, Platelet Estimate DecreasedL, Platelet Morphology Normal, Hypochromasia 2+, Anisocytosis 1+, Prothrombin Time 23.6H, Prothromb Time International Ratio 2.2H, Activated Partial Thromboplast Time 41H, Sodium Level 146H, Potassium Level 3.8, Chloride Level 111H, Carbon Dioxide Level 25, Anion Gap 10, Blood Urea Nitrogen 22, Creatinine 0.7, Estimat Glomerular Filtration Rate > 60, Glucose Level 130H, Calcium Level 8.9, Phosphorus Level 2.7, Magnesium Level 1.5L, Total Bilirubin 0.3, Aspartate Amino Transf (AST/SGOT) 58H, Alanine Aminotransferase (ALT/SGPT) 44H, Alkaline Phosphatase 133H, Total Protein 7.4, Albumin 2.3L, Globulin 5.1, Albumin/Globulin Ratio 0.4L, Vancomycin Level Trough 13.3H, Hepatitis A IgM Antibody [Pending], Hepatitis B Surface Antigen [Pending], Hepatitis B Core IgM Antibody [Pending], Hepatitis C Antibody [Pending], HIV (1&2) Antibody Rapid Negative Height (Feet): 6 Height (Inches): 11.00 Weight (Pounds): 172 General Appearance: no apparent distress EENT: PERRL/EOMI Neck: non-tender Cardiovascular: normal rate Neurologic: naturopathic oncology provider II-XII grossly normal Skin: warm/dry Obed Peterson Apr 18, 2017 21:51
[2017-04-19] VITALS: BP 120/74
[2017-04-19] MEDS: Vancomycin 750 MG in D5W 275 ML IVPB SCH ×2 (01:23→15:14)
[2017-04-19 04:00] VITALS: BP 102/61
[2017-04-19] MEDS: NovoLOG Insulin Flexpen SUBQ SCH ×5 (05:52→23:54)
[2017-04-19 08:29] VITALS: BP 108/69
[2017-04-19] MEDS: Pantoprazole Inj IVP SCH (09:00)
[2017-04-19] MEDS ORDERED: Fleet's Mineral Oil Enema RECTAL ONE (09:00)
[2017-04-19] MEDS: Heparin 5000 units/ml inj SUBQ SCH ×2 (09:00→21:00)
[2017-04-19 11:56] VITALS: BP 113/72
--- NOTE | 2017-04-19 12:51 | Diagnostic Imaging Report ---
Indication: Abdominal pain Comparison: None Single view of the abdomen obtained There is moderate distention of the rectum secondary to feces. Ceron catheter and gastrostomy is noted. Bowel gas pattern is nonspecific. This Impression: Fecal impaction. Please refer to the CT abdomen pelvis 04/17/17
--- NOTE | 2017-04-19 14:52 | General Progress Note ---
Assessment/Plan Assessment/Plan 1. Anemia secondary to chronic disease. --> work up has been reviewed, hep/hiv are negative, ob negative --> no evidence of iron deficiency, the patient's ferritin is elevated --> hgb goal is above 7.5, transfuse prn --> abd xray = fecal impaction 2. Thrombocytopenia secondary to underlying sepsis. --> on abx per ID service 3. Cerebrovascular accident history. Continue to closely monitor. 4. Dysphagia status post gastrostomy tube. 5. Chronic functional quadriplegia. 6. Pneumonia with elevated white count, is on antibiotics. 7. Ceron catheter in place. 8. Respiratory failure status post tracheostomy. Subjective Constitutional: Reports: no symptoms HEENT: Reports: no symptoms Cardiovascular: Reports: no symptoms Respiratory: Reports: no symptoms Gastrointestinal/Abdominal: Reports: no symptoms Genitourinary: Reports: no symptoms Neurologic/Psychiatric: Reports: no symptoms Endocrine: Reports: no symptoms Hematologic/Lymphatic: Reports: anemia Allergies: Coded Allergies: AMOXICILLIN (Unverified Allergy, Unknown, 01/13/15) AMPICILLIN (Unverified Allergy, Unknown, 01/13/15) PENICILLINS (Unverified Allergy, Unknown, 01/13/15) PIPERACILLIN (Unverified Allergy, Unknown, 01/13/15) TAZOBACTAM (Unverified Allergy, Unknown, 01/13/15) LEVOFLOXACIN (Verified Adverse Reaction, Intermediate, 10/25/16) Red erythematous rash outbreak near IV site Subjective unable to speak clearly Objective Last 24 Hour Vital Signs Date Time Temp Pulse Resp B/P Pulse Ox O2 Delivery O2 Flow Rate FiO2 04/19/17 11:56 97.7 93 18 113/72 94 Nasal Cannula 2.0 04/19/17 08:29 97.9 78 19 108/69 94 Nasal Cannula 2.0 04/19/17 07:20 Nasal Cannula 4.0 36 04/19/17 07:19 79 20 Nasal Cannula 4.0 36 04/19/17 07:19 95 Nasal Cannula 4.0 36 04/19/17 04:00 98.6 95 20 102/61 96 Nasal Cannula 2.0 04/19/17 00:00 98.8 90 20 120/74 96 Nasal Cannula 2.0 04/18/17 20:00 97.1 77 20 117/77 98 Room Air 04/18/17 19:57 85 20 Nasal Cannula 4.0 36 04/18/17 19:57 Nasal Cannula 4.0 36 04/18/17 19:57 95 Nasal Cannula 4.0 36 04/18/17 16:00 97.7 91 18 129/85 91 Nasal Cannula 2.0 Intake and Output 04/18/17 04/19/17 19:00 07:00 Intake Total 955.000 ml 1317.416 ml Output Total 603 ml 403 ml Balance 352.000 ml 914.416 ml Intake Free Water 100 ml 100 ml IV Total 375.000 ml 817.416 ml Tube Feeding 480 ml 400 ml Output Urine Total 600 ml 400 ml Stool Total 3 ml 3 ml Laboratory Tests 04/19/17 02:00: Stool Occult Blood Negative Height (Feet): 6 Height (Inches): 11.00 Weight (Pounds): 170 General Appearance: no apparent distress EENT: normal ENT inspection Neck: normal alignment Cardiovascular: normal rate Abdomen: non tender Extremities: non-tender Edema: no edema noted Pedal (L), no edema noted Pedal (R) Obed Peterson Apr 19, 2017 14:52
[2017-04-19] MEDS ORDERED: Tubing IV Secondary IV ONE (15:57)
[2017-04-19 16:00] VITALS: BP 101/65
[2017-04-19] MEDS ORDERED: Mineral Oil 30ml ud ORAL ONE (16:30)
--- NOTE | 2017-04-19 16:45 | GI Initial Consult Note ---
History of Present Illness General Date patient seen: Apr 19, 2017 Time patient seen: 11:00 Reason for Hospitalization: Fever Referring physician: CAMILA LANTIGUA Reason for Consultation: RECTAL IMPACTION Present Illness HPI Patient is a 66-year-old male presented after increased fever. Patient was brought in by EMS. Patient noted have fever as facility. Patient been noted to be G-tube dependence as well as had prior tracheostomy. Patient was noted to be allergic to penicillin as well as levofloxacin. Patient had fever up to 101. Patient was noted to be hypotensive initially on presentation. History is limited by patient's mental status. GI Consult. HPI as noted above. GI consulted for rectal distention on recent CT AP 10/12 to fecal impaction. ROS limited, GT noted. Presents today with anemia and LFTs. Hep panel negative. Home Meds Reported Medications Temazepam* (TEMAZEPAM*) 30 Mg Capsule, 15 MG ORAL BEDTIME Y for Insomnia, CAP 04/15/17 Magnesium Hydroxide* (MILK OF MAGNESIA*) 400 Mg/5 Ml Oral.susp, 30 ML ORAL HS Y for Constipation, ML 04/15/17 Glucagon (Glucagen) 1 Mg/1 Ml Vial, 1 MG IJ Y for Hypoglycemia, VIAL 04/15/17 Warfarin Sod (COUMADIN*) 7.5 Mg Tablet, 6 MG GT DAILY, TAB 10/25/16 Diphenhydramine Hcl* (BENADRYL ALLERGY*) 12.5 Mg/5 Ml Liquid, 25 MG GT Q8 Y for Itching, ML 0 Refills 10/25/16 Clonidine Hcl (CLONIDINE HCL) 0.1 Mg Tablet, 0.1 MG PO EVERY 8 HOURS Y for For High Blood Pressure, TAB 01/13/15 Famotidine (PEPCID) 20 Mg Tablet, 20 MG GT BEDTIME, #7 TAB 0 Refills 01/13/15 Cranberry Fruit Concentrate (CRANBERRY) 450 Mg Capsule, 450 MG GT DAILY, CAP 01/13/15 Docusate Sodium* (DOCUSATE SODIUM*) 100 Mg Capsule, 200 MG GT DAILY, CAP 01/13/15 Albuterol Sulfate* (ALBUTEROL SULFATE HHN*) 2.5 Mg/3 Ml Vial.neb, 3 ML INH Q4H Y for Shortness of Breath, EA 01/13/15 Acetaminophen (Acetaminophen) 650 Mg/20.3 Ml Soln, 650 MG ORAL Q4HR Y for Prn Headache/Temp > 101, ML 0 Refills 01/13/15 Multivitamin With Minerals (MULTIVITAMINS WITH MINERALS*) 1 Each Tablet, 1 TAB GT DAILY, TAB 01/13/15 Lisinopril (LISINOPRIL*) 5 Mg Tablet, 5 MG GT DAILY, TAB 01/13/15 Heparin Sod (Porcine) (HEPARIN SODIUM*) 5 000/1 Ml Vial, 5000 UNITS SUBQ TWICE A DAY, VIAL 01/13/15 Divalproex Sodium (Depakote) 500 Mg Tabec, 500 MG GT THREE TIMES A DAY, TAB 01/13/15 Ipratropium/Albuterol Sulfate (Combivent Respimat Inhal [place]) 4 Gm Aer.w.adap, 4 GM IH 01/13/15 Carvedilol* (CARVEDILOL*) 3.125 Mg Tablet, 3.125 MG ORAL EVERY 12 HOURS, TAB 01/13/15 Discontinued Reported Medications [vit D3] No Conflict Check, 5000 UNITS PO DAILY 10/25/16 Nitroglycerin (NITROGLYCERIN) 0.4 Mg Tab.subl, 0.4 MG SL, TAB 01/13/15 Discontinued Scripts Vancomycin/0.9 % Sod Chloride (Vanco 750 mg/150 ml-0.9% NaCl) 750 Mg/150 Ml Froz.piggy, 750 MG IV DAILY, #1 BAG Prov:Chandana (Naida)Judy NP 10/31/16 Med list reviewed/reconciled: Yes Allergies: Coded Allergies: AMOXICILLIN (Unverified Allergy, Unknown, 01/13/15) AMPICILLIN (Unverified Allergy, Unknown, 01/13/15) PENICILLINS (Unverified Allergy, Unknown, 01/13/15) PIPERACILLIN (Unverified Allergy, Unknown, 01/13/15) TAZOBACTAM (Unverified Allergy, Unknown, 01/13/15) LEVOFLOXACIN (Verified Adverse Reaction, Intermediate, 10/25/16) Red erythematous rash outbreak near IV site Patient History History Provided By: Medical Record PMH Narrative Past Medical History: see triage record Reviewed Nursing Documentation: PMH: Agreed, PSxH: Agreed Nursing Documentation-PMH Hx Cardiac Problems: Yes Hx Hypertension: Yes Hx COPD: Yes Hx Diabetes: Yes Hx Cancer: No Hx Gastrointestinal Problems: Yes Hx Neurological Problems: Yes Hx Cerebrovascular Accident: Yes Hx Encephalitis: Yes Hx Seizures: Yes Hx Aphasia: Yes Social History: Denies: alcohol use, drug use, other, smoking Review of Systems All Other Systems: limited Physical Exam Vital Signs Date Time Temp Pulse Resp B/P Pulse Ox O2 Delivery O2 Flow Rate FiO2 04/15/17 12:19 98.6 105 18 91/52 97 Nasal Cannula 2.0 04/15/17 19:40 36 Sp02 EP Interpretation: reviewed Labs Laboratory Tests Test 04/19/17 02:00 Stool Occult Blood Negative (NEGATIVE) General Appearance: no apparent distress, alert Head: normocephalic EENT: PERRL/EOMI, normal ENT inspection Neck: supple Respiratory: no respiratory distress Cardiovascular: normal rate Gastrointestinal: soft, gt Rectal: deferred Musculoskeletal: back normal Neurologic: alert, responsive Skin: normal inspection, normal color, no rash, warm/dry Lymphatic: normal inspection, no adenopathy Current Medications Current Medications Medications (Trade) Dose Ordered Sig/Baljeet Route PRN Reason Start Time Stop Time Status Last Admin Dose Admin Acetaminophen (Tylenol) 650 mg Q4H PRN ORAL T>100.5 04/17/17 16:00 05/17/17 15:59 Albuterol/ Ipratropium (DuoNeb 0.5-3(2.5)mg/3ml) 3 ml Q4H PRN HHN Shortness of Breath 04/17/17 16:00 04/22/17 15:59 Dextrose 1,000 ml @ 50 mls/hr Q20H IV 04/17/17 16:15 05/17/17 16:14 04/18/17 20:20 Dextrose (Dextrose 50%) STAT PRN IV Hypoglycemia 04/17/17 16:00 05/17/17 15:59 Docusate Sodium (Colace) 100 mg THREE TIMES A DAY ORAL 04/19/17 18:00 05/19/17 17:59 Heparin Sodium (Porcine) (Heparin 5000 units/ml) 5,000 units EVERY 12 HOURS SUBQ 04/17/17 21:00 05/17/17 20:59 Insulin Aspart (NovoLOG) Q6HR SUBQ 04/17/17 18:00 05/17/17 17:59 04/19/17 12:52 Lactulose (Cephulac) 30 gm THREE TIMES A DAY ORAL 04/19/17 18:00 05/19/17 17:59 Lansoprazole (Prevacid) 30 mg DAILY GT 04/20/17 09:00 05/20/17 08:59 Lorazepam (Ativan 2mg/ml 1ml) 2 mg Q2H PRN IV For Anxiety 04/17/17 16:00 04/24/17 15:59 Mineral Oil (Mineral Oil) 30 ml DAILY ONCE ORAL 04/19/17 16:30 04/19/17 16:31 Morphine Sulfate (Morphine Sulfate) 4 mg Q4H PRN IVP Severe Pain (Pain Scale 7-10) 04/17/17 16:00 04/24/17 15:59 Ondansetron HCl (Zofran) 4 mg Q6H PRN IVP Nausea & Vomiting 04/17/17 16:00 05/17/17 15:59 Polyethylene Glycol (Miralax) 17 gm DAILYPRN PRN ORAL Constipation 04/17/17 16:00 05/17/17 15:59 Vancomycin HCl (Vanco rx to dose) 1 ea DAILY PRN MISC PRN RX PROTOCOL 04/17/17 16:00 05/17/17 15:59 Vancomycin HCl/ Dextrose (Vancomycin/D5W) 275 ml @ 183.708 mls/hr Q12HR@0200,1400 IVPB 04/18/17 02:00 04/23/17 01:59 04/19/17 15:14 GI: Plan Problems: (1) Feeding by G-tube (2) Acute encephalopathy (3) Constipation (4) Fecal impaction Plan CT AP reviewed >> Massive rectal distention by fecal material. Maximum diameter of the rectum is 9.5 cm transverse. hep panel negative OB stool negative ordered digital disimpaction bowel flush >> laxatives ATC + enemas prn repeat KUB am iron deficiency >> venofer GTFs per dietary fu labs Discussed with Dr. Yates. Thank you for referring this patient, we will follow. Darcy Cobb N.P. Apr 19, 2017 16:45
[2017-04-19] MEDS: Docusate 100mg cap ORAL SCH (17:37)
[2017-04-19] MEDS: Lactulose 20gm/30ml UDC ORAL SCH (17:40)
[2017-04-19 20:00] VITALS: BP 112/65
[2017-04-19] MEDS ORDERED: Miralax 17gm pkt ORAL SCH (21:00)
--- NOTE | 2017-04-19 22:07 | Pulmonology Progress Note ---
Assessment/Plan Problems: (1) Septic shock (2) Chronic complete quadriplegia (3) History of CVA (cerebrovascular accident) (4) Seizures (5) Feeding by G-tube Assessment/Plan CT abdomen noticed, rectal distension b/o stool improving Iv antibiotics check cultures tolerating feeding anemia w/u med/surg GI evaluation appreciated digital deimpaction ordered Subjective ROS Limited/Unobtainable: Yes Interval Events: looks comfortable Allergies: Coded Allergies: AMOXICILLIN (Unverified Allergy, Unknown, 01/13/15) AMPICILLIN (Unverified Allergy, Unknown, 01/13/15) PENICILLINS (Unverified Allergy, Unknown, 01/13/15) PIPERACILLIN (Unverified Allergy, Unknown, 01/13/15) TAZOBACTAM (Unverified Allergy, Unknown, 01/13/15) LEVOFLOXACIN (Verified Adverse Reaction, Intermediate, 10/25/16) Red erythematous rash outbreak near IV site Objective Last 24 Hour Vital Signs Date Time Temp Pulse Resp B/P Pulse Ox O2 Delivery O2 Flow Rate FiO2 04/19/17 21:18 Nasal Cannula 3.0 32 04/19/17 21:18 97 Nasal Cannula 3.0 32 04/19/17 21:18 80 20 Nasal Cannula 3.0 32 04/19/17 20:00 98.1 89 20 112/65 97 Nasal Cannula 04/19/17 16:00 97.0 89 19 101/65 95 Nasal Cannula 2.0 04/19/17 11:56 97.7 93 18 113/72 94 Nasal Cannula 2.0 04/19/17 08:29 97.9 78 19 108/69 94 Nasal Cannula 2.0 04/19/17 07:20 Nasal Cannula 4.0 36 04/19/17 07:19 79 20 Nasal Cannula 4.0 36 04/19/17 07:19 95 Nasal Cannula 4.0 36 04/19/17 04:00 98.6 95 20 102/61 96 Nasal Cannula 2.0 04/19/17 00:00 98.8 90 20 120/74 96 Nasal Cannula 2.0 Intake and Output 04/18/17 04/19/17 19:00 07:00 Intake Total 955.000 ml 1357.416 ml Output Total 603 ml 403 ml Balance 352.000 ml 954.416 ml Intake Free Water 100 ml 100 ml IV Total 375.000 ml 817.416 ml Tube Feeding 480 ml 440 ml Output Urine Total 600 ml 400 ml Stool Total 3 ml 3 ml General Appearance: WD/WN HEENT: normocephalic, atraumatic Respiratory/Chest: chest wall non-tender, lungs clear Cardiovascular: normal peripheral pulses, normal rate Abdomen: normal bowel sounds, soft, non tender Extremities: no cyanosis Laboratory Tests 04/19/17 02:00: Stool Occult Blood Negative Current Medications Medications (Trade) Dose Ordered Sig/Abljeet Route PRN Reason Start Time Stop Time Status Last Admin Dose Admin Acetaminophen (Tylenol) 650 mg Q4H PRN ORAL T>100.5 04/17/17 16:00 05/17/17 15:59 Albuterol/ Ipratropium (DuoNeb 0.5-3(2.5)mg/3ml) 3 ml Q4H PRN HHN Shortness of Breath 04/17/17 16:00 04/22/17 15:59 Dextrose 1,000 ml @ 50 mls/hr Q20H IV 04/17/17 16:15 05/17/17 16:14 04/18/17 20:20 Dextrose (Dextrose 50%) STAT PRN IV Hypoglycemia 04/17/17 16:00 05/17/17 15:59 Docusate Sodium (Colace) 100 mg THREE TIMES A DAY ORAL 04/19/17 18:00 05/19/17 17:59 Heparin Sodium (Porcine) (Heparin 5000 units/ml) 5,000 units EVERY 12 HOURS SUBQ 04/17/17 21:00 05/17/17 20:59 Insulin Aspart (NovoLOG) Q6HR SUBQ 04/17/17 18:00 05/17/17 17:59 04/19/17 18:29 Lactulose (Cephulac) 30 gm THREE TIMES A DAY ORAL 04/19/17 18:00 05/19/17 17:59 04/19/17 17:40 Lansoprazole (Prevacid) 30 mg DAILY GT 04/20/17 09:00 05/20/17 08:59 Lorazepam (Ativan 2mg/ml 1ml) 2 mg Q2H PRN IV For Anxiety 04/17/17 16:00 04/24/17 15:59 Morphine Sulfate (Morphine Sulfate) 4 mg Q4H PRN IVP Severe Pain (Pain Scale 7-10) 04/17/17 16:00 04/24/17 15:59 Ondansetron HCl (Zofran) 4 mg Q6H PRN IVP Nausea & Vomiting 04/17/17 16:00 05/17/17 15:59 Polyethylene Glycol (Miralax) 17 gm BEDTIME ORAL 04/19/17 21:00 05/19/17 20:59 Polyethylene Glycol (Miralax) 17 gm DAILYPRN PRN ORAL Constipation 04/17/17 16:00 05/17/17 15:59 Vancomycin HCl (Vanco rx to dose) 1 ea DAILY PRN MISC PRN RX PROTOCOL 04/17/17 16:00 05/17/17 15:59 Vancomycin HCl/ Dextrose (Vancomycin/D5W) 275 ml @ 183.708 mls/hr Q12HR@0200,1400 IVPB 04/18/17 02:00 04/23/17 01:59 04/19/17 15:14 LATRICE DEL RIO Apr 19, 2017 22:07
[2017-04-20 00:49] VITALS: BP 141/67
[2017-04-20] MEDS: Vancomycin 750 MG in D5W 275 ML IVPB SCH ×2 (01:43→13:10)
[2017-04-20 03:44] VITALS: BP 117/69
[2017-04-20] MEDS: NovoLOG Insulin Flexpen SUBQ SCH ×2 (05:50→11:28)
[2017-04-20 06:57] LABS: BASOPHILS % (AUTO) 0.7 % (0.0-2.0); EOSINOPHILS % (AUTO) 4.8 % (0.0-3.0); LYMPHOCYTES % (AUTO) 15.6 % (20.0-45.0); MEAN CORPUSCULAR HEMOGLOBIN 32.4 PG (27.0-31.0); MEAN CORPUSCULAR HGB CONC 33.1 G/DL (32.0-36.0); MEAN CORPUSCULAR VOLUME 98 FL (80-99); MONOCYTES % (AUTO) 7.2 % (1.0-10.0); NEUTROPHILS % (AUTO) 71.7 % (45.0-75.0); PLATELET COUNT 232 K/UL (150-450); RED CELL DISTRIBUTION WIDTH 14.4 % (11.6-14.8); WHITE BLOOD COUNT 5.2 K/UL (4.8-10.8)
[2017-04-20 06:58] LABS: ALANINE AMINOTRANSFERASE 30 U/L (3-41); ALBUMIN/GLOBULIN RATIO 0.5 (1.0-2.7); ANION GAP 11 (5-15); ASPARTATE AMINO TRANSFERASE 36 U/L (5-40); CALCIUM 9.1 mg/dL (8.6-10.2); CARBON DIOXIDE 28 mEQ/L (20-30); CHLORIDE 97 mEQ/L (98-107); CREATININE 0.7 mg/dL (0.7-1.2); GLOMERULAR FILTRATION RATE > 60 mL/min (>60); HEMOLYSIS 0; MAGNESIUM 1.4 mg/dL (1.7-2.5); PHOSPHORUS 2.6 mg/dL (2.5-4.8); SODIUM 136 mEQ/L (135-145); TOTAL PROTEIN 7.9 g/dL (6.6-8.7)
--- NOTE | 2017-04-20 07:15 | Progress Note ---
DATE: 04/19/2017 SUBJECTIVE: The patient's chart reviewed in detail in regards to imaging study, laboratory tests, and microbiology. The patient was interviewed and examined at length. The patient was admitted because of septic shock, was given fluid volume resuscitation. He was found to have MRSA, right lower lobe pneumonia, and rectal distention secondary to rectal impaction. He was placed on broad-spectrum antibiotic. Due to rectal impaction, underwent disimpaction. At the time of this dictation, his condition is as follows. OBJECTIVE: VITAL SIGNS: Blood pressure was 136/65, his pulse was 89, respirations were 20, and temperature was 98.1 degrees. HEENT: Eyes were normal. ENT, mucous membranes were moist and intact. NECK: Supple with no JVD without lymph nodes. Tracheostomy site is clean. LUNGS: Clear without rhonchi, rales, or wheezing. Secretions are small, thin, and pale yellow. HEART: Normal sounds with regular beats. There is no S3, S4, or pericardial rub. ABDOMEN: Soft and nontender with normal bowel sounds. Gastrostomy site is clean. EXTREMITIES: Warm without cyanosis, clubbing, or edema. IMPRESSION AND PLAN: At the present time, the status of the disimpaction is unclear. The patient's WBC is 3.1 as of yesterday. Repeat laboratory tests and chest x-ray will be done in the morning. Decision will be done regarding the patient's discharge. The patient clinically is stable. Shay Connolly M.D. DR: Salma JOB#: [id number] CC:
[2017-04-20 08:28] VITALS: BP 134/88
[2017-04-20] MEDS: Docusate 100mg cap ORAL SCH ×2 (08:28→13:09)
[2017-04-20] MEDS: Lactulose 20gm/30ml UDC ORAL SCH ×2 (08:28→13:09)
[2017-04-20] MEDS: Heparin 5000 units/ml inj SUBQ SCH (08:29)
[2017-04-20] MEDS ORDERED: 1/2 NS 1000ml IV ONE (09:08)
--- NOTE | 2017-04-20 11:09 | GI Progress Note ---
Assessment/Plan Problems: (1) Fecal impaction ICD Codes: K56.41 - Fecal impaction SNOMED: 54311824 (2) Acute encephalopathy ICD Codes: G93.40 - Encephalopathy, unspecified SNOMED: 5748688 (3) Constipation ICD Codes: K59.00 - Constipation SNOMED: 60193431 (4) Feeding by G-tube ICD Codes: Z93.1 - Gastrostomy status SNOMED: 413601104, 376077816 (5) Aspiration pneumonia ICD Codes: J69.0 - Pneumonitis due to inhalation of food and vomit SNOMED: 171365071 (6) Anemia ICD Codes: D64.9 - Anemia SNOMED: 398691806 Status: stable Status Narrative Discussed with Dr. Yates. Assessment/Plan CT AP reviewed >> Massive rectal distention by fecal material. hep panel negative OB stool negative digital disimpaction >> BM x 2 this morning bowel flush >> laxatives ATC + enemas prn fu KUB iron deficiency >> venofer GTFs per dietary fu labs Subjective Subjective limited Objective Last 24 Hour Vital Signs Date Time Temp Pulse Resp B/P Pulse Ox O2 Delivery O2 Flow Rate FiO2 04/20/17 08:28 98.7 102 20 134/88 95 Nasal Cannula 2.0 04/20/17 08:07 Nasal Cannula 3.0 32 04/20/17 08:06 94 Nasal Cannula 3.0 32 04/20/17 08:05 83 20 Nasal Cannula 3.0 32 04/20/17 03:44 97.7 100 20 117/69 93 Room Air 04/20/17 00:49 97.7 71 20 141/67 94 Nasal Cannula 04/19/17 21:18 Nasal Cannula 3.0 32 04/19/17 21:18 97 Nasal Cannula 3.0 32 04/19/17 21:18 80 20 Nasal Cannula 3.0 32 04/19/17 20:00 98.1 89 20 112/65 97 Nasal Cannula 04/19/17 16:00 97.0 89 19 101/65 95 Nasal Cannula 2.0 04/19/17 11:56 97.7 93 18 113/72 94 Nasal Cannula 2.0 Intake and Output 04/19/17 04/20/17 19:00 07:00 Intake Total 1477.416 ml 1267.416 ml Output Total 150 ml Balance 1327.416 ml 1267.416 ml Intake Free Water 130 ml 100 ml IV Total 867.416 ml 867.416 ml Tube Feeding 480 ml 300 ml Output Urine Total 150 ml # Bowel Movements 2 Laboratory Tests Test 04/20/17 05:30 White Blood Count 5.2 K/UL (4.8-10.8) Red Blood Count 3.00 M/UL (4.70-6.10) L Hemoglobin 9.7 G/DL (14.2-18.0) L Hematocrit 29.3 % (42.0-52.0) L Mean Corpuscular Volume 98 FL (80-99) Mean Corpuscular Hemoglobin 32.4 PG (27.0-31.0) H Mean Corpuscular Hemoglobin Concent 33.1 G/DL (32.0-36.0) Red Cell Distribution Width 14.4 % (11.6-14.8) Platelet Count 232 K/UL (150-450) Mean Platelet Volume 6.0 FL (6.5-10.1) L Neutrophils (%) (Auto) 71.7 % (45.0-75.0) Lymphocytes (%) (Auto) 15.6 % (20.0-45.0) L Monocytes (%) (Auto) 7.2 % (1.0-10.0) Eosinophils (%) (Auto) 4.8 % (0.0-3.0) H Basophils (%) (Auto) 0.7 % (0.0-2.0) Sodium Level 136 mEQ/L (135-145) Potassium Level 4.0 mEQ/L (3.4-4.9) Chloride Level 97 mEQ/L (98-107) L Carbon Dioxide Level 28 mEQ/L (20-30) Anion Gap 11 (5-15) Blood Urea Nitrogen 14 mg/dL (7-23) Creatinine 0.7 mg/dL (0.7-1.2) Estimat Glomerular Filtration Rate > 60 mL/min (>60) Glucose Level 130 mg/dL (74-106) H Calcium Level 9.1 mg/dL (8.6-10.2) Phosphorus Level 2.6 mg/dL (2.5-4.8) Magnesium Level 1.4 mg/dL (1.7-2.5) L Total Bilirubin 0.3 mg/dL (0.0-1.2) Aspartate Amino Transf (AST/SGOT) 36 U/L (5-40) Alanine Aminotransferase (ALT/SGPT) 30 U/L (3-41) Alkaline Phosphatase 159 U/L (40-129) H Total Protein 7.9 g/dL (6.6-8.7) Albumin 2.7 g/dL (3.5-5.2) L Globulin 5.2 g/dL Albumin/Globulin Ratio 0.5 (1.0-2.7) L Height (Feet): 6 Height (Inches): 11.00 Weight (Pounds): 171 General Appearance: no apparent distress, alert Cardiovascular: normal rate Respiratory/Chest: normal breath sounds, no respiratory distress Abdominal Exam: normal bowel sounds, non tender, soft Darcy Cobb N.P. Apr 20, 2017 11:09
--- NOTE | 2017-04-20 11:13 | General Progress Note ---
Assessment/Plan Assessment/Plan 1. Anemia secondary to chronic disease. --> work up has been reviewed, hep/hiv are negative, ob negative --> no evidence of iron deficiency, the patient's ferritin is elevated --> hgb goal is above 7.5, transfuse prn --> abd xray = rectal distension, fecal impaction 2. Thrombocytopenia secondary to underlying sepsis. --> on abx per ID service 3. Cerebrovascular accident history. Continue to closely monitor. 4. Dysphagia status post gastrostomy tube. 5. Chronic functional quadriplegia. 6. Pneumonia with elevated white count, is on antibiotics. 7. Ceron catheter in place. 8. Respiratory failure status post tracheostomy. Subjective Constitutional: Reports: no symptoms HEENT: Reports: no symptoms Cardiovascular: Reports: no symptoms Respiratory: Reports: no symptoms Gastrointestinal/Abdominal: Reports: no symptoms Genitourinary: Reports: no symptoms Neurologic/Psychiatric: Reports: no symptoms Endocrine: Reports: no symptoms Hematologic/Lymphatic: Reports: anemia Allergies: Coded Allergies: AMOXICILLIN (Unverified Allergy, Unknown, 01/13/15) AMPICILLIN (Unverified Allergy, Unknown, 01/13/15) PENICILLINS (Unverified Allergy, Unknown, 01/13/15) PIPERACILLIN (Unverified Allergy, Unknown, 01/13/15) TAZOBACTAM (Unverified Allergy, Unknown, 01/13/15) LEVOFLOXACIN (Verified Adverse Reaction, Intermediate, 10/25/16) Red erythematous rash outbreak near IV site Subjective afebrile, NAD Objective Last 24 Hour Vital Signs Date Time Temp Pulse Resp B/P Pulse Ox O2 Delivery O2 Flow Rate FiO2 04/20/17 08:28 98.7 102 20 134/88 95 Nasal Cannula 2.0 04/20/17 08:07 Nasal Cannula 3.0 32 04/20/17 08:06 94 Nasal Cannula 3.0 32 04/20/17 08:05 83 20 Nasal Cannula 3.0 32 04/20/17 03:44 97.7 100 20 117/69 93 Room Air 04/20/17 00:49 97.7 71 20 141/67 94 Nasal Cannula 04/19/17 21:18 Nasal Cannula 3.0 32 04/19/17 21:18 97 Nasal Cannula 3.0 32 04/19/17 21:18 80 20 Nasal Cannula 3.0 32 04/19/17 20:00 98.1 89 20 112/65 97 Nasal Cannula 04/19/17 16:00 97.0 89 19 101/65 95 Nasal Cannula 2.0 04/19/17 11:56 97.7 93 18 113/72 94 Nasal Cannula 2.0 Intake and Output 04/19/17 04/20/17 19:00 07:00 Intake Total 1477.416 ml 1267.416 ml Output Total 150 ml Balance 1327.416 ml 1267.416 ml Intake Free Water 130 ml 100 ml IV Total 867.416 ml 867.416 ml Tube Feeding 480 ml 300 ml Output Urine Total 150 ml # Bowel Movements 2 Laboratory Tests 04/20/17 05:30: White Blood Count 5.2, Red Blood Count 3.00L, Hemoglobin 9.7L, Hematocrit 29.3L , Mean Corpuscular Volume 98, Mean Corpuscular Hemoglobin 32.4H, Mean Corpuscular Hemoglobin Concent 33.1, Red Cell Distribution Width 14.4, Platelet Count 232, Mean Platelet Volume 6.0L, Neutrophils (%) (Auto) 71.7, Lymphocytes ( %) (Auto) 15.6L, Monocytes (%) (Auto) 7.2, Eosinophils (%) (Auto) 4.8H, Basophils (%) (Auto) 0.7, Sodium Level 136, Potassium Level 4.0, Chloride Level 97L, Carbon Dioxide Level 28, Anion Gap 11, Blood Urea Nitrogen 14, Creatinine 0.7, Estimat Glomerular Filtration Rate > 60, Glucose Level 130H, Calcium Level 9.1, Phosphorus Level 2.6, Magnesium Level 1.4L, Total Bilirubin 0.3, Aspartate Amino Transf (AST/SGOT) 36, Alanine Aminotransferase (ALT/SGPT) 30, Alkaline Phosphatase 159H, Total Protein 7.9, Albumin 2.7L, Globulin 5.2, Albumin/ Globulin Ratio 0.5L Height (Feet): 6 Height (Inches): 11.00 Weight (Pounds): 171 General Appearance: no apparent distress EENT: TMs normal Neck: normal alignment Cardiovascular: normal rate Extremities: normal range of motion Edema: no edema noted Pedal (L), no edema noted Pedal (R) Neurologic: no motor/sensory deficits Skin: warm/dry Obed Peterson Apr 20, 2017 11:13
[2017-04-20 11:45] VITALS: BP 142/74
[2017-04-20] MEDS ORDERED: LACTULOSE20 GM/301 GT (11:54)
[2017-04-20] MEDS ORDERED: VANCOMYCIN1 GM/2502 IVPB (11:55)
[2017-04-20] MEDS ORDERED: NOVOLOG100 UNIT/5 (11:55)
--- NOTE | 2017-04-20 12:28 | Infectious Diseases Prog Note ---
Assessment/Plan Assessment/Plan A: Sepsis MRSA pneumonia PCN , multiple antibiotic allergy Anemia Inguinal hernia P: Continue Vancomycin for few days Subjective ROS Limited/Unobtainable: Yes Allergies: Coded Allergies: AMOXICILLIN (Unverified Allergy, Unknown, 01/13/15) AMPICILLIN (Unverified Allergy, Unknown, 01/13/15) PENICILLINS (Unverified Allergy, Unknown, 01/13/15) PIPERACILLIN (Unverified Allergy, Unknown, 01/13/15) TAZOBACTAM (Unverified Allergy, Unknown, 01/13/15) LEVOFLOXACIN (Verified Adverse Reaction, Intermediate, 10/25/16) Red erythematous rash outbreak near IV site Objective Vital Signs Last 24 Hour Vital Signs Date Time Temp Pulse Resp B/P Pulse Ox O2 Delivery O2 Flow Rate FiO2 04/20/17 11:45 98.4 99 20 142/74 95 Nasal Cannula 2.0 04/20/17 08:28 98.7 102 20 134/88 95 Nasal Cannula 2.0 04/20/17 08:07 Nasal Cannula 3.0 32 04/20/17 08:06 94 Nasal Cannula 3.0 32 04/20/17 08:05 83 20 Nasal Cannula 3.0 32 04/20/17 03:44 97.7 100 20 117/69 93 Room Air 04/20/17 00:49 97.7 71 20 141/67 94 Nasal Cannula 04/19/17 21:18 Nasal Cannula 3.0 32 04/19/17 21:18 97 Nasal Cannula 3.0 32 04/19/17 21:18 80 20 Nasal Cannula 3.0 32 04/19/17 20:00 98.1 89 20 112/65 97 Nasal Cannula 04/19/17 16:00 97.0 89 19 101/65 95 Nasal Cannula 2.0 Height (Feet): 6 Height (Inches): 11.00 Weight (Pounds): 171 General Appearance: no acute distress HEENT: other - tracheostomy site healed Respiratory/Chest: rhonchi - bilaterally Cardiovascular: normal rate Abdomen: distended, other - GT feeding Extremities: no edema Neurologic/Psychiatric: alert, responsive, aphasia Laboratory Tests Test 04/20/17 05:30 White Blood Count 5.2 K/UL (4.8-10.8) Red Blood Count 3.00 M/UL (4.70-6.10) L Hemoglobin 9.7 G/DL (14.2-18.0) L Hematocrit 29.3 % (42.0-52.0) L Mean Corpuscular Volume 98 FL (80-99) Mean Corpuscular Hemoglobin 32.4 PG (27.0-31.0) H Mean Corpuscular Hemoglobin Concent 33.1 G/DL (32.0-36.0) Red Cell Distribution Width 14.4 % (11.6-14.8) Platelet Count 232 K/UL (150-450) Mean Platelet Volume 6.0 FL (6.5-10.1) L Neutrophils (%) (Auto) 71.7 % (45.0-75.0) Lymphocytes (%) (Auto) 15.6 % (20.0-45.0) L Monocytes (%) (Auto) 7.2 % (1.0-10.0) Eosinophils (%) (Auto) 4.8 % (0.0-3.0) H Basophils (%) (Auto) 0.7 % (0.0-2.0) Sodium Level 136 mEQ/L (135-145) Potassium Level 4.0 mEQ/L (3.4-4.9) Chloride Level 97 mEQ/L (98-107) L Carbon Dioxide Level 28 mEQ/L (20-30) Anion Gap 11 (5-15) Blood Urea Nitrogen 14 mg/dL (7-23) Creatinine 0.7 mg/dL (0.7-1.2) Estimat Glomerular Filtration Rate > 60 mL/min (>60) Glucose Level 130 mg/dL (74-106) H Calcium Level 9.1 mg/dL (8.6-10.2) Phosphorus Level 2.6 mg/dL (2.5-4.8) Magnesium Level 1.4 mg/dL (1.7-2.5) L Total Bilirubin 0.3 mg/dL (0.0-1.2) Aspartate Amino Transf (AST/SGOT) 36 U/L (5-40) Alanine Aminotransferase (ALT/SGPT) 30 U/L (3-41) Alkaline Phosphatase 159 U/L (40-129) H Total Protein 7.9 g/dL (6.6-8.7) Albumin 2.7 g/dL (3.5-5.2) L Globulin 5.2 g/dL Albumin/Globulin Ratio 0.5 (1.0-2.7) L Current Medications Medications (Trade) Dose Ordered Sig/Baljeet Route PRN Reason Start Time Stop Time Status Last Admin Dose Admin Acetaminophen (Tylenol) 650 mg Q4H PRN ORAL T>100.5 04/17/17 16:00 05/17/17 15:59 Albuterol/ Ipratropium (DuoNeb 0.5-3(2.5)mg/3ml) 3 ml Q4H PRN HHN Shortness of Breath 04/17/17 16:00 04/22/17 15:59 Dextrose 1,000 ml @ 50 mls/hr Q20H IV 04/17/17 16:15 05/17/17 16:14 04/19/17 19:44 Dextrose (Dextrose 50%) STAT PRN IV Hypoglycemia 04/17/17 16:00 05/17/17 15:59 Docusate Sodium (Colace) 100 mg THREE TIMES A DAY ORAL 04/19/17 18:00 05/19/17 17:59 04/20/17 08:28 Heparin Sodium (Porcine) (Heparin 5000 units/ml) 5,000 units EVERY 12 HOURS SUBQ 04/17/17 21:00 05/17/17 20:59 04/20/17 08:29 Insulin Aspart (NovoLOG) Q6HR SUBQ 04/17/17 18:00 05/17/17 17:59 04/20/17 11:28 Lactulose (Cephulac) 30 gm THREE TIMES A DAY ORAL 04/19/17 18:00 05/19/17 17:59 04/20/17 08:28 Lansoprazole (Prevacid) 30 mg DAILY GT 04/20/17 09:00 05/20/17 08:59 04/20/17 08:28 Lorazepam (Ativan 2mg/ml 1ml) 2 mg Q2H PRN IV For Anxiety 04/17/17 16:00 04/24/17 15:59 Morphine Sulfate (Morphine Sulfate) 4 mg Q4H PRN IVP Severe Pain (Pain Scale 7-10) 04/17/17 16:00 04/24/17 15:59 Ondansetron HCl (Zofran) 4 mg Q6H PRN IVP Nausea & Vomiting 04/17/17 16:00 05/17/17 15:59 Polyethylene Glycol (Miralax) 17 gm BEDTIME ORAL 04/19/17 21:00 05/19/17 20:59 Polyethylene Glycol (Miralax) 17 gm DAILYPRN PRN ORAL Constipation 04/17/17 16:00 05/17/17 15:59 Vancomycin HCl (Vanco rx to dose) 1 ea DAILY PRN MISC PRN RX PROTOCOL 04/17/17 16:00 05/17/17 15:59 Vancomycin HCl/ Dextrose (Vancomycin/D5W) 275 ml @ 183.708 mls/hr Q12HR@0200,1400 IVPB 04/18/17 02:00 04/23/17 01:59 04/20/17 01:43 ELVA HERNANDEZ Apr 20, 2017 12:28
[2017-04-20 15:46] VITALS: BP 121/88
--- NOTE | 2017-04-20 19:13 | Pulmonology Progress Note ---
Assessment/Plan Problems: (1) Septic shock (2) Chronic complete quadriplegia (3) History of CVA (cerebrovascular accident) (4) Seizures (5) Feeding by G-tube Assessment/Plan had large bm improving check cultures tolerating feeding anemia w/u med/surg GI evaluation appreciated dc to correction Subjective ROS Limited/Unobtainable: No Constitutional: Reports: no symptoms HEENT: Repors: no symptoms Respiratory: Reports: no symptoms Allergies: Coded Allergies: AMOXICILLIN (Unverified Allergy, Unknown, 01/13/15) AMPICILLIN (Unverified Allergy, Unknown, 01/13/15) PENICILLINS (Unverified Allergy, Unknown, 01/13/15) PIPERACILLIN (Unverified Allergy, Unknown, 01/13/15) TAZOBACTAM (Unverified Allergy, Unknown, 01/13/15) LEVOFLOXACIN (Verified Adverse Reaction, Intermediate, 10/25/16) Red erythematous rash outbreak near IV site Objective Last 24 Hour Vital Signs Date Time Temp Pulse Resp B/P Pulse Ox O2 Delivery O2 Flow Rate FiO2 04/20/17 15:46 97.9 100 20 121/88 95 Nasal Cannula 2.0 04/20/17 11:45 98.4 99 20 142/74 95 Nasal Cannula 2.0 04/20/17 08:28 98.7 102 20 134/88 95 Nasal Cannula 2.0 04/20/17 08:07 Nasal Cannula 3.0 32 04/20/17 08:06 94 Nasal Cannula 3.0 32 04/20/17 08:05 83 20 Nasal Cannula 3.0 32 04/20/17 03:44 97.7 100 20 117/69 93 Room Air 04/20/17 00:49 97.7 71 20 141/67 94 Nasal Cannula 04/19/17 21:18 Nasal Cannula 3.0 32 04/19/17 21:18 97 Nasal Cannula 3.0 32 04/19/17 21:18 80 20 Nasal Cannula 3.0 32 04/19/17 20:00 98.1 89 20 112/65 97 Nasal Cannula Intake and Output 04/19/17 04/20/17 19:00 07:00 Intake Total 1477.416 ml 1267.416 ml Output Total 150 ml Balance 1327.416 ml 1267.416 ml Intake Free Water 130 ml 100 ml IV Total 867.416 ml 867.416 ml Tube Feeding 480 ml 300 ml Output Urine Total 150 ml # Bowel Movements 2 General Appearance: WD/WN HEENT: normocephalic, atraumatic Respiratory/Chest: chest wall non-tender, lungs clear Cardiovascular: normal peripheral pulses, normal rate Abdomen: normal bowel sounds Genitourinary: normal external genitalia Skin: no rash Laboratory Tests 04/20/17 05:30: White Blood Count 5.2, Red Blood Count 3.00L, Hemoglobin 9.7L, Hematocrit 29.3L , Mean Corpuscular Volume 98, Mean Corpuscular Hemoglobin 32.4H, Mean Corpuscular Hemoglobin Concent 33.1, Red Cell Distribution Width 14.4, Platelet Count 232, Mean Platelet Volume 6.0L, Neutrophils (%) (Auto) 71.7, Lymphocytes ( %) (Auto) 15.6L, Monocytes (%) (Auto) 7.2, Eosinophils (%) (Auto) 4.8H, Basophils (%) (Auto) 0.7, Sodium Level 136, Potassium Level 4.0, Chloride Level 97L, Carbon Dioxide Level 28, Anion Gap 11, Blood Urea Nitrogen 14, Creatinine 0.7, Estimat Glomerular Filtration Rate > 60, Glucose Level 130H, Calcium Level 9.1, Phosphorus Level 2.6, Magnesium Level 1.4L, Total Bilirubin 0.3, Aspartate Amino Transf (AST/SGOT) 36, Alanine Aminotransferase (ALT/SGPT) 30, Alkaline Phosphatase 159H, Total Protein 7.9, Albumin 2.7L, Globulin 5.2, Albumin/ Globulin Ratio 0.5L LATRICE DEL RIO Apr 20, 2017 19:13
--- NOTE | 2017-04-21 09:17 | Discharge Summary ---
DATE OF ADMISSION: 04/15/2017 DATE OF DISCHARGE: 04/20/2017 This is one of the several admissions to [facility] of this 66-year-old patient because of septic shock. HISTORY OF PRESENT ILLNESS: Details of the event and circumstances that led the patient to be admitted to this medical unit can be found in the History and Physical. In brief, the patient is a resident of an extended care facility where he has been in precarious condition patient to [facility] one month ago, he developed fever, tachycardia, hypotension, and shortness of breath. He was transferred by paramedics to [facility] ER where he was found to be in septic shock and was admitted. HOSPITAL COURSE: Upon admission, the patient underwent clinical, biological, and imaging study. Clinical assessment reveals the patient , tachycardia, received volume replacement and pressor support. He was placed in the morning and was seen by program production specialist and Infectious Diseases specialist. He was placed on broad-spectrum antibiotic. Assessment by that time revealed the patient to have right lower lobe pneumonia and a small left lower lobe pneumonia. In addition, CT scan of the abdomen and pelvis revealed the patient having a large distention of his rectum secondary to rectal impaction. Over the next several days disimpaction maneuvers took place and the patient evacuated a large volume of stool during this time. The patient's fever resolved, tachycardia normalized, and leukocytosis normalized as well. At the time of this dictation, he is alert, afebrile, and hemodynamically stable with blood pressure of 142/74, with pulse of 99, respirations of 20, and temperature of 98.4. He will continue with IV antibiotics in the extended care facility where he will be seen just 24 hours after discharge. Shay Connolly M.D. DR: JOSE LUIS JOB#: [id number] CC:
--- NOTE | 2017-04-23 08:27 | Diagnostic Imaging Report ---
Indication: Abdominal pain Comparison: None Single view of the abdomen obtained There is moderate fecal retention again demonstrated within the rectum. Bowel gas pattern remains nonspecific. Impression: Fecal impaction. No record changer the last day
--- NOTE | 2017-04-23 14:09 | Discharge Summary ---
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 acute kidney injury -resolved acute encephalopathy constipation HTN DM chronic functional quadriplegia dysphagia, G tube hx of CVA DM HTN Discharge Medications Continued Medications: Acetaminophen (Acetaminophen) 650 Mg/20.3 Ml Soln 650 MG ORAL Q4HR PRN for Prn Headache/Temp > 101, ML 0 Refills Albuterol Sulfate* (Albuterol Sulfate Hhn*) 2.5 Mg/3 Ml Vial.neb 3 ML INH Q4H PRN for Shortness of Breath, EA Carvedilol* (Carvedilol*) 3.125 Mg Tablet 3.125 MG ORAL EVERY 12 HOURS, TAB Clonidine Hcl (Clonidine Hcl) 0.1 Mg Tablet 0.1 MG PO EVERY 8 HOURS PRN for For High Blood Pressure, TAB Cranberry Fruit Concentrate (Cranberry) 450 Mg Capsule 450 MG GT DAILY, CAP Diphenhydramine Hcl* (Benadryl Allergy*) 12.5 Mg/5 Ml Liquid 25 MG GT Q8 PRN for Itching, ML 0 Refills Divalproex Sodium (Depakote) 500 Mg Tabec 500 MG GT THREE TIMES A DAY, TAB Docusate Sodium* (Docusate Sodium*) 100 Mg Capsule 200 MG GT DAILY, CAP Famotidine (Pepcid) 20 Mg Tablet 20 MG GT BEDTIME, #7 TAB 0 Refills Heparin Sod (Porcine) (Heparin Sodium*) 5 000/1 Ml Vial 5000 UNITS SUBQ TWICE A DAY, VIAL Insulin Aspart (Novolog) 100 Unit/1 Ml Vial AC+HS PRN for SLIDING SCALE Lactulose (Lactulose*) 20 Gm/30 Ml Solution 30 ML GT TID, ML 0 Refills Vancomycin Hcl/D5w (Vancomycin-D5w 1 G/250 Ml) 1 Gm/250 Ml Plast..bag 750 GM IVPB Q12HR PRN for PHARM TO DOSE, BAG Discontinued Medications: Glucagon (Glucagen) 1 Mg/1 Ml Vial 1 MG IJ PRN for Hypoglycemia, VIAL Ipratropium/Albuterol Sulfate (Combivent Respimat Inhal Limon) 4 Gm Aer.w.adap 4 GM IH Lisinopril (Lisinopril*) 5 Mg Tablet 5 MG GT DAILY, TAB Magnesium Hydroxide* (Milk Of Magnesia*) 400 Mg/5 Ml Oral.susp 30 ML ORAL HS PRN for Constipation, ML Multivitamin With Minerals (Multivitamins With Minerals*) 1 Each Tablet 1 TAB GT DAILY, TAB Temazepam* (Temazepam*) 30 Mg Capsule 15 MG ORAL BEDTIME PRN for Insomnia, CAP Warfarin Sod (Coumadin*) 7.5 Mg Tablet 6 MG GT DAILY, TAB Discharge Condition Upon Discharge: stable Discharge Disposition Patient was discharged to SNF/Subacute Facility(03) Discharge Diagnoses: Discharge Instructions Discharge Instructions Special Instructions I have been assigned to complete a D/C Summary on this account. I was not involved in the patient management Judy Ellington NP ([place]) Apr 23, 2017 14:09
== END 2017-04-20 17:30 | DRG 871 ==
LOC: EDBD 12:11 → EMR 12:40 → ICU 13:25 → EDBEDREQ 13:31 → 2E 04-16 12:15 → 4W 04-17 15:01
DX: A41.9 Sepsis, unspecified organism (principal); R65.21 Severe sepsis with septic shock; G93.40 Encephalopathy, unspecified; J15.212 Pneumonia due to Methicillin resistant Staphylococcus aureus; N17.9 Acute kidney failure, unspecified; I50.9 Heart failure, unspecified; D69.6 Thrombocytopenia, unspecified; E11.9 Type 2 diabetes mellitus without complications; D63.8 Anemia in other chronic diseases classified elsewhere; R53.2 Functional quadriplegia; Z43.1 Encounter for attention to gastrostomy; I69.351 Hemiplegia and hemiparesis following cerebral infarction affecting right dominant side; R56.9 Unspecified convulsions; J44.9 Chronic obstructive pulmonary disease, unspecified; K59.00 Constipation, unspecified; Z88.1 Allergy status to other antibiotic agents; Z88.0 Allergy status to penicillin; I69.320 Aphasia following cerebral infarction; K56.41 Fecal impaction; K57.90 Diverticulosis of intestine, part unspecified, without perforation or abscess without bleeding; N28.89 Other specified disorders of kidney and ureter; K40.90 Unilateral inguinal hernia, without obstruction or gangrene, not specified as recurrent; Z79.01 Long term (current) use of anticoagulants
CPT/HCPCS: 36415; 36600; 71010; 74000; 74177; 80053; 80150; 80202; 81003; 82248; 82270; 82550; 82553; 82728; 82803; 82962; 83540; 83550; 83605; 83735; 84100; 84443; 84484; 85007; 85025; 85044; 85610; 85651; 85730; 86140; 86703; 86705; 86709; 86803; 87040; 87070; 87086; 87181; 87205; 87340; 93005; 93306; 94664; 94760; J1580; J1815